=== PATIENT | female | born 1950 | race Caucasian/White ===

== ENCOUNTER → 2017-01-04 | Outpatient (CLI) | payer BC ==
[~2017-01-04] MED LIST: ACYC1CAP8 PO; BACL10TA PO; BUPR-79 PO; EZET10TA38 PO; FLUO20CA34 PO; GABA-113 PO; OXYC-57 PO; TRAM-10 PO; ZOLP10TA PO
[2017-01-04 10:52] LABS: BLOOD UREA NITROGEN 20 mg/dl (7-18); BUN/CREATININE RATIO 22.4 (10-20); CREATININE 0.91 mg/dl (0.60-1.20)
== END | disposition home or self-care (01) ==
LOC: C.LAB1850 09:28
PROVIDERS: ATTEND Internal Medicine
DX: M85.80 Other specified disorders of bone density and structure, unspecified site (principal)

== ENCOUNTER → 2017-01-04 | Outpatient (CLI) | payer BC | END | disposition home or self-care (01) | LOC: C.RDSM 10:24 | PROVIDERS: ATTEND Physical Medicine & Rehabilitation Sports Medicine | DX: M54.2 Cervicalgia (principal) ==

== ENCOUNTER → 2017-03-01 | Outpatient (CLI) | payer BC ==
[~2017-03-01] MED LIST changes: +ACYC-57 PO; -ACYC1CAP8 PO; +PROP1TAB53
--- NOTE | 2017-03-01 11:08 | DIAGNOSTIC IMAGING REPORT ---
CERVICAL SPINE MRI HISTORY: Breast cancer. Left shoulder pain. CERVICALGIA TECHNIQUE: Multiplanar multisequence MRI of the cervical spine was performed without the use of contrast. COMPARISON STUDY: Cervical spine MRI 12/22/2015. FINDINGS: Mild reversal of the normal lordotic curvature. Alignment is intact. Prevertebral soft tissues and the C1-C2 interval are maintained. The visualized posterior fossa is unremarkable. The cervical spinal cord is normal in course, caliber, and signal intensity. There is diffuse disc desiccation and mild diffuse disc space narrowing throughout the cervical spine. This is similar to the prior study. C2-C3: No significant central canal or neural foraminal narrowing. C3-C4: Small broad-based posterior disc bulge without significant central canal or right-sided neural foraminal narrowing. There is mild left-sided neural foraminal narrowing, unchanged. C4-C5: Small broad-based posterior disc bulge without significant central canal or right-sided neural foraminal narrowing. There is also a 4 mm left paracentral/foraminal disc protrusion which compresses the exiting left nerve root at this level and results in severe left-sided neural foraminal narrowing. C5-C6: Broad-based posterior disc bulge resulting in partial effacement of the anterior thecal sac without cord deformity. No significant right-sided neural foraminal narrowing. There is also left uncovertebral hypertrophy with the disc bulge resulting in severe left-sided neural foraminal narrowing. This remains unchanged C6-C7: Broad-based posterior disc bulge without significant central canal or right-sided neural foraminal narrowing. There is mild left-sided neural foraminal narrowing. This remains unchanged. There is a stable 8 mm lateral meningocele adjacent to the right C6-C7 neural foramen. This is considered to be a normal variant C7-T1: No significant central canal or right-sided neural foraminal narrowing. Mild left-sided neural foraminal narrowing due to the uncovertebral hypertrophy. IMPRESSION: 1. Overall, similar appearance to the 2016 examination. 2. No acute fractures. 3. Mild reversal of the normal lordotic curvature. 4. Multilevel degenerative changes as described above. This is most pronounced at the C4-C5 level which demonstrates a broad-based posterior disc bulge and a 4 mm left paracentral/foraminal disc protrusion. This compresses the exiting left nerve root at this level. Electronically signed by: Jet Escobedo M.D. 03/01/2017 11:06 AM Dictated Date/Time: 03/01/2017 10:49 AM
== END | disposition home or self-care (01) ==
LOC: C.MRI 09:47
PROVIDERS: ATTEND Physician Assistant
DX: M54.2 Cervicalgia (principal); M79.2 Neuralgia and neuritis, unspecified

== ENCOUNTER → 2017-07-21 | Outpatient (CLI) | payer OTHER, BC ==
[~2017-07-21] MED LIST changes: -ACYC-57 PO; +ACYC1CAP8 PO; -OXYC-57 PO; -PROP1TAB53
[2017-07-21 13:13] LABS: ALT/SGPT 45 U/L (12-78); BLOOD UREA NITROGEN 27 mg/dl (7-18); CALCIUM 8.9 mg/dl (8.5-10.1); CARBON DIOXIDE 25 mmol/L (21-32); CHLORIDE 105 mmol/L (98-107); CREATININE 0.99 mg/dl (0.60-1.20); GLUCOSE 75 mg/dl (70-99); POTASSIUM 4.2 mmol/L (3.5-5.1); SODIUM 139 mmol/L (136-145)
[2017-07-21 13:16] LABS: ALB/GLOB RATIO 1.2 (0.9-2); ALKALINE PHOSPHATASE 58 U/L (45-117); AST/SGOT 42 U/L (15-37); CHOLESTEROL 239 mg/dl (0-200); CHOLESTEROL/HDL RATIO 2.4; HDL CHOLESTEROL 99 mg/dl; LDL CHOLESTEROL CALCULATED 123 mg/dl; TRIGLYCERIDES 83 mg/dl (0-150); VERY LOW DENSITY LIPOPROT CALC 17 mg/dl
== END | disposition home or self-care (01) ==
LOC: C.LAB1850 11:00
PROVIDERS: ATTEND Internal Medicine
DX: E78.5 Hyperlipidemia, unspecified (principal); E55.9 Vitamin D deficiency, unspecified

== ENCOUNTER → 2017-10-25 | Outpatient (CLI) | payer OTHER, BC ==
[~2017-10-25] MED LIST changes: +ACYC-57 PO; -ACYC1CAP8 PO; -GABA-113 PO; +PROP1TAB53
== END | disposition home or self-care (01) ==
LOC: C.LAB 12:08
PROVIDERS: ATTEND Internal Medicine Endocrinology, Diabetes & Metabolism
DX: Z85.3 Personal history of malignant neoplasm of breast (principal)

== ENCOUNTER → 2018-02-21 | Outpatient (CLI) | payer OTHER, BC | END | disposition home or self-care (01) | LOC: C.LAB 16:34 | PROVIDERS: ATTEND Internal Medicine | DX: E78.5 Hyperlipidemia, unspecified (principal); E55.9 Vitamin D deficiency, unspecified ==

== ENCOUNTER → 2018-05-17 | Outpatient (CLI) | payer OTHER, BC ==
--- NOTE | 2018-05-17 12:25 | DIAGNOSTIC IMAGING REPORT ---
(CHEST) THORAX WITHOUT CT DOSE: 185.88 mGycm HISTORY: Lung nodules J18.9 TECHNIQUE: Multiaxial CT images of the chest were performed without contrast. A dose lowering technique was utilized adhering to the principles of ALARA. COMPARISON: 04/20/2018 FINDINGS: Considerable improvement in aeration of both hemithoraces. The interstitial as well as atelectatic changes the prior study are diminished. Fibrotic changes over the pulmonary apices also are improved. Granulomatous changes and fibrotic scarring of the left and to lesser extent right pulmonary apex appears stable. Scattered parenchymal nodules which have been described previously are nonprogressive. Baseline emphysematous change persists. IMPRESSION: 1. Improved exam. 2. Interstitial changes throughout both hemithoraces as well as a chronic apical fibrocalcific changes appear moderately improved 3. Residual asymmetric and fibrotic changes over the left and to a lesser extent right pulmonary apex with scattered nodularity considered unchanged. The above report was generated using voice recognition software. It may contain grammatical, syntax or spelling errors. Electronically signed by: Oneil Navarro M.D. 05/17/2018 12:24 PM Dictated Date/Time: 05/17/2018 12:17 PM
== END | disposition home or self-care (01) ==
LOC: C.CTS 11:47
PROVIDERS: ATTEND Physician Assistant
DX: J18.9 Pneumonia, unspecified organism (principal)

== ENCOUNTER 2023-06-08 17:19 | Inpatient (IN) ==
--- NOTE | 2023-06-08 17:31 | ED Triage Note ---
Date of Service June 08, 2023 History of Present Illness This patient was briefly evaluated while in triage. An abbreviated physical exam was performed. This patient is a 72-year-old Female who presents to the ED for evaluation of abnormal results. Referred by doctor for abnormal test results. Elevated LFT, WBC elevation, cologuard positive. Feeling unwell, fatigue, right low back shingles per patient. Acyclovir last night and today. Hx spine fx 1 year ago. Since then decline. Physical Exam GENERAL: 72 year old female. In no acute distress. SKIN: No lesions or rashes. HEART: Regular rate and rhythm. LUNGS: Clear to auscultation. ABDOMEN: Bowel sounds normoactive. No guarding or rigidity. No tenderness of palpation. NEURO: Alert and oriented. No deficits. MUSCULOSKELETAL: No deformities to inspection of the extremities. PSYCH: Patient is pleasant and answers all questions appropriately. Initial orders for labs and / or imaging were placed and patient was placed in the waiting area until a bed is available. Please see further documentation for the full ED course.
[2023-06-08 18:16] LABS: Basophils # (auto) 0.06 K/uL (0.00-0.20); Basophils % (auto) 0.4 %; Eosinophils # (auto) 0.54 K/uL (0.00-0.50); Hematocrit (blood only) 36.2 % (37.0-47.0); Hemoglobin 11.5 g/dl (12.0-16.0); Immature Granulocytes # (auto) 0.07 K/uL (0.01-0.20); Immature Granulocytes % (auto) 0.5 %; Lymphocytes # (auto) 1.42 K/uL (1.20-3.40); Lymphocytes % (auto) 10.6 %; Mean Corpuscular Hemoglobin 25.7 pg (25.0-34.0); Mean Corpuscular Hgb Conc 31.8 g/dL (32.0-36.0); Mean Platelet Volume 10.4 fL (9.4-12.4); Monocytes # (auto) 0.81 K/uL (0.11-0.59); Neutrophils # (auto) 10.55 K/uL (1.40-6.50); Neutrophils % (auto) 78.5 %; Platelet Count 298 K/uL (130-400); RDW Coefficient of Variation 13.8 % (11.5-14.5); RDW Standard Deviation 40.2 fL (36.4-46.3); Red Blood Count 4.47 M/uL (4.20-5.40); White Blood Count 13.45 K/ul (4.8-10.8)
[2023-06-08 18:49] LABS: Albumin Globulin Ratio 1.2 (0.9-2); Albumin Level 3.8 gm/dl (3.4-5.0); BUN Creatinine Ratio 24.3 (10-20); Bilirubin,Total 0.5 mg/dl (0.2-1.0); Creatinine Clr Calc Pharmacy 48.9 ml/min; Est GFR (African American) 101.7 ml/min; Est GFR (Non-African American) 87.8 ml/min; Globulin 3.1 gm/dl (2.5-4.0); Magnesium 1.8 mg/dl (1.7-2.4); Potassium 4.1 mmol/L (3.5-5.1); Total Protein 6.9 gm/dl (6.0-8.3)
[2023-06-08 18:56] LABS: Partial Thromboplastin Ratio 0.9; Partial Thromboplastin Time 26.7 Seconds (21.0-31.0)
[2023-06-08 18:58] LABS: C Reactive Protein 3.65 mg/dl (0-0.5)
[2023-06-08] MEDS ORDERED: SODIUM CHLORIDE 0.9% 1,000 ML IV ONE (19:01)
--- NOTE | 2023-06-08 19:13 | Emergency Department Note ---
Impression & Plan Abnormal LFTs, Biliary tract obstruction, Pneumonia ED Provider Note NAME: MULU MARTINEZ AGE: 72 SEX: F : 1950 ARRIVES VIA: Walk-In INFORMANT: Patient, ED PROVIDER(S): Pietro Strickland DO CHIEF COMPLAINT: Abnormal liver function studies HPI: The patient is a 72-year-old female who presented to the emergency department for an evaluation of abnormal liver function studies. The patient has been following with her primary care physician for multiple complaints over the course the last month. She has been having back pain but this is chronic for her. She denies having any fever but has noticed chills. She denies dysuria or frequency. She denies chest pain or abdominal pain. The patient was found to have an elevation in her white blood cell count as well as abnormal liver function studies. She had an ultrasound of the right upper quadrant which showed no acute disease. She has a history of breast cancer. She states that she has had weight loss over the last year. She also notices that she had an outbreak of a rash on her buttocks which is similar to episodes she has had in the past of herpes. She went to see her family doctor today and was referred to the emergency department. She does have heme positive stool. She was referred for Cologuard and then colonoscopy. She states that she was sent to the emerge ncy department for CT of the chest abdomen pelvis. ROS: See above HPI for pertinent positives & negatives. A total of 10 systems reviewed and were otherwise negative. PAST MEDICAL HISTORY: See Below PAST SURGICAL HISTORY: See Below FAMILY HISTORY: See Below SOCIAL HISTORY: See Below HOME MEDICATIONS: See Below ALLERGIES: See Below VITALS: See Below PHYSICAL EXAMINATION: GENERAL: Patient is awake alert in no acute distress patient is resting comfortably and showing no signs of anxiety EYES: The conjunctivae are clear. The pupils are round and reactive. EARS, NOSE, MOUTH AND THROAT: The nose is without any evidence of any deformity. NECK: The neck is nontender and supple. RESPIRATORY: Normal respiratory effort is noted there is no evidence of wheezing rhonchi or rales CARDIOVASCULAR: Regular rate and rhythm noted there no murmurs rubs or gallops normal S1 normal S2. GASTROINTESTINAL: The abdomen is soft. Abdomen is nontender. MUSCULOSKELETAL/EXTREMITIES: There is no evidence of gross deformity full range of motion is noted in the hips and shoulders. SKIN: Skin was warm and dry. There is no significant pedal edema. NEUROLOGIC: Patient is awake alert and oriented x3 strength is symmetric patellar reflexes are 2+ bilaterally MEDICAL DECISION MAKING: The patient is a 72-year-old female who presented to the emergency department at the request of her primary care physician. The patient's been having fatigue and fever over the course the last month. She had outpatient labs recently that showed an elevation in her LFTs as well as an elevation in her white blood cell count. She had other outpatient studies including hepatitis panel as well as tickborne illness but this did not show any cause for the patient's symptoms. She also had an ultrasound which did not explain the patient's findings. Ult imately she did have repeat labs and her white blood cell count is improving. LFTs showed no elevation in her bilirubin but she was sent to the emergency department for further work-up including CAT scan. I discussed the patient's laboratory and radiographic studies with her. She was found to have a possible mass in her biliary ductal system. They recommended further work-up. This still could represent a cholangitis given the patient's elevated white blood cell count. She was treated with IV fluids and IV antibiotics. I discussed her condition with the on-call manager [employer] as well as the on-call [facility] hospitalist. They have agreed to evaluate the patient in the emergency department for further management and disposition. Triage Nursing notes reviewed. Prior medical records reviewed Vital Signs: reviewed and remarkable for elevated blood pressure. Differential diagnosis: Infection, dehydration, metabolic abnormality, hypo/hyperglycemia, electrolyte disturbance, anemia, hypoxia, cardiac sources, intracerebral event, toxicologic, neurologic, as well as other pathologies. ER treatment provided: See below Diagnostics interpreted by me: ECG: EKG was obtained in the emergency department. My interpretation is normal sinus rhythm at 72 bpm. LVH was noted by voltage criteria. Nonspecific ST segment abnormalities were also noted. This was compared to a tracing from August 20, 2022. No changes were noted. Cardiac Monitoring: An order was placed for continuous cardiac monitoring. The monitor shows a rate of 73 bpm with sinus rhythm Laboratory studies: As stated above and show below. Imaging studies: See below. Radiographic imaging was reviewed by myself Consultation(s): I discussed this case with Dr. Mcrcary who is on for GI. I discussed this case with Dr. Marcelo who is on-call for the [facility] hospitalist group. Past Med/Surg History Medical History Anemia APC (atrial premature contractions) Body aches Breast cancer 1991 Cardiac murmur NO ISSUES Chills Community acquired pneumonia Congestion of nasal sinus COVID Depression Dermatitis Elevated brain natriuretic peptide (BNP) level Fatigue Heartburn History of anesthesia reaction GETS BAD ANXIETY WITH TWILIGHT SEDATION History of antineoplastic chemotherapy History of malignant neoplasm of breast History of osteoporosis Hyperlipidemia Interstitial lung disease DOENST FOLLOW LUNG DOCTOR > DOESNT HAVE ISSUES WITH Mass of arm Pneumonia due to COVID-19 virus Prediabetes PVC (premature ventricular contraction) Stroke 20 YRS AGO > WORKUP SINCE HAS BEEN FINE > NUMBNESS RIGHT HAND > NO MORE FOLLOW UP Syncope and collapse Surgical History Closed fracture of clavicle (11/23/14) RIGHT, ORIF [place] H/O tubal ligation History of colonoscopy History of lung biopsy History of removal of ovarian cyst Hx of bilateral mastectomy WITH RECONSTRUCTION Hx of hand surgery (03/19/16) LEFT index finger revision amp with Volar VY advancement flap-[place] Hx of left cataract extraction Hx of surgical procedure CAROTID BYPASS > 20 YRS AGO Hx of surgical procedure COLLAR BONE BROKEN BOTH SIDES > PLATES TO BOTH SIDES S/P craniotomy 27 YRS AGO > [facility] S/P excision of lipoma FINAL DIAGNOSIS Soft tissue, left forearm, "mass" (excision): In office procedure Chambers 02/04/2022 - Lipoma. Family History Father Colorectal cancer Brother Esophageal cancer Mother Lung cancer Denies family history of Ovarian cancer Prostate cancer Myocardial infarction Breast cancer Social History Smoking Status: Current every day smoker Tobacco Type: Cigarettes packs per day: 1; Second Hand Exposure: Yes; Do You Dip or Chew Tobacco: No; Hx Alcohol Use: No (h/o substance abuse in family therefore avoids) Hx Substance Use: No Preferred Language: Urdu Communication Ability: Effective Visual Impairment: No Limitations Hearing Ability: Normal Protective Signal Repairer Helper Required: No Beliefs That Will Affect Care: None marital status: Current Living Situation: Spouse Current Living Situation Comment: [place] current occupational status: retired 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 [place] Feels Safe at Home: Yes Childhood Exposure to Second-Hand Smoke: Yes Diet: regular during the past year weight has: remained stable Dental Care, Regularly: Yes Physical Activity Frequency: Daily Seatbelt Use: always Sunscreen Use: Yes Assistive Devices: Contacts Allergies Allergies Allergy/AdvReac Type Severity Reaction Status Date / Time tramadol AdvReac Severe Seizure Verified 06/08/23 13:09 Home Meds Home Medications Medication Instructions Recorded Confirmed ascorbic acid 1,000 1 ea PO DAILY 08/20/20 06/08/23 fw-ysovvumnurxr-bciliepd powder effervescent pack (Emergen-C) Previous Rx's Medication Instructions Recorded blood sugar diagnostic (OneTouch #100 ea 07/24/21 Ultra Test strips) blood sugar diagnostic (Reveal #100 ea 07/28/21 Test Strip) ezetimibe 10 mg tablet 10 mg PO DAILY #90 tabs 11/15/22 fluoxetine 40 mg capsule 80 mg PO PM depression #180 caps 11/15/22 levetiracetam 500 mg tablet 500 mg PO BID 90 days #180 tabs 11/15/22 (Keppra) rosuvastatin 5 mg tablet 5 mg PO DAILY #90 tabs 11/15/22 ibandronate 150 mg tablet (Boniva) 150 mg PO Q4WK #12 tabs 11/24/22 ondansetron HCl 4 mg tablet 4 mg PO Q8H PRN nausea and 12/20/22 vomiting #30 tabs albuterol sulfate 90 mcg/actuation 1 - 2 puff inhalation Q4H PRN 02/21/23 aerosol inhaler interstitial lung disease #18 grams zolpidem 10 mg tablet 10 mg PO HS PRN insomnia 30 days 02/22/23 #30 tabs celecoxib 100 mg capsule (Celebrex) 100 mg PO BID #60 caps 03/09/23 duloxetine 20 mg capsule,delayed 20 mg PO BID #60 caps 05/11/23 release (Cymbalta) amiodarone 100 mg tablet 100 mg PO BID #18 tabs 05/23/23 oxycodone 5 mg tablet 5 mg PO BID PRN pain 7 days #14 06/02/23 tabs Results & Data (ED) Vital Signs Vital Signs - 24 hr 06/08/23 17:29 06/08/23 18:38 06/08/23 22:57 Temperature 36.9 C Temperature Source Temporal Artery Scan Pulse Rate 82 76 Pulse Rate [Right Finger] 75 Pulse Rate from SpO2 Sensor Pulse Rhythm [Right Finger] Respiratory Rate 18 19 20 Respiratory Effort / Characteristics Non-Labored Respiratory Depth Normal Blood Pressure 122/72 Blood Pressure [Right Arm] 151/79 H Blood Pressure Mean 88 Blood Pressure Mean [Right Arm] 103 Pulse Oximetry 92 97 93 Oxygen Delivery Method Room Air Room Air Sepsis Recent Fever Within 48 Hours No Sepsis New/Unexplained Change in Mental Status No Sepsis Action Taken by Nursing No Action Required 06/08/23 20:00 06/08/23 22:00 06/08/23 23:00 Temperature Temperature Source Pulse Rate 73 Pulse Rate [Right Finger] Pulse Rate from SpO2 Sensor 67 Pulse Rhythm [Right Finger] Regular Regular Respiratory Rate 23 Respiratory Effort / Characteristics Respiratory Depth Blood Pressure 161/92 H Blood Pressure [Right Arm] Blood Pressure Mean 115 Blood Pressure Mean [Right Arm] Pulse Oximetry 94 Oxygen Delivery Method Sepsis Recent Fever Within 48 Hours Sepsis New/Unexplained Change in Mental Status Sepsis Action Taken by Nursing 06/08/23 22:56 Temperature Temperature Source Pulse Rate 74 Pulse Rate [Right Finger] Pulse Rate from SpO2 Sensor Pulse Rhythm [Right Finger] Respiratory Rate Respiratory Effort / Characteristics Respiratory Depth Blood Pressure Blood Pressure [Right Arm] Blood Pressure Mean Blood Pressure Mean [Right Arm] Pulse Oximetry Oxygen Delivery Method Sepsis Recent Fever Within 48 Hours Sepsis New/Unexplained Change in Mental Status Sepsis Action Taken by [facility]pc Medications Current Medication List: was personally reviewed by me Laboratory Data Attestation: I reviewed the patient's lab results. 06/08/23 17:40 06/08/23 17:40 Lab Results 06/08/23 06/08/23 06/08/23 Range/Units 17:40 17:40 17:40 WBC 13.45 H (4.8-10.8) K/ul RBC 4.47 (4.20-5.40) M/uL Hgb 11.5 L (12.0-16.0) g/dl Hct 36.2 L (37.0-47.0) % MCV 81.0 (80.0-100.0) fL MCH 25.7 (25.0-34.0) pg MCHC 31.8 L (32.0-36.0) g/dL RDW Std Deviation 40.2 (36.4-46.3) fL RDW Coeff of Marcio 13.8 (11.5-14.5) % Plt Count 298 (130-400) K/uL MPV 10.4 (9.4-12.4) fL Immature Gran % (Auto) 0.5 % Neut % (Auto) 78.5 % Lymph % (Auto) 10.6 % [place] % (Auto) 6.0 % Eos % (Auto) 4.0 % Baso % (Auto) 0.4 % Neut # (Auto) 10.55 H (1.40-6.50) K/uL Lymph # (Auto) 1.42 (1.20-3.40) K/uL [place] # (Auto) 0.81 H (0.11-0.59) K/uL Eos # (Auto) 0.54 H (0.00-0.50) K/uL Baso # (Auto) 0.06 (0.00-0.20) K/uL Immature Gran # (Auto) 0.07 (0.01-0.20) K/uL ESR (0-30) mm/hr PT 11.0 (9.0-12.0) Seconds INR 1.0 (0.9-1.1) APTT 26.7 (21.0-31.0) Seconds PTT Ratio 0.9 Sodium 138 (136-145) mmol/L Potassium 4.1 (3.5-5.1) mmol/L Chloride 104 (98-107) mmol/L Carbon Dioxide 27 (21-32) mmol/L Anion Gap 7 (3-11) BUN 17 (6-23) mg/dl Creatinine 0.70 (0.6-1.2) mg/dl Est Cr Clr Drug Dosing 48.9 ml/min Est GFR ( Amer) 101.7 ml/min Est GFR (Non-Af Amer) 87.8 ml/min BUN/Creatinine Ratio 24.3 H (10-20) Glucose 95 (70-99(Fasting)) mg/dl Lactate (0.4-2.0) mmol/L Calcium 9.0 (8.6-10.3) mg/dl Magnesium 1.8 (1.7-2.4) mg/dl Total Bilirubin 0.5 (0.2-1.0) mg/dl AST 77 H (13-39) U/L ALT 142 H (7-52) U/L Alkaline Phosphatase 112 H (34-104) U/L Troponin I High Sens 12.5 (0-14) pg/ml C-Reactive Protein 3.65 H (0-0.5) mg/dl Total Protein 6.9 (6.0-8.3) gm/dl Albumin 3.8 (3.4-5.0) gm/dl Globulin 3.1 (2.5-4.0) gm/dl Albumin/Globulin Ratio 1.2 (0.9-2) Lipase 25 (11-82) U/L Procalcitonin (0-0.5) ng/ml Urine Color Urine Appearance (Clear) Urine pH (4.5-7.5) Ur Specific [place] (1.000-1.030) Urine Protein (Negative) Urine Glucose (UA) (Negative) Urine Ketones (Negative) Urine Blood (Negative) Urine Nitrite (Negative) Urine Bilirubin (Negative) Urine Urobilinogen (Negative) Ur Leukocyte Esterase (Negative) 06/08/23 06/08/23 06/08/23 Range/Units 17:40 17:40 17:40 WBC (4.8-10.8) K/ul RBC (4.20-5.40) M/uL Hgb (12.0-16.0) g/dl Hct (37.0-47.0) % MCV (80.0-100.0) fL MCH (25.0-34.0) pg MCHC (32.0-36.0) g/dL RDW Std Deviation (36.4-46.3) fL RDW Coeff of Marcio (11.5-14.5) % Plt Count (130-400) K/uL MPV (9.4-12.4) fL Immature Gran % (Auto) % Neut % (Auto) % Lymph % (Auto) % [place] % (Auto) % Eos % (Auto) % Baso % (Auto) % Neut # (Auto) (1.40-6.50) K/uL Lymph # (Auto) (1.20-3.40) K/uL [place] # (Auto) (0.11-0.59) K/uL Eos # (Auto) (0.00-0.50) K/uL Baso # (Auto) (0.00-0.20) K/uL Immature Gran # (Auto) (0.01-0.20) K/uL ESR 55 H (0-30) mm/hr PT (9.0-12.0) Seconds INR (0.9-1.1) APTT (21.0-31.0) Seconds PTT Ratio Sodium (136-145) mmol/L Potassium (3.5-5.1) mmol/L Chloride (98-107) mmol/L Carbon Dioxide (21-32) mmol/L Anion Gap (3-11) BUN (6-23) mg/dl Creatinine (0.6-1.2) mg/dl Est Cr Clr Drug Dosing ml/min Est GFR ( Amer) ml/min Est GFR (Non-Af Amer) ml/min BUN/Creatinine Ratio (10-20) Glucose (70-99(Fasting)) mg/dl Lactate 1.3 (0.4-2.0) mmol/L Calcium (8.6-10.3) mg/dl Magnesium (1.7-2.4) mg/dl Total Bilirubin (0.2-1.0) mg/dl AST (13-39) U/L ALT (7-52) U/L Alkaline Phosphatase (34-104) U/L Troponin I High Sens (0-14) pg/ml C-Reactive Protein (0-0.5) mg/dl Total Protein (6.0-8.3) gm/dl Albumin (3.4-5.0) gm/dl Globulin (2.5-4.0) gm/dl Albumin/Globulin Ratio (0.9-2) Lipase (11-82) U/L Procalcitonin 0.11 (0-0.5) ng/ml Urine Color Urine Appearance (Clear) Urine pH (4.5-7.5) Ur Specific [place] (1.000-1.030) Urine Protein (Negative) Urine Glucose (UA) (Negative) Urine Ketones (Negative) Urine Blood (Negative) Urine Nitrite (Negative) Urine Bilirubin (Negative) Urine Urobilinogen (Negative) Ur Leukocyte Esterase (Negative) 06/08/23 Range/Units 22:55 WBC (4.8-10.8) K/ul RBC (4.20-5.40) M/uL Hgb (12.0-16.0) g/dl Hct (37.0-47.0) % MCV (80.0-100.0) fL MCH (25.0-34.0) pg MCHC (32.0-36.0) g/dL RDW Std Deviation (36.4-46.3) fL RDW Coeff of Marcio (11.5-14.5) % Plt Count (130-400) K/uL MPV (9.4-12.4) fL Immature Gran % (Auto) % Neut % (Auto) % Lymph % (Auto) % [place] % (Auto) % Eos % (Auto) % Baso % (Auto) % Neut # (Auto) (1.40-6.50) K/uL Lymph # (Auto) (1.20-3.40) K/uL [place] # (Auto) (0.11-0.59) K/uL Eos # (Auto) (0.00-0.50) K/uL Baso # (Auto) (0.00-0.20) K/uL Immature Gran # (Auto) (0.01-0.20) K/uL ESR (0-30) mm/hr PT (9.0-12.0) Seconds INR (0.9-1.1) APTT (21.0-31.0) Seconds PTT Ratio Sodium (136-145) mmol/L Potassium (3.5-5.1) mmol/L Chloride (98-107) mmol/L Carbon Dioxide (21-32) mmol/L Anion Gap (3-11) BUN (6-23) mg/dl Creatinine (0.6-1.2) mg/dl Est Cr Clr Drug Dosing ml/min Est GFR ( Amer) ml/min Est GFR (Non-Af Amer) ml/min BUN/Creatinine Ratio (10-20) Glucose (70-99(Fasting)) mg/dl Lactate (0.4-2.0) mmol/L Calcium (8.6-10.3) mg/dl Magnesium (1.7-2.4) mg/dl Total Bilirubin (0.2-1.0) mg/dl AST (13-39) U/L ALT (7-52) U/L Alkaline Phosphatase (34-104) U/L Troponin I High Sens (0-14) pg/ml C-Reactive Protein (0-0.5) mg/dl Total Protein (6.0-8.3) gm/dl Albumin (3.4-5.0) gm/dl Globulin (2.5-4.0) gm/dl Albumin/Globulin Ratio (0.9-2) Lipase (11-82) U/L Procalcitonin (0-0.5) ng/ml Urine Color Yellow Urine Appearance Clear (Clear) Urine pH 7.5 (4.5-7.5) Ur Specific [place] 1.042 H (1.000-1.030) Urine Protein Negative (Negative) Urine Glucose (UA) Negative (Negative) Urine Ketones Negative (Negative) Urine Blood Negative (Negative) Urine Nitrite Negative (Negative) Urine Bilirubin Negative (Negative) Urine Urobilinogen Negative (Negative) Ur Leukocyte Esterase Negative (Negative) Administered Medications Discontinued Medications Sodium Chloride (Nss 1000ml) 1,000 mls @ 999 mls/hr IV .Q1H1M ONE Stop: 06/08/23 20:01 Last Infusion: 06/08/23 23:13 Dose: 0 mls/hr Documented By: Admin: 06/08/23 19:46 Dose: 999 mls/hr Documented By: LUIS Piperacillin Sod/Tazobactam Sod (Zosyn) 4.5 gm in 120 mls @ 240 mls/hr IV NOW ONE Stop: 06/08/23 20:55 Last Infusion: 06/08/23 23:12 Dose: 0 mls/hr Documented By: Admin: 06/08/23 20:53 Dose: 240 mls/hr Documented By: LUIS Ioversol (Ioversol 350 Mg 125ml Prefilled Syringe) 118 ml IV ONCE ONE Stop: 06/08/23 19:34 Last Admin: 06/08/23 19:33 Dose: 118 ml Documented By: CHARISSA Levetiracetam (Levetiracetam 500 Mg Tab) 500 mg PO NOW STA Stop: 06/08/23 21:53 Last Admin: 06/08/23 22:02 Dose: 500 mg Documented By: RICHARD Oxycodone HCl (Oxycodone Hcl Ir 5 Mg Tab (Immediate Release)) 5 mg PO NOW STA Stop: 06/08/23 21:53 Last Admin: 06/08/23 22:02 Dose: 5 mg Documented By: S Imaging Data Attestation: I personally reviewed and interpreted this imaging study as follows: My Impression: CT of the abdomen and pelvis was obtained in the emergency department. My interpretation is no free air or signs of bowel obstruction, final report below. CT of the chest was obtained in the emergency department. My interpretation is no free air. There was signs of infiltrate, final report below. Radiologist's Impression: Abdomen/Pelvis CT 06/08/23 18:56 Exam(s): CT ABDOMEN + PELVIS With Contrast IV Amt: 118ml EXAM: CT Abdomen and Pelvis With Intravenous Contrast CLINICAL HISTORY: Reason for exam: sent by PCP for CTs. TECHNIQUE: Axial computed tomography images of the abdomen and pelvis with intravenous contrast. CTDI is 29.68 mGy and DLP is 585.31 mGy-cm. Automated exposure control was utilized for the study. A dose lowering technique was utilized adhering to the principles of ALARA. CONTRAST: Patient received 118ml of IV contrast COMPARISON: 07/07/2022 FINDINGS: Lung bases: Extensive changes COPD and fibrosis at the lung bases. ABDOMEN: Liver: Unremarkable. No mass. Gallbladder and bile ducts: . Mild intrahepatic biliary ductal dilatation also noted. The pancreatic duct is also dilated measuring 0.5 cm in the pancreatic head. There is a suggestion of a 0.4 x 0.6 cm filling defect within the distal common bile duct near the ampulla. No calcified stones. Pancreas: See above. Spleen: Unremarkable. No splenomegaly. Adrenals: Unremarkable. No mass. Kidneys and ureters: Bilateral renal hypodensities measuring up to 1.1 cm on the right and 0.3 cm on the left. No hydronephrosis. Stomach and bowel: Large amount of stool within the colon. Wall thickening of the sigmoid colon. This is likely secondary to underdistention. PELVIS: Appendix: No findings to suggest acute appendicitis. Bladder: Unremarkable. No mass. Reproductive: Unremarkable as visualized. ABDOMEN and PELVIS: Intraperitoneal space: Unremarkable. No free air. No significant fluid collection. Bones/joints: No acute fracture. No dislocation. Soft tissues: Unremarkable. Vasculature: Unremarkable. No abdominal aortic aneurysm. Lymph nodes: Unremarkable. No enlarged lymph nodes. IMPRESSION: Common and pancreatic ductal dilatation secondary to a 0.5 cm mass within the distal common bile duct/ampulla. MRCP recommended for further evaluation. Electronically signed by: Janak Hudson MD 06/08/23 20:15 PM Chest CTA 06/08/23 18:56 Exam(s): CTA CHEST IV Amt: 118ml EXAM: CT Angiography Chest With Intravenous Contrast CLINICAL HISTORY: Reason for exam: PE. TECHNIQUE: Axial computed tomographic angiography images of the chest with intravenous contrast. CTDI is 29.68 mGy and DLP is 585.31 mGy-cm. Automated exposure control was utilized for the study. A dose lowering technique was utilized adhering to the principles of ALARA. 2D MIP reconstructed images were created and reviewed. COMPARISON: No relevant prior studies available. FINDINGS: Pulmonary arteries: Unremarkable. No pulmonary embolus. Aorta: No acute findings. No thoracic aortic aneurysm. Lungs: Unremarkable. No mass. No consolidation. Pleural space: Bilateral apical pleural thickening with diffuse emphysematous changes throughout the lungs. Patchy interstitial infiltrates are superimposed upon these fibrotic changes and are worsened when compared to prior exam. No significant effusion. No pneumothorax. Heart: Cardiomegaly. No significant pericardial effusion. No evidence of RV dysfunction. Mediastinum: Bilateral hilar lymphadenopathy is new when compared to prior exam. Bones/joints: Postoperative changes plate-screw fixation bilateral clavicular fractures. No dislocation. Soft tissues: Unremarkable. Lymph nodes: See above. IMPRESSION: 1. Extensive interstitial infiltrates throughout the lungs bilaterally which are worsened and new since prior exam and consistent with multifocal pneumonia 2. No pulmonary embolus 3. Other chronic findings as above Electronically signed by: Janak Hudson MD 06/08/23 20:20 PM Discharge Plan Visit Data Chief Complaint: Abnormal Labs/Diagnostic Testing Stated Complaint: REF BY , TOM RESULTS ED Provider: Pietro Strickland Discharge Problem: Abnormal LFTs, Biliary tract obstruction, Pneumonia Patient Disposition: Admitted As Inpatient Forms Stand Alone Forms: [facility] Prescriptions Prescriptions: No Action (DME) OneTouch Ultra Test Strip See Rx Instructions .Route Qty: 100 0RF Rx Instructions: As directed- 3x daily (DME) Reveal Test Strip Strip See Rx Instructions .Route Qty: 100 2RF Rx Instructions: testing 3 times daily ezetimibe 10 mg tablet 10 mg PO DAILY Qty: 90 3RF fluoxetine 40 mg capsule 80 mg PO PM Qty: 180 3RF rosuvastatin 5 mg tablet 5 mg PO DAILY Qty: 90 3RF Hold Instructions: Hold per Dr. Smith/elevated LFTs Rx Instructions: on hold levetiracetam [Keppra] 500 mg tablet 500 mg PO BID 90 Days Qty: 180 3RF ibandronate [Boniva] 150 mg tablet 150 mg PO Q4WK Qty: 12 1RF ondansetron HCl 4 mg tablet 4 mg PO Q8H PRN (Reason: nausea and vomiting) Qty: 30 0RF albuterol sulfate 90 mcg/actuation HFA aerosol inhaler 1 - 2 puff inhalation Q4H PRN (Reason: interstitial lung disease) Qty: 18 0RF Rx Instructions: RARE USE zolpidem 10 mg tablet 10 mg PO HS PRN (Reason: insomnia) 30 Days Qty: 30 5RF celecoxib [Celebrex] 100 mg capsule 100 mg PO BID Qty: 60 5RF amiodarone 100 mg tablet 100 mg PO BID Qty: 18 0RF Hold Instructions: Hold per Dr. Smith/elevated LFTs Rx Instructions: on hold oxycodone 5 mg tablet 5 mg PO BID PRN (Reason: pain) 7 Days Qty: 14 0RF Rx Instructions: Supervising physician Luis Antonio Kim [facility] [id number] [facility] [id number] duloxetine [Cymbalta] 20 mg capsule,delayed release(DR/EC) 20 mg PO BID Qty: 60 1RF Emergen-C 1,000 mg Powder Effervescent In Packet 1 ea PO DAILY Referrals Referrals: Luis Antonio Buck MD [Primary Care Provider] -
[2023-06-08 19:26] LABS: Troponin I High Sensitivity 12.5 pg/ml (0-14)
[2023-06-08] MEDS ORDERED: IOVERSOL 350 MG 125mL Prefilled Syringe IV ONE (19:33)
--- NOTE | 2023-06-08 20:16 | CT Scan Report ---
Exam(s): CT ABDOMEN + PELVIS With Contrast IV Amt: 118ml EXAM: CT Abdomen and Pelvis With Intravenous Contrast CLINICAL HISTORY: Reason for exam: sent by PCP for CTs. TECHNIQUE: Axial computed tomography images of the abdomen and pelvis with intravenous contrast. CTDI is 29.68 mGy and DLP is 585.31 mGy-cm. Automated exposure control was utilized for the study. A dose lowering technique was utilized adhering to the principles of ALARA. CONTRAST: Patient received 118ml of IV contrast COMPARISON: 07/07/2022 FINDINGS: Lung bases: Extensive changes COPD and fibrosis at the lung bases. ABDOMEN: Liver: Unremarkable. No mass. Gallbladder and bile ducts: . Mild intrahepatic biliary ductal dilatation also noted. The pancreatic duct is also dilated measuring 0.5 cm in the pancreatic head. There is a suggestion of a 0.4 x 0.6 cm filling defect within the distal common bile duct near the ampulla. No calcified stones. Pancreas: See above. Spleen: Unremarkable. No splenomegaly. Adrenals: Unremarkable. No mass. Kidneys and ureters: Bilateral renal hypodensities measuring up to 1.1 cm on the right and 0.3 cm on the left. No hydronephrosis. Stomach and bowel: Large amount of stool within the colon. Wall thickening of the sigmoid colon. This is likely secondary to underdistention. PELVIS: Appendix: No findings to suggest acute appendicitis. Bladder: Unremarkable. No mass. Reproductive: Unremarkable as visualized. ABDOMEN and PELVIS: Intraperitoneal space: Unremarkable. No free air. No significant fluid collection. Bones/joints: No acute fracture. No dislocation. Soft tissues: Unremarkable. Vasculature: Unremarkable. No abdominal aortic aneurysm. Lymph nodes: Unremarkable. No enlarged lymph nodes. IMPRESSION: Common and pancreatic ductal dilatation secondary to a 0.5 cm mass within the distal common bile duct/ampulla. MRCP recommended for further evaluation. Electronically signed by: Janak Hudson MD 06/08/23 20:15 PM
--- NOTE | 2023-06-08 20:21 | CT Scan Report ---
Exam(s): CTA CHEST IV Amt: 118ml EXAM: CT Angiography Chest With Intravenous Contrast CLINICAL HISTORY: Reason for exam: PE. TECHNIQUE: Axial computed tomographic angiography images of the chest with intravenous contrast. CTDI is 29.68 mGy and DLP is 585.31 mGy-cm. Automated exposure control was utilized for the study. A dose lowering technique was utilized adhering to the principles of ALARA. 2D MIP reconstructed images were created and reviewed. COMPARISON: No relevant prior studies available. FINDINGS: Pulmonary arteries: Unremarkable. No pulmonary embolus. Aorta: No acute findings. No thoracic aortic aneurysm. Lungs: Unremarkable. No mass. No consolidation. Pleural space: Bilateral apical pleural thickening with diffuse emphysematous changes throughout the lungs. Patchy interstitial infiltrates are superimposed upon these fibrotic changes and are worsened when compared to prior exam. No significant effusion. No pneumothorax. Heart: Cardiomegaly. No significant pericardial effusion. No evidence of RV dysfunction. Mediastinum: Bilateral hilar lymphadenopathy is new when compared to prior exam. Bones/joints: Postoperative changes plate-screw fixation bilateral clavicular fractures. No dislocation. Soft tissues: Unremarkable. Lymph nodes: See above. IMPRESSION: 1. Extensive interstitial infiltrates throughout the lungs bilaterally which are worsened and new since prior exam and consistent with multifocal pneumonia 2. No pulmonary embolus 3. Other chronic findings as above Electronically signed by: Janak Hudson MD 06/08/23 20:20 PM
[2023-06-08] MEDS ORDERED: PIPERACILLIN/TAZOBACTAM 4.5 GM/120 ML BAG IV ONE (20:26)
[2023-06-08] MEDS ORDERED: oxyCODONE HCL IR 5 MG TAB (IMMEDIATE RELEASE) PO STA (21:52)
[2023-06-08] MEDS ORDERED: levETIRAcetam 500 MG TAB PO STA (21:52)
[2023-06-08] MEDS ORDERED: ZOLPIDEM TARTRATE 10 MG TAB PO STA (21:52)
--- NOTE | 2023-06-08 21:52 | History & Physical Report ---
Date of Service June 08, 2023 Assessment & Plan (1) Biliary tract obstruction: Plan: 72yo female presenting with one month of feeling unwell, intermittent fevers/fatigue/rigors as well as significant unintentional weight loss. Outpatient labs from 04/02/23 with elevated WBC count as well as abnormal liver studies - improved on today's results. Still with elevation of AP to 112, AST=77 and JCS=869. Bilirubin is normal and WBC count has improved to 13.45. Patient has elevation of inflammatory markers ESR=55 and CRP=3.65 CT results as above with common and pancreatic ductal dilatation secondary to a 0.5cm mass in the distal CBD/Ampulla. Concern for malignancy -Admit to medical -Follow cultures sent from ER -Repeat CBC, BMP and LFTs in AM -MRCP ordered - patient with loop recorder in place -GI consultation appreciated -Will keep patient NPO after midnight for possible ERCP -Zosyn -Zofran PRN -Oxycodone PRN- no complaint of abdominal pain at this time (2) Pneumonia: Plan: Extensive interstitial infiltrates noted throughout the lungs bilaterally which are worse than prior image. Findings consistent with multifocal PNA. Possible worsening of her ILD? Procalcitonin is within normal range. -Check sputum culture -Check JUAN CARLOS level -Zosyn (3) Seizure: Plan: Patient follows with Neurology. -Continue Keppra 500mg po BID (4) Atrial flutter: Plan: Patient reports that her Amiodarone is currently on hold. No anticoagulation Loop recorder in place (5) Positive colorectal cancer screening using Cologuard test: Plan: Noted in outpatient records -Screening colonoscopy to be arranged by PCP F/E/N - D5 1/2NSS at 80mL/hr x 1L, electrolytes WNL, NPO for now Ppx - SCDs for now Code - Full per discussion with patient Dispo - Admit to medical History of Present Illness Chief Complaint: weakness, fatigue Primary Care Provider: Luis Antonio Buck MD Sima Daniel is a 72yo female with remote history of breast CA s/p bilateral mastectomy and chemotherapy, interstitial lung disease, seizure disorder pre senting with complaint of intermittent fever/rigors and general feeling of unwellness. Patient reports that she has not been feeling well for the last month. She has been experiencing intermittent fever, rigors and back pain - has occurred 3x over the last month. She has had progressive fatigue, decreased exercise tolerance and generally feels poor. She additionally has had a 20# unintentional weight loss over the last 6 months. She reports a decent appetite and good po intake. She has had nausea as well as episodes of watery, non-bloody/non-mucoid diarrhea for which she has been taking Imodium. Also with shortness of breath mostly noted at night. She has been using her inhaler. She denies headache, visual changes, imbalance, chest pain, cough, abdominal pain, vomiting, constipation or urinary complaints. No rashes or joint pain. No sick contacts, recent travel, dietary changes, tick bites. She drinks bottled water at home. Patient was seen by her PCP with these complaints on 06/02/23. She had labs performed which showed elevated WBC count of 20.8, VHT=860, ZVT=694, NC=472. UA was normal. Acute hepatitis panel was NEGATIVE. ANIYA was NEGATIVE. She was seen by her PCP again on 06/08/23 - found to have a positive colorectal screening test on Coluard - she has been ordered a colonoscopy. She was referred to the ER for continued workup. IN the ER she is afebrile, HD stable, NAD ER Course: Zosyn 4.5m IV NSS x 1L Keppra 500mg PO Oxycodone 5mg PO Allergies Allergy/AdvReac Type Severity Reaction Status Date / Time tramadol AdvReac Severe Seizure Verified 06/08/23 13:09 Home Medications Medication Instructions Recorded Confirmed Type ascorbic acid 1,000 1 ea PO DAILY 08/20/20 06/08/23 History gg-nnvlbynrblcn-cifdhfde powder effervescent pack (Emergen-C) blood sugar diagnostic (OneTouch #100 ea 07/24/21 06/08/23 Rx Ultra Test strips) blood sugar diagnostic (Reveal #100 ea 07/28/21 06/08/23 Rx Test Strip) ezetimibe 10 mg tablet 10 mg PO DAILY #90 tabs 11/15/22 06/08/23 Rx fluoxetine 40 mg capsule 80 mg PO PM depression #180 caps 11/15/22 06/08/23 Rx levetiracetam 500 mg tablet 500 mg PO BID 90 days #180 tabs 11/15/22 06/08/23 Rx (Keppra) rosuvastatin 5 mg tablet 5 mg PO DAILY #90 tabs 11/15/22 06/08/23 Rx ibandronate 150 mg tablet (Boniva) 150 mg PO Q4WK #12 tabs 11/24/22 06/08/23 Rx ondansetron HCl 4 mg tablet 4 mg PO Q8H PRN nausea and 12/20/22 06/08/23 Rx vomiting #30 tabs albuterol sulfate 90 mcg/actuation 1 - 2 puff inhalation Q4H PRN 02/21/23 06/08/23 Rx aerosol inhaler interstitial lung disease #18 grams zolpidem 10 mg tablet 10 mg PO HS PRN insomnia 30 days 02/22/23 06/08/23 Rx #30 tabs celecoxib 100 mg capsule (Celebrex) 100 mg PO BID #60 caps 03/09/23 06/08/23 Rx duloxetine 20 mg capsule,delayed 20 mg PO BID #60 caps 05/11/23 06/08/23 Rx release (Cymbalta) amiodarone 100 mg tablet 100 mg PO BID #18 tabs 05/23/23 06/08/23 Rx oxycodone 5 mg tablet 5 mg PO BID PRN pain 7 days #14 06/02/23 06/08/23 Rx tabs Past Med/Surg History Medical History Anemia APC (atrial premature contractions) Body aches Breast cancer 1991 Cardiac murmur NO ISSUES Chills Community acquired pneumonia Congestion of nasal sinus COVID Depression Dermatitis Elevated brain natriuretic peptide (BNP) level Fatigue Heartburn History of anesthesia reaction GETS BAD ANXIETY WITH TWILIGHT SEDATION History of antineoplastic chemotherapy History of malignant neoplasm of breast History of osteoporosis Hyperlipidemia Interstitial lung disease DOENST FOLLOW LUNG DOCTOR > DOESNT HAVE ISSUES WITH Mass of arm Pneumonia due to COVID-19 virus Prediabetes PVC (premature ventricular contraction) Stroke 20 YRS AGO > WORKUP SINCE HAS BEEN FINE > NUMBNESS RIGHT HAND > NO MORE FOLLOW UP Syncope and collapse Surgical History Closed fracture of clavicle (11/23/14) RIGHT, ORIF [place] H/O tubal ligation History of colonoscopy History of lung biopsy History of removal of ovarian cyst Hx of bilateral mastectomy WITH RECONSTRUCTION Hx of hand surgery (03/19/16) LEFT index finger revision amp with Volar VY advancement flap-[place] Hx of left cataract extraction Hx of surgical procedure CAROTID BYPASS > 20 YRS AGO Hx of surgical procedure COLLAR BONE BROKEN BOTH SIDES > PLATES TO BOTH SIDES S/P craniotomy 27 YRS AGO > [facility] S/P excision of lipoma FINAL DIAGNOSIS Soft tissue, left forearm, "mass" (excision): In office procedure [facility] 02/04/2022 - Lipoma. Family History Father Colorectal cancer Brother Esophageal cancer Mother Lung cancer Denies family history of Ovarian cancer Prostate cancer Myocardial infarction Breast cancer Social History Smoking Status: Current every day smoker Tobacco Type: Cigarettes packs per day: 1; Second Hand Exposure: Yes; Do You Dip or Chew Tobacco: No; Hx Alcohol Use: No (h/o substance abuse in family therefore avoids) Hx Substance Use: No Preferred Language: Kazakh Communication Ability: Effective Visual Impairment: No Limitations Hearing Ability: Normal Back Up Worker Required: No Beliefs That Will Affect Care: None marital status: Current Living Situation: Spouse Current Living Situation Comment: lives [place] in [place] current occupational status: retired 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 [facility] Feels Safe at Home: Yes Childhood Exposure to Second-Hand Smoke: Yes Diet: regular during the past year weight has: remained stable Dental Care, Regularly: Yes Physical Activity Frequency: Daily Seatbelt Use: always Sunscreen Use: Yes Assistive Devices: Contacts Review of Systems Review of Systems: All systems reviewed & are unremarkable except as noted in HPI & below Physical Exam Physical Exam: General: frail, cachectic female patient resting comfortably, NAD, non-toxic in appearance, AA&O x 4 Skin: warm, dry, intact, small skin tears on arms and hands HEENT: NC/AT, PERRL, EOMI, anicteric sclera, conjunctiva without injection, external ear normal to inspection and nontender, nares patent, moist mucus membranes, dentition intact, no oropharyngeal lesions, neck supple, trachea midline, no LAD, no thyromegaly, no JVD, scattered vesicular lesions right buttock redness of bilateral cheeks with sparing of the nasolabial folds Heart: +S1/S2, regular, no m/r/g, implanted loop recorder in place Lungs: equal air entry bilaterally, bilateral crackles, no wheezing or rhonchi Abd: +BS, soft, NT/ND, no masses/organomegaly/ascites Ext: warm, 2+ pulses in UE/LE bilaterally, no clubbing/cyanosis or edema, clubbing of left index finger Neuro: nonfocal, patient AA&O x 4, speech intact, no facial droop, moving all extremities on command with equal strength 5/5 Results & Data Results & Data Vital Signs (Past 12 Hours) Vital Signs Temp Pulse Pulse Resp BP BP Pulse Ox 06/08/23 18:38 75 19 151/79 H 97 06/08/23 17:29 36.9 C 82 18 122/72 92 O2 Del Method 06/08/23 18:38 Room Air 06/08/23 17:29 Room Air Laboratory Results Laboratory Results WBC 13.45 K/ul (4.8-10.8) H 06/08/23 17:40 RBC 4.47 M/uL (4.20-5.40) 06/08/23 17:40 Hgb 11.5 g/dl (12.0-16.0) L 06/08/23 17:40 Hct 36.2 % (37.0-47.0) L 06/08/23 17:40 MCV 81.0 fL (80.0-100.0) 06/08/23 17:40 MCH 25.7 pg (25.0-34.0) 06/08/23 17:40 MCHC 31.8 g/dL (32.0-36.0) L 06/08/23 17:40 RDW Std Deviation 40.2 fL (36.4-46.3) 06/08/23 17:40 RDW Coeff of Marcio 13.8 % (11.5-14.5) 06/08/23 17:40 Plt Count 298 K/uL (130-400) 06/08/23 17:40 MPV 10.4 fL (9.4-12.4) 06/08/23 17:40 Immature Gran % (Auto) 0.5 % 06/08/23 17:40 Neut % (Auto) 78.5 % 06/08/23 17:40 Lymph % (Auto) 10.6 % 06/08/23 17:40 [place] % (Auto) 6.0 % 06/08/23 17:40 Eos % (Auto) 4.0 % 06/08/23 17:40 Baso % (Auto) 0.4 % 06/08/23 17:40 Neut # (Auto) 10.55 K/uL (1.40-6.50) H 06/08/23 17:40 Lymph # (Auto) 1.42 K/uL (1.20-3.40) 06/08/23 17:40 [place] # (Auto) 0.81 K/uL (0.11-0.59) H 06/08/23 17:40 Eos # (Auto) 0.54 K/uL (0.00-0.50) H 06/08/23 17:40 Baso # (Auto) 0.06 K/uL (0.00-0.20) 06/08/23 17:40 Immature Gran # (Auto) 0.07 K/uL (0.01-0.20) 06/08/23 17:40 ESR 55 mm/hr (0-30) H 06/08/23 17:40 PT 11.0 Seconds (9.0-12.0) 06/08/23 17:40 INR 1.0 (0.9-1.1) 06/08/23 17:40 APTT 26.7 Seconds (21.0-31.0) 06/08/23 17:40 PTT Ratio 0.9 06/08/23 17:40 Sodium 138 mmol/L (136-145) 06/08/23 17:40 Potassium 4.1 mmol/L (3.5-5.1) 06/08/23 17:40 Chloride 104 mmol/L (98-107) 06/08/23 17:40 Carbon Dioxide 27 mmol/L (21-32) 06/08/23 17:40 Anion Gap 7 (3-11) 06/08/23 17:40 BUN 17 mg/dl (6-23) 06/08/23 17:40 Creatinine 0.70 mg/dl (0.6-1.2) 06/08/23 17:40 Est Cr Clr Drug Dosing 48.9 ml/min 06/08/23 17:40 Est GFR ( Amer) 101.7 ml/min 06/08/23 17:40 Est GFR (Non-Af Amer) 87.8 ml/min 06/08/23 17:40 BUN/Creatinine Ratio 24.3 (10-20) H 06/08/23 17:40 Glucose 95 mg/dl (70-99(Fasting)) 06/08/23 17:40 Lactate 1.3 mmol/L (0.4-2.0) 06/08/23 17:40 Calcium 9.0 mg/dl (8.6-10.3) 06/08/23 17:40 Magnesium 1.8 mg/dl (1.7-2.4) 06/08/23 17:40 Total Bilirubin 0.5 mg/dl (0.2-1.0) 06/08/23 17:40 AST 77 U/L (13-39) H 06/08/23 17:40 ALT 142 U/L (7-52) H 06/08/23 17:40 Alkaline Phosphatase 112 U/L (34-104) H 06/08/23 17:40 Troponin I High Sens 12.5 pg/ml (0-14) 06/08/23 17:40 C-Reactive Protein 3.65 mg/dl (0-0.5) H 06/08/23 17:40 Total Protein 6.9 gm/dl (6.0-8.3) 06/08/23 17:40 Albumin 3.8 gm/dl (3.4-5.0) 06/08/23 17:40 Globulin 3.1 gm/dl (2.5-4.0) 06/08/23 17:40 Albumin/Globulin Ratio 1.2 (0.9-2) 06/08/23 17:40 Lipase 25 U/L (11-82) 06/08/23 17:40 Procalcitonin 0.11 ng/ml (0-0.5) 06/08/23 17:40 Urine Color Yellow 06/08/23 22:55 Urine Appearance Clear (Clear) 06/08/23 22:55 Urine pH 7.5 (4.5-7.5) 06/08/23 22:55 Ur Specific [place] 1.042 (1.000-1.030) H 06/08/23 22:55 Urine Protein Negative (Negative) 06/08/23 22:55 Urine Glucose (UA) Negative (Negative) 06/08/23 22:55 Urine Ketones Negative (Negative) 06/08/23 22:55 Urine Blood Negative (Negative) 06/08/23 22:55 Urine Nitrite Negative (Negative) 06/08/23 22:55 Urine Bilirubin Negative (Negative) 06/08/23 22:55 Urine Urobilinogen Negative (Negative) 06/08/23 22:55 Ur Leukocyte Esterase Negative (Negative) 06/08/23 22:55 Impressions Abdomen/Pelvis CT 06/08/23 18:56 Exam(s): CT ABDOMEN + PELVIS With Contrast IV Amt: 118ml EXAM: CT Abdomen and Pelvis With Intravenous Contrast CLINICAL HISTORY: Reason for exam: sent by PCP for CTs. TECHNIQUE: Axial computed tomography images of the abdomen and pelvis with intravenous contrast. CTDI is 29.68 mGy and DLP is 585.31 mGy-cm. Automated exposure control was utilized for the study. A dose lowering technique was utilized adhering to the principles of ALARA. CONTRAST: Patient received 118ml of IV contrast COMPARISON: 07/07/2022 FINDINGS: Lung bases: Extensive changes COPD and fibrosis at the lung bases. ABDOMEN: Liver: Unremarkable. No mass. Gallbladder and bile ducts: . Mild intrahepatic biliary ductal dilatation also noted. The pancreatic duct is also dilated measuring 0.5 cm in the pancreatic head. There is a suggestion of a 0.4 x 0.6 cm filling defect within the distal common bile duct near the ampulla. No calcified stones. Pancreas: See above. Spleen: Unremarkable. No splenomegaly. Adrenals: Unremarkable. No mass. Kidneys and ureters: Bilateral renal hypodensities measuring up to 1.1 cm on the right and 0.3 cm on the left. No hydronephrosis. Stomach and bowel: Large amount of stool within the colon. Wall thickening of the sigmoid colon. This is likely secondary to underdistention. PELVIS: Appendix: No findings to suggest acute appendicitis. Bladder: Unremarkable. No mass. Reproductive: Unremarkable as visualized. ABDOMEN and PELVIS: Intraperitoneal space: Unremarkable. No free air. No significant fluid collection. Bones/joints: No acute fracture. No dislocation. Soft tissues: Unremarkable. Vasculature: Unremarkable. No abdominal aortic aneurysm. Lymph nodes: Unremarkable. No enlarged lymph nodes. IMPRESSION: Common and pancreatic ductal dilatation secondary to a 0.5 cm mass within the distal common bile duct/ampulla. MRCP recommended for further evaluation. Electronically signed by: Janak Hudson MD 06/08/23 20:15 PM Chest CTA 06/08/23 18:56 Exam(s): CTA CHEST IV Amt: 118ml EXAM: CT Angiography Chest With Intravenous Contrast CLINICAL HISTORY: Reason for exam: PE. TECHNIQUE: Axial computed tomographic angiography images of the chest with intravenous contrast. CTDI is 29.68 mGy and DLP is 585.31 mGy-cm. Automated exposure control was utilized for the study. A dose lowering technique was utilized adhering to the principles of ALARA. 2D MIP reconstructed images were created and reviewed. COMPARISON: No relevant prior studies available. FINDINGS: Pulmonary arteries: Unremarkable. No pulmonary embolus. Aorta: No acute findings. No thoracic aortic aneurysm. Lungs: Unremarkable. No mass. No consolidation. Pleural space: Bilateral apical pleural thickening with diffuse emphysematous changes throughout the lungs. Patchy interstitial infiltrates are superimposed upon these fibrotic changes and are worsened when compared to prior exam. No significant effusion. No pneumothorax. Heart: Cardiomegaly. No significant pericardial effusion. No evidence of RV dysfunction. Mediastinum: Bilateral hilar lymphadenopathy is new when compared to prior exam. Bones/joints: Postoperative changes plate-screw fixation bilateral clavicular fractures. No dislocation. Soft tissues: Unremarkable. Lymph nodes: See above. IMPRESSION: 1. Extensive interstitial infiltrates throughout the lungs bilaterally which are worsened and new since prior exam and consistent with multifocal pneumonia 2. No pulmonary embolus 3. Other chronic findings as above Electronically signed by: Janak Hudson MD 06/08/23 20:20 PM ECG Additional Comments: EKG per my interpretation - NSR at 72, left axis deviation, incomplete RBBB, no acute ischemic changes PG Care Time/CCT Total # of Minutes Spent Total Time Spent with Patient: Total time spent is greater than 50% in coordination of care (as documented) at patient's floor/unit and/or counseling patient: Coding Level of Care Code 51762 INT INP/OBS CARE 3/75MIN Diagnoses Biliary tract obstruction K83.1 Pneumonia J18.9 Laterality: bilateral Lung location: unspecified part of lung Pneumonia type: due to unspecified organism Seizure R56.9 Atrial flutter I48.92 Positive colorectal cancer screening using Cologuard test R19.5 (2) Pneumonia Laterality: bilateral Lung location: unspecified part of lung Pneumonia type: due to unspecified organism Qualified Code(s): J18.9 - Pneumonia, unspecified organism
[2023-06-08 23:05] LABS: Appearance Urine Clear (Clear); Bilirubin Urine Negative (Negative); Blood Urine Negative (Negative); Color Urine Yellow; Glucose Urine UA Negative (Negative); Ketones Urine Negative (Negative); Leukocyte Esterase Urine Negative (Negative); Nitrite Urine Negative (Negative); Protein Urine Negative (Negative); Specific Gravity Urine 1.042 (1.000-1.030); Urobilinogen Urine Negative (Negative); pH Urine 7.5 (4.5-7.5)
[2023-06-09] MEDS ORDERED: ZOLPIDEM TARTRATE 10 MG TAB PO STA (00:36)
[2023-06-09] MEDS ORDERED: ALBUTEROL HFA 8 GM INHALER INH PRN (00:49)
[2023-06-09] MEDS ORDERED: ACETAMINOPHEN 325 MG TAB PO PRN (00:49)
[2023-06-09] MEDS ORDERED: D5W AND 1/2NSS 1,000 ML IV SCH (00:49)
[2023-06-09] MEDS: PIPERACILLIN/TAZOBACTAM 4.5 GM in DEXTROSE 5% 100 ML IV SCH ×3 (02:29→18:45)
[2023-06-09 04:24] LABS: Hematocrit (blood only) 32.7 % (37.0-47.0); Hemoglobin 10.7 g/dl (12.0-16.0); Mean Corpuscular Hgb Conc 32.7 g/dL (32.0-36.0); Mean Corpuscular Volume 79.6 fL (80.0-100.0); Mean Platelet Volume 10.2 fL (9.4-12.4); Platelet Count 270 K/uL (130-400); RDW Coefficient of Variation 13.9 % (11.5-14.5); RDW Standard Deviation 40.4 fL (36.4-46.3); Red Blood Count 4.11 M/uL (4.20-5.40); White Blood Count 12.35 K/ul (4.8-10.8)
[2023-06-09 04:35] LABS: BUN Creatinine Ratio 20.3 (10-20); Calcium 8.1 mg/dl (8.6-10.3); Creatinine Clr Calc Pharmacy 53.5 ml/min; Est GFR (African American) 104.8 ml/min; Est GFR (Non-African American) 90.4 ml/min; Potassium 3.8 mmol/L (3.5-5.1)
--- NOTE | 2023-06-09 08:39 | Magnetic Resonance Report ---
MR MRCP HISTORY: Generalized abdominal pain. pancreatic duct dilatation, questionable mass in CBD TECHNIQUE: MRCP of the abdomen was performed without contrast according to standard departmental prot ocol. COMPARISON STUDY: Abdomen and pelvis CT 06/08/2023. Abdomen and pelvis CT 07/07/2022. FINDINGS: Quarter Backer images demonstrate vertebroplasty at the chronic severe compression deformity of L1. Bilateral breast implants are noted. Motion artifact results in suboptimal evaluation of the abdomen. There is S-shaped scoliosis of the thoracolumbar spine. Chronic interstitial changes again noted at the lung bases. The heart is mildly enlarged. The liver, spleen, left kidney are unremarkable. There is a 12 mm T2 hyperintense lesion within the right kidney likely representing a cyst. No retroperiton eal lymphadenopathy. Normal caliber abdominal aorta. No hydronephrosis. The gallbladder, common bile duct, and main pancreatic duct are mildly dilated. No filling defects within the common bile duct. Th e common bile duct measures up to 8 mm in diameter. The distal main pancreatic duct measures up to 4. 5 mm. The pancreas demonstrates a normal echotexture. No definite pancreatic masses. IMPRESSION: 1. Mildly dilated common bile duct and main pancreatic duct. This has slightly progressed compared to prior studies. No filling defects within the common bile duct. No definite evidence for pancreatic/a mpullary mass. However, follow-up ERCP recommended to exclude the possibility of an occult lesion giv en the slight progression of the ductal dilatation. 2. Fibrotic changes again noted within the lung bases. ACT 112: Positive. There are findings on this exam that require communication between the performing entity and the patient following Patient Test Result Information Act ([place] Act 112) guidelines. Electronically signed by: Jet Escobedo M.D. 06/09/2023 8:37 AM
[2023-06-09] MEDS: oxyCODONE HCL IR 5 MG TAB (IMMEDIATE RELEASE) PO PRN ×2 (09:43→18:46)
[2023-06-09] MEDS: levETIRAcetam 500 MG TAB PO SCH ×2 (10:00→22:20)
--- NOTE | 2023-06-09 10:52 | Gastrointestinal Consultation ---
Date of Consultation June 09, 2023 Assessment & Plan (1) Abnormal LFTs: (2) Abnormal CT of the abdomen: Pt is a 72 yo female w symptoms of fever, rigors, loose stools, unintentional weight loss; found to have elevated LFTs (acute hepatitis and ANIYA normal), and CBD, pancreas duct dilation on imaging studies. ? ampullary mass but no confirmed filling defect on MRI/CT. She is on chronic narcotics and seizure meds, and suspect ductal dilations may be related to med uses vs stones vs mass - Antibiotics coverage - F/U blood cx - Trend LFTs - Discussed with Dr. Leonora Zuniga who recommends EUS +/- ERCP on 06/10/2023. Pls keep pt NPO after midnight Supervising Physician Co-Signing Physician Notes I have personally seen and examined the patient with POPEYE Dean. Her note reflects my exam and findings. I agree with her impression and plan. CT concerning for sinister pathology. However, chronic narcotic pain med use can cause functional dilated biliary system. Ken Marrero M.D. History of Present Illness Reason for Consultation: CBD mass on CT Requesting Physician: Dr. Heather Marcelo Attending Physician: Dr. Ken Marrero History of Present Illness Pt is a 72 yo female w PMHx of breast ca s/p bilateral mastectomy, chemo, ILD, seizure disorder, who presented to ED w c/o fever, rigors, generalized unwellness. States she hasn't felt well for a month. Lost about 20lbs in last half year. Has cough, but denies SOB, PLAZA. Denies abd pain, n/v. Stools had been loose and took Imodium at home but no rectal bleeding. She had recent Cologuard which was positive, and outpt colonoscopy has been ordered by PCP. Workup notable for leukocytosis, WBC 12, H/H 10/32. LFTs: Tbili 0.5, AST 77, ALT 142, AP 112, Lipase 25. Acute hepatitis, ANIYA, [place] were negative. Chest CTA showed multifocal pneumonia. Pt reports hx of COVID pneumonia earlier this year. CT abd/pelvis w contrast concerning for CBD and pancreatic ductal dilations w distal CBD duct/ampullary mass. MRCP done for follow up which confirms CBD and pancreatic duct dilation but no definite finding of filling defect within CBD or ampullary/pancreas mass. Allergies Allergy/AdvReac Type Severity Reaction Status Date / Time tramadol AdvReac Severe Seizure Verified 06/08/23 13:09 Home Medications Medication Instructions Recorded Confirmed Type ascorbic acid 1,000 1 ea PO DAILY 08/20/20 06/08/23 History ku-[id number]-[id number] powder effervescent pack (Emergen-C) blood sugar diagnostic (OneTouch #100 ea 07/24/21 06/08/23 Rx Ultra Test strips) blood sugar diagnostic (Reveal #100 ea 07/28/21 06/08/23 Rx Test Strip) ezetimibe 10 mg tablet 10 mg PO DAILY #90 tabs 11/15/22 06/08/23 Rx fluoxetine 40 mg capsule 80 mg PO PM depression #180 caps 11/15/22 06/08/23 Rx levetiracetam 500 mg tablet 500 mg PO BID 90 days #180 tabs 11/15/22 06/08/23 Rx (Keppra) rosuvastatin 5 mg tablet 5 mg PO DAILY #90 tabs 11/15/22 06/08/23 Rx ibandronate 150 mg tablet (Boniva) 150 mg PO Q4WK #12 tabs 11/24/22 06/08/23 Rx ondansetron HCl 4 mg tablet 4 mg PO Q8H PRN nausea and 12/20/22 06/08/23 Rx vomiting #30 tabs albuterol sulfate 90 mcg/actuation 1 - 2 puff inhalation Q4H PRN 02/21/23 06/08/23 Rx aerosol inhaler interstitial lung disease #18 grams zolpidem 10 mg tablet 10 mg PO HS PRN insomnia 30 days 02/22/23 06/08/23 Rx #30 tabs celecoxib 100 mg capsule (Celebrex) 100 mg PO BID #60 caps 03/09/23 06/08/23 Rx duloxetine 20 mg capsule,delayed 20 mg PO BID #60 caps 05/11/23 06/08/23 Rx release (Cymbalta) amiodarone 100 mg tablet 100 mg PO BID #18 tabs 05/23/23 06/08/23 Rx oxycodone 5 mg tablet 5 mg PO BID PRN pain 7 days #14 06/02/23 06/08/23 Rx tabs Patient History Medical History Anemia APC (atrial premature contractions) Body aches Breast cancer 1991 Cardiac murmur NO ISSUES Chills Community acquired pneumonia Congestion of nasal sinus COVID Depression Dermatitis Elevated brain natriuretic peptide (BNP) level Fatigue Heartburn History of anesthesia reaction GETS BAD ANXIETY WITH TWILIGHT SEDATION History of antineoplastic chemotherapy History of malignant neoplasm of breast History of osteoporosis Hyperlipidemia Interstitial lung disease DOENST FOLLOW LUNG DOCTOR > DOESNT HAVE ISSUES WITH Mass of arm Pneumonia due to COVID-19 virus Prediabetes PVC (premature ventricular contraction) Stroke 20 YRS AGO > WORKUP SINCE HAS BEEN FINE > NUMBNESS RIGHT HAND > NO MORE FOLLOW UP Syncope and collapse Surgical History Closed fracture of clavicle (11/23/14) RIGHT, ORIF [place] H/O tubal ligation History of colonoscopy History of lung biopsy History of removal of ovarian cyst Hx of bilateral mastectomy WITH RECONSTRUCTION Hx of hand surgery (03/19/16) LEFT index finger revision amp with Volar VY advancement flap-[place] Hx of left cataract extraction Hx of surgical procedure CAROTID BYPASS > 20 YRS AGO Hx of surgical procedure COLLAR BONE BROKEN BOTH SIDES > PLATES TO BOTH SIDES S/P craniotomy 27 YRS AGO > [facility] S/P excision of lipoma FINAL DIAGNOSIS Soft tissue, left forearm, "mass" (excision): In office procedure [place] 02/04/2022 - Lipoma. Family History Father Colorectal cancer Brother Esophageal cancer Mother Lung cancer Denies family history of Ovarian cancer Prostate cancer Myocardial infarction Breast cancer Social History Smoking Status: Current some day smoker Tobacco Type: Cigarettes packs per day: 1; Second Hand Exposure: Yes; Do You Dip or Chew Tobacco: No; Hx Alcohol Use: No (does not drink anymore) Hx Substance Use: No Preferred Language: Paraguayan Communication Ability: Effective Visual Impairment: No Limitations Hearing Ability: Normal Nuclear Radiologist Required: No Beliefs That Will Affect Care: None marital status: Current Living Situation: Spouse Current Living Situation Comment: lives on farm in [place] current occupational status: retired 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[employer] in [facility] Feels Safe at Home: Yes Safety Concerns: Feels Safe At This Time Childhood Exposure to Second-Hand Smoke: Yes Diet: regular during the past year weight has: remained stable Dental Care, Regularly: Yes Physical Activity Frequency: Daily Seatbelt Use: always Sunscreen Use: Yes Assistive Devices: None Review of Systems Review of Systems: All systems reviewed & are unremarkable except as noted in HPI & below Physical Exam Constitutional: + thin, well groomed, cooperative and comfortable Eyes: PERRL, conjunctivae normal, anicteric sclerae ENMT: external ear and nose normal, oropharynx normal Respiratory: normal respiratory effort, lungs clear to auscultation Cardiovascular: RRR, no murmur, no edema Gastrointestinal (Abdomen): normal bowel sounds, soft, nontender, no hepatosplenomegaly Skin: no rashes, warm and dry no jaundice Neurologic: Motor/Sensory: no asterixis Psychiatric: A+Ox3, euthymic affect Lymphatic: no lymphedema Results & Data Vital Signs (Past 12 Hours) Vital Signs Pulse Pulse Resp BP BP Pulse Ox O2 Del Method 06/09/23 08:22 70 06/09/23 06:59 63 17 133/74 98 Room Air 06/09/23 06:00 64 20 115/74 95 06/09/23 05:30 63 16 133/74 94 06/09/23 05:00 63 16 121/67 94 06/09/23 04:30 63 16 123/77 92 06/09/23 04:00 64 20 138/87 93 06/09/23 02:30 60 18 111/67 92 06/09/23 02:00 62 16 98/56 L 92 06/09/23 01:30 63 16 95/56 L 91 06/09/23 01:00 66 16 124/80 93 06/09/23 00:00 73 22 159/94 H 06/08/23 22:56 74 06/08/23 23:00 73 23 161/92 H 94 06/08/23 22:57 76 20 93
--- NOTE | 2023-06-09 14:10 | Hospitalist Progress Note ---
Date of Service June 09, 2023 Assessment & Plan (1) Biliary tract obstruction: Plan: No overt obstruction. Total bilirubin levels are normal. She is not icteric. MRCP reveals dilated common bile duct. GI consultation appreciated. ERCP with EUS tomorrowJune [address] results reveal common and pancreatic ductal dilatation due to an apparent 0.5cm mass in the distal CBD/Ampulla. Concern for malignancy. ERCP with EUS tomorrowJune 10. Continue Zosyn and IV fluids for now (2) Pneumonia: Plan: No overt pneumonia. She has known interstitial lung disease. Current chest x- ray results probably represents some progression. She has no sputum production or fever. (3) Seizure: Plan: Stable. Continue Keppra (4) Atrial flutter: Plan: Amiodarone is currently on hold. Currently on no systemic anticoagulation. Loop recorder in place (5) Positive colorectal cancer screening using Cologuard test: Plan: Noted in outpatient records. Screening colonoscopy to be arranged by PCP Plan To be determined Admission and Anticipated Discharge Date Admission Date: June 08, 2023 Subjective Alert and oriented. No acute distress. Gastroenterology consultation noted. ERCP with EUS will be completed tomorrowJune 10. Will allow a diet today but n.p.o. after midnight tonight. She remains on Zosyn. Continue IV fluids for now. Review of Systems Review of Systems: Constitutional-no fever or chills. Recent significant weight loss however ENT-no blurred vision, no double vision, no epistaxis, no sore throat Respiratory-no cough, no wheezing, no shortness of breath Cardiac-no palpitations, no chest pain, no syncope GI-no nausea, vomiting, diarrhea, melena, hematochezia -no urinary retention, no urinary incontinence, no dysuria, no hematuria Musculoskeletal-no joint pain, no muscle tenderness Skin-no bruising, no rashes, no pruritus Neuro-no isolated weakness, no paresthesia, no weakness Psych-no depression, no anxiety Physical Exam Physical Exam: General-alert and oriented x3, no fevers, no chills. Cachectic appearing HEENT-head atraumatic and normocephalic, pupils equal and reactive to light, extraocular muscles intact Neck-no lymphadenopathy or thyromegaly, trachea midline Chest-clear to auscultation percussion. No rales wheezing or rhonchi Cardiac-regular rate and rhythm, normal S1 and S2 Abdomen-normal bowel sounds, nontender, no hepatosplenomegaly Extremities-no cyanosis, clubbing, or edema Neuro-cranial nerves II through XII intact, motor and sensory function within normal limits, strength symmetrical , no focal deficits Psych-normal affect, normal mood Results & Data Results & Data Vital Signs (Past 12 Hours) Vital Signs Pulse Pulse Resp BP BP Pulse Ox O2 Del Method 06/09/23 08:22 70 06/09/23 06:59 63 17 133/74 98 Room Air 06/09/23 06:00 64 20 115/74 95 06/09/23 05:30 63 16 133/74 94 06/09/23 05:00 63 16 121/67 94 06/09/23 04:30 63 16 123/77 92 06/09/23 04:00 64 20 138/87 93 06/09/23 02:30 60 18 111/67 92 Laboratory Results 06/09/23 03:55 06/09/23 03:55 PG Care Time/CCT Total # of Minutes Spent Total Time Spent with Patient: Total time spent is greater than 50% in coordination of care (as documented) at patient's floor/unit and/or counseling patient: Coding Level of Care Code 29498 SUB INP/OBS CARE 3/50MIN Diagnoses Biliary tract obstruction K83.1 Pneumonia J18.9 Laterality: bilateral Lung location: unspecified part of lung Pneumonia type: due to unspecified organism Seizure R56.9 Atrial flutter I48.92 Positive colorectal cancer screening using Cologuard test R19.5 (2) Pneumonia Laterality: bilateral Lung location: unspecified part of lung Pneumonia type: due to unspecified organism Qualified Code(s): J18.9 - Pneumonia, unspecified organism
--- NOTE | 2023-06-09 16:44 | Electrocardiogram Report ---
Test Reason : Blood Pressure : / mmHG Vent. Rate : 072 BPM Atrial Rate : 072 BPM P-R Int : 120 ms QRS Dur : 100 ms QT Int : 428 ms P-R-T Axes : 061 -36 056 degrees QTc Int : 468 ms Normal sinus rhythm Left atrial enlargement Left axis deviation Incomplete right bundle branch block Abnormal ECG When compared with ECG of 20-AUG-2020 17:35, Premature supraventricular complexes are no longer Present Confirmed by Malik Silva ([id number]) on 06/09/2023 4:44:26 PM Referred By: Luis Antonio Hernandez Confirmed By:Malik Silva
[2023-06-09] MEDS: ZOLPIDEM TARTRATE 10 MG TAB PO PRN (23:12)
[2023-06-10] MEDS: PIPERACILLIN/TAZOBACTAM 4.5 GM in DEXTROSE 5% 100 ML IV SCH ×2 (01:48→12:54)
[2023-06-10] MEDS ORDERED: INDOMETHACIN 50 MG SUPP PR SCH (06:00)
[2023-06-10 07:07] LABS: Basophils # (auto) 0.05 K/uL (0.00-0.20); Basophils % (auto) 0.5 %; Eosinophils # (auto) 0.48 K/uL (0.00-0.50); Eosinophils % (auto) 4.5 %; Hematocrit (blood only) 32.3 % (37.0-47.0); Hemoglobin 10.5 g/dl (12.0-16.0); Immature Granulocytes # (auto) 0.05 K/uL (0.01-0.20); Immature Granulocytes % (auto) 0.5 %; Lymphocytes # (auto) 1.96 K/uL (1.20-3.40); Lymphocytes % (auto) 18.2 %; Mean Corpuscular Hemoglobin 25.9 pg (25.0-34.0); Mean Corpuscular Hgb Conc 32.5 g/dL (32.0-36.0); Mean Corpuscular Volume 79.8 fL (80.0-100.0); Mean Platelet Volume 10.3 fL (9.4-12.4); Monocytes # (auto) 0.93 K/uL (0.11-0.59); Monocytes % (auto) 8.6 %; Neutrophils % (auto) 67.7 %; Platelet Count 279 K/uL (130-400); RDW Coefficient of Variation 13.7 % (11.5-14.5); RDW Standard Deviation 39.5 fL (36.4-46.3); Red Blood Count 4.05 M/uL (4.20-5.40); White Blood Count 10.77 K/ul (4.8-10.8)
[2023-06-10 07:31] LABS: Potassium 3.7 mmol/L (3.5-5.1)
[2023-06-10 07:32] LABS: Albumin Globulin Ratio 1.3 (0.9-2); BUN Creatinine Ratio 16.7 (10-20); Bilirubin,Total 0.6 mg/dl (0.2-1.0); Calcium 8.3 mg/dl (8.6-10.3); Creatinine Clr Calc Pharmacy 41.6 ml/min; Est GFR (African American) 81.6 ml/min; Est GFR (Non-African American) 70.4 ml/min; Globulin 2.4 gm/dl (2.5-4.0); Total Protein 5.4 gm/dl (6.0-8.3)
--- NOTE | 2023-06-10 08:12 | Anesthesiology Consultation ---
Date of Service June 10, 2023 History Surgery Operation Date: 06/10/23 12:30 Proposed Procedures p Endoscopic Ultrasonography Upper - Leonora Zuniga DO s Endoscopic Retrograde Cholangiopancreato - Leonora Zuniga DO Height/Weight Height: 5 ft 2 in Weight: 42.3 kg Allergies Allergy/AdvReac Type Severity Reaction Status Date / Time tramadol AdvReac Severe Seizure Verified 06/08/23 13:09 Medications Home Medications Medication Instructions Recorded Confirmed Last Taken ascorbic acid 1,000 1 ea PO DAILY 08/20/20 06/08/23 Unknown [id number]-[id number]-[id number] powder effervescent pack (Emergen-C) blood sugar diagnostic (OneTouch #100 ea 07/24/21 06/08/23 Unknown Ultra Test strips) blood sugar diagnostic (Reveal #100 ea 07/28/21 06/08/23 Unknown Test Strip) ezetimibe 10 mg tablet 10 mg PO DAILY #90 tabs 11/15/22 06/08/23 Unknown fluoxetine 40 mg capsule 80 mg PO PM depression #180 caps 11/15/22 06/08/23 Unknown levetiracetam 500 mg tablet 500 mg PO BID 90 days #180 tabs 11/15/22 06/08/23 Unknown (Keppra) rosuvastatin 5 mg tablet 5 mg PO DAILY #90 tabs 11/15/22 06/08/23 Unknown ibandronate 150 mg tablet (Boniva) 150 mg PO Q4WK #12 tabs 11/24/22 06/08/23 Unknown ondansetron HCl 4 mg tablet 4 mg PO Q8H PRN nausea and 12/20/22 06/08/23 Unknown vomiting #30 tabs albuterol sulfate 90 mcg/actuation 1 - 2 puff inhalation Q4H PRN 02/21/23 06/08/23 Unknown aerosol inhaler interstitial lung disease #18 grams zolpidem 10 mg tablet 10 mg PO HS PRN insomnia 30 days 02/22/23 06/08/23 Unknown #30 tabs celecoxib 100 mg capsule (Celebrex) 100 mg PO BID #60 caps 03/09/23 06/08/23 Unknown duloxetine 20 mg capsule,delayed 20 mg PO BID #60 caps 05/11/23 06/08/23 Unknown release (Cymbalta) amiodarone 100 mg tablet 100 mg PO BID #18 tabs 05/23/23 06/08/23 Unknown oxycodone 5 mg tablet 5 mg PO BID PRN pain 7 days #14 06/09/23 Unknown tabs Active Medications Generic Name Dose Route Start Last Admin Trade Name Freq PRN Reason Stop Dose Admin Piperacillin Sod/Tazobactam 120 mls @ 30 mls/hr 06/09/23 02:00 06/10/23 06:07 Sod 4.5 gm/ Dextrose IV 06/19/23 01:59 Infused Q8H BARBARA Infusion Protocol Levetiracetam 500 mg 06/09/23 09:00 06/09/23 22:20 Levetiracetam 500 Mg Tab PO 07/09/23 08:59 500 mg BID BARBARA Administration Oxycodone HCl 5 mg 06/09/23 09:00 06/09/23 18:46 Oxycodone Hcl Ir 5 Mg Tab (Immediate Release) PO 06/23/23 08:59 5 mg BID PRN Administration pain Zolpidem Tartrate 10 mg 06/09/23 00:49 06/09/23 23:12 Zolpidem Tartrate 10 Mg Tab PO 07/09/23 00:48 10 mg HS PRN Administration insomnia NPO Date Last Intake of Fluids: 06/09/23 Time Last Intake of Fluids: 23:59 Date Last Intake of Solids: 06/09/23 Time Last Intake of Solids: 23:59 Past Medical History Medical History Anemia APC (atrial premature contractions) Body aches Breast cancer 1991 Cardiac murmur NO ISSUES Chills Community acquired pneumonia Congestion of nasal sinus COVID Depression Dermatitis Elevated brain natriuretic peptide (BNP) level Fatigue Heartburn History of anesthesia reaction GETS BAD ANXIETY WITH TWILIGHT SEDATION History of antineoplastic chemotherapy History of malignant neoplasm of breast History of osteoporosis Hyperlipidemia Interstitial lung disease DOENST FOLLOW LUNG DOCTOR > DOESNT HAVE ISSUES WITH Mass of arm Pneumonia due to COVID-19 virus Prediabetes PVC (premature ventricular contraction) Stroke 20 YRS AGO > WORKUP SINCE HAS BEEN FINE > NUMBNESS RIGHT HAND > NO MORE FOLLOW UP Syncope and collapse Exercise / Class Metabolic Activity III < 4 Walking/Shop/Light housework Past Family History Family History Father Colorectal cancer Brother Esophageal cancer Mother Lung cancer Denies family history of Ovarian cancer Prostate cancer Myocardial infarction Breast cancer Past Surgical History Surgical History Closed fracture of clavicle (11/23/14) RIGHT, ORIF [place] H/O tubal ligation History of colonoscopy History of lung biopsy History of removal of ovarian cyst Hx of bilateral mastectomy WITH RECONSTRUCTION Hx of hand surgery (03/19/16) LEFT index finger revision amp with Volar VY advancement flap-[facility] Hx of left cataract extraction Hx of surgical procedure CAROTID BYPASS > 20 YRS AGO Hx of surgical procedure COLLAR BONE BROKEN BOTH SIDES > PLATES TO BOTH SIDES S/P craniotomy 27 YRS AGO > [facility] S/P excision of lipoma FINAL DIAGNOSIS Soft tissue, left forearm, "mass" (excision): In office procedure [place] 02/04/2022 - Lipoma. Past Anesthesia History No Hx of Anesthesia Complications and No Family Hx of Anesthesia Complications History of PONV No Hx of PONV and No Hx of Motion Sickness Social History Smoking Status: Current some day smoker Do You Dip or Chew Tobacco: No Hx Alcohol Use: No (does not drink anymore) alcohol intake frequency: 0-2 drinks per day Hx Substance Use: No substance use type: does not use Physical Exam Vital Signs Last Vital Signs Temp 36.9 C 06/10/23 07:38 Pulse 63 06/10/23 07:38 Resp 19 06/10/23 07:38 BP 121/66 06/10/23 07:38 Pulse Ox 93 06/10/23 07:38 O2 Del Method Room Air 06/10/23 07:38 ENMT Mouth: no TMJ abnormality Thyromental Distance: > or= 3.5 Finger Breadths Mallampati Class: II Neck normal visual inspection and trachea midline; neck extension not limited Respiratory normal respiratory effort Auscultation: lungs clear to auscultation bilaterally Cardiovascular Rate/Rhythm: regular rate and regular rhythm Heart Sounds: no murmur Musculoskeletal Spine: normal cervical ROM Extremities: full ROM of extremities Neurologic moves all extremities Psychiatric Orientation: alert and oriented x 3 Testing Laboratory Results 06/10/23 05:43 06/10/23 05:43 PT 11.0 Seconds (9.0-12.0) 06/08/23 17:40 INR 1.0 (0.9-1.1) 06/08/23 17:40 APTT 26.7 Seconds (21.0-31.0) 06/08/23 17:40 Urine Color Yellow 06/08/23 22:55 Urine Appearance Clear (Clear) 06/08/23 22:55 Urine pH 7.5 (4.5-7.5) 06/08/23 22:55 Ur Specific [place] 1.042 (1.000-1.030) H 06/08/23 22:55 Urine Protein Negative (Negative) 06/08/23 22:55 Urine Glucose (UA) Negative (Negative) 06/08/23 22:55 Urine Ketones Negative (Negative) 06/08/23 22:55 Urine Nitrite Negative (Negative) 06/08/23 22:55 Ur Leukocyte Esterase Negative (Negative) 06/08/23 22:55 06/08/23 17:43 Aerobic Blood Culture - Preliminary Blood No growth in Aerobic bottle after 24 hours. Anaerobic Blood Culture - Preliminary No growth in Anaerobic bottle after 24 hours. 06/08/23 17:40 Aerobic Blood Culture - Preliminary Blood No growth in Aerobic bottle after 24 hours. Anaerobic Blood Culture - Preliminary No growth in Anaerobic bottle after 24 hours. Electrocardiogram Date: 06/08/23 Findings: + NSR @
[2023-06-10] MEDS ORDERED: ePHEDrine sulfate 50 MG/ML AMP IV PRN (08:22)
[2023-06-10] MEDS ORDERED: ATROPINE SULFATE 0.1 MG/ML 10ML SYR IV PRN (08:22)
--- NOTE | 2023-06-10 08:22 | Anesthesiology Progress Note ---
Date of Service June 10, 2023 Anesthesia Post Procedure Vital Signs Vital Signs: Temp Pulse Resp BP Pulse Ox O2 Del Method 06/10/23 07:38 36.9 C 63 19 121/66 93 Room Air 06/09/23 21:29 37.0 C 70 18 124/80 95 Room Air
--- NOTE | 2023-06-10 09:02 | History & Physical Bridge Note ---
Date of Service June 10, 2023 History & Physical Bridge Note I have examined the patient, reviewed the History & Physical and in the interval since the performance of the History & Physical I have noted the following changes of clinical significance: no changes noted. Patient had presented with elevated liver enzymes and was found to have dilation of the common bile duct and pancreatic duct. Radiology is wondering about a potential mass in the region of the pancreatic head. The Patient notes that she is feeling improved today and her liver enzymes have improved significantly. Based on this I wonder if the patient could have complications related to choledocholithiasis. To further evaluate this we are planning to do upper endoscopy, endoscopic ultrasound with possible ERCP today for final evaluation. We discussed the risks to include bleeding infection perforation pain pancreatitis, insufficient cellularity and need for follow-up studies.
[2023-06-10] MEDS ORDERED: fentaNYL citrate PF 100 MCG/2 ML VIAL ONE (09:09)
[2023-06-10] MEDS ORDERED: MIDAZOLAM HCL 1 MG/ML 2ML VIAL ONE (09:09)
[2023-06-10] MEDS ORDERED: PROPOFOL IV EMULSION 10 MG/ML 20 ML VIAL IV ONE (09:13)
[2023-06-10] MEDS ORDERED: LIDOCAINE 2% 2 ML VIAL/AMP(20MG/ML) INFIL ONE (09:13)
--- NOTE | 2023-06-10 09:37 | GI REPORT ---
Patient Name: Sima Daniel Procedure Date: 06/10/2023 9:18 AM Date of : 1950 Admit Type: Inpatient Age: 72 Gender: Female Attending MD: Leonora Zuniga DO, Procedure: Upper GI endoscopy Providers: Leonora Zuniga DO Referring MD: Luciano Schwarz Indications: Abnormal CT of the GI tract Medicines: Monitored Anesthesia Care Complications: No immediate complications. Estimated blood loss: Minimal. Estimated Blood Loss: Estimated blood loss was minimal. Procedure: Pre-Anesthesia Assessment: - Prior to the procedure, a History and Physical was performed, and patient medications, allergies and sensitivities were reviewed. The patient's tolerance of previous anesthesia was reviewed. - The risks and benefits of the procedure and the sedation options and risks were discussed with the patient. All questions were answered and informed consent was obtained. - Patient identification and proposed procedure were verified prior to the procedure by the physician, the nurse and the emergency medical service manager. The procedure was verified in the procedure room. - Pre-procedure physical examination revealed no contraindications to sedation. - ASA Grade Assessment: III - A patient with severe systemic disease. - After reviewing the risks and benefits, the patient was deemed in satisfactory condition to undergo the procedure. - The anesthesia plan was to use general anesthesia. - Immediately prior to administration of medications, the patient was re-assessed for adequacy to receive sedatives. - The heart rate, respiratory rate, oxygen saturations, blood pressure, adequacy of pulmonary ventilation, and response to care were monitored throughout the procedure. - The physical status of the patient was re-assessed after the procedure. After obtaining informed consent, the endoscope was passed under direct vision. Throughout the procedure, the patient's blood pressure, pulse, and oxygen saturations were monitored continuously. The Endoscope was introduced through the mouth, and advanced to the third part of duodenum. The upper GI endoscopy was accomplished without difficulty. The patient tolerated the procedure well. Findings: The examined esophagus was normal. The Z-line was regular and was found 35 cm from the incisors. Diffuse atrophic mucosa was found in the entire examined stomach. Biopsies were taken with a cold forceps for histology. The pathology specimen was placed into Bottle A. Estimated blood loss was minimal. The examined duodenum was normal. Impression: - Normal esophagus. - Z-line regular, 35 cm from the incisors. - Gastric mucosal atrophy. Biopsied. - Normal examined duodenum. Recommendation: - Perform an upper endoscopic ultrasound (UEUS) today. - Await pathology results. Leonora Zuniga D.O. Leonora Zuniga, 06/10/2023 9:36:56 AM This report has been signed electronically. Note Initiated On: 06/10/2023 9:18 AM Number of Addenda: 0 I attest to the content of the Intraoperative Record and orders documented therein, exceptions below {[id number]}
[2023-06-10] MEDS ORDERED: ONDANSETRON INJ 2 MG/ML 2 ML VIAL ONE (10:06)
[2023-06-10] MEDS ORDERED: DEXAMETHASONE SOD INJ 4 MG/ML VIAL ONE (10:06)
[2023-06-10] MEDS ORDERED: ePHEDrine sulfate 50 MG/ML AMP ONE (10:06)
--- NOTE | 2023-06-10 10:19 | Post Operative Brief Note ---
Immediate Post Op Note v1 Date of Surgery June 10, 2023 Pre & Post Diagnosis Operation Date: 06/10/23 12:30 Pre-Op Diagnosis: Suspected CBD stone versus HOP mass I identified the patient and participated in the time-out.: Yes Procedure Operation Date: 06/10/23 12:30 Actual Procedures p Esophagogastroduodenoscopy c bx - Leonora Zuniga DO s Endoscopic Ultrasonography Upper - Leonora Zuniga DO s Endoscopic Retrograde Cholangiopancreato - Leonora Zuniga DO Surgeon Leonora Zuniga, Real Estate Sales Manager none Estimated Blood Loss 0 Findings Consistent with Post-Op Diagnosis
--- NOTE | 2023-06-10 10:22 | Communication Note ---
Date of Service: June 10, 2023 The patient under endoscopy endoscopic ultrasound and ultimately ERCP today. 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 The endoscopic ultra sound was notable dilation of the common bile duct and pancreatic lesions without an obvious mass in the pancreatic head. Of note several stones were seen on his distal common bile duct. Thus ERCP was performed. The ERCP was somewhat complicated due to a variant of the takeoff of the pancreatic This is a common channel with the distal common bile as result of pancreatogram, we placed a prophylactic stent and gave the patient Indocin. Several stones were removed from the distal common bile duct and had a very stent was placed. We also obtained a cytology with his primary bile duct. Recommendations Continue antibiotic coverage for total of 10 days Continue IV hydration overnight., will giva an addition 500 mL bolus in the post-operative area Await cytology General surgery consultation
[2023-06-10] MEDS ORDERED: LABETALOL HCL IV 5 MG/ML 20ML IV ONE (10:28)
--- NOTE | 2023-06-10 10:36 | GI REPORT ---
Patient Name: Sima Daniel Procedure Date: 06/10/2023 9:19 AM Date of : 1950 Admit Type: Inpatient Age: 72 Gender: Female Attending MD: Leonora Zuniga DO, Procedure: Upper EUS Providers: Leonora Zuniga DO Referring MD: Luciano Schwarz Indications: Suspected mass in pancreas on CT scan Medicines: General Anesthesia Complications: No immediate complications. Estimated blood loss: Minimal. Estimated Blood Loss: Estimated blood loss was minimal. Procedure: Pre-Anesthesia Assessment: - Prior to the procedure, a History and Physical was performed, and patient medications, allergies and sensitivities were reviewed. The patient's tolerance of previous anesthesia was reviewed. - The risks and benefits of the procedure and the sedation options and risks were discussed with the patient. All questions were answered and informed consent was obtained. - Patient identification and proposed procedure were verified prior to the procedure by the physician, the nurse and the dietary cook. The procedure was verified in the procedure room. - Pre-procedure physical examination revealed no contraindications to sedation. - ASA Grade Assessment: III - A patient with severe systemic disease. - After reviewing the risks and benefits, the patient was deemed in satisfactory condition to undergo the procedure. - The anesthesia plan was to use general anesthesia. - Immediately prior to administration of medications, the patient was re-assessed for adequacy to receive sedatives. - The heart rate, respiratory rate, oxygen saturations, blood pressure, adequacy of pulmonary ventilation, and response to care were monitored throughout the procedure. - The physical status of the patient was re-assessed after the procedure. After obtaining informed consent, the endoscope was passed under direct vision. Throughout the procedure, the patient's blood pressure, pulse, and oxygen saturations were monitored continuously. The scope was introduced through the mouth, and advanced to the third part of duodenum. The upper EUS was accomplished without difficulty. The patient tolerated the procedure well. Findings: ENDOSONOGRAPHIC FINDING: : There was no sign of significant endosonographic abnormality in the ampulla. No masses were identified. The pancreatic duct had a dilated endosonographic appearance in the pancreatic head. The pancreatic duct measured up to 4 mm in diameter. Endosonographic imaging in the entire pancreas showed no mass. There was no sign of significant endosonographic abnormality in the pancreatic body, pancreatic tail and pancreatic neck. The pancreatic duct measured up to 2 mm in diameter. There was no sign of significant endosonographic abnormality in the gallbladder. An unremarkable gallbladder was identified. There was dilation in the common bile duct which measured up to 8 mm. Multiple stones were visualized endosonographically in the lower third of the main bile duct. The stones measured up to 5 mm in greatest dimension. They were hyperechoic and characterized by shadowing. There was no sign of significant endosonographic abnormality in the visualized portion of the liver. Homogeneous parenchyma, no focal pathology and no masses were identified. No lymphadenopathy seen. Impression: - There was no sign of significant pathology in the ampulla. - The pancreatic duct had a dilated endosonographic appearance in the pancreatic head. The pancreatic duct measured up to 4 mm in diameter. - There was no sign of significant pathology in the gallbladder. - There was dilation in the common bile duct which measured up to 8 mm. - Multiple stones were visualized endosonographically in the lower third of the main bile duct. - There was no evidence of significant pathology in the visualized portion of the liver. - No specimens collected. Recommendation: - Perform an ERCP today. Leonora Zuniga D.O. Leonora Zuniga, 06/10/2023 10:35:48 AM This report has been signed electronically. Note Initiated On: 06/10/2023 9:19 AM Number of Addenda: 0 I attest to the content of the Intraoperative Record and orders documented therein, exceptions below {[id number]}
[2023-06-10] MEDS: ONDANSETRON INJ 2 MG/ML 2 ML VIAL IV PRN (10:39)
--- NOTE | 2023-06-10 10:58 | Fluoroscopy Report ---
[place] ERCP biliary ductal CLINICAL HISTORY: ERCP IN OR COMPARISON STUDY: CT of the abdomen and pelvis June 08, 2022. MRCP June 09, 2023. FLUOROSCOPY TIME: 62 seconds. Ka, r: 5.54 mGy FLUOROSCOPIC IMAGES: 10 FINDINGS: Fluoroscopy was provided ERCP. The ampulla was cannulated. There is opacification of the co mmon bile duct as well as possible opacification the pancreatic duct. IMPRESSION: Fluoroscopy provided during ERCP. ACT 112: Negative or not required by law. Electronically signed by: Cesar Dias M.D. 06/10/2023 10:56 AM
[2023-06-10] MEDS ORDERED: PROMETHAZINE HCL 6.25 MG in SODIUM CHLORIDE 0.9% 50 ML IV STA (10:59)
[2023-06-10] MEDS ORDERED: SODIUM CHLORIDE 0.9% 50 ML BAG ONE (11:02)
[2023-06-10] MEDS ORDERED: PROMETHAZINE HCL INJ 25 MG/ML 1 ML VIAL ONE (11:02)
[2023-06-10] MEDS ORDERED: hydrALAZINE HCL 20 MG/ML VIAL IV STA (11:26)
[2023-06-10] MEDS ORDERED: hydrALAZINE HCL 20 MG/ML VIAL ONE (11:27)
[2023-06-10] MEDS ORDERED: LACTATED RINGER'S 500 ML IV ONE (12:28)
[2023-06-10] MEDS: levETIRAcetam 500 MG TAB PO SCH ×2 (12:52→20:19)
[2023-06-10] MEDS ORDERED: MoRPHine SULFATE 2 MG/ML CARP IV STA (12:53)
[2023-06-10] MEDS ORDERED: MoRPHine SULFATE 2 MG/ML CARP IV PRN (12:53)
[2023-06-10] MEDS: SODIUM CHLORIDE 0.9% 1,000 ML IV SCH (12:54)
--- NOTE | 2023-06-10 13:16 | Anesthesiology Progress Note ---
Date of Service June 10, 2023 Anesthesia Post Procedure Vital Signs Vital Signs: Temp Pulse Pulse Resp BP Pulse Ox O2 Del Method 06/10/23 13:00 36.4 C L 76 111/66 92 Room Air 06/10/23 12:25 36.6 C 66 19 104/63 97 Room Air 06/10/23 11:40 75 19 135/73 100 Nasal Cannula 06/10/23 11:30 76 15 141/89 H 100 Nasal Cannula 06/10/23 11:20 71 17 188/98 H 100 Nasal Cannula 06/10/23 11:10 70 16 193/102 H 100 Nasal Cannula 06/10/23 11:00 67 16 174/92 H 100 Nasal Cannula 06/10/23 10:50 65 16 166/99 H 100 Nasal Cannula 06/10/23 10:40 64 18 166/92 H 100 Nasal Cannula 06/10/23 10:30 64 18 159/84 H 100 Nasal Cannula 06/10/23 10:24 36.2 C L 78 17 196/95 H 100 Nasal Cannula 06/10/23 08:13 36.6 C 66 20 128/73 94 Room Air 06/10/23 07:38 36.9 C 63 19 121/66 93 Room Air 06/09/23 21:29 37.0 C 70 18 124/80 95 Room Air O2 Flow Rate 06/10/23 13:00 06/10/23 12:25 06/10/23 11:40 2 06/10/23 11:30 2 06/10/23 11:20 2 06/10/23 11:10 2 06/10/23 11:00 2 06/10/23 10:50 2 06/10/23 10:40 2 06/10/23 10:30 2 06/10/23 10:24 2 06/10/23 08:13 06/10/23 07:38 06/09/23 21:29 Transfer of Care Handoff Completed per policy Notes Mental Status: alert / awake / arousable Patient Amnestic to Procedure: Yes Nausea / Vomiting: adequately controlled Pain: adequately controlled Airway Patency, RR, SpO2: stable & adequate BP & HR: stable & adequate Hydration State: stable & adequate Anesthetic Complications: no major complications apparent and Pt Satisfied with anesthetic care
--- NOTE | 2023-06-10 13:31 | GI REPORT ---
Patient Name: Sima Daniel Procedure Date: 06/10/2023 9:26 AM Date of : 1950 Admit Type: Inpatient Age: 72 Gender: Female Attending MD: Leonora Zuniga DO, Procedure: ERCP Providers: Leonora Zuniga DO Referring MD: Luis Antonio Kim Indications: For therapy of bile duct stone(s) Medicines: General Anesthesia Complications: No immediate complications. Estimated blood loss: Minimal. Estimated Blood Loss: Estimated blood loss was minimal. Procedure: Pre-Anesthesia Assessment: - Prior to the procedure, a History and Physical was performed, and patient medications, allergies and sensitivities were reviewed. The patient's tolerance of previous anesthesia was reviewed. - The risks and benefits of the procedure and the sedation options and risks were discussed with the patient. All questions were answered and informed consent was obtained. - Patient identification and proposed procedure were verified prior to the procedure by the physician, the nurse and the scrapper. The procedure was verified in the procedure room. - Pre-procedure physical examination revealed no contraindications to sedation. - ASA Grade Assessment: III - A patient with severe systemic disease. - After reviewing the risks and benefits, the patient was deemed in satisfactory condition to undergo the procedure. - The anesthesia plan was to use general anesthesia. - Immediately prior to administration of medications, the patient was re-assessed for adequacy to receive sedatives. - The heart rate, respiratory rate, oxygen saturations, blood pressure, adequacy of pulmonary ventilation, and response to care were monitored throughout the procedure. - The physical status of the patient was re-assessed after the procedure. After obtaining informed consent, the scope was passed under direct vision. Throughout the procedure, the patient's blood pressure, pulse, and oxygen saturations were monitored continuously. The Duodenoscope was introduced through the mouth, and advanced to the duodenum and used to inject contrast into the bile duct and ventral pancreatic duct. The patient tolerated the procedure well. The ERCP was somewhat difficult due to abnormal anatomy. Successful completion of the procedure was aided by performing the maneuvers documented (below) in this report. Findings: The advertising traffic manager film was normal. The esophagus was successfully intubated under direct vision without detailed examination of the pharynx, larynx, and associated structures, and upper GI tract. The upper GI tract was grossly normal. The major papilla was normal. The ventral pancreatic duct was inadvertently cannulated with the short-nosed traction sphincterotome and guidewire without any complications. Initially the wire appeared to be in the biliary orientation. Therefore did inject a small amount of contrast. The entire opacified area was dilated moderately revealed that it was the pancreatic duct. 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 The pancreatic wire was left place to aid in biliary cannulation and later place a prophylactic pancreatic stent. The bile duct was deeply cannulated with the short-nosed traction sphincterotome and second 0.035 in [employer]ro[employer] 2 guidewire. Contrast was injected. I personally interpreted the bile duct images. Contrast extended to the bifurcation. The main bile duct was moderately dilated. The largest diameter was 10 mm. The lower third of the main bile duct contained filling defect(s) thought to be a stone and sludge. Biliary sphincterotomy was made with a CleverCut distal wire sphincterotome using ERBE electrocautery. There was no post-sphincterotomy bleeding. To discover objects, the biliary tree was swept with an 11.5 mm balloon starting at the bifurcation. Sludge was swept from the duct. Two stones were removed. No stones remained. Cells for cytology were obtained by brushing in the lower third of the main bile duct. One 10 Fr by 8 cm biliary stent with a single external flap and a single internal flap was placed 8 cm into the common bile duct. Bile flowed through the stent. The stent was in good position. One 5 Fr by 9 cm pancreatic stent with a full external pigtail and no internal flaps was placed 8 cm into the ventral pancreatic duct. Clear fluid flowed through the stent. The stent was in good position. The endoscope was withdrawn from the patient. Indomethacin 100 mg was given via suppository to decrease the risk of post-ERCP pancreatitis (PEP). Impression: - The major papilla appeared normal. - A filling defect consistent with a stone and sludge was seen on the cholangiogram. 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 - Choledocholithiasis was found. Complete removal was accomplished by biliary sphincterotomy and balloon extraction. - Cells for cytology obtained in the lower third of the main duct. - One biliary stent was placed into the common bile duct. - One pancreatic stent was placed into the ventral pancreatic duct. - Indomethacin given to decrease risk of post-ERCP pancreatitis. Recommendation: - Avoid aspirin and nonsteroidal anti-inflammatory medicines for 5 days. - Clear liquid diet today. - Use broad spectrum antibiotics for 10 days. - Continue IV hydration overnight. - Refer to a surgeon at appointment to be scheduled. - Repeat ERCP in 6 weeks to remove stent. Leonora Zuniga D.O. Leonora Zuniga, DO 06/10/2023 1:30:27 PM This report has been signed electronically. Note Initiated On: 06/10/2023 9:26 AM Number of Addenda: 0 I attest to the content of the Intraoperative Record and orders documented therein, exceptions below {[id number]}
--- NOTE | 2023-06-10 13:54 | Surgery Consultation ---
Date of Consultation June 10, 2023 Assessment & Plan (1) Biliary tract obstruction: (2) Pneumonia: (3) Fatigue: Plan 72 year-old female with 1 month history fatigue, intermittent chills, nausea, and diarrhea who underwent initial work-up by PCP and found to have elevated LFTS and WBC which prompted ER visit. CT scan of abd/pelvis concerning for possible distal CBD mass, MRCP without definitive mass. She underwent ERCP today which showed choledocholithiasis. She has been having intermittent unintentional weight loss however weight has been low for quite some time a few years. WBC normal today, LFTS improving. CTA also with bilateral infiltrates concerning for possible multifocal pneumonia. Plan: Discussed with patient and her family her ERCP findings showing choledocholithiasis and with that indications for cholecystectomy to prevent further biliary obstruction. Will need to determine timing either during this hospitalization or in the next few weeks prior to need of CBD stent removal (usually in 6 -8 weeks) She does have findings of pneumonia on CT scan Will discuss with Dr. Bryanna Zuniga about timing for lap lucero Okay to have clear liquids today if nausea improves continue IV Zosyn Continue medical management Dr. Zuniga has seen and examined patient, see addendum for further recommendations/plan. Supervising Physician Co-Signing Physician Notes Pt personally seen and examined with Eun NOLAND. Physical independently performed. Scaphoid abdomen, well healed lower midline scar, no tenderness. Imaging shows dilated CBD and pancreatic duct, EUS / ERCP showed choledocholi thiasis s/p removal of common duct stones and stent placement. Also with potentially pneumonia with bilateral infiltrates and hilar adenopathy on CT. Clinically, has a cough in the evenings, nonproductive. No abdominal pain. Does have diarrhea intermittently, weight loss since covid but no decrease in appetite, more recent fevers/ chills/ elevated liver tests leading to this admission. Discussed laparoscopic cholecystectomy with risks of bleeding, infection, conversion to open, postop diarrhea and intolerance to food, bile leak, injury to other structures. Timing of surgery - now that she is stented, she has a window where surgery can be performed either during this admission up to next few weeks. Did discuss that her pulmonary CT changes/ pneumonia could be worsened by general anesthesia. OK to advance diet as tolerated if clear with GI (once nausea resolved). Will follow. History of Present Illness Reason for Consultation: eval for cholecystectomy choledocholithiasis Requesting Physician: POPEYE Dean Attending Physician: Luciano Schwarz MD History of Present Illness Sima is a 72 year-old female with history of chronic back pain, interstitial l sergio disease, chiari malformation, hypertension, atrial flutter, seizures, who recently started having work-up by PCP for Fatigue, chills, unintentional weight loss and elevated LFTS in which she presented to ED for further evaluation. She had an outpatient abdominal ultrasound which was unremarkable. She then underwent CT scan of abdomen and pelvis, MRCP, and CTA which showed no CBD filling defects but possible distal CBD mass? and CTA showed multifocal pneumonia. She underwent EGD/EUS and ERCP this morning which showed choledocholithiasis and biliary and pancreatic stents were placed. Cytology was also obtained. Sima states that for the past month she has been just not feeling well. Fatigued, occasional chills, and nausea. Has also noticed some diarrhea but no blood in stools and no black/tarry stools. She also has been losing weight unintentionally but states her appetite has been normal. She is down to 93 pounds. Started losing weight last year about 10 pounds and then noticed weight loss again in last week or so. Cologuard as outpatient was positive in which PCP was recommending colonoscopy. Does have family history of colon cancer in her father. Last colonoscopy was a few years ago. Unsure exact date. She also states she has chronic lung issues in which she has inhaler but uses sporadically but noticed she was using it almost every night in the last week. Also noticed shingle of her lower back/buttocks that started last week. Usually lesions start when she is ill or her immune system is down. Allergies Allergy/AdvReac Type Severity Reaction Status Date / Time tramadol AdvReac Severe Seizure Verified 06/08/23 13:09 Home Medications Medication Instructions Recorded Confirmed Type ascorbic acid 1,000 1 ea PO DAILY 08/20/20 06/08/23 History tf-axtladyozeur-qlbszmqn powder effervescent pack (Emergen-C) blood sugar diagnostic (OneTouch #100 ea 07/24/21 06/08/23 Rx Ultra Test strips) blood sugar diagnostic (Reveal #100 ea 07/28/21 06/08/23 Rx Test Strip) ezetimibe 10 mg tablet 10 mg PO DAILY #90 tabs 11/15/22 06/08/23 Rx fluoxetine 40 mg capsule 80 mg PO PM depression #180 caps 11/15/22 06/08/23 Rx levetiracetam 500 mg tablet 500 mg PO BID 90 days #180 tabs 11/15/22 06/08/23 Rx (Keppra) rosuvastatin 5 mg tablet 5 mg PO DAILY #90 tabs 11/15/22 06/08/23 Rx ibandronate 150 mg tablet (Boniva) 150 mg PO Q4WK #12 tabs 11/24/22 06/08/23 Rx ondansetron HCl 4 mg tablet 4 mg PO Q8H PRN nausea and 12/20/22 06/08/23 Rx vomiting #30 tabs albuterol sulfate 90 mcg/actuation 1 - 2 puff inhalation Q4H PRN 02/21/23 06/08/23 Rx aerosol inhaler interstitial lung disease #18 grams zolpidem 10 mg tablet 10 mg PO HS PRN insomnia 30 days 02/22/23 06/08/23 Rx #30 tabs celecoxib 100 mg capsule (Celebrex) 100 mg PO BID #60 caps 03/09/23 06/08/23 Rx duloxetine 20 mg capsule,delayed 20 mg PO BID #60 caps 05/11/23 06/08/23 Rx release (Cymbalta) amiodarone 100 mg tablet 100 mg PO BID #18 tabs 05/23/23 06/08/23 Rx oxycodone 5 mg tablet 5 mg PO BID PRN pain 7 days #14 06/09/23 Rx tabs Patient History Medical History Anemia APC (atrial premature contractions) Body aches Breast cancer 1991 Cardiac murmur NO ISSUES Chills Community acquired pneumonia Congestion of nasal sinus COVID Depression Dermatitis Elevated brain natriuretic peptide (BNP) level Fatigue Heartburn History of anesthesia reaction GETS BAD ANXIETY WITH TWILIGHT SEDATION History of antineoplastic chemotherapy History of malignant neoplasm of breast History of osteoporosis Hyperlipidemia Interstitial lung disease DOENST FOLLOW LUNG DOCTOR > DOESNT HAVE ISSUES WITH Mass of arm Pneumonia due to COVID-19 virus Prediabetes PVC (premature ventricular contraction) Stroke 20 YRS AGO > WORKUP SINCE HAS BEEN FINE > NUMBNESS RIGHT HAND > NO MORE FOLLOW UP Syncope and collapse Surgical History Closed fracture of clavicle (11/23/14) RIGHT, ORIF [place] H/O tubal ligation History of colonoscopy History of lung biopsy History of removal of ovarian cyst Hx of bilateral mastectomy WITH RECONSTRUCTION Hx of hand surgery (03/19/16) LEFT index finger revision amp with Volar VY advancement flap-Barter Hx of left cataract extraction Hx of surgical procedure CAROTID BYPASS > 20 YRS AGO Hx of surgical procedure COLLAR BONE BROKEN BOTH SIDES > PLATES TO BOTH SIDES S/P craniotomy 27 YRS AGO > [facility] S/P excision of lipoma FINAL DIAGNOSIS Soft tissue, left forearm, "mass" (excision): In office procedure Chambers 02/04/2022 - Lipoma. Family History Father Colorectal cancer Brother Esophageal cancer Mother Lung cancer Denies family history of Ovarian cancer Prostate cancer Myocardial infarction Breast cancer Social History Smoking Status: Current some day smoker Tobacco Type: Cigarettes packs per day: 1; Second Hand Exposure: Yes; Do You Dip or Chew Tobacco: No; Hx Alcohol Use: No (does not drink anymore) Hx Substance Use: No Preferred Language: Greek Communication Ability: Effective Visual Impairment: No Limitations Hearing Ability: Normal Glass Mould Cleaner Required: No Beliefs That Will Affect Care: None marital status: Current Living Situation: Spouse Current Living Situation Comment: lives on [place] in [place] current occupational status: retired 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[employer] in [facility] Feels Safe at Home: Yes Childhood Exposure to Second-Hand Smoke: Yes Diet: regular during the past year weight has: remained stable Dental Care, Regularly: Yes Physical Activity Frequency: Daily Seatbelt Use: always Sunscreen Use: Yes Assistive Devices: None Review of Systems Review of Systems: All systems reviewed & are unremarkable except as noted in HPI & below Physical Exam Constitutional: + frail appearing, cooperative and comfortable; + not well nourished, no acute distress, not ill appearing, not combative, not diaphoretic and not lethargic Respiratory: normal respiratory effort, lungs clear to auscultation Cardiovascular: RRR, no murmur, no edema Gastrointestinal (Abdomen): Inspection/Auscultation: abdomen normal to inspection, normal bowel sounds and + abdominal surgical scar (low midline laparotomy scar); abdomen not distended Percussion/Palpation: + abdomen tender (mild in epigastrium) and abdomen soft; no guarding, abdomen not rigid and abdomen not firm Skin: no jaundice There is few shingle lesions of the right buttock and lower back, crusted over Psychiatric: Orientation: alert and oriented x 3 Results & Data Vital Signs (Past 12 Hours) Vital Signs Temp Pulse Pulse Resp BP Pulse Ox O2 Del Method 06/10/23 13:00 36.4 C L 76 111/66 92 Room Air 06/10/23 12:25 36.6 C 66 19 104/63 97 Room Air 06/10/23 11:40 75 19 135/73 100 Nasal Cannula 06/10/23 11:30 76 15 141/89 H 100 Nasal Cannula 06/10/23 11:20 71 17 188/98 H 100 Nasal Cannula 06/10/23 11:10 70 16 193/102 H 100 Nasal Cannula 06/10/23 11:00 67 16 174/92 H 100 Nasal Cannula 06/10/23 10:50 65 16 166/99 H 100 Nasal Cannula 06/10/23 10:40 64 18 166/92 H 100 Nasal Cannula 06/10/23 10:30 64 18 159/84 H 100 Nasal Cannula 06/10/23 10:24 36.2 C L 78 17 196/95 H 100 Nasal Cannula 06/10/23 08:13 36.6 C 66 20 128/73 94 Room Air 06/10/23 07:38 36.9 C 63 19 121/66 93 Room Air O2 Flow Rate 06/10/23 13:00 06/10/23 12:25 06/10/23 11:40 2 06/10/23 11:30 2 06/10/23 11:20 2 06/10/23 11:10 2 06/10/23 11:00 2 06/10/23 10:50 2 06/10/23 10:40 2 06/10/23 10:30 2 06/10/23 10:24 2 06/10/23 08:13 06/10/23 07:38 Laboratory Results 06/10/23 06/10/23 06/10/23 Range/Units 05:43 05:43 05:43 WBC 10.77 (4.8-10.8) K/ul RBC 4.05 L (4.20-5.40) M/uL Hgb 10.5 L (12.0-16.0) g/dl Hct 32.3 L (37.0-47.0) % MCV 79.8 L (80.0-100.0) fL MCH 25.9 (25.0-34.0) pg MCHC 32.5 (32.0-36.0) g/dL RDW Std Deviation 39.5 (36.4-46.3) fL RDW Coeff of Marcio 13.7 (11.5-14.5) % Plt Count 279 (130-400) K/uL MPV 10.3 (9.4-12.4) fL Immature Gran % (Auto) 0.5 % Neut % (Auto) 67.7 % Lymph % (Auto) 18.2 % Holt % (Auto) 8.6 % Eos % (Auto) 4.5 % Baso % (Auto) 0.5 % Neut # (Auto) 7.30 H (1.40-6.50) K/uL Lymph # (Auto) 1.96 (1.20-3.40) K/uL Holt # (Auto) 0.93 H (0.11-0.59) K/uL Eos # (Auto) 0.48 (0.00-0.50) K/uL Baso # (Auto) 0.05 (0.00-0.20) K/uL Immature Gran # (Auto) 0.05 (0.01-0.20) K/uL Sodium 135 L (136-145) mmol/L Potassium 3.7 (3.5-5.1) mmol/L Chloride 102 (98-107) mmol/L Carbon Dioxide 28 (21-32) mmol/L Anion Gap 5 (3-11) BUN 14 (6-23) mg/dl Creatinine 0.84 (0.6-1.2) mg/dl Est Cr Clr Drug Dosing 41.6 ml/min Est GFR ( Amer) 81.6 ml/min Est GFR (Non-Af Amer) 70.4 ml/min BUN/Creatinine Ratio 16.7 (10-20) Glucose 88 (70-99(Fasting)) mg/dl Calcium 8.3 L (8.6-10.3) mg/dl Total Bilirubin 0.6 (0.2-1.0) mg/dl AST 52 H (13-39) U/L ALT 91 H (7-52) U/L Alkaline Phosphatase 83 (34-104) U/L Total Protein 5.4 L D (6.0-8.3) gm/dl Albumin 3.0 L (3.4-5.0) gm/dl Globulin 2.4 L (2.5-4.0) gm/dl Albumin/Globulin Ratio 1.3 (0.9-2) Hepatitis C Ab (EIA) Pending Diagnostic Findings MR MRCP HISTORY: Generalized abdominal pain. pancreatic duct dilatation, questionable mass in CBD TECHNIQUE: MRCP of the abdomen was performed without contrast according to standard departmental protocol. COMPARISON STUDY: Abdomen and pelvis CT 06/08/2023. Abdomen and pelvis CT 07/07/2022. FINDINGS: Jukebox Route Driver images demonstrate vertebroplasty at the chronic severe compression deformity of L1. Bilateral breast implants are noted. Motion artifact results in suboptimal evaluation of the abdomen. There is S-shaped scoliosis of the thoracolumbar spine. Chronic interstitial changes again noted at the lung bases. The heart is mildly enlarged. The liver, spleen, left kidney are unremarkable. There is a 12 mm T2 hyperintense lesion within the right kidney likely representing a cyst. No retroperitoneal lymphadenopathy. Normal caliber abdominal aorta. No hydronephrosis. The gallbladder, common bile duct, and main pancreatic duct are mildly dilated. No filling defects within the common bile duct. The common bile duct measures up to 8 mm in diameter. The distal main pancreatic duct measures up to 4.5 mm. The pancreas demonstrates a normal echotexture. No definite pancreatic masses. IMPRESSION: 1. Mildly dilated common bile duct and main pancreatic duct. This has slightly progressed compared to prior studies. No filling defects within the common bile duct. No definite evidence for pancreatic/ampullary mass. However, follow-up ERCP recommended to exclude the possibility of an occult lesion given the slight progression of the ductal dilatation. 2. Fibrotic changes again noted within the lung bases. EXAM: CT Angiography Chest With Intravenous Contrast CLINICAL HISTORY: Reason for exam: PE. TECHNIQUE: Axial computed tomographic angiography images of the chest with intravenous contrast. CTDI is 29.68 mGy and DLP is 585.31 mGy-cm. Automated exposure control was utilized for the study. A dose lowering technique was utilized adhering to the principles of ALARA. 2D MIP reconstructed images were created and reviewed. COMPARISON: No relevant prior studies available. FINDINGS: Pulmonary arteries: Unremarkable. No pulmonary embolus. Aorta: No acute findings. No thoracic aortic aneurysm. Lungs: Unremarkable. No mass. No consolidation. Pleural space: Bilateral apical pleural thickening with diffuse emphysematous changes throughout the lungs. Patchy interstitial infiltrates are superimposed upon these fibrotic changes and are worsened when compared to prior exam. No significant effusion. No pneumothorax. Heart: Cardiomegaly. No significant pericardial effusion. No evidence of RV dysfunction. Mediastinum: Bilateral hilar lymphadenopathy is new when compared to prior exam. Bones/joints: Postoperative changes plate-screw fixation bilateral clavicular fractures. No dislocation. Soft tissues: Unremarkable. Lymph nodes: See above. IMPRESSION: 1. Extensive interstitial infiltrates throughout the lungs bilaterally which are worsened and new since prior exam and consistent with multifocal pneumonia 2. No pulmonary embolus 3. Other chronic findings as above Exam(s): CT ABDOMEN + PELVIS With Contrast IV Amt: 118ml EXAM: CT Abdomen and Pelvis With Intravenous Contrast CLINICAL HISTORY: Reason for exam: sent by PCP for CTs. TECHNIQUE: Axial computed tomography images of the abdomen and pelvis with intravenous contrast. CTDI is 29.68 mGy and DLP is 585.31 mGy-cm. Automated exposure control was utilized for the study. A dose lowering technique was utilized adhering to the principles of ALARA. CONTRAST: Patient received 118ml of IV contrast COMPARISON: 07/07/2022 FINDINGS: Lung bases: Extensive changes COPD and fibrosis at the lung bases. ABDOMEN: Liver: Unremarkable. No mass. Gallbladder and bile ducts: . Mild intrahepatic biliary ductal dilatation also noted. The pancreatic duct is also dilated measuring 0.5 cm in the pancreatic head. There is a suggestion of a 0.4 x 0.6 cm filling defect within the distal common bile duct near the ampulla. No calcified stones. Pancreas: See above. Spleen: Unremarkable. No splenomegaly. Adrenals: Unremarkable. No mass. Kidneys and ureters: Bilateral renal hypodensities measuring up to 1.1 cm on the right and 0.3 cm on the left. No hydronephrosis. Stomach and bowel: Large amount of stool within the colon. Wall thickening of the sigmoid colon. This is likely secondary to underdistention. PELVIS: Appendix: No findings to suggest acute appendicitis. Bladder: Unremarkable. No mass. Reproductive: Unremarkable as visualized. ABDOMEN and PELVIS: Intraperitoneal space: Unremarkable. No free air. No significant fluid collection. Bones/joints: No acute fracture. No dislocation. Soft tissues: Unremarkable. Vasculature: Unremarkable. No abdominal aortic aneurysm. Lymph nodes: Unremarkable. No enlarged lymph nodes. IMPRESSION: Common and pancreatic ductal dilatation secondary to a 0.5 cm mass within the distal common bile duct/ampulla. MRCP recommended for further evaluation. (2) Pneumonia Laterality: bilateral Lung location: unspecified part of lung Pneumonia type: due to unspecified organism Qualified Code(s): J18.9 - Pneumonia, unspecified organism
[2023-06-10] MEDS ORDERED: METOCLOPRAMIDE HCL INJ 5 MG/ML 2 ML VIAL IV STA (15:39)
--- NOTE | 2023-06-10 15:48 | Hospitalist Progress Note ---
Date of Service June 10, 2023 Assessment & Plan (1) Biliary tract obstruction: Plan: No overt obstruction. Total bilirubin levels are normal. She is not icteric. MRCP reveals dilated common bile duct. GI consultation appreciated. ERCP with EUS was completed today, June 10, and she had several distal common bile duct stones which were removed and a stent was placed. There was no evidence of malignancy. Surgery has seen the patient and will be scheduling cholecystectomy either during this hospitalization or in the near future. She has been allowed clear liquids. She remains on IV fluids and intravenous Zosyn. (2) Pneumonia: Plan: No overt pneumonia. She has known interstitial lung disease. Current chest x- ray results probably represents some progression. She has no sputum production or fever. (3) Seizure: Plan: Stable. Continue Keppra (4) Atrial flutter: Plan: Amiodarone is currently on hold. Currently on no systemic anticoagulation. Loop recorder in place (5) Positive colorectal cancer screening using Cologuard test: Plan: Noted in outpatient records. Screening colonoscopy to be arranged by PCP Plan Eventual discharge to home. Possibly tomorrow if cholecystectomy is scheduled at a later date. Admission and Anticipated Discharge Date Admission Date: June 08, 2023 Subjective Alert and oriented. The patient was very happy to know that the ERCP did not show any signs of malignancy. She does have distal common bile duct stones however which were removed and a stent was placed. Surgery has seen the patient and they will determine when the cholecystectomy should take place. She is now on clear liquids. Continue IV fluids. Continue intravenous Zosyn. She has no overt symptoms of pneumonia and is on room air. Review of Systems Review of Systems: Constitutional-no fever or chills. Recent significant weight loss however ENT-no blurred vision, no double vision, no epistaxis, no sore throat Respiratory-no cough, no wheezing, no shortness of breath Cardiac-no palpitations, no chest pain, no syncope GI-no nausea, vomiting, diarrhea, melena, hematochezia -no urinary retention, no urinary incontinence, no dysuria, no hematuria Musculoskeletal-no joint pain, no muscle tenderness Skin-no bruising, no rashes, no pruritus Neuro-no isolated weakness, no paresthesia, no weakness Psych-no depression, no anxiety Physical Exam Physical Exam: General-alert and oriented x3, no fevers, no chills. Cachectic appearing HEENT-head atraumatic and normocephalic, pupils equal and reactive to light, extraocular muscles intact Neck-no lymphadenopathy or thyromegaly, trachea midline Chest-clear to auscultation percussion. No rales wheezing or rhonchi Cardiac-regular rate and rhythm, normal S1 and S2 Abdomen-normal bowel sounds, nontender, no hepatosplenomegaly Extremities-no cyanosis, clubbing, or edema Neuro-cranial nerves II through XII intact, motor and sensory function within normal limits, strength symmetrical , no focal deficits Psych-normal affect, normal mood Results & Data Results & Data Vital Signs (Past 12 Hours) Vital Signs Temp Pulse Pulse Resp BP Pulse Ox O2 Del Method 06/10/23 15:30 36.4 C L 71 16 146/66 H 95 Room Air 06/10/23 15:21 148/68 H 06/10/23 15:08 36.3 C L 75 17 151/77 H 94 Room Air 06/10/23 13:44 36.4 C L 75 16 130/68 93 Room Air 06/10/23 13:00 36.4 C L 76 111/66 92 Room Air 06/10/23 12:25 36.6 C 66 19 104/63 97 Room Air 06/10/23 11:40 75 19 135/73 100 Nasal Cannula 06/10/23 11:30 76 15 141/89 H 100 Nasal Cannula 06/10/23 11:20 71 17 188/98 H 100 Nasal Cannula 06/10/23 11:10 70 16 193/102 H 100 Nasal Cannula 06/10/23 11:00 67 16 174/92 H 100 Nasal Cannula 06/10/23 10:50 65 16 166/99 H 100 Nasal Cannula 06/10/23 10:40 64 18 166/92 H 100 Nasal Cannula 06/10/23 10:30 64 18 159/84 H 100 Nasal Cannula 06/10/23 10:24 36.2 C L 78 17 196/95 H 100 Nasal Cannula 06/10/23 08:13 36.6 C 66 20 128/73 94 Room Air 06/10/23 07:38 36.9 C 63 19 121/66 93 Room Air O2 Flow Rate 06/10/23 15:30 06/10/23 15:21 06/10/23 15:08 06/10/23 13:44 06/10/23 13:00 06/10/23 12:25 06/10/23 11:40 2 06/10/23 11:30 2 06/10/23 11:20 2 06/10/23 11:10 2 06/10/23 11:00 2 06/10/23 10:50 2 06/10/23 10:40 2 06/10/23 10:30 2 06/10/23 10:24 2 06/10/23 08:13 06/10/23 07:38 Laboratory Results 06/10/23 05:43 06/10/23 05:43 PG Care Time/CCT Total # of Minutes Spent Total Time Spent with Patient: Total time spent is greater than 50% in coordination of care (as documented) at patient's floor/unit and/or counseling patient: Coding Level of Care Code 93506 SUB INP/OBS CARE 3/50MIN Diagnoses Biliary tract obstruction K83.1 Pneumonia J18.9 Laterality: bilateral Lung location: unspecified part of lung Pneumonia type: due to unspecified organism Seizure R56.9 Atrial flutter I48.92 Positive colorectal cancer screening using Cologuard test R19.5 (2) Pneumonia Laterality: bilateral Lung location: unspecified part of lung Pneumonia type: due to unspecified organism Qualified Code(s): J18.9 - Pneumonia, unspecified organism
[2023-06-10] MEDS ORDERED: LOPERAMIDE HCL 2 MG CAP PO STA (18:20)
[2023-06-10] MEDS ORDERED: ALUMINUM/MAGNESIUM/SIMETH (MAALOX MAX) 30 ML UDC PO PRN (23:29)
[2023-06-10] MEDS: ZOLPIDEM TARTRATE 10 MG TAB PO PRN (23:35)
[2023-06-11] MEDS: PIPERACILLIN/TAZOBACTAM 4.5 GM in DEXTROSE 5% 100 ML IV SCH ×2 (01:13→10:44)
[2023-06-11] MEDS: SODIUM CHLORIDE 0.9% 1,000 ML IV SCH (01:13)
[2023-06-11 07:07] LABS: Basophils # (auto) 0.02 K/uL (0.00-0.20); Basophils % (auto) 0.1 %; Eosinophils # (auto) 0.01 K/uL (0.00-0.50); Eosinophils % (auto) 0.1 %; Hematocrit (blood only) 33.7 % (37.0-47.0); Hemoglobin 11.2 g/dl (12.0-16.0); Immature Granulocytes % (auto) 0.6 %; Lymphocytes # (auto) 1.16 K/uL (1.20-3.40); Lymphocytes % (auto) 7.5 %; Mean Corpuscular Hemoglobin 26.2 pg (25.0-34.0); Mean Corpuscular Hgb Conc 33.2 g/dL (32.0-36.0); Mean Corpuscular Volume 78.9 fL (80.0-100.0); Mean Platelet Volume 11.1 fL (9.4-12.4); Monocytes # (auto) 1.02 K/uL (0.11-0.59); Monocytes % (auto) 6.6 %; Neutrophils # (auto) 13.24 K/uL (1.40-6.50); Neutrophils % (auto) 85.1 %; Platelet Count 296 K/uL (130-400); RDW Coefficient of Variation 13.3 % (11.5-14.5); RDW Standard Deviation 38.3 fL (36.4-46.3); Red Blood Count 4.27 M/uL (4.20-5.40); White Blood Count 15.55 K/ul (4.8-10.8)
[2023-06-11 07:49] LABS: Albumin Level 3.2 gm/dl (3.4-5.0); Bilirubin,Total 0.7 mg/dl (0.2-1.0); Calcium 8.2 mg/dl (8.6-10.3); Potassium 3.9 mmol/L (3.5-5.1)
[2023-06-11] MEDS: ONDANSETRON INJ 2 MG/ML 2 ML VIAL IV PRN ×2 (07:53→14:11)
[2023-06-11] MEDS: levETIRAcetam 500 MG TAB PO SCH (07:54)
[2023-06-11 07:55] LABS: Albumin Globulin Ratio 1.2 (0.9-2); BUN Creatinine Ratio 20.6 (10-20); Creatinine Clr Calc Pharmacy 55.5 ml/min; Est GFR (African American) 105.3 ml/min; Est GFR (Non-African American) 90.9 ml/min; Globulin 2.6 gm/dl (2.5-4.0); Total Protein 5.8 gm/dl (6.0-8.3)
--- NOTE | 2023-06-11 10:14 | Surgery Progress Note ---
Date of Service June 11, 2023 Assessment & Plan (1) Abnormal LFTs: Plan: Trending upwards today - will monitor. (2) Biliary tract obstruction: Plan: s/p ercp/ stent with finding of gallstones. Given pulmonary findings on Ct, lft trend - may be more reasonable to stabilize and discharge pt with plans for lap lucero in next few weeks. OK to advance diet if tolerated. Will follow and re- assess in am. Admission and Anticipated Discharge Date Admission Date: June 08, 2023 Subjective tolerating clear liquids but still with some nausea. had some sharp abdominal pain last night but better now. Physical Exam Gastrointestinal (Abdomen): soft, nontender, nondistended, pos bowel tones, no guarding Results & Data Vital Signs (Past 12 Hours) Vital Signs Temp Pulse Pulse Resp BP BP Pulse Ox 06/11/23 08:00 06/11/23 07:46 37.1 C 79 16 165/81 H 92 06/11/23 04:56 37 C 80 16 145/72 H 93 06/11/23 01:12 77 146/62 H 06/10/23 23:38 36.3 C L 81 18 198/86 H 96 O2 Del Method 06/11/23 08:00 Room Air 06/11/23 07:46 Room Air 06/11/23 04:56 Room Air 06/11/23 01:12 06/10/23 23:38 Room Air Laboratory Results Abnormal lab results 06/11/23 06/11/23 Range/Units 06:18 06:18 WBC 15.55 H (4.8-10.8) K/ul Hgb 11.2 L (12.0-16.0) g/dl Hct 33.7 L (37.0-47.0) % MCV 78.9 L (80.0-100.0) fL Neut # (Auto) 13.24 H (1.40-6.50) K/uL Lymph # (Auto) 1.16 L (1.20-3.40) K/uL Rowan # (Auto) 1.02 H (0.11-0.59) K/uL Sodium 132 L (136-145) mmol/L Carbon Dioxide 19 L (21-32) mmol/L BUN/Creatinine Ratio 20.6 H (10-20) Calcium 8.2 L (8.6-10.3) mg/dl AST 159 H (13-39) U/L ALT 192 H (7-52) U/L Total Protein 5.8 L (6.0-8.3) gm/dl Albumin 3.2 L (3.4-5.0) gm/dl
--- NOTE | 2023-06-11 12:32 | Discharge Summary ---
Date of Service June 11, 2023 Admission HPI Per Admitting Provider Sima Daniel is a 72yo female with remote history of breast CA s/p bilateral mastectomy and chemotherapy, interstitial lung disease, seizure disorder presenting with complaint of intermittent fever/rigors and general feeling of unwellness. Patient reports that she has not been feeling well for the last month. She has been experiencing intermittent fever, rigors and back pain - has occurred 3x over the last month. She has had progressive fatigue, decreased exercise tolerance and generally feels poor. She additionally has had a 20# unintentional weight loss over the last 6 months. She reports a decent appetite and good po intake. She has had nausea as well as episodes of watery, non-bloody/non-mucoid diarrhea for which she has been taking Imodium. Also with shortness of breath mostly noted at night. She has been using her inhaler. She denies headache, visual changes, imbalance, chest pain, cough, abdominal pain, vomiting, constipation or urinary complaints. No rashes or joint pain. No sick contacts, recent travel, dietary changes, tick bites. She drinks bottled water at home. Patient was seen by her PCP with these complaints on 06/02/23. She had labs performed which showed elevated WBC count of 20.8, DFJ=715, HGW=213, CT=062. UA was normal. Acute hepatitis panel was NEGATIVE. ANIYA was NEGATIVE. She was seen by her PCP again on 06/08/23 - found to have a positive colorectal screening test on Cologuard - she has been ordered a colonoscopy. She was referred to the ER for continued workup. IN the ER she is afebrile, HD stable, NAD ER Course: Zosyn 4.5m IV NSS x 1L Keppra 500mg PO Oxycodone 5mg PO Principal Diagnosis Choledocholithiasis Discharge Exam General-alert and oriented x3, no fevers, no chills. Cachectic appearing HEENT-head atraumatic and normocephalic, pupils equal and reactive to light, extraocular muscles intact Neck-no lymphadenopathy or thyromegaly, trachea midline Chest-clear to auscultation percussion. No rales wheezing or rhonchi Cardiac-regular rate and rhythm, normal S1 and S2 Abdomen-normal bowel sounds, nontender, no hepatosplenomegaly Extremities-no cyanosis, clubbing, or edema Neuro-cranial nerves II through XII intact, motor and sensory function within normal limits, strength symmetrical , no focal deficits Psych-normal affect, normal mood Discharge Data Allergies Allergy/AdvReac Type Severity Reaction Status Date / Time tramadol AdvReac Severe Seizure Verified 06/08/23 13:09 Consultations 06/08/23 20:57 ED Decision to Admit Stat 06/09/23 00:49 Consult Gastroenterology Routine 06/10/23 12:04 Consult General Surgery Routine Procedures Performed Operation Date: 06/10/23 12:30 Actual Procedures p Esophagogastroduodenoscopy c bx - Leonora Zuniga, s Endoscopic Ultrasonography Upper - Leonora Zuniga, DO s Endoscopic Retrograde Cholangiopancreato - Leonora Zuniga DO Ordered Studies 06/08/23 18:56 CT abd pelvis IV con only Stat CT angio chest PE protocol Stat 06/09/23 00:49 MRI MRCP [MR MRCP] Routine 06/10/23 09:02 US upper EUS PACS images Routine 06/10/23 12:30 FL ERCP biliary ductal Routine Hospital Course (1) Biliary tract obstruction: No overt obstruction. Total bilirubin levels are normal. She is not icteric. MRCP reveals dilated common bile duct. GI consultation appreciated. ERCP with EUS was completed on June 10, and she had several distal common bile duct stones which were removed and a stent was placed. There was no evidence of malignancy. Surgery has seen the patient and will be scheduling cholecystectomy at a later date. Diet has been advanced. She will be discharged home today on Augmentin. She was treated while hospitalized with Zosyn (2) Pneumonia: No overt pneumonia. She has known interstitial lung disease. Current chest x- ray and CAT scan results probably represents some progression. She has no sputum production or fever. (3) Seizure: Stable. Continue Keppra (4) Atrial flutter: Amiodarone is currently on hold. Currently on no systemic anticoagulation. Loop recorder in place (5) Positive colorectal cancer screening using Cologuard test: Noted in outpatient records. Screening colonoscopy to be arranged by PCP Plan Home today, June 11, on Augmentin. She will follow-up with surgery, Dr. Vikas Burks, as an outpatient in 1 week to schedule cholecystectomy. Total Time Total Time Spent Total Time Spent (In Minutes): 45 minutes Discharge Plan Discharge Items Patient Disposition: Home - Self-Care Reason For Visit: ILLNESS Discharge Diagnosis: Choledocholithiasis Activity: Resume your previous activity Non-emergency contact: Primary Care Provider and Surgeon Call non-emergency contact if: your symptoms worsen Follow-up/Referrals: Luis Antonio Buck MD [Primary Care Provider] - Diet: Regular, Heart Healthy and Low Fat Addtl Attending Provider Instructions: Take Augmentin twice daily as directed. See general surgery in 1 week for scheduling of outpatient gallbladder removal Pending Studies at Discharge: No Stand-Alone Forms: My [facility] edo, Smoking Cessation Medications and DC Order Prescriptions: New oxycodone 5 mg Tablet 5 mg PO BID PRN (Reason: pain) Qty: 14 0RF amoxicillin-pot clavulanate 875-125 mg tablet 1 tab PO BID Qty: 14 0RF Continued (DME) OneTouch Ultra Test Strip See Rx Instructions .Route Qty: 100 0RF Rx Instructions: As directed- 3x daily (DME) Reveal Test Strip Strip See Rx Instructions .Route Qty: 100 2RF Rx Instructions: testing 3 times daily ezetimibe 10 mg tablet 10 mg PO DAILY Qty: 90 3RF fluoxetine 40 mg capsule 80 mg PO PM Qty: 180 3RF rosuvastatin 5 mg tablet 5 mg PO DAILY Qty: 90 3RF Hold Instructions: Hold per Dr. Smith/elevated LFTs Rx Instructions: on hold levetiracetam [Keppra] 500 mg tablet 500 mg PO BID 90 Days Qty: 180 3RF ibandronate [Boniva] 150 mg tablet 150 mg PO Q4WK Qty: 12 1RF ondansetron HCl 4 mg tablet 4 mg PO Q8H PRN (Reason: nausea and vomiting) Qty: 30 0RF albuterol sulfate 90 mcg/actuation HFA aerosol inhaler 1 - 2 puff inhalation Q4H PRN (Reason: interstitial lung disease) Qty: 18 0RF Rx Instructions: RARE USE zolpidem 10 mg tablet 10 mg PO HS PRN (Reason: insomnia) 30 Days Qty: 30 5RF celecoxib [Celebrex] 100 mg capsule 100 mg PO BID Qty: 60 5RF amiodarone 100 mg tablet 100 mg PO BID Qty: 18 0RF Hold Instructions: Hold per Dr. Smith/elevated LFTs Rx Instructions: on hold duloxetine [Cymbalta] 20 mg capsule,delayed release(DR/EC) 20 mg PO BID Qty: 60 1RF Emergen-C 1,000 mg Powder Effervescent In Packet 1 ea PO DAILY oxycodone 5 mg tablet 5 mg PO BID PRN (Reason: pain) 7 Days Qty: 14 0RF Rx Instructions: Supervising physician Luis Antonio Kim [facility], [facility] [id number] Admission Data Admit Date/Time: 06/08/23 21:51 Attending Provider: Luciano Schwarz Admit Provider: Heather Marcelo Primary Care Provider: Luis Antonio Buck V. Other Providers: Heather Marcelo ; Leonora Zuniga ; Satish Goldman Coding Level of Care Code 12719 INP/OBS DISCH >30 MIN Diagnoses Biliary tract obstruction K83.1 Pneumonia J18.9 Laterality: bilateral Lung location: unspecified part of lung Pneumonia type: due to unspecified organism Seizure R56.9 Atrial flutter I48.92 Positive colorectal cancer screening using Cologuard test R19.5
[2023-06-11] MEDS: oxyCODONE HCL IR 5 MG TAB (IMMEDIATE RELEASE) PO PRN (15:03)
[2023-06-13 01:23] LABS: Angiotensin Converting Enzyme 83 U/L (9-67); Babesia microti DNA Not Detected (Not Detected)
== END 2023-06-11 15:25 | disposition home or self-care (01) | DRG 444 ==
LOC: ED 17:19 → EDINP 21:51 → SUATTDRO 21:51 → 3E 06-09 00:49

== ENCOUNTER 2023-06-15 14:54 | Observation (INO) ==
[2023-06-15] MEDS ORDERED: SODIUM CHLORIDE 0.9% 1000ML 1,000 ML IV ONE (15:36)
--- NOTE | 2023-06-15 15:36 | Emergency Department Note ---
Impression & Plan SVT (supraventricular tachycardia), Elevated troponin ED Provider Note NAME: MULU MARTINEZ AGE: 72 SEX: F : 1950 ARRIVES VIA: Walk-In INFORMANT: Patient ED PROVIDER(S): Janak De La Cruz DO CHIEF COMPLAINT: abdominal pain and abnormal EKG HPI: Patient is a 72-year-old female who presents the ER for epigastric abdominal tightness/fullness in combination with an abnormal EKG. She was seen by her PCP in follow-up and found to be in a regular rhythm and consequently sent to the ER. Yesterday she followed up with Dr. Zuniga and had an ERCP done with stents placed and stones removed from her CBD. She is going to have her gallbladder removed this week. She notes the pain is worsening. She does have nausea. No vomiting. No dysuria, urgency, or frequency. No other exacerbating or remitting factors. Does have a history of a flutter and has been off amnio due to the elevated LFTs. She took 1 dose last night as instructed by Dr. Gill when she was discharged. PAST MEDICAL HISTORY:See Below PAST SURGICAL HISTORY:See Below FAMILY HISTORY:See Below SOCIAL HISTORY:See Below HOME MEDICATIONS:See Below ALLERGIES:See Below VITALS:See Below PHYSICAL EXAMINATION: GENERAL: Sitting up in bed, alert, ill-appearing, disheveled EYE EXAM: normal conjunctiva. PERRL and EOM's grossly intact. OROPHARYNX: no exudate, no erythema, lips, buccal mucosa, and tongue normal and mucous membranes are moist NECK: supple, no nuchal rigidity, no adenopathy, non-tender LUNGS: Clear to auscultation. Normal chest wall mechanics HEART: no murmurs, S1 normal and S2 normal ABDOMEN: abdomen soft, TTP in epigastric region, normo-active bowel sounds, no masses, no rebound or guarding. UPPER EXTREMITIES: upper extremities are grossly normal. LOWER EXTREMITIES: No pitting edema. NEURO EXAM: Normal sensorium, cranial nerves II-XII grossly intact, normal speech, no gross weakness of arms, no gross weakness of legs. MEDICAL DECISION MAKING: Patient is a 72-year-old female who presents ER referred in by PCP. IV was established blood work was obtained. Initially upon arrival heart rate did suggest an SVT. She broke while bearing down on the second time. Labs show mil d leukocytosis 11.6 thousand. No significant anemia. BMP was unremarkable. T. bili normal. LFTs with mild transaminitis. Troponin was elevated at 120. Lipase was normal. Patient did have biliary stents placed recently. Ultrasound the gallbladder suggest cholecystitis. Patient was covered with IV antibiotics. Did discuss with the hospitalist for further evaluation management and treatment. Do favor the elevated troponin was likely rate related as she did not know her heart rate was elevated. Hold on heparin as I do not believe that this is consistent with ACS at this time but rather related to the SVT. Triage Nursing notes reviewed. Limited review of prior medical records performed Vital Signs: reviewed and remarkable for no significant abnormalities Differential diagnosis: Cardiac ischemia, aortic dissection, pulmonary embolism, pneumothorax, pneumonia, pericarditis, myocarditis, esophageal rupture, GERD, cholecystitis, p ancreatitis, musculoskeletal, as well as other pathologies. ER treatment provided: See below Diagnostics interpreted by me include EKG and cardiac monitoring as listed below: -Cardiac Monitoring: An order was placed for continuous cardiac monitoring. The monitor shows a rate of 80 with sinus rhythm. -ECG: SVT rate 140 Right axis Poor baseline ST depressions in the lateral leads QTc 516 EKG #2 Sinus rhythm rate 80 Left axis Septal Q waves QTc 477 -Laboratory studies:Interpreted by me as stated above in MDM and shown below. Imaging studies: Xrays: As interpreted by me: Portable AP upright 1 view chest shows no focal infiltrate CTs show: none Ultrasound the gallbladder shows likely cholecystitis Consultation(s): As described in MDM Procedures:none Critical Care: None Past Med/Surg History Medical History Anemia APC (atrial premature contractions) Body aches Breast cancer 1991 Cardiac murmur NO ISSUES Chills Community acquired pneumonia Congestion of nasal sinus COVID Depression Dermatitis Elevated brain natriuretic peptide (BNP) level Fatigue Heartburn History of anesthesia reaction GETS BAD ANXIETY WITH TWILIGHT SEDATION History of antineoplastic chemotherapy History of malignant neoplasm of breast History of osteoporosis Hyperlipidemia Interstitial lung disease DOENST FOLLOW LUNG DOCTOR > DOESNT HAVE ISSUES WITH Mass of arm Pneumonia due to COVID-19 virus Prediabetes PVC (premature ventricular contraction) Stroke 20 YRS AGO > WORKUP SINCE HAS BEEN FINE > NUMBNESS RIGHT HAND > NO MORE FOLLOW UP Syncope and collapse Surgical History Closed fracture of clavicle (11/23/14) RIGHT, ORIF Shahramremy H/O tubal ligation History of colonoscopy History of lung biopsy History of removal of ovarian cyst Hx of bilateral mastectomy WITH RECONSTRUCTION Hx of hand surgery (03/19/16) LEFT index finger revision amp with Volar VY advancement flap-Barter Hx of left cataract extraction Hx of surgical procedure CAROTID BYPASS > 20 YRS AGO Hx of surgical procedure COLLAR BONE BROKEN BOTH SIDES > PLATES TO BOTH SIDES S/P craniotomy 27 YRS AGO > [facility] S/P excision of lipoma FINAL DIAGNOSIS Soft tissue, left forearm, "mass" (excision): In office procedure Chambers 02/04/2022 - Lipoma. Family History Father Colorectal cancer Brother Esophageal cancer Mother Lung cancer Denies family history of Ovarian cancer Prostate cancer Myocardial infarction Breast cancer Social History Smoking Status: Current every day smoker Tobacco Type: Cigarettes packs per day: 1; Second Hand Exposure: Yes; Do You Dip or Chew Tobacco: No; Hx Alcohol Use: No (does not drink anymore) Hx Substance Use: No Preferred Language: Polish Communication Ability: Effective Visual Impairment: No Limitations Hearing Ability: Normal Analytical Lab Analyst Required: No Beliefs That Will Affect Care: None marital status: Current Living Situation: Spouse Current Living Situation Comment: [place] current occupational status: retired 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 Feels Safe at Home: Yes Childhood Exposure to Second-Hand Smoke: Yes Diet: regular during the past year weight has: remained stable Dental Care, Regularly: Yes Physical Activity Frequency: Daily Seatbelt Use: always Sunscreen Use: Yes Assistive Devices: None Allergies Allergies Allergy/AdvReac Type Severity Reaction Status Date / Time tramadol AdvReac Severe Seizure Verified 06/15/23 15:36 Home Meds Home Medications Medication Instructions Recorded Confirmed ascorbic acid 1,000 1 ea PO DAILY 08/20/20 06/15/23 [id number] powder effervescent pack (Emergen-C) Previous Rx's Medication Instructions Recorded blood sugar diagnostic (OneTouch #100 ea 07/24/21 Ultra Test strips) blood sugar diagnostic (Reveal #100 ea 07/28/21 Test Strip) ezetimibe 10 mg tablet 10 mg PO DAILY #90 tabs 11/15/22 fluoxetine 40 mg capsule 80 mg PO PM depression #180 caps 11/15/22 levetiracetam 500 mg tablet 500 mg PO BID 90 days #180 tabs 11/15/22 (Keppra) rosuvastatin 5 mg tablet 5 mg PO DAILY #90 tabs 11/15/22 ibandronate 150 mg tablet (Boniva) 150 mg PO Q4WK #12 tabs 11/24/22 ondansetron HCl 4 mg tablet 4 mg PO Q8H PRN nausea and 12/20/22 vomiting #30 tabs albuterol sulfate 90 mcg/actuation 1 - 2 puff inhalation Q4H PRN 02/21/23 aerosol inhaler interstitial lung disease #18 grams zolpidem 10 mg tablet 10 mg PO HS PRN insomnia 30 days 02/22/23 #30 tabs celecoxib 100 mg capsule (Celebrex) 100 mg PO BID #60 caps 03/09/23 duloxetine 20 mg capsule,delayed 20 mg PO BID #60 caps 05/11/23 release (Cymbalta) amiodarone 100 mg tablet 100 mg PO BID #18 tabs 05/23/23 amoxicillin 875 mg-potassium 1 tab PO BID #14 tabs 06/11/23 clavulanate 125 mg tablet oxycodone 5 mg tablet 5 mg PO BID PRN pain 7 days #14 06/11/23 tabs Results & Data (ED) Vital Signs Vital Signs - 24 hr 06/15/23 15:04 06/15/23 15:20 06/15/23 15:27 Temperature 36.6 C Temperature Source Temporal Artery Scan Pulse Rate 135 H Pulse Rate [Apical] 82 Respiratory Rate 16 21 Respiratory Effort / Characteristics Non-Labored Spontaneous Non-Labored Respiratory Depth Normal Normal Respiratory Pattern Regular Blood Pressure 101/70 Blood Pressure [Right Arm] 105/63 Blood Pressure Mean 80 Blood Pressure Mean [Right Arm] 77 Pulse Oximetry 90 96 95 Oxygen Delivery Method Room Air Room Air Room Air Sepsis Recent Fever Within 48 Hours No Sepsis New/Unexplained Change in Mental Status No Sepsis Action Taken by Nursing No Action Required Pulse Oximetry Post Tiitration 06/15/23 15:27 06/15/23 16:26 06/15/23 18:00 Temperature Temperature Source Pulse Rate Pulse Rate [Apical] 75 70 Respiratory Rate 17 20 Respiratory Effort / Characteristics Respiratory Depth Respiratory Pattern Blood Pressure Blood Pressure [Right Arm] 118/67 109/58 L Blood Pressure Mean Blood Pressure Mean [Right Arm] 84 75 Pulse Oximetry 94 93 Oxygen Delivery Method Room Air Room Air Room Air Sepsis Recent Fever Within 48 Hours Sepsis New/Unexplained Change in Mental Status Sepsis Action Taken by Nursing Pulse Oximetry Post Tiitration 96 06/15/23 16:29 06/15/23 18:19 06/15/23 18:20 Temperature Temperature Source Pulse Rate 72 71 72 Pulse Rate [Apical] Respiratory Rate 13 14 Respiratory Effort / Characteristics Respiratory Depth Respiratory Pattern Blood Pressure Blood Pressure [Right Arm] Blood Pressure Mean Blood Pressure Mean [Right Arm] Pulse Oximetry Oxygen Delivery Method Sepsis Recent Fever Within 48 Hours Sepsis New/Unexplained Change in Mental Status Sepsis Action Taken by Nursing Pulse Oximetry Post Tiitration 06/15/23 18:30 06/15/23 18:30 06/15/23 18:40 Temperature Temperature Source Pulse Rate 74 73 Pulse Rate [Apical] Respiratory Rate 15 16 Respiratory Effort / Characteristics Respiratory Depth Respiratory Pattern Blood Pressure 119/64 Blood Pressure [Right Arm] Blood Pressure Mean 95 Blood Pressure Mean [Right Arm] Pulse Oximetry Oxygen Delivery Method Sepsis Recent Fever Within 48 Hours Sepsis New/Unexplained Change in Mental Status Sepsis Action Taken by Nursing Pulse Oximetry Post Tiitration 06/15/23 18:50 06/15/23 19:00 06/15/23 19:05 Temperature Temperature Source Pulse Rate 73 70 71 Pulse Rate [Apical] Respiratory Rate 15 16 15 Respiratory Effort / Characteristics Respiratory Depth Respiratory Pattern Blood Pressure Blood Pressure [Right Arm] Blood Pressure Mean Blood Pressure Mean [Right Arm] Pulse Oximetry Oxygen Delivery Method Sepsis Recent Fever Within 48 Hours Sepsis New/Unexplained Change in Mental Status Sepsis Action Taken by Nursing Pulse Oximetry Post Tiitration 06/15/23 19:05 06/15/23 19:10 06/15/23 20:25 Temperature Temperature Source Pulse Rate 70 68 Pulse Rate [Apical] Respiratory Rate 19 Respiratory Effort / Characteristics Respiratory Depth Respiratory Pattern Blood Pressure 109/58 L Blood Pressure [Right Arm] Blood Pressure Mean 66 Blood Pressure Mean [Right Arm] Pulse Oximetry Oxygen Delivery Method Sepsis Recent Fever Within 48 Hours Sepsis New/Unexplained Change in Mental Status Sepsis Action Taken by Nursing Pulse Oximetry Post Tiitration 06/15/23 19:20 06/15/23 19:30 06/15/23 19:30 Temperature Temperature Source Pulse Rate 69 71 Pulse Rate [Apical] Respiratory Rate 15 12 Respiratory Effort / Characteristics Respiratory Depth Respiratory Pattern Blood Pressure 110/74 Blood Pressure [Right Arm] Blood Pressure Mean 92 Blood Pressure Mean [Right Arm] Pulse Oximetry Oxygen Delivery Method Sepsis Recent Fever Within 48 Hours Sepsis New/Unexplained Change in Mental Status Sepsis Action Taken by Nursing Pulse Oximetry Post Tiitration 06/15/23 19:40 06/15/23 19:50 06/15/23 20:00 Temperature Temperature Source Pulse Rate 71 71 Pulse Rate [Apical] Respiratory Rate 15 14 Respiratory Effort / Characteristics Respiratory Depth Respiratory Pattern Blood Pressure 116/63 Blood Pressure [Right Arm] Blood Pressure Mean 87 Blood Pressure Mean [Right Arm] Pulse Oximetry Oxygen Delivery Method Sepsis Recent Fever Within 48 Hours Sepsis New/Unexplained Change in Mental Status Sepsis Action Taken by Nursing Pulse Oximetry Post Tiitration 06/15/23 20:00 06/15/23 20:10 06/15/23 20:20 Temperature Temperature Source Pulse Rate 68 68 68 Pulse Rate [Apical] Respiratory Rate 19 20 17 Respiratory Effort / Characteristics Respiratory Depth Respiratory Pattern Blood Pressure Blood Pressure [Right Arm] Blood Pressure Mean Blood Pressure Mean [Right Arm] Pulse Oximetry Oxygen Delivery Method Sepsis Recent Fever Within 48 Hours Sepsis New/Unexplained Change in Mental Status Sepsis Action Taken by Nursing Pulse Oximetry Post Tiitration 06/15/23 20:30 Temperature Temperature Source Pulse Rate 71 Pulse Rate [Apical] Respiratory Rate 14 Respiratory Effort / Characteristics Respiratory Depth Respiratory Pattern Blood Pressure Blood Pressure [Right Arm] Blood Pressure Mean Blood Pressure Mean [Right Arm] Pulse Oximetry Oxygen Delivery Method Sepsis Recent Fever Within 48 Hours Sepsis New/Unexplained Change in Mental Status Sepsis Action Taken by Nursing Pulse Oximetry Post Tiitration Laboratory Data 06/15/23 15:20 06/15/23 15:20 Lab Results 06/15/23 06/15/23 06/15/23 Range/Units 15:20 15:20 19:02 WBC 11.69 H (4.8-10.8) K/ul RBC 5.21 (4.20-5.40) M/uL Hgb 13.5 (12.0-16.0) g/dl Hct 42.6 (37.0-47.0) % MCV 81.8 (80.0-100.0) fL MCH 25.9 (25.0-34.0) pg MCHC 31.7 L (32.0-36.0) g/dL RDW Std Deviation 41.1 (36.4-46.3) fL RDW Coeff of Marcio 14.1 (11.5-14.5) % Plt Count 470 H (130-400) K/uL MPV 10.2 (9.4-12.4) fL Immature Gran % (Auto) 0.4 % Neut % (Auto) 78.2 % Lymph % (Auto) 11.9 % [place] % (Auto) 6.3 % Eos % (Auto) 2.6 % Baso % (Auto) 0.6 % Neut # (Auto) 9.14 H (1.40-6.50) K/uL Lymph # (Auto) 1.39 (1.20-3.40) K/uL [place] # (Auto) 0.74 H (0.11-0.59) K/uL Eos # (Auto) 0.30 (0.00-0.50) K/uL Baso # (Auto) 0.07 (0.00-0.20) K/uL Immature Gran # (Auto) 0.05 (0.01-0.20) K/uL Sodium 135 L (136-145) mmol/L Potassium 3.5 (3.5-5.1) mmol/L Chloride 99 (98-107) mmol/L Carbon Dioxide 29 (21-32) mmol/L Anion Gap 7 (3-11) BUN 17 (6-23) mg/dl Creatinine 0.79 (0.6-1.2) mg/dl Est Cr Clr Drug Dosing 42.3 ml/min Est GFR ( Amer) 87.9 ml/min Est GFR (Non-Af Amer) 75.8 ml/min BUN/Creatinine Ratio 21.5 H (10-20) Glucose 95 (70-99(Fasting)) mg/dl Calcium 9.3 (8.6-10.3) mg/dl Total Bilirubin 0.5 (0.2-1.0) mg/dl AST 56 H (13-39) U/L ALT 102 H (7-52) U/L Alkaline Phosphatase 110 H (34-104) U/L Troponin I High Sens 121.3 H* 107.1 H* (0-14) pg/ml Total Protein 6.4 (6.0-8.3) gm/dl Albumin 3.8 (3.4-5.0) gm/dl Globulin 2.6 (2.5-4.0) gm/dl Albumin/Globulin Ratio 1.5 (0.9-2) Lipase 30 (11-82) U/L Administered Medications Discontinued Medications Sodium Chloride (Nss 1000ml) 1,000 mls @ 999 mls/hr IV .Q1H1M ONE Stop: 06/15/23 16:36 Last Infusion: 06/15/23 17:00 Dose: 0 mls/hr Documented By: Admin: 06/15/23 15:41 Dose: 999 mls/hr Documented By: FRANDY Piperacillin Sod/Tazobactam Sod (Zosyn) 4.5 gm in 120 mls @ 240 mls/hr IV NOW ONE Stop: 06/15/23 18:40 Last Infusion: 06/15/23 19:15 Dose: 0 mls/hr Documented By: Admin: 06/15/23 18:30 Dose: 240 mls/hr Documented By: JAYLEN Morphine Sulfate (Morphine Sulfate 4 Mg/Ml 1 Ml Carp\\Vial) 4 mg IV NOW STA Stop: 06/15/23 16:01 Last Admin: 06/15/23 16:06 Dose: 4 mg Documented By: FRANDY Ondansetron HCl (Ondansetron Inj 2 Mg/Ml 2 Ml Vial) 4 mg IV NOW STA Stop: 06/15/23 16:01 Last Admin: 06/15/23 16:06 Dose: 4 mg Documented By: FRANDY Imaging Data Radiologist's Impression: Chest X-Ray 06/15/23 15:21 SINGLE VIEW CHEST CLINICAL HISTORY: Atypical chest pain. FINDINGS: An AP, portable, upright chest radiograph is compared to study dated 08/20/2020 and correlated with chest CT dated 06/08/2023. Surgical clips are noted in the right axilla. An electronic device projects over the left lower chest. The heart is enlarged. There is pulmonary vascular congestion. Advanced emphysema and chronic interstitial thickening is similar to previous. Fibrotic changes again seen throughout both lungs. Superimposed airspace opacities in the right midlung are not excluded. No large pleural effusion or pneumothorax is seen. The skeletal structures are osteopenic. Degenerative change and scoliosis is noted in the spine. There is chronic deformity of both clavicles status post buttressed with fixation. A biliary stent is seen in the upper abdomen. IMPRESSION: 1. Cardiomegaly and emphysema with pulmonary vascular congestion. 2. Fibrotic change is again seen throughout both lungs. 3. Superimposed airspace opacities in the right midlung are not excluded. Correlate clinically for evidence of a superimposed infectious/inflammatory pneumonitis ACT 112: Negative or not required by law. Electronically signed by: Zak Woodruff M.D. 06/15/2023 3:44 PM Gallbladder Ultrasound 06/15/23 15:36 ULTRASOUND RIGHT UPPER QUADRANT ABDOMEN CLINICAL HISTORY: Generalized abdominal pain. Choledocholithiasis. COMPARISON STUDY: Abdominal CT dated 06/08/2023. MRCP dated 06/09/2023 TECHNIQUE: Real-time, grayscale, and color flow sonography of the right upper quadrant of the abdomen was performed. Images are reviewed in the transverse and longitudinal planes. FINDINGS: Liver: The liver is normal in size and echotexture. There is no intrahepatic biliary ductal dilatation. Suspect trace pneumobilia. The main portal vein is patent. Gallbladder: The gallbladder is distended. The gallbladder wall is mildly thickened measuring up to 3 mm. There are small stones and biliary sludge. Trace pericholecystic fluid is observed. A sonographic Wylie's sign is reportedly absent. The common bile duct and the patient's known common bile duct stent are not well visualized. Pancreas: Visualized portions of the pancreatic head and body are normal in ap pearance. The pancreatic duct is dilated measuring up to 4 mm. The splenic vein is patent. Right kidney: Survey images of the right kidney demonstrate normal size and echotexture. There is no hydronephrosis. Ascites: None. IMPRESSION: 1. The gallbladder is distended and mildly thick-walled. There are small stones and biliary sludge, as well as trace pericholecystic fluid. Acute cholecystitis is not excluded. Clinical and laboratory correlation will be essential. 2. The common bile duct and the patient's known biliary stent are not visualized. 3. There is no intrahepatic biliary duct dilatation. 4. Mild dilatation of the pancreatic duct is similar to previous. ACT 112: Negative or not required by law. Electronically signed by: Zak Woodruff M.D. 06/15/2023 5:40 PM Discharge Plan Visit Data Chief Complaint: Chest Pain Stated Complaint: CHEST PAIN, BACK PAIN ED Provider: Janak De La Cruz Discharge Problem: SVT (supraventricular tachycardia), Elevated troponin Forms Stand Alone Forms: My [facility] Prescriptions Prescriptions: No Action (DME) OneTouch Ultra Test Strip See Rx Instructions .Route Qty: 100 0RF Rx Instructions: As directed- 3x daily (DME) Reveal Test Strip Strip See Rx Instructions .Route Qty: 100 2RF Rx Instructions: testing 3 times daily ezetimibe 10 mg tablet 10 mg PO DAILY Qty: 90 3RF fluoxetine 40 mg capsule 80 mg PO PM Qty: 180 3RF rosuvastatin 5 mg tablet 5 mg PO DAILY Qty: 90 3RF Hold Instructions: Hold per Dr. Smith/elevated LFTs Rx Instructions: on hold levetiracetam [Keppra] 500 mg tablet 500 mg PO BID 90 Days Qty: 180 3RF ibandronate [Boniva] 150 mg tablet 150 mg PO Q4WK Qty: 12 1RF Rx Instructions: PER PT "USUALLY THE BEGINNING OF THE MONTH" ondansetron HCl 4 mg tablet 4 mg PO Q8H PRN (Reason: nausea and vomiting) Qty: 30 0RF albuterol sulfate 90 mcg/actuation HFA aerosol inhaler 1 - 2 puff inhalation Q4H PRN (Reason: interstitial lung disease) Qty: 18 0RF Rx Instructions: RARE USE zolpidem 10 mg tablet 10 mg PO HS PRN (Reason: insomnia) 30 Days Qty: 30 5RF celecoxib [Celebrex] 100 mg capsule 100 mg PO BID Qty: 60 5RF amiodarone 100 mg tablet 100 mg PO BID Qty: 18 0RF Hold Instructions: Hold per Dr. Smith/elevated LFTs Rx Instructions: on hold duloxetine [Cymbalta] 20 mg capsule,delayed release(DR/EC) 20 mg PO BID Qty: 60 1RF Emergen-C 1,000 mg Powder Effervescent In Packet 1 ea PO DAILY oxycodone 5 mg tablet 5 mg PO BID PRN (Reason: pain) 7 Days Qty: 14 0RF Rx Instructions: Supervising physician Luis Antonio Kim [facility] [id number] [facility] [id number] amoxicillin-pot clavulanate 875-125 mg tablet 1 tab PO BID Qty: 14 0RF Rx Instructions: STARTED 06/11/23 FOR 7 DAYS Referrals Referrals: Luis Antonio Buck MD [Primary Care Provider] -
--- NOTE | 2023-06-15 15:46 | XRay Report ---
SINGLE VIEW CHEST CLINICAL HISTORY: Atypical chest pain. FINDINGS: An AP, portable, upright chest radiograph is compared to study dated 08/20/2020 and correlat ed with chest CT dated 06/08/2023. Surgical clips are noted in the right axilla. An electronic device projects over the left lower chest. The heart is enlarged. There is pulmonary vascular congestion. Ad vanced emphysema and chronic interstitial thickening is similar to previous. Fibrotic changes again s een throughout both lungs. Superimposed airspace opacities in the right midlung are not excluded. No large pleural effusion or pneumothorax is seen. The skeletal structures are osteopenic. Degenerative change and scoliosis is noted in the spine. There is chronic deformity of both clavicles status post buttressed with fixation. A biliary stent is seen in the upper abdomen. IMPRESSION: 1. Cardiomegaly and emphysema with pulmonary vascular congestion. 2. Fibrotic change is again seen throughout both lungs. 3. Superimposed airspace opacities in the right midlung are not excluded. Correlate clinically for ev idence of a superimposed infectious/inflammatory pneumonitis ACT 112: Negative or not required by law. Electronically signed by: Zak Woodruff M.D. 06/15/2023 3:44 PM
[2023-06-15] MEDS ORDERED: ONDANSETRON INJ 2 MG/ML 2 ML VIAL IV STA (16:00)
[2023-06-15] MEDS ORDERED: MoRPHine SULFATE 4 MG/ML 1 ML CARP\\VIAL IV STA (16:00)
[2023-06-15 16:01] LABS: Basophils # (auto) 0.07 K/uL (0.00-0.20); Basophils % (auto) 0.6 %; Eosinophils % (auto) 2.6 %; Hematocrit (blood only) 42.6 % (37.0-47.0); Hemoglobin 13.5 g/dl (12.0-16.0); Immature Granulocytes # (auto) 0.05 K/uL (0.01-0.20); Immature Granulocytes % (auto) 0.4 %; Lymphocytes # (auto) 1.39 K/uL (1.20-3.40); Lymphocytes % (auto) 11.9 %; Mean Corpuscular Hemoglobin 25.9 pg (25.0-34.0); Mean Corpuscular Hgb Conc 31.7 g/dL (32.0-36.0); Mean Corpuscular Volume 81.8 fL (80.0-100.0); Mean Platelet Volume 10.2 fL (9.4-12.4); Monocytes # (auto) 0.74 K/uL (0.11-0.59); Monocytes % (auto) 6.3 %; Neutrophils # (auto) 9.14 K/uL (1.40-6.50); Neutrophils % (auto) 78.2 %; Platelet Count 470 K/uL (130-400); RDW Coefficient of Variation 14.1 % (11.5-14.5); RDW Standard Deviation 41.1 fL (36.4-46.3); Red Blood Count 5.21 M/uL (4.20-5.40); White Blood Count 11.69 K/ul (4.8-10.8)
[2023-06-15 16:23] LABS: Albumin Globulin Ratio 1.5 (0.9-2); Albumin Level 3.8 gm/dl (3.4-5.0); BUN Creatinine Ratio 21.5 (10-20); Bilirubin,Total 0.5 mg/dl (0.2-1.0); Calcium 9.3 mg/dl (8.6-10.3); Creatinine Clr Calc Pharmacy 42.3 ml/min; Est GFR (African American) 87.9 ml/min; Est GFR (Non-African American) 75.8 ml/min; Globulin 2.6 gm/dl (2.5-4.0); Potassium 3.5 mmol/L (3.5-5.1); Total Protein 6.4 gm/dl (6.0-8.3)
[2023-06-15 16:33] LABS: Troponin I High Sensitivity 121.3 pg/ml (0-14)
--- NOTE | 2023-06-15 17:41 | Ultrasound Report ---
ULTRASOUND RIGHT UPPER QUADRANT ABDOMEN CLINICAL HISTORY: Generalized abdominal pain. Choledocholithiasis. COMPARISON STUDY: Abdominal CT dated 06/08/2023. MRCP dated 06/09/2023 TECHNIQUE: Real-time, grayscale, and color flow sonography of the right upper quadrant of the abdomen was performed. Images are reviewed in the transverse and longitudinal planes. FINDINGS: Liver: The liver is normal in size and echotexture. There is no intrahepatic biliary ductal dilatatio n. Suspect trace pneumobilia. The main portal vein is patent. Gallbladder: The gallbladder is distended. The gallbladder wall is mildly thickened measuring up to 3 mm. There are small stones and biliary sludge. Trace pericholecystic fluid is observed. A sonographi c Wylie's sign is reportedly absent. The common bile duct and the patient's known common bile duct s tent are not well visualized. Pancreas: Visualized portions of the pancreatic head and body are normal in appearance. The pancreati c duct is dilated measuring up to 4 mm. The splenic vein is patent. Right kidney: Survey images of the right kidney demonstrate normal size and echotexture. There is no hydronephrosis. Ascites: None. IMPRESSION: 1. The gallbladder is distended and mildly thick-walled. There are small stones and biliary sludge, as well as trace pericholecystic fluid. Acute cholecystitis is not excluded. Clinical and laboratory correlation will be essential. 2. The common bile duct and the patient's known biliary stent are not visualized. 3. There is no intrahepatic biliary duct dilatation. 4. Mild dilatation of the pancreatic duct is similar to previous. ACT 112: Negative or not required by law. Electronically signed by: Zak Woodruff M.D. 06/15/2023 5:40 PM
[2023-06-15] MEDS ORDERED: PIPERACILLIN/TAZOBACTAM 4.5 GM/120 ML BAG IV ONE (18:11)
--- NOTE | 2023-06-15 19:26 | History & Physical Report ---
Date of Service June 15, 2023 Assessment & Plan (1) Elevated troponin: Plan: Elevated Troponin in setting of tachycardia and without complaints of chest pain - Likely type II demand from above - Continue to trend HScTNI and ECGs- - Consider heparin infusion if ECG changes or with chest pain - (2) SVT (supraventricular tachycardia): Plan: Hx of SVT/Aflutter- HR up to the 140s on arrival to EMD - Give 2GM of Mag now - Continue amiodarone- if back into SVT and unable to break- consider reloading with amiodarone IV - (3) Pneumonia: Plan: Has been on Augmentin PO as outpatient - remains with right middle lobe opacity mild leukocytosis - Continue Zosyn de-escalate as able (4) Epigastric pain: Plan: S/P ERCP with stent to gallbladder - was to follow up for surgery this week- missed preop screening - may need assistance with scheduling/follow up (5) History of compression fracture of vertebral column: Plan: Chronic with chronic back pain - Continue with Oxycodone, Tylenol, Lidocaine patch, and K-pad - Reports following with Chronic Pain clinic- however unsure of who she sees (6) LFTs abnormal: Plan: Downtrending see above (7) Depression: Plan: She is ordered Duloxetine, but hasn't started this at home - She is weaning down her Fluoxetine and is currently taking 40mg daily - Will continue with Fluoxetine (8) Emphysema lung: Plan: Continue Albuterol (9) Seizure: Plan: Continue Keppra- reports last seizure as "years ago" History of Present Illness Primary Care Provider: Luis Antonio Buck MD 72 YOF with medical history of: Chronic back pain with chronic L3 fracture, afib/SVT with loop recorder in and on amiodarone (follows cardiology in [place]), HTN, Depression/Anxiety, Seizure (on Keppra). Patient comes to the EMD today from her PCP office for concerns of tachycardia. Patient was noted to be with HR in the 140s on arrival and resolved with Valsalva maneuver. Patient reports that she has been off her medications since her previous admission for elevated liver enzymes where she did receive an ERCP and stent to her GB. She also reports that her HR usually goes up when her back starts to hurt, and this has been hurting today, but feels better after morphine. Patient also reports that she was to have her gallbladder out this week (Dr. Bryanna Zuniga- previously followed) and she missed her preoperative appointment on 06/15/23. She denies any chest pain and feels her abdominal pain is improving as well as dietary intake. In the EMD the patient had a CXR completed and ECG- she also had routine labs performed to include HsCTNI. Her ECG resolved back to NSR without STEMI. She will be admitted for trending of her cardiac enzymes and ECG. Continue with abx therapy for presumed pneumonia on previous admission and with RML opacity still in place- concern for aspiration. Her LFTs have been improving following ERCP with stent. WBC count 11 and downtrending. CODE: FULL Allergies Allergy/AdvReac Type Severity Reaction Status Date / Time tramadol AdvReac Severe Seizure Verified 06/15/23 15:36 Home Medications Medication Instructions Recorded Confirmed Type ascorbic acid 1,000 1 ea PO DAILY 08/20/20 06/15/23 History kr-jwsvuimdfghe-oovtymud powder effervescent pack (Emergen-C) blood sugar diagnostic (OneTouch #100 ea 07/24/21 06/15/23 Rx Ultra Test strips) blood sugar diagnostic (Reveal #100 ea 07/28/21 06/15/23 Rx Test Strip) ezetimibe 10 mg tablet 10 mg PO DAILY #90 tabs 11/15/22 06/15/23 Rx fluoxetine 40 mg capsule 80 mg PO PM depression #180 caps 11/15/22 06/15/23 Rx levetiracetam 500 mg tablet 500 mg PO BID 90 days #180 tabs 11/15/22 06/15/23 Rx (Keppra) rosuvastatin 5 mg tablet 5 mg PO DAILY #90 tabs 11/15/22 06/15/23 Rx ibandronate 150 mg tablet (Boniva) 150 mg PO Q4WK #12 tabs 11/24/22 06/15/23 Rx ondansetron HCl 4 mg tablet 4 mg PO Q8H PRN nausea and 12/20/22 06/15/23 Rx vomiting #30 tabs albuterol sulfate 90 mcg/actuation 1 - 2 puff inhalation Q4H PRN 02/21/23 06/15/23 Rx aerosol inhaler interstitial lung disease #18 grams zolpidem 10 mg tablet 10 mg PO HS PRN insomnia 30 days 02/22/23 06/15/23 Rx #30 tabs celecoxib 100 mg capsule (Celebrex) 100 mg PO BID #60 caps 03/09/23 06/15/23 Rx duloxetine 20 mg capsule,delayed 20 mg PO BID #60 caps 05/11/23 06/15/23 Rx release (Cymbalta) amiodarone 100 mg tablet 100 mg PO BID #18 tabs 05/23/23 06/15/23 Rx amoxicillin 875 mg-potassium 1 tab PO BID #14 tabs 06/11/23 06/15/23 Rx clavulanate 125 mg tablet oxycodone 5 mg tablet 5 mg PO BID PRN pain 7 days #14 06/11/23 06/15/23 Rx tabs Past Med/Surg History Medical History Anemia APC (atrial premature contractions) Body aches Breast cancer 1991 Cardiac murmur NO ISSUES Chills Community acquired pneumonia Congestion of nasal sinus COVID Depression Dermatitis Elevated brain natriuretic peptide (BNP) level Fatigue Heartburn History of anesthesia reaction GETS BAD ANXIETY WITH TWILIGHT SEDATION History of antineoplastic chemotherapy History of malignant neoplasm of breast History of osteoporosis Hyperlipidemia Interstitial lung disease DOENST FOLLOW LUNG DOCTOR > DOESNT HAVE ISSUES WITH Mass of arm Pneumonia due to COVID-19 virus Prediabetes PVC (premature ventricular contraction) Stroke 20 YRS AGO > WORKUP SINCE HAS BEEN FINE > NUMBNESS RIGHT HAND > NO MORE FOLLOW UP Syncope and collapse Surgical History Closed fracture of clavicle (11/23/14) RIGHT, ORIF [place] H/O tubal ligation History of colonoscopy History of lung biopsy History of removal of ovarian cyst Hx of bilateral mastectomy WITH RECONSTRUCTION Hx of hand surgery (03/19/16) LEFT index finger revision amp with Volar VY advancement flap-[place] Hx of left cataract extraction Hx of surgical procedure CAROTID BYPASS > 20 YRS AGO Hx of surgical procedure COLLAR BONE BROKEN BOTH SIDES > PLATES TO BOTH SIDES S/P craniotomy 27 YRS AGO > [facility] S/P excision of lipoma FINAL DIAGNOSIS Soft tissue, left forearm, "mass" (excision): In office procedure Chambers 02/04/2022 - Lipoma. Family History Father Colorectal cancer Brother Esophageal cancer Mother Lung cancer Denies family history of Ovarian cancer Prostate cancer Myocardial infarction Breast cancer Social History Smoking Status: Never smoker Tobacco Type: Cigarettes packs per day: 1; Second Hand Exposure: Yes; Do You Dip or Chew Tobacco: No; Hx Alcohol Use: No Hx Substance Use: No Preferred Language: Scottish Communication Ability: Effective Visual Impairment: No Limitations Hearing Ability: Normal Telecommunications Field Engineer Required: No Beliefs That Will Affect Care: None marital status: Current Living Situation: Spouse Current Living Situation Comment: [place] current occupational status: retired 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[employer] in [facility] Feels Safe at Home: Yes Safety Concerns: Feels Safe At This Time Childhood Exposure to Second-Hand Smoke: Yes Diet: regular during the past year weight has: remained stable Dental Care, Regularly: Yes Physical Activity Frequency: Daily Seatbelt Use: always Sunscreen Use: Yes Assistive Devices: None Review of Systems Review of Systems: REVIEW OF SYSTEMS: Constitutional: No fever, sweats or chills Eyes: No diplopia, no worsening or blurred vision ENT: normal hearing, no trouble swallowing Respiratory: No cough, sputum, dyspnea at rest or on exertion Cardiovascular: (+) palpitations, No chest pain, tightness Abdomen: No pain, nausea, vomiting, diarrhea or constipation Musculoskeletal: (+) chronic back pain, joint pain, calf pain, swelling Neurologic: (+) seizure history, No weakness, numbness/tingling, or balance problems Psychiatric: (+) chronic pain, anxiety/ depression Physical Exam Physical Exam: PHYSICAL EXAM: General: awake, alert, no apparent distress Head: Normocephalic, atraumatic ENT: PERRL, EOMI, no pharyngeal exudate, mucous membranes moist Neuro: AAO x 3, speech clear and appropriate, strength intact bilaterally 5/5, sensation intact and equal all extremities and dermatomes, no pronator drift Chest: equal rise and fall of the chest, no accessory muscle use, no heaves or thrills, Clear to auscultation, on room air, Cardiac: Regular rate and rhythm, telemetry reviewed- NSR, skin warm dry, cap refill <3 seconds, peripheral pulses +2 no JVD, no murmur, no edema GI: NABS x 4 quadrants, soft, nontender to palpation, no rebound, guarding or tenderness : Spontaneously voiding, no pain, no CVA tenderness, Psych: Normal mood and affect Skin: scratches and scabbed over areas on arm and legs Results & Data Results & Data Vital Signs (Past 12 Hours) Vital Signs Temp Pulse Pulse Resp BP BP Pulse Ox 06/15/23 16:26 75 17 118/67 94 06/15/23 15:27 06/15/23 15:27 95 06/15/23 15:20 82 21 105/63 96 06/15/23 15:04 36.6 C 135 H 16 101/70 90 O2 Del Method 06/15/23 16:26 Room Air 06/15/23 15:27 Room Air 06/15/23 15:27 Room Air 06/15/23 15:20 Room Air 06/15/23 15:04 Room Air Laboratory Results Abnormal lab results 06/15/23 06/15/23 Range/Units 15:20 15:20 WBC 11.69 H (4.8-10.8) K/ul MCHC 31.7 L (32.0-36.0) g/dL Plt Count 470 H (130-400) K/uL Neut # (Auto) 9.14 H (1.40-6.50) K/uL Schley # (Auto) 0.74 H (0.11-0.59) K/uL Sodium 135 L (136-145) mmol/L BUN/Creatinine Ratio 21.5 H (10-20) AST 56 H (13-39) U/L ALT 102 H (7-52) U/L Alkaline Phosphatase 110 H (34-104) U/L Troponin I High Sens 121.3 H* (0-14) pg/ml Diagnostic Findings Abnormal lab results 06/15/23 06/15/23 Range/Units 15:20 15:20 WBC 11.69 H (4.8-10.8) K/ul MCHC 31.7 L (32.0-36.0) g/dL Plt Count 470 H (130-400) K/uL Neut # (Auto) 9.14 H (1.40-6.50) K/uL Schley # (Auto) 0.74 H (0.11-0.59) K/uL Sodium 135 L (136-145) mmol/L BUN/Creatinine Ratio 21.5 H (10-20) AST 56 H (13-39) U/L ALT 102 H (7-52) U/L Alkaline Phosphatase 110 H (34-104) U/L Troponin I High Sens 121.3 H* (0-14) pg/ml Medications Administered Home Medications ascorbic acid 1,000 yx-rudcrsxgfyrx-jqacevkv powder effervescent pack (Emergen- C) 1 ea PO DAILY 08/20/20 [History Confirmed 06/15/23] blood sugar diagnostic ([place] VaporStixTouch Ultra Test strips) #100 ea 07/24/21 [Rx Confirmed 06/15/23] blood sugar diagnostic (Reveal Test Strip) #100 ea 07/28/21 [Rx Confirmed 06/15/23] ezetimibe 10 mg tablet 10 mg PO DAILY #90 tabs 11/15/22 [Rx Confirmed 06/15/23] fluoxetine 40 mg capsule 80 mg PO PM depression #180 caps 11/15/22 [Rx Confirmed 06/15/23] levetiracetam 500 mg tablet (Keppra) 500 mg PO BID 90 days #180 tabs 11/15/22 [Rx Confirmed 06/15/23] rosuvastatin 5 mg tablet 5 mg PO DAILY #90 tabs 11/15/22 [Rx Confirmed 06/15/23] ibandronate 150 mg tablet (Boniva) 150 mg PO Q4WK #12 tabs 11/24/22 [Rx Confirmed 06/15/23] ondansetron HCl 4 mg tablet 4 mg PO Q8H PRN nausea and vomiting #30 tabs 12/20/22 [Rx Confirmed 06/15/23] albuterol sulfate 90 mcg/actuation aerosol inhaler 1 - 2 puff inhalation Q4H PRN interstitial lung disease #18 grams 02/21/23 [Rx Confirmed 06/15/23] zolpidem 10 mg tablet 10 mg PO HS PRN insomnia 30 days #30 tabs 02/22/23 [Rx Confirmed 06/15/23] celecoxib 100 mg capsule (Celebrex) 100 mg PO BID #60 caps 03/09/23 [Rx Confirmed 06/15/23] duloxetine 20 mg capsule,delayed release (Cymbalta) 20 mg PO BID #60 caps 05/11/23 [Rx Confirmed 06/15/23] amiodarone 100 mg tablet 100 mg PO BID #18 tabs 05/23/23 [Rx Confirmed 06/15/23] amoxicillin 875 mg-potassium clavulanate 125 mg tablet 1 tab PO BID #14 tabs 06/11/23 [Rx Confirmed 06/15/23] oxycodone 5 mg tablet 5 mg PO BID PRN pain 7 days #14 tabs 06/11/23 [Rx Confirmed 06/15/23] ECG Additional Comments: Normal sinus rhythm Left atrial enlargement Left axis deviation Incomplete right bundle branch block Abnormal ECG When compared with ECG of 20-AUG-2020 17:35, Premature supraventricular complexes are no longer Present Confirmed by Malik Silva ([id number]) on 06/09/2023 4:44:26 PM Code Status & VTE Plan VTE Prophylaxis Plan VTE Prophylaxis will be ordered: Yes Supervising Physician Co-Signing Physician Notes I personally saw and examined the patient. I verified all meyers points and agree with POPEYE Faith with the following exceptions and/or additions: 72 year old female presents to the ER with epigastric pain with tachycardia. Sent over from PCP office. Converted to NSR in the ER with syringe. Amiodarone recently discontinued due to elevated LFTs. No worsening pneumonia symptoms. Now symptom free. O/E frail appearing, HS RRR, no murmurs, no edema, Chest fine crackles bilaterally, mild epigastric pain on palpation without guarding or rebound tenderness A/P SVT, a. flutter - converted with vagal manoeuvres, suspect troponin elevation secondary to arrhythmia but will continue to trend. No current pain to suggest ACS. Restart amiodarone (raised LFTs unlikely related to this in the setting of biliary obstruction). Pneumonia - no worsening symptoms, procalcitonin negative and stable, WBC improving. Will continue on Augmentin outpatient course. No indication for switching antibiotics back to Zosyn as above. Otherwise as above. PG Care Time/CCT Total # of Minutes Spent Total Time Spent with Patient: Total time spent is greater than 50% in coordination of care (as documented) at patient's floor/unit and/or counseling patient: Coding Level of Care Code 77416 INT INP/OBS CARE 3/75MIN Diagnoses Elevated troponin R77.8 SVT (supraventricular tachycardia) I47.1 Pneumonia J18.9 Laterality: bilateral Lung location: unspecified part of lung Pneumonia type: due to unspecified organism Epigastric pain R10.13 History of compression fracture of vertebral column Z87.81 LFTs abnormal R79.89 Depression F32.9 Emphysema lung J43.9 Seizure R56.9 (3) Pneumonia Laterality: bilateral Lung location: unspecified part of lung Pneumonia type: due to unspecified organism Qualified Code(s): J18.9 - Pneumonia, unspecified organism
[2023-06-15 22:04] LABS: Adenovirus PCR Not Detected (NotDetected); Bordetella parapertussis PCR Not Detected (NotDetected); Bordetella pertussis PCR Not Detected (NotDetected); Chlamydia pneumoniae PCR Not Detected (NotDetected); Coronavirus 229E PCR Not Detected (NotDetected); Coronavirus CoV-2 (COVID19)PCR Not Detected (NotDetected); Coronavirus HKU1 PCR Not Detected (NotDetected); Coronavirus NL63 PCR Not Detected (NotDetected); Coronavirus OC43PCR Not Detected (NotDetected); Human Metapneumovirus PCR Not Detected (NotDetected); Influenza A PCR Not Detected (NotDetected); Influenza B PCR Not Detected (NotDetected); Mycoplasma pneumoniae PCR Not Detected (NotDetected); Parainfluenza Virus 1 PCR Not Detected (NotDetected); Parainfluenza Virus 2 PCR Not Detected (NotDetected); Parainfluenza Virus 3 PCR Not Detected (NotDetected); Parainfluenza Virus 4 PCR Not Detected (NotDetected); Respiratory Syncytial VirusPCR Not Detected (NotDetected); Rhinovirus/Enterovirus PCR Not Detected (NotDetected)
[2023-06-15] MEDS ORDERED: ONDANSETRON INJ 2 MG/ML 2 ML VIAL IV PRN (22:04)
[2023-06-15] MEDS ORDERED: ONDANSETRON 4 MG OD TAB PO PRN (22:04)
[2023-06-15] MEDS ORDERED: ALBUTEROL HFA 8 GM INHALER INH PRN (22:04)
[2023-06-15] MEDS ORDERED: FLUoxetine HCL 20 MG CAP PO SCH (22:04)
[2023-06-15] MEDS ORDERED: ACETAMINOPHEN 325 MG TAB PO PRN (22:04)
[2023-06-15] MEDS ORDERED: ZOLPIDEM TARTRATE 10 MG TAB PO PRN (22:04)
[2023-06-15] MEDS ORDERED: LIDOCAINE 5% 1 PATCH TD STA (22:04)
[2023-06-15] MEDS: oxyCODONE HCL IR 5 MG TAB (IMMEDIATE RELEASE) PO PRN (23:11)
[2023-06-15] MEDS: MAGNESIUM SULFATE / D5W 1 GM/100 ML BAG IV SCH (23:49)
[2023-06-15] MEDS: AMIODARONE 200 MG TAB PO SCH (23:51)
[2023-06-15] MEDS: levETIRAcetam 500 MG TAB PO SCH (23:52)
[2023-06-15] MEDS: AMOXICILLIN/CLAVULANATE 875 MG TAB PO SCH (23:53)
[2023-06-15] MEDS: HEPARIN SOD 5,000 UNIT/0.5 ML VIAL SQ SCH (23:54)
[2023-06-16] MEDS: MAGNESIUM SULFATE / D5W 1 GM/100 ML BAG IV SCH (01:20)
[2023-06-16 08:10] LABS: Basophils # (auto) 0.06 K/uL (0.00-0.20); Basophils % (auto) 0.6 %; Eosinophils # (auto) 0.68 K/uL (0.00-0.50); Eosinophils % (auto) 6.9 %; Hematocrit (blood only) 33.5 % (37.0-47.0); Hemoglobin 10.9 g/dl (12.0-16.0); Immature Granulocytes # (auto) 0.02 K/uL (0.01-0.20); Immature Granulocytes % (auto) 0.2 %; Lymphocytes # (auto) 1.34 K/uL (1.20-3.40); Lymphocytes % (auto) 13.6 %; Mean Corpuscular Hemoglobin 26.1 pg (25.0-34.0); Mean Corpuscular Hgb Conc 32.5 g/dL (32.0-36.0); Mean Corpuscular Volume 80.1 fL (80.0-100.0); Mean Platelet Volume 9.5 fL (9.4-12.4); Monocytes # (auto) 0.71 K/uL (0.11-0.59); Monocytes % (auto) 7.2 %; Neutrophils # (auto) 7.07 K/uL (1.40-6.50); Neutrophils % (auto) 71.5 %; Platelet Count 385 K/uL (130-400); RDW Coefficient of Variation 13.7 % (11.5-14.5); RDW Standard Deviation 39.6 fL (36.4-46.3); Red Blood Count 4.18 M/uL (4.20-5.40); White Blood Count 9.88 K/ul (4.8-10.8)
[2023-06-16 08:33] LABS: Albumin Level 2.9 gm/dl (3.4-5.0); BUN Creatinine Ratio 18.6 (10-20); Bilirubin,Total 0.4 mg/dl (0.2-1.0); Calcium 8.1 mg/dl (8.6-10.3); Creatinine Clr Calc Pharmacy 47.7 ml/min; Est GFR (African American) 101.7 ml/min; Est GFR (Non-African American) 87.8 ml/min; Magnesium 2.1 mg/dl (1.7-2.4); Potassium 3.8 mmol/L (3.5-5.1); Total Protein 5.3 gm/dl (6.0-8.3)
[2023-06-16] MEDS ORDERED: ROSUVASTATIN CALCIUM 5 MG TAB PO SCH (09:00)
[2023-06-16] MEDS ORDERED: EZETIMIBE 10 MG TAB PO SCH (09:00)
[2023-06-16] MEDS: AMIODARONE 200 MG TAB PO SCH (09:06)
[2023-06-16] MEDS: AMOXICILLIN/CLAVULANATE 875 MG TAB PO SCH (09:06)
[2023-06-16] MEDS: levETIRAcetam 500 MG TAB PO SCH (09:12)
[2023-06-16] MEDS: HEPARIN SOD 5,000 UNIT/0.5 ML VIAL SQ SCH (09:25)
[2023-06-16] MEDS: oxyCODONE HCL IR 5 MG TAB (IMMEDIATE RELEASE) PO PRN ×2 (10:04→16:08)
[2023-06-16 16:14] VITALS: BP 115/65; TEMP 98.4; O2SAT 94
--- NOTE | 2023-06-16 17:40 | XCELERA ---
[id number]
[2023-06-16 18:29] VITALS: PULSE 67
--- NOTE | 2023-06-16 18:33 | Discharge Summary ---
Discharge Summary Date of Service June 16, 2023 Notes For Next Care Provider Needs follow up with Cardiology for SVT, elevated troponin/demand ischemia, and wall motion abnormality on ECHO Medication Changes From Visit None Admission HPI Per Admitting Provider 72 YOF with medical history of: Chronic back pain with chronic L3 fracture, afib/SVT with loop recorder in and on amiodarone (follows cardiology in [place]), HTN, Depression/Anxiety, Seizure (on Keppra). Patient comes to the EMD today from her PCP office for concerns of tachycardia. Patient was noted to be with HR in the 140s on arrival and resolved with Valsalva maneuver. Patient reports that she has been off her medications since her previous admission for elevated liver enzymes where she did receive an ERCP and stent to her GB. She also reports that her HR usually goes up when her back starts to hurt, and this has been hurting today, but feels better after morphine. Patient also reports that she was to have her gallbladder out this week (Dr. Bryanna Zuniga- previously followed) and she missed her preoperative appointment on 06/15/23. She denies any chest pain and feels her abdominal pain is improving as well as dietary intake. In the EMD the patient had a CXR completed and ECG- she also had routine labs performed to include HsCTNI. Her ECG resolved back to NSR without STEMI. She will be admitted for trending of her cardiac enzymes and ECG. Continue with abx therapy for presumed pneumonia on previous admission and with RML opacity still in place- concern for aspiration. Her LFTs have been improving following ERCP with stent. WBC count 11 and downtrending. CODE: FULL Principal Dx & Hospital Course #1 = Principal Diagnosis (1) Elevated troponin: Demand ischemia in setting of SVT HS Tn 121/107/120/111/73 on serial checks No angina at all ECG with RBBB, no ischemic changes ECHO with low normal EF 50-55%, severe hypokinesis of the basal anteroseptum and hypokinesis of the basal inferoseptum, mild pulm HTN with RVSP 43mmHg Had normal Lexiscan 02/2022 and no anginal symptoms at all. 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 We are unable to interrogate her [facility] loop recorder here but she did use her cell phone enedina to do so and have the event sent to her Cardiology office -no further arrhythmia on tele after admission for 1 day -restart amiodarone since LFTs improving from recent GB issues -f/u with Cardiology (3) Pneumonia: Has been on Augmentin PO as outpatient. Has ILD and no symptoms of PNA now - remains with right middle lobe opacity mild leukocytosis - finish out previous course of AUgmentin for GB and pneumonia recommend follow up ches timaging with PULM or PCP as outpt (4) History of compression fracture of vertebral column: Chronic with chronic back pain - Continue with Oxycodone, Tylenol, Lidocaine patch, and K-pad-I gave her 4 days worth of oxycodone as she is almost out and her PCP office has not gotten back to her about refilling this - Reports following with Chronic Pain clinic (5) LFTs abnormal: Downtrending has biliary stent in place and needs interval cholecystectomy symptoms from previous are now much improved finish out course of AUgmentin f/u with Surgery for cholecystectomy (6) Depression: She is ordered Duloxetine, but hasn't started this at home - She is weaning down her Fluoxetine and is currently taking 40mg daily - Will continue with Fluoxetine (7) Emphysema lung: Continue Albuterol (8) Seizure: Continue Keppra- reports last seizure as "years ago" Plan Dispo-doing very well, stable for dc to home Discharge Exam Constitutional WD/WN, vitals as above Respiratory normal respiratory effort Auscultation: + crackles (bilat lower and middle lung saul); no rhonchi and no wheezes Cardiovascular RRR, no murmur, no edema Gastrointestinal (Abdomen) normal bowel sounds, soft, nontender, no hepatosplenomegaly Psychiatric A+Ox3, euthymic affect Updated Medication List Medication Instructions Recorded Confirmed Type ascorbic acid 1,000 1 ea PO DAILY 08/20/20 06/15/23 History lf-qmodkpesblkc-bhhyuuib powder effervescent pack (Emergen-C) blood sugar diagnostic (OneTouch #100 ea 07/24/21 06/15/23 Rx Ultra Test strips) blood sugar diagnostic (Reveal #100 ea 07/28/21 06/15/23 Rx Test Strip) ezetimibe 10 mg tablet 10 mg PO DAILY #90 tabs 11/15/22 06/15/23 Rx fluoxetine 40 mg capsule 80 mg PO PM depression #180 caps 11/15/22 06/15/23 Rx levetiracetam 500 mg tablet 500 mg PO BID 90 days #180 tabs 11/15/22 06/15/23 Rx (Keppra) rosuvastatin 5 mg tablet 5 mg PO DAILY #90 tabs 11/15/22 06/15/23 Rx ibandronate 150 mg tablet (Boniva) 150 mg PO Q4WK #12 tabs 11/24/22 06/15/23 Rx ondansetron HCl 4 mg tablet 4 mg PO Q8H PRN nausea and 12/20/22 06/15/23 Rx vomiting #30 tabs albuterol sulfate 90 mcg/actuation 1 - 2 puff inhalation Q4H PRN 02/21/23 06/15/23 Rx aerosol inhaler interstitial lung disease #18 grams zolpidem 10 mg tablet 10 mg PO HS PRN insomnia 30 days 02/22/23 06/15/23 Rx #30 tabs celecoxib 100 mg capsule (Celebrex) 100 mg PO BID #60 caps 03/09/23 06/15/23 Rx duloxetine 20 mg capsule,delayed 20 mg PO BID #60 caps 05/11/23 06/15/23 Rx release (Cymbalta) amiodarone 100 mg tablet 100 mg PO BID #18 tabs 05/23/23 06/15/23 Rx amoxicillin 875 mg-potassium 1 tab PO BID #14 tabs 06/11/23 06/15/23 Rx clavulanate 125 mg tablet oxycodone 5 mg tablet 5 mg PO BID PRN pain 4 days #8 tabs 06/16/23 Rx Hospital Stay Data Consultations 06/15/23 17:36 ED Decision to Admit Stat Diagnostic Imagining Performed 06/15/23 15:36 US gallbladder Stat ECHO Pending Results Patient Have Any Pending Studies at Discharge: No Discharge Instructions Given to Patient (Per Discharging Provider) You were admitted with a rapid heart rhythm called SVT that resolved with bearing down. You had an elevation of your troponin and the echocardiogram did show a small area of abnormality where the heart muscle wasn't moving properly. Most likely the troponin was elevated because of the rapid heart beat putting strain on your heart and this was not a heart attack. Please follow up with Dr. Chandler regarding these heart issues before your planned gallbladder surgery. Total Time Total Time Spent Total Time Spent (In Minutes): 40 min Coding Level of Care Code 40457 INP/OBS DISCH >30 MIN Diagnoses Elevated troponin R77.8 SVT (supraventricular tachycardia) I47.1 Pneumonia J18.9 Laterality: bilateral Lung location: unspecified part of lung Pneumonia type: due to unspecified organism History of compression fracture of vertebral column Z87.81 LFTs abnormal R79.89 Depression F32.9 Emphysema lung J43.9 Seizure R56.9
[2023-06-17] MEDS ORDERED: LIDOCAINE 5% 1 PATCH TD SCH (09:00)
== END 2023-06-16 19:31 | disposition home or self-care (01) ==
LOC: ED 14:54 → EDINP 14:54 → SUATTDRO 19:02 → 2W 22:01

== ENCOUNTER 2024-08-24 17:45 | Inpatient (IN) ==
[2024-08-24 19:30] LABS: Basophils # (auto) 0.05 K/uL (0.00-0.20); Basophils % (auto) 0.7 %; Eosinophils # (auto) 0.42 K/uL (0.00-0.50); Eosinophils % (auto) 5.5 %; Hematocrit (blood only) 39.3 % (37.0-47.0); Hemoglobin 12.3 g/dl (12.0-16.0); Immature Granulocytes # (auto) 0.01 K/uL (0.01-0.20); Immature Granulocytes % (auto) 0.1 %; Lymphocytes # (auto) 1.91 K/uL (1.20-3.40); Lymphocytes % (auto) 25.2 %; Mean Corpuscular Hemoglobin 25.8 pg (25.0-34.0); Mean Corpuscular Hgb Conc 31.3 g/dL (32.0-36.0); Mean Corpuscular Volume 82.6 fL (80.0-100.0); Mean Platelet Volume 9.8 fL (9.4-12.4); Monocytes # (auto) 0.63 K/uL (0.11-0.59); Monocytes % (auto) 8.3 %; Neutrophils # (auto) 4.55 K/uL (1.40-6.50); Neutrophils % (auto) 60.2 %; Platelet Count 314 K/uL (130-400); RDW Coefficient of Variation 13.2 % (11.5-14.5); RDW Standard Deviation 39.5 fL (36.4-46.3); Red Blood Count 4.76 M/uL (4.20-5.40); White Blood Count 7.57 K/ul (4.8-10.8)
[2024-08-24 19:43] LABS: Albumin Globulin Ratio 1.5 (0.9-2); Albumin Level 4.1 gm/dl (3.4-5.0); BUN Creatinine Ratio 28.8 (10-20); Bilirubin,Total 0.4 mg/dl (0.2-1.0); Calcium 9.3 mg/dl (8.6-10.3); Creatinine Clr Calc Pharmacy 46.3 ml/min; Globulin 2.7 gm/dl (2.5-4.0); Magnesium 2.1 mg/dl (1.7-2.4); Potassium 3.9 mmol/L (3.5-5.1); Total Protein 6.8 gm/dl (6.0-8.3)
[2024-08-24 19:50] LABS: Troponin I High Sensitivity 14.7 pg/ml (0-14)
--- NOTE | 2024-08-24 20:34 | Emergency Department Note ---
Impression & Plan Shortness of breath, Atrial tachycardia, Elevated troponin ED Provider Note NAME: MULU MARTINEZ AGE: 74 SEX: F : 1950 ARRIVES VIA: Walk-In INFORMANT: Patient ED PROVIDER(S): Janak De La Cruz DO CHIEF COMPLAINT: Shortness of breath, palpitations HPI: Patient is a 74-year-old female with a past medical history of diabetes, a flutter, CVA and interstitial lung disease who presents to the ER for shortness of breath with any kind of movement. She notes that she recently had ablation for A-fib. This occurred about 6 weeks ago. For the past week due to she has been noticing significant shortness of breath with any kind of movement. She also feels her heart rate race. Heart rate never goes below 90. Denies any belly pain, nausea, vomiting, or diarrhea. No dysuria, urgency, or frequency. No other exacerbating or remitting factors. ADDITIONAL HISTORY OBTAINED: Per HPI Chronic Medical/Social Conditions Affecting Care: Per HPI PAST MEDICAL HISTORY:See Below PAST SURGICAL HISTORY:See Below FAMILY HISTORY:See Below SOCIAL HISTORY:See Below HOME MEDICATIONS:See Below ALLERGIES:See Below VITALS:See Below PHYSICAL EXAMINATION: GENERAL: Sitting up in bed, alert, cachectic, malnourished EYE EXAM: normal conjunctiva. OROPHARYNX: mucous membranes are moist NECK: supple, no nuchal rigidity, no adenopathy, non-tender LUNGS: Clear to auscultation. Normal chest wall mechanics HEART: no murmurs, S1 normal and S2 normal ABDOMEN: abdomen soft, non-tender, normo-active bowel sounds, no masses, no rebound or guarding. UPPER EXTREMITIES: upper extremities are grossly normal. LOWER EXTREMITIES: No pitting edema. Calves are equal bilaterally NEURO EXAM: Normal sensorium, cranial nerves II-XII grossly intact, normal speech, no gross weakness of arms, no gross weakness of legs. MEDICAL DECISION MAKING: Patient is a 74-year-old female who presents ER for tachycardia which been present for the past week. This is present with any movement. Heart rate resting is in the 90s. She admits to exertional shortness of breath. IV was established and blood work was obtained. Labs show no significant leukocytosis or anemia. INR unremarkable. D-dimer was negative at 490. BMP with LFTs bilirubin and troponin was slightly positive. TSH mildly elevated. She was given IV fluids. Chest x-ray shows worsening of interstitial lung disease. She was updated bedside discussed with the hospitalist for further evaluation management treatment. Consults/Care Managements Discussions: Per MDM Triage Nursing notes reviewed. Limited review of prior medical records performed Vital Signs: reviewed and remarkable for no significant abnormalities Differential diagnosis: Cardiac ischemia, aortic dissection, pulmonary embolism, pneumothorax, pneumonia, pericarditis, myocarditis, esophageal rupture, GERD, cholecystitis, pancreatitis, musculoskeletal, as well as other pathologies. ER treatment provided: See below Diagnostics interpreted by me include EKG and cardiac monitoring as listed below: -Cardiac Monitoring: An order was placed for continuous cardiac monitoring. The monitor shows a rate of 90 with sinus rhythm. -ECG: Sinus tachycardia rate of 98 Normal axis No PVCs QTc 457 -Laboratory studies:Interpreted by me as stated above in MDM and shown below. Imaging studies: Xrays: As interpreted by me: Portable AP upright 1 view of the chest shows no focal infiltrate CTs show: none Procedures:none Critical Care: None Past Med/Surg History Problem List (Updated 08/24/24 @ 23:49 by Janak De La Cruz DO) Elevated troponin (Acute) Atrial tachycardia (Acute) Shortness of breath (Acute) Palpitation Solar lentigo Postcholecystectomy diarrhea Spinal stenosis of lumbar region Sacroiliitis Vitamin D deficiency Regional wall motion abnormality of heart Pulmonary nodule Seizure disorder last event March 2022>hospitalized [facility] *followed by Dr. Paolo ROBBINS History of compression fracture of vertebral column (07/07/22) severe anterior wedge-shaped compression deformity at L1 , Kyphoplasty 10/01/22 Elevated brain natriuretic peptide (BNP) level Low back pain Degenerative spondylolisthesis FH: colon cancer Emphysema lung Nodule of apex of left lung History of left-sided carotid endarterectomy History of multiple strokes Aneurysm of anterior cerebral artery Atrial flutter Dx 12/11/2021 Per cardio rcords - given her intracranial abnormalities and chronic anemia she was advised against starting systemic anticoagulation No recurrent atrial flutter over the past few years per loop recorder device transmissions Incomplete right bundle branch block PVC (premature ventricular contraction) APC (atrial premature contractions) History of antineoplastic chemotherapy Hypertension Health care maintenance Prediabetes Depression Anemia (Acute) Arthritis (Acute) Bunion, right foot (Acute) Herpes simplex (Acute) History of carotid artery stenosis (Acute) Hyperlipidemia (Acute) Hypoglycemia (Acute) 07/24/19 Insomnia (Acute) Interstitial lung disease (Acute) Neck pain (Acute) 07/24/19 Osteopenia (Acute) Chiari malformation (Acute) s/p surgery in 1996 Medical History (Updated 08/24/24 @ 23:49 by Janak De La Cruz DO) Status post placement of implantable loop recorder 05/2022, [place]; f/u dr. roberts, [place] Spinal stenosis of lumbar region Seizure disorder last event March 2022>hospitalized [facility] *followed by Dr. Boone on KEPPRA PVC (premature ventricular contraction) Pulmonary nodule Osteopenia Insomnia Hypertension History of compression fracture of vertebral column severe anterior wedge-shaped compression deformity at L1 , Kyphoplasty 10/01/22 Pulmonary emphysema pt denies Degenerative spondylolisthesis Atrial flutter Dx 12/11/2021 Per cardio rcords - given her intracranial abnormalities and chronic anemia she was advised against starting systemic anticoagulation No recurrent atrial flutter over the past few years per loop recorder device transmission Aneurysm of anterior cerebral artery recent recheck w/neurosurgeon 06/2024>monitored every 3 years Depressive disorder Right middle lobe pulmonary infiltrate pt unsure about this? SVT (supraventricular tachycardia) Typical of AVNRT - ablation being considered but cardio feels gallbladder issues need addressed first Admitted to [facility] for recently diagnosis of PSVT 06/15/23 with elevated troponin I/demand ischemia vs NSTEMI with basal anteroseptal and inferoseptal HK Elevated cortisol level 03/29/22 Antiplatelet or antithrombotic long-term use Interstitial lung disease used inhaler during hospitalization 06/15/23 Positive colorectal cancer screening using Cologuard test hx; colonoscopy 09/29/23 Arnold-Chiari malformation Joint pain Back pain 2021, fractured L2 Vitamin D deficiency disease Elevated troponin 06/15/23 Carotid artery disease s/p left CEA - 1991 Implantable loop recorder present History of COVID-2021>hospitalized for pnx at time *resolved Anemia Stroke Per neuro records CVA at at 32, 42, Sep 2021- right had numbness TIA>March 2022 *hospitalized at [facility] Cardiac murmur followed by Dr. Chandler No significant valve disease on 07/2023 ECHO Hyperlipidemia History of malignant neoplasm of breast rt/left breast/surgery and chemo (no arm restriction), dx age 42 History of osteoporosis Surgical History History of open reduction and internal fixation (ORIF) procedure History of left-sided carotid endarterectomy History of cholecystectomy S/P epidural steroid injection History of appendectomy History of ERCP History of tooth extraction History of cataract surgery S/P excision of lipoma H/O tubal ligation Hx of hand surgery (03/19/16) History of anesthesia reaction History of colonoscopy History of removal of ovarian cyst Hx of bilateral mastectomy History of lung biopsy S/P craniotomy Family History Father Colorectal cancer Brother Esophageal cancer Mother Lung cancer Other No family history of adverse response to anesthesia Denies family history of Ovarian cancer Prostate cancer Myocardial infarction Breast cancer Social History Smoking Status: Current every day smoker Tobacco Type: Cigarettes Age Started Using Tobacco: 12; Age Quit Using Tobacco: 44; packs per day: 1; Cigarettes Per Day: 3 in last 30 days; only occasional smoker; Second Hand Exposure: No; Do You Dip or Chew Tobacco: No; Hx Alcohol Use: No Hx Substance Use: No Preferred Language: Tamazight Communication Ability: Effective Visual Impairment: No Limitations Hearing Ability: Normal Receiver Stocker Required: No Beliefs That Will Affect Care: None marital status: Current Living Situation: Alone Current Living Situation Comment: lives [place] in [place] current occupational status: retired 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 [employer] in [facility] Feels Safe at Home: Yes Childhood Exposure to Second-Hand Smoke: Yes Diet: regular during the past year weight has: remained stable Dental Care, Regularly: Yes Physical Activity Frequency: Daily Seatbelt Use: always Sunscreen Use: Yes Assistive Devices: None Allergies Allergies Allergy/AdvReac Type Severity Reaction Status Date / Time tramadol Allergy Severe Seizure Verified 07/05/24 07:10 bupropion [From Wellbutrin] Allergy Seizure Verified 07/05/24 07:10 Home Meds Home Medications Medication Instructions Recorded Confirmed ascorbic acid 1,000 1 ea PO DAILY PRN Cold Symptoms 08/20/20 08/24/24 [id number] powder effervescent pack (Emergen-C) celecoxib 100 mg capsule (Celebrex) 100 mg PO BID PRN Pain 11/01/23 08/24/24 colestipol 1 gram tablet 2 g PO BID 06/27/24 08/24/24 duloxetine 30 mg capsule,delayed 30 - 60 mg PO UD 06/27/24 08/24/24 release Previous Rx's Medication Instructions Recorded blood sugar diagnostic (OneTouch #100 ea 07/24/21 Ultra Test strips) blood sugar diagnostic (Reveal #100 ea 07/28/21 Test Strip) ibandronate 150 mg tablet (Boniva) 150 mg PO Q4WK #12 tabs 11/24/22 cholecalciferol (vitamin D3) 50 50 mcg PO DAILY #90 caps 09/29/23 mcg (2,000 unit) capsule ezetimibe 10 mg tablet 10 mg PO HS #90 tabs 12/12/23 rosuvastatin 5 mg tablet 5 mg PO QPM #90 tabs 12/28/23 levetiracetam 500 mg tablet 500 mg PO BID 90 days #180 tabs 01/17/24 (Keppra) acyclovir 400 mg tablet 400 mg PO BID #60 tabs 03/28/24 ondansetron HCl 4 mg tablet 4 mg PO Q8H PRN nausea and 06/13/24 vomiting #30 tabs tizanidine 4 mg tablet 4 mg PO BID PRN muscle spasticity 07/09/24 #60 tabs albuterol sulfate 90 mcg/actuation 1 - 2 puff inhalation Q4H PRN 07/30/24 aerosol inhaler interstitial lung disease #18 grams amoxicillin 875 mg-potassium 1 tab PO BID 5 days #10 tabs 07/31/24 clavulanate 125 mg tablet hydrocodone 5 mg-acetaminophen 325 1 tab PO BID PRN pain 30 days #60 08/02/24 mg tablet tabs zolpidem 10 mg tablet 10 mg PO HS PRN insomnia 30 days 08/20/24 #30 tabs Results & Data (ED) Vital Signs Vital Signs - 24 hr 08/24/24 18:17 08/24/24 20:19 08/24/24 20:33 Temperature 36.5 C Temperature Source Temporal Artery Scan Pulse Rate 103 H 97 H 93 H Pulse Rate [Apical] Respiratory Rate 18 20 Respiratory Effort / Characteristics Non-Labored Respiratory Depth Normal Respiratory Pattern Regular Blood Pressure 127/81 Blood Pressure [Left Arm] Blood Pressure Mean 96 Blood Pressure Mean [Left Arm] Blood Pressure Position [Left Arm] Pulse Oximetry 94 96 Oxygen Delivery Method Room Air Room Air Sepsis Recent Fever Within 48 Hours No Sepsis New/Unexplained Change in Mental Status N/A Sepsis Action Taken by Nursing No Action Required 08/24/24 22:53 08/24/24 22:53 08/24/24 23:41 Temperature Temperature Source Pulse Rate 99 H Pulse Rate [Apical] 98 H Respiratory Rate 19 18 Respiratory Effort / Characteristics Non-Labored Spontaneous Respiratory Depth Normal Respiratory Pattern Regular Blood Pressure 155/81 H Blood Pressure [Left Arm] 149/79 H Blood Pressure Mean Blood Pressure Mean [Left Arm] 102 Blood Pressure Position [Left Arm] Semi-fowlers Pulse Oximetry 94 95 Oxygen Delivery Method Room Air Room Air Room Air Sepsis Recent Fever Within 48 Hours Sepsis New/Unexplained Change in Mental Status Sepsis Action Taken by Nursing Laboratory Data 08/24/24 19:10 08/24/24 19:10 Lab Results 08/24/24 08/24/24 08/24/24 Range/Units 19:10 19:10 21:20 WBC 7.57 (4.8-10.8) K/ul RBC 4.76 (4.20-5.40) M/uL Hgb 12.3 (12.0-16.0) g/dl Hct 39.3 (37.0-47.0) % MCV 82.6 (80.0-100.0) fL MCH 25.8 (25.0-34.0) pg MCHC 31.3 L (32.0-36.0) g/dL RDW Std Deviation 39.5 (36.4-46.3) fL RDW Coeff of Marcio 13.2 (11.5-14.5) % Plt Count 314 (130-400) K/uL MPV 9.8 (9.4-12.4) fL Immature Gran % (Auto) 0.1 % Neut % (Auto) 60.2 % Lymph % (Auto) 25.2 % [place] % (Auto) 8.3 % Eos % (Auto) 5.5 % Baso % (Auto) 0.7 % Neut # (Auto) 4.55 (1.40-6.50) K/uL Lymph # (Auto) 1.91 (1.20-3.40) K/uL [place] # (Auto) 0.63 H (0.11-0.59) K/uL Eos # (Auto) 0.42 (0.00-0.50) K/uL Baso # (Auto) 0.05 (0.00-0.20) K/uL Immature Gran # (Auto) 0.01 (0.01-0.20) K/uL PT 10.9 (9.0-12.0) Seconds INR 1.0 (0.9-1.1) D-Dimer 490 Cancelled (0-500) ug/L FEU Sodium 142 (136-145) mmol/L Potassium 3.9 (3.5-5.1) mmol/L Chloride 105 (98-107) mmol/L Carbon Dioxide 30 (21-32) mmol/L Anion Gap 7 (3-11) BUN 21 (6-23) mg/dl Creatinine 0.73 (0.6-1.2) mg/dl Est Cr Clr Drug Dosing 46.3 ml/min eGFR 87.32 BUN/Creatinine Ratio 28.8 H (10-20) Glucose 87 (70-99(Fasting)) mg/dl Calcium 9.3 (8.6-10.3) mg/dl Magnesium 2.1 (1.7-2.4) mg/dl Total Bilirubin 0.4 (0.2-1.0) mg/dl AST 24 (13-39) U/L ALT 16 (7-52) U/L Alkaline Phosphatase 96 (34-104) U/L Troponin I High Sens 14.7 H 13.5 (0-14) pg/ml Total Protein 6.8 (6.0-8.3) gm/dl Albumin 4.1 (3.4-5.0) gm/dl Globulin 2.7 (2.5-4.0) gm/dl Albumin/Globulin Ratio 1.5 (0.9-2) Lipase 34 (11-82) U/L TSH 0.024 L (0.300-4.500) uIu/ml Free T4 1.62 H (0.61-1.60) ng/dl Administered Medications Discontinued Medications Sodium Chloride (Nss) 1,000 mls @ 999 mls/hr IV .Q1H1M ONE Stop: 08/24/24 21:28 Last Infusion: 08/24/24 22:54 Dose: Infused Documented By: Admin: 08/24/24 20:37 Dose: 999 mls/hr Documented By: CEF Imaging Data Radiologist's Impression: Chest X-Ray 08/24/24 18:11 Exam(s): XR CXR 1 VIEW EXAM: XR Chest, 1 View CLINICAL HISTORY: Reason for exam: Chest pain, nonspecific. TECHNIQUE: Frontal view of the chest. COMPARISON: 06/15/2023 FINDINGS: Lungs: Fibrotic changes in the lungs. Pleural space: No pleural effusion. No pneumothorax. Heart: Unremarkable. No cardiomegaly. Bones/joints: Bilateral clavicle ORIF. Sigmoid scoliosis. IMPRESSION: Fibrotic changes in the lungs. Consider CT if there is concern for superimposed process. Electronically signed by: Slick Guillermo MD 08/24/24 20:55 PM Discharge Plan Visit Data Chief Complaint: Tachycardia Stated Complaint: TACHYCARDIA, DIZZY, SOB ED Provider: Janak De La Cruz Discharge Problem: Shortness of breath, Atrial tachycardia, Elevated troponin Patient Disposition: Admitted As Inpatient Discharge Instructions Interventions: ED Discharge Assessment Last Done: 08/24/24 23:41 Forms Stand Alone Forms: [email or web address] [employer] Prescriptions Prescriptions: No Action celecoxib [Celebrex] 100 mg capsule 100 mg PO BID PRN (Reason: Pain) Hold Instructions: no longer takes Patient Comments: takes prn (DME) OneTouch Ultra Test Strip See Rx Instructions .Route Qty: 100 0RF Rx Instructions: As directed- 3x daily (DME) Reveal Test Strip Strip See Rx Instructions .Route Qty: 100 2RF Rx Instructions: testing 3 times daily ibandronate [Boniva] 150 mg tablet 150 mg PO Q4WK Qty: 12 1RF Rx Instructions: PER PT "USUALLY THE BEGINNING OF THE MONTH" cholecalciferol (vitamin D3) 50 mcg (2,000 unit) capsule 50 mcg PO DAILY Qty: 90 3RF Rx Instructions: with heaviest meal of the day ezetimibe 10 mg tablet 10 mg PO HS Qty: 90 3RF rosuvastatin 5 mg tablet 5 mg PO QPM Qty: 90 3RF levetiracetam [Keppra] 500 mg tablet 500 mg PO BID 90 Days Qty: 180 3RF acyclovir 400 mg tablet 400 mg PO BID Qty: 60 5RF ondansetron HCl 4 mg tablet 4 mg PO Q8H PRN (Reason: nausea and vomiting) Qty: 30 0RF tizanidine 4 mg tablet 4 mg PO BID PRN (Reason: muscle spasticity) Qty: 60 3RF Patient Comments: usually takes 1 tab HS albuterol sulfate 90 mcg/actuation HFA aerosol inhaler 1 - 2 puff inhalation Q4H PRN (Reason: interstitial lung disease) Qty: 18 3RF Rx Instructions: RARE USE amoxicillin-pot clavulanate 875-125 mg tablet 1 tab PO BID 5 Days Qty: 10 0RF Rx Instructions: [facility] 07/28/24 hydrocodone-acetaminophen 5-325 mg tablet 1 tab PO BID PRN (Reason: pain) 30 Days Qty: 60 0RF Patient Comments: takes 2 daily zolpidem 10 mg tablet 10 mg PO HS PRN (Reason: insomnia) 30 Days Qty: 30 0RF Emergen-C 1,000 mg Powder Effervescent In Packet 1 ea PO DAILY PRN (Reason: Cold Symptoms) colestipol 1 gram tablet 2 g PO BID duloxetine 30 mg capsule,delayed release(DR/EC) 30 - 60 mg PO UD Rx Instructions: 60 in am and 30 in pm orally daily; Referrals Referrals: Luis Antonio Buck MD [Primary Care Provider] -
[2024-08-24] MEDS: SODIUM CHLORIDE 0.9% 1,000 ML IV ONE (20:37)
--- NOTE | 2024-08-24 20:56 | XRay Report ---
Exam(s): XR CXR 1 VIEW EXAM: XR Chest, 1 View CLINICAL HISTORY: Reason for exam: Chest pain, nonspecific. TECHNIQUE: Frontal view of the chest. COMPARISON: 06/15/2023 FINDINGS: Lungs: Fibrotic changes in the lungs. Pleural space: No pleural effusion. No pneumothorax. Heart: Unremarkable. No cardiomegaly. Bones/joints: Bilateral clavicle ORIF. Sigmoid scoliosis. IMPRESSION: Fibrotic changes in the lungs. Consider CT if there is concern for superimposed process. Electronically signed by: Slick Guillermo MD 08/24/24 20:55 PM
[2024-08-24 21:04] LABS: D Dimer 490 ug/L FEU (0-500); Prothrombin Time 10.9 Seconds (9.0-12.0)
[2024-08-24 21:05] LABS: Thyroid Stimulating Hormone 0.024 uIu/ml (0.300-4.500)
[2024-08-24 22:01] LABS: T4 Free Thyroxine 1.62 ng/dl (0.61-1.60)
--- NOTE | 2024-08-24 22:43 | History & Physical Report ---
Date of Service August 24, 2024 Assessment & Plan (1) Atrial tachycardia: (2) History of cardioversion: (3) Status post placement of implantable loop recorder: (4) Interstitial lung disease: (5) Palpitation: (6) Seizure disorder: (7) Hypertension: (8) Hyperlipidemia: Plan Tachycardia status post cardioversion- History of atrial flutter on amiodarone, underwent cardioversion with amiodarone cessation due to concerns regarding pulmonary toxicity affecting her underlying significant ILD She reports a history of heart rate increases up to 140, but unknown rhythm with that occurrence She reports that when her heart rate goes up, she does have symptoms of lightheadedness and dizziness and describes near syncope The patient will be admitted to telemetry for serial cardiac enzymes, serial EKG's, cardiac rhythm monitoring She is not on any negative inotropes at this time She reports that Dr. Johnson had recently placed a new monitor, as the old monitor was no longer functional Received 1 L normal saline bolus from the ED Lopressor 5 mg IV every 4 hours as needed for sustained heart rate greater than 110 Consult cardiology for further management Patient does have significantly abnormal appearing chest x-ray with interstitial lung disease/pulmonary fibrosis. However, oxygenation is reasonably good at 94- 96% on room air Continue Keppra 5 mg p.o. twice daily for seizure disorder History of Present Illness Chief Complaint: Patient presents to the emergency department with report of having undergone cardiac ablation, and then discontinuance of amiodarone, but since that time over the past week she has noted increased heart rate episodically up to 140, and with that feels some lightheadedness and dizziness and occasional shortness of breath Primary Care Provider: Luis Antonio Buck MD The patient is a 74-year-old female with a past medical history including lumbar spinal stenosis, sacroiliitis, seizure disorder, lung emphysema, history of multiple CVAs, atrial flutter, hypertension, prediabetes, hyperlipidemia, interstitial lung disease, osteopenia, and Chiari malformation. She had under gone cardiac ablation to be able to discontinue amiodarone, because there were concerns regarding pulmonary toxicity affecting her underlying significant interstitial lung disease and pulmonary fibrosis. She reports that she has a internal heart monitor that reportedly is now dysfunctional, and had a second heart monitor placed recently. She notes that with relatively low level activity, her heart rate has gone up significantly, as noted on her fitness watch, up to 140. When the heart rate occurs, she feels lightheaded and dizzy, but has not passed out. She continues to have ongoing breathing issues, associated with her significant interstitial lung disease and pulmonary fibrosis, primarily noted as dyspnea on exertion. Allergies Allergy/AdvReac Type Severity Reaction Status Date / Time tramadol Allergy Severe Seizure Verified 07/05/24 07:10 bupropion [From Wellbutrin] Allergy Seizure Verified 07/05/24 07:10 Home Medications Medication Instructions Recorded Confirmed Type ascorbic acid 1,000 1 ea PO DAILY PRN Cold Symptoms 08/20/20 08/24/24 History ag-[id number]-[id number] powder effervescent pack (Emergen-C) blood sugar diagnostic (OneTouch #100 ea 07/24/21 08/24/24 Rx Ultra Test strips) blood sugar diagnostic (Reveal #100 ea 07/28/21 08/24/24 Rx Test Strip) ibandronate 150 mg tablet (Boniva) 150 mg PO Q4WK #12 tabs 11/24/22 08/24/24 Rx cholecalciferol (vitamin D3) 50 50 mcg PO DAILY #90 caps 09/29/23 08/24/24 Rx mcg (2,000 unit) capsule celecoxib 100 mg capsule (Celebrex) 100 mg PO BID PRN Pain 11/01/23 08/24/24 History ezetimibe 10 mg tablet 10 mg PO HS #90 tabs 12/12/23 08/24/24 Rx rosuvastatin 5 mg tablet 5 mg PO QPM #90 tabs 12/28/23 08/24/24 Rx levetiracetam 500 mg tablet 500 mg PO BID 90 days #180 tabs 01/17/24 08/24/24 Rx (Keppra) acyclovir 400 mg tablet 400 mg PO BID #60 tabs 03/28/24 08/24/24 Rx ondansetron HCl 4 mg tablet 4 mg PO Q8H PRN nausea and 06/13/24 08/24/24 Rx vomiting #30 tabs colestipol 1 gram tablet 2 g PO BID 06/27/24 08/24/24 History duloxetine 30 mg capsule,delayed 30 - 60 mg PO UD 06/27/24 08/24/24 History release tizanidine 4 mg tablet 4 mg PO BID PRN muscle spasticity 07/09/24 08/24/24 Rx #60 tabs albuterol sulfate 90 mcg/actuation 1 - 2 puff inhalation Q4H PRN 07/30/24 08/24/24 Rx aerosol inhaler interstitial lung disease #18 grams amoxicillin 875 mg-potassium 1 tab PO BID 5 days #10 tabs 07/31/24 08/24/24 Rx clavulanate 125 mg tablet hydrocodone 5 mg-acetaminophen 325 1 tab PO BID PRN pain 30 days #60 08/02/24 08/24/24 Rx mg tablet tabs zolpidem 10 mg tablet 10 mg PO HS PRN insomnia 30 days 08/20/24 08/24/24 Rx #30 tabs Past Med/Surg History Problem List (Updated 08/25/24 @ 04:38 by Doc Parra MD) History of cardioversion Status post placement of implantable loop recorder 05/2022, [place]; f/u dr. roberts, rachelle Elevated troponin (Acute) Atrial tachycardia (Acute) Shortness of breath (Acute) Palpitation Solar lentigo Postcholecystectomy diarrhea Spinal stenosis of lumbar region Sacroiliitis Vitamin D deficiency Regional wall motion abnormality of heart Pulmonary nodule Seizure disorder last event March 2022>hospitalized [facility] *followed by Dr. Boone on [facility] History of compression fracture of vertebral column (07/07/22) severe anterior wedge-shaped compression deformity at L1 , Kyphoplasty 10/01/22 Elevated brain natriuretic peptide (BNP) level Low back pain Degenerative spondylolisthesis FH: colon cancer Emphysema lung Nodule of apex of left lung History of left-sided carotid endarterectomy History of multiple strokes Aneurysm of anterior cerebral artery Atrial flutter Dx 12/11/2021 Per cardio rcords - given her intracranial abnormalities and chronic anemia she was advised against starting systemic anticoagulation No recurrent atrial flutter over the past few years per loop recorder device transmissions Incomplete right bundle branch block PVC (premature ventricular contraction) APC (atrial premature contractions) History of antineoplastic chemotherapy Hypertension Health care maintenance Prediabetes Depression Anemia (Acute) Arthritis (Acute) Bunion, right foot (Acute) Herpes simplex (Acute) History of carotid artery stenosis (Acute) Hyperlipidemia (Acute) Hypoglycemia (Acute) 07/24/19 Insomnia (Acute) Interstitial lung disease (Acute) Neck pain (Acute) 07/24/19 Osteopenia (Acute) Chiari malformation (Acute) s/p surgery in 1996 Medical History (Updated 08/25/24 @ 04:38 by Doc Parra MD) Spinal stenosis of lumbar region Seizure disorder last event March 2022>hospitalized [facility] *followed by Dr. Boone on [facility] PVC (premature ventricular contraction) Pulmonary nodule Osteopenia Insomnia Hypertension History of compression fracture of vertebral column severe anterior wedge-shaped compression deformity at L1 , Kyphoplasty 10/01/22 Pulmonary emphysema pt denies Degenerative spondylolisthesis Atrial flutter Dx 12/11/2021 Per cardio rcords - given her intracranial abnormalities and chronic anemia she was advised against starting systemic anticoagulation No recurrent atrial flutter over the past few years per loop recorder device transmission Aneurysm of anterior cerebral artery recent recheck w/neurosurgeon 06/2024>monitored every 3 years Depressive disorder Right middle lobe pulmonary infiltrate pt unsure about this? SVT (supraventricular tachycardia) Typical of AVNRT - ablation being considered but cardio feels gallbladder issues need addressed first Admitted to [facility] for recently diagnosis of PSVT 06/15/23 with elevated troponin I/demand ischemia vs NSTEMI with basal anteroseptal and inferoseptal HK Elevated cortisol level 03/29/22 Antiplatelet or antithrombotic long-term use Interstitial lung disease used inhaler during hospitalization 06/15/23 Positive colorectal cancer screening using Cologuard test hx; colonoscopy 09/29/23 Arnold-Chiari malformation Joint pain Back pain 2021, fractured L2 Vitamin D deficiency disease Elevated troponin 06/15/23 Carotid artery disease s/p left CEA - 1991 Implantable loop recorder present History of COVID-2021>hospitalized for pnx at time *resolved Anemia Stroke Per neuro records CVA at at 32, 42, Sep 2021- right had numbness TIA>March 2022 *hospitalized at [facility] Cardiac murmur followed by Dr. Chandler No significant valve disease on 07/2023 ECHO Hyperlipidemia History of malignant neoplasm of breast rt/left breast/surgery and chemo (no arm restriction), dx age 42 History of osteoporosis Surgical History History of open reduction and internal fixation (ORIF) procedure History of left-sided carotid endarterectomy History of cholecystectomy S/P epidural steroid injection History of appendectomy History of ERCP History of tooth extraction History of cataract surgery S/P excision of lipoma H/O tubal ligation Hx of hand surgery (03/19/16) History of anesthesia reaction History of colonoscopy History of removal of ovarian cyst Hx of bilateral mastectomy History of lung biopsy S/P craniotomy Family History Father Colorectal cancer Brother Esophageal cancer Mother Lung cancer Other No family history of adverse response to anesthesia Denies family history of Ovarian cancer Prostate cancer Myocardial infarction Breast cancer Social History Smoking Status: Light tobacco smoker Tobacco Type: Cigarettes Age Started Using Tobacco: 12; Age Quit Using Tobacco: 44; packs per day: 1; Cigarettes Per Day: 1; Second Hand Exposure: Yes; Do You Dip or Chew Tobacco: No; Tobacco Cessation Education Requested by Patient: No Hx Alcohol Use: No Hx Substance Use: No Preferred Language: German Communication Ability: Effective Visual Impairment: No Limitations Hearing Ability: Normal Testing Director Required: No Beliefs That Will Affect Care: None marital status: Current Living Situation: Spouse and Family Current Living Situation Comment: [place] in [place] current occupational status: retired 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 [facility] Other Information That Helps Us Care for You: No Feels Safe at Home: Yes Safety Concerns: Feels Safe At This Time Childhood Exposure to Second-Hand Smoke: Yes Diet: regular during the past year weight has: remained stable Dental Care, Regularly: Yes Physical Activity Frequency: Daily Seatbelt Use: always Sunscreen Use: Yes Assistive Devices: None Review of Systems Review of Systems: The patient denies chest pain, cough, lower extremity swelling, sore throat, fevers, chills, sweats, nausea, vomiting, diarrhea , constipation, abdominal pain, pelvic pain, blood in urine or stool, dysuria, urinary frequency or urgency, lightheadedness, dizziness, headache, memory loss, loss of consciousness, rash, abnormal bruising or bleeding, imbalance, focal or generalized weakness, numbness or tingling in arms or legs, generalized arthralgias or myalgias, back or neck pain, or night sweats. The review of systems is otherwise negative other than for that already noted above, and at least 10 systems have been reviewed. Physical Exam Physical Exam: The patient is awake, alert and oriented 3, well developed and well nourished, normocephalic and atraumatic, lying in bed and in no acute distress. HEENT--PERRL, EOMI, mucous membranes and oropharynx mildly dry Neck--supple. No JVD. No bruits. Thyroid normal, trachea midline, no adenopathy. Heart--normal S1 and S2. No murmurs, rubs or gallops. Lungs--dry crackles throughout, no respiratory distress, no accessory muscle use. Abdomen--normal bowel sounds and soft. Nontender. Nondistended, no hernias or masses, no organomegaly. Extremities--No edema. Dermatologic--normal skin turgor, normal color, no abnormal lymph nodes, no rash. Neurologic--cranial nerves II through XII grossly intact. Rheumatologic--normal range of motion. Psychiatric--normal affect. Results & Data Results & Data Vital Signs (Past 12 Hours) Vital Signs Temp Pulse Resp BP Pulse Ox O2 Del Method 08/24/24 20:33 93 H 20 96 Room Air 08/24/24 20:19 97 H 08/24/24 18:17 36.5 C 103 H 18 127/81 94 Room Air Laboratory Results Laboratory Results WBC 7.57 K/ul (4.8-10.8) 08/24/24 19:10 RBC 4.76 M/uL (4.20-5.40) 08/24/24 19:10 Hgb 12.3 g/dl (12.0-16.0) 08/24/24 19:10 Hct 39.3 % (37.0-47.0) 08/24/24 19:10 MCV 82.6 fL (80.0-100.0) 08/24/24 19:10 MCH 25.8 pg (25.0-34.0) 08/24/24 19:10 MCHC 31.3 g/dL (32.0-36.0) L 08/24/24 19:10 RDW Std Deviation 39.5 fL (36.4-46.3) 08/24/24 19:10 RDW Coeff of Marcio 13.2 % (11.5-14.5) 08/24/24 19:10 Plt Count 314 K/uL (130-400) 08/24/24 19:10 MPV 9.8 fL (9.4-12.4) 08/24/24 19:10 Immature Gran % (Auto) 0.1 % 08/24/24 19:10 Neut % (Auto) 60.2 % 08/24/24 19:10 Lymph % (Auto) 25.2 % 08/24/24 19:10 [place] % (Auto) 8.3 % 08/24/24 19:10 Eos % (Auto) 5.5 % 08/24/24 19:10 Baso % (Auto) 0.7 % 08/24/24 19:10 Neut # (Auto) 4.55 K/uL (1.40-6.50) 08/24/24 19:10 Lymph # (Auto) 1.91 K/uL (1.20-3.40) 08/24/24 19:10 [place] # (Auto) 0.63 K/uL (0.11-0.59) H 08/24/24 19:10 Eos # (Auto) 0.42 K/uL (0.00-0.50) 08/24/24 19:10 Baso # (Auto) 0.05 K/uL (0.00-0.20) 08/24/24 19:10 Immature Gran # (Auto) 0.01 K/uL (0.01-0.20) 08/24/24 19:10 PT 10.9 Seconds (9.0-12.0) 08/24/24 19:10 INR 1.0 (0.9-1.1) 08/24/24 19:10 D-Dimer 490 ug/L FEU (0-500) 08/24/24 19:10 D-Dimer Cancelled 08/24/24 19:10 Sodium 142 mmol/L (136-145) 08/24/24 19:10 Potassium 3.9 mmol/L (3.5-5.1) 08/24/24 19:10 Chloride 105 mmol/L (98-107) 08/24/24 19:10 Carbon Dioxide 30 mmol/L (21-32) 08/24/24 19:10 Anion Gap 7 (3-11) 08/24/24 19:10 BUN 21 mg/dl (6-23) 08/24/24 19:10 Creatinine 0.73 mg/dl (0.6-1.2) 08/24/24 19:10 Est Cr Clr Drug Dosing 46.3 ml/min 08/24/24 19:10 eGFR 87.32 08/24/24 19:10 BUN/Creatinine Ratio 28.8 (10-20) H 08/24/24 19:10 Glucose 87 mg/dl (70-99(Fasting)) 08/24/24 19:10 Calcium 9.3 mg/dl (8.6-10.3) 08/24/24 19:10 Magnesium 2.1 mg/dl (1.7-2.4) 08/24/24 19:10 Total Bilirubin 0.4 mg/dl (0.2-1.0) 08/24/24 19:10 AST 24 U/L (13-39) 08/24/24 19:10 ALT 16 U/L (7-52) 08/24/24 19:10 Alkaline Phosphatase 96 U/L (34-104) 08/24/24 19:10 Troponin I High Sens 13.5 pg/ml (0-14) 08/24/24 21:20 Total Protein 6.8 gm/dl (6.0-8.3) 08/24/24 19:10 Albumin 4.1 gm/dl (3.4-5.0) 08/24/24 19:10 Globulin 2.7 gm/dl (2.5-4.0) 08/24/24 19:10 Albumin/Globulin Ratio 1.5 (0.9-2) 08/24/24 19:10 Lipase 34 U/L (11-82) 08/24/24 19:10 TSH 0.024 uIu/ml (0.300-4.500) L 08/24/24 19:10 Free T4 1.62 ng/dl (0.61-1.60) H 08/24/24 19:10 Impressions Chest X-Ray 08/24/24 18:11 Exam(s): XR CXR 1 VIEW EXAM: XR Chest, 1 View CLINICAL HISTORY: Reason for exam: Chest pain, nonspecific. TECHNIQUE: Frontal view of the chest. COMPARISON: 06/15/2023 FINDINGS: Lungs: Fibrotic changes in the lungs. Pleural space: No pleural effusion. No pneumothorax. Heart: Unremarkable. No cardiomegaly. Bones/joints: Bilateral clavicle ORIF. Sigmoid scoliosis. IMPRESSION: Fibrotic changes in the lungs. Consider CT if there is concern for superimposed process. Electronically signed by: Slick Guillermo MD 08/24/24 20:55 PM Code Status & VTE Plan Code Status Full code VTE Prophylaxis Plan VTE Prophylaxis will be ordered: Yes PG Care Time/CCT Total # of Minutes Spent Total Time Spent with Patient: Total time spent is greater than 50% in coordination of care (as documented) at patient's floor/unit and/or counseling patient: Coding Level of Care Code 97313 INT INP/OBS CARE 3/75MIN Diagnoses Atrial tachycardia I47.19 History of cardioversion Z92.89 Status post placement of implantable loop recorder Z95.818 Interstitial lung disease J84.9 Palpitation R00.2 Seizure disorder G40.909 Hypertension I10 Hyperlipidemia E78.5
[2024-08-25] MEDS ORDERED: METOPROLOL TARTRATE 1 MG/ML VIAL IV PRN (00:23)
[2024-08-25] MEDS ORDERED: ALBUTEROL HFA 8 GM INHALER INH PRN (00:23)
[2024-08-25] MEDS ORDERED: ONDANSETRON INJ 2 MG/ML 2 ML VIAL IV PRN (00:23)
[2024-08-25] MEDS ORDERED: ACETAMINOPHEN 325 MG TAB PO PRN (00:23)
[2024-08-25] MEDS: DULoxetine HCL 30 MG CAP PO SCH (01:09)
[2024-08-25] MEDS: ZOLPIDEM TARTRATE 5 MG TAB PO PRN (01:09)
[2024-08-25] MEDS: tiZANidine HCL 4 MG TABLET PO PRN (01:09)
[2024-08-25 06:17] LABS: Basophils # (auto) 0.05 K/uL (0.00-0.20); Basophils % (auto) 0.6 %; Eosinophils % (auto) 6.1 %; Hematocrit (blood only) 32.7 % (37.0-47.0); Hemoglobin 10.6 g/dl (12.0-16.0); Immature Granulocytes # (auto) 0.02 K/uL (0.01-0.20); Immature Granulocytes % (auto) 0.2 %; Lymphocytes # (auto) 2.41 K/uL (1.20-3.40); Lymphocytes % (auto) 29.4 %; Mean Corpuscular Hemoglobin 25.8 pg (25.0-34.0); Mean Corpuscular Hgb Conc 32.4 g/dL (32.0-36.0); Mean Corpuscular Volume 79.6 fL (80.0-100.0); Monocytes # (auto) 0.74 K/uL (0.11-0.59); Neutrophils # (auto) 4.47 K/uL (1.40-6.50); Neutrophils % (auto) 54.7 %; Platelet Count 295 K/uL (130-400); RDW Coefficient of Variation 13.2 % (11.5-14.5); RDW Standard Deviation 37.8 fL (36.4-46.3); Red Blood Count 4.11 M/uL (4.20-5.40); White Blood Count 8.19 K/ul (4.8-10.8)
[2024-08-25 06:27] LABS: Albumin Globulin Ratio 1.4 (0.9-2); Albumin Level 3.4 gm/dl (3.4-5.0); BUN Creatinine Ratio 26.8 (10-20); Bilirubin,Total 0.4 mg/dl (0.2-1.0); Calcium 8.8 mg/dl (8.6-10.3); Creatinine Clr Calc Pharmacy 48.2 ml/min; Globulin 2.4 gm/dl (2.5-4.0); Magnesium 1.9 mg/dl (1.7-2.4); Total Protein 5.8 gm/dl (6.0-8.3)
[2024-08-25] MEDS: ACYCLOVIR 400 MG TAB PO SCH (08:35)
[2024-08-25] MEDS: CHOLECALCIFEROL 25 MCG (1000 UNITS) TAB PO SCH (08:35)
[2024-08-25] MEDS: DULoxetine HCL 60 MG CAP PO SCH (08:36)
[2024-08-25] MEDS: HYDROCODONE/ACETAMOPHEN 5/325MG TAB PO PRN (08:36)
[2024-08-25] MEDS: levETIRAcetam 500 MG TAB PO SCH (08:36)
[2024-08-25] MEDS: HEPARIN SOD 5,000 UNIT/0.5 ML VIAL SQ SCH (08:36)
[2024-08-25] MEDS: COLESTIPOL HCL 1 GM TAB PO SCH (10:20)
[2024-08-25] MEDS: LOPERAMIDE HCL 2 MG CAP PO PRN (11:51)
--- NOTE | 2024-08-25 13:00 | Cardiology Consultation ---
Date of Consultation August 25, 2024 Assessment & Plan (1) Sinus tachycardia: (2) Hypertension: (3) Hypothyroidism: Plan 1. Sinus tachycardia: Here in the hospital her rhythm appears to be sinus tachycardia, not some other type of atrial tachycardia. This can be seen follow ing ablation, the mechanism is not totally clear but it is fairly common. It usually resolves. We have not seen an abnormal rhythm while here in the hospital and she is wearing a Holter monitor. Another possible reason is hyperthyroidism which is noted below. I would like to treat her tachycardia empirically with beta-blockade. I would recommend metoprolol succinate 50 mg daily. This is both for symptomatic control, possible treatment if this is related to hyperthyroidism as well as being helpful for her hypertension. I would also like to get an echocardiogram make sure she does not have a pericardial effusion, that is unlikely and this could be performed as an outpatient. 2. Hypertension: She often has hypertension looking back at her blood pressure measurements but has typically not been on medications. Even if she does not need it over the long run I would treat currently and the metoprolol may help with hypertension. 3. Hypothyroidism: I suspect this is due to amiodarone, her TSH was dropping before the ablation (lower but still in the normal range toward the end of May) but was not checked after that until this admission when her TSH was low. Amiodarone was discontinued at the time of her ablation. 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 I think it is safe for her to go home today, she would like to do that. I will arrange follow-up in the office with Dr. Montgomery. History of Present Illness Reason for Consultation: Palpitations and increased heart rate Attending Physician: Viral Montelongo MD History of Present Illness This is a 74-year-old woman who has a history of atrial flutter, premature atrial and ventricular beats, hypertension as well as cerebrovascular disease (including a CVA historically) and lung disease. In May 2023 she was noted to have an elevated heart rate and an electrocardiogram June 15, 2023 showed SVT at 132 bpm. She was sent to the emergency room where she was in sinus rhythm, the SVT apparently converted with Valsalva. Her echocardiogram was unremarkable on June 16, 2023. She was on amiodarone. She did have additional episodes of SVT and therefore electrophysiologic study and ablation was performed on July 05, 2024. 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 With her history of atrial flutter she also had a cavotricuspid isthmus ablation performed. The procedure was felt to be successful. Amiodarone was discontinued. She also has a loop recorder in place, this was implanted in [place] on May 28, 2022. Attempts have been made to interrogated both by Dr. Montgomery I believe and myself recently, I saw her briefly in the office to look at her electrocardiogram August 22, 2024 which was done for a high heart rate (it showed sinus rhythm) and to arrange a Holter monitor, at that time I tried to interrogate her loop recorder which appears to either have malfunctioned or suffered premature battery depletion and is not operational. She did present to the emergency room on August 24, 2024 with symptoms of shortness of breath and palpitations. She reported that her heart rate never goes below 90 bpm, and on electrocardiography on presentation her heart rate was just under 100 bpm but appeared to be sinus. This morning she remained in sinus rhythm with a heart rate of 93 bpm. She continues to have symptoms of an increased heart rate, the symptoms are present most of the time and she also feels a little lightheaded at times and notes that with activities her heart rate increases above that. Allergies Allergy/AdvReac Type Severity Reaction Status Date / Time tramadol Allergy Severe Seizure Verified 07/05/24 07:10 bupropion [From Wellbutrin] Allergy Seizure Verified 07/05/24 07:10 Home Medications Medication Instructions Recorded Confirmed Type ascorbic acid 1,000 1 ea PO DAILY PRN Cold Symptoms 08/20/20 08/24/24 History yd-wzxiaashlcba-pwohqotx powder effervescent pack (Emergen-C) blood sugar diagnostic (OneTouch #100 ea 07/24/21 08/24/24 Rx Ultra Test strips) blood sugar diagnostic (Reveal #100 ea 07/28/21 08/24/24 Rx Test Strip) ibandronate 150 mg tablet (Boniva) 150 mg PO Q4WK #12 tabs 11/24/22 08/24/24 Rx cholecalciferol (vitamin D3) 50 50 mcg PO DAILY #90 caps 09/29/23 08/24/24 Rx mcg (2,000 unit) capsule celecoxib 100 mg capsule (Celebrex) 100 mg PO BID PRN Pain 11/01/23 08/24/24 History ezetimibe 10 mg tablet 10 mg PO HS #90 tabs 12/12/23 08/24/24 Rx rosuvastatin 5 mg tablet 5 mg PO QPM #90 tabs 12/28/23 08/24/24 Rx levetiracetam 500 mg tablet 500 mg PO BID 90 days #180 tabs 01/17/24 08/24/24 Rx (Keppra) acyclovir 400 mg tablet 400 mg PO BID #60 tabs 03/28/24 08/24/24 Rx ondansetron HCl 4 mg tablet 4 mg PO Q8H PRN nausea and 06/13/24 08/24/24 Rx vomiting #30 tabs colestipol 1 gram tablet 2 g PO BID 06/27/24 08/24/24 History duloxetine 30 mg capsule,delayed 30 - 60 mg PO UD 06/27/24 08/24/24 History release tizanidine 4 mg tablet 4 mg PO BID PRN muscle spasticity 07/09/24 08/24/24 Rx #60 tabs albuterol sulfate 90 mcg/actuation 1 - 2 puff inhalation Q4H PRN 07/30/24 1 10/24/23 Rx aerosol inhaler interstitial lung disease #18 grams amoxicillin 875 mg-potassium 1 tab PO BID 5 days #10 tabs 07/31/24 08/24/24 Rx clavulanate 125 mg tablet hydrocodone 5 mg-acetaminophen 325 1 tab PO BID PRN pain 30 days #60 08/02/24 08/24/24 Rx mg tablet tabs zolpidem 10 mg tablet 10 mg PO HS PRN insomnia 30 days 08/20/24 08/24/24 Rx #30 tabs Patient History Medical History Spinal stenosis of lumbar region Seizure disorder last event March 2022>hospitalized [facility] *followed by Dr. Boone on KEPPRA PVC (premature ventricular contraction) Pulmonary nodule Osteopenia Insomnia Hypertension History of compression fracture of vertebral column severe anterior wedge-shaped compression deformity at L1 , Kyphoplasty 10/01/22 Pulmonary emphysema pt denies Degenerative spondylolisthesis Atrial flutter Dx 12/11/2021 Per cardio rcords - given her intracranial abnormalities and chronic anemia she was advised against starting systemic anticoagulation No recurrent atrial flutter over the past few years per loop recorder device transmission Aneurysm of anterior cerebral artery recent recheck w/neurosurgeon 06/2024>monitored every 3 years Depressive disorder Right middle lobe pulmonary infiltrate pt unsure about this? SVT (supraventricular tachycardia) Typical of AVNRT - ablation being considered but cardio feels gallbladder issues need addressed first Admitted to [facility] for recently diagnosis of PSVT 06/15/23 with elevated tropo nick I/demand ischemia vs NSTEMI with basal anteroseptal and inferoseptal HK Elevated cortisol level 03/29/22 Antiplatelet or antithrombotic long-term use Interstitial lung disease used inhaler during hospitalization 06/15/23 Positive colorectal cancer screening using Cologuard test hx; colonoscopy 09/29/23 Arnold-Chiari malformation Joint pain Back pain 2021, fractured L2 Vitamin D deficiency disease Elevated troponin 06/15/23 Carotid artery disease s/p left CEA - 1991 Implantable loop recorder present History of COVID-2021>hospitalized for pnx at time *resolved Anemia Stroke Per neuro records CVA at at 32, 42, Sep 2021- right had numbness TIA>March 2022 *hospitalized at [facility] [place] Cardiac murmur followed by Dr. Chandler No significant valve disease on 07/2023 ECHO Hyperlipidemia History of malignant neoplasm of breast rt/left breast/surgery and chemo (no arm restriction), dx age 42 History of osteoporosis Surgical History History of open reduction and internal fixation (ORIF) procedure right and left clavicles repaired at separate times>hardware intact History of left-sided carotid endarterectomy 1991 History of cholecystectomy S/P epidural steroid injection History of appendectomy History of ERCP recent gallstones removed>stents implanted>stents removed w/gallbladder s urgery History of tooth extraction History of cataract surgery rt/left S/P excision of lipoma FINAL DIAGNOSIS Soft tissue, left forearm, "mass" (excision): In office procedure Chambers 02/04/2022 - Lipoma. H/O tubal ligation Hx of hand surgery (03/19/16) LEFT index finger revision amp with Volar VY advancement flap-[place] History of anesthesia reaction gets bad anxiety with twilight sedation History of colonoscopy History of removal of ovarian cyst Hx of bilateral mastectomy with reconstruction History of lung biopsy S/P craniotomy at age 32 > [facility] >for Arndavid Chiari Malformation Family History Father Colorectal cancer Brother Esophageal cancer Mother Lung cancer Other No family history of adverse response to anesthesia Denies family history of Ovarian cancer Prostate cancer Myocardial infarction Breast cancer Social History Smoking Status: Light tobacco smoker Tobacco Type: Cigarettes Age Started Using Tobacco: 12; Age Quit Using Tobacco: 44; packs per day: 1; Cigarettes Per Day: 1; Second Hand Exposure: Yes; Do You Dip or Chew Tobacco: No; Tobacco Cessation Education Requested by Patient: No Hx Alcohol Use: No Hx Substance Use: No Preferred Language: Mexican Communication Ability: Effective Visual Impairment: No Limitations Hearing Ability: Normal Stabilizer Operator Required: No Beliefs That Will Affect Care: None marital status: Current Living Situation: Spouse and Family Current Living Situation Comment: lives [place] in [place] current occupational status: retired 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 HEENT: Unremarkable Neck: No jugular venous distention, carotid pulses are normal and equal bilaterally without bruits. Pulmonary: Clear to auscultation bilaterally. Cardiac: Regular somewhat rapid rhythm with no murmur, gallop or rub. Abdomen: Soft, nontender with normal bowel sounds. Extremities: No edema. Distal pulses intact. Neurologic: No focal findings. Skin: No rash, ecchymoses or petechiae. Results & Data Vital Signs (Past 12 Hours) Vital Signs Temp Pulse Pulse Resp BP Pulse Ox O2 Del Method 08/25/24 11:59 36.5 C 98 H 18 141/86 H 97 Room Air 08/25/24 08:19 36.8 C 96 H 18 161/97 H 94 Room Air 08/25/24 07:29 97 H 08/25/24 02:38 36.7 C 98 H 18 131/74 94 Room Air 08/25/24 01:28 107 H 08/25/24 01:21 Room Air Laboratory Results Telemetry: Sinus rhythm and sinus tachycardia, heart rate hovering right around 100 bpm, sometimes little higher and sometimes a little lower. No significant arrhythmia. PG Care Time/CCT Total # of Minutes Spent Total Time Spent with Patient: Total time spent is greater than 50% in coordination of care (as documented) at patient's floor/unit and/or counseling patient: Coding Level of Care Code 28566 INT INP/OBS CARE 3/75MIN Diagnoses Sinus tachycardia R00.0 Hypertension I10 Hypothyroidism E03.9
--- NOTE | 2024-08-25 13:27 | Ultrasound Report ---
THYROID ULTRASOUND CLINICAL HISTORY: mild hyperthyroidism COMPARISON STUDY: None. TECHNIQUE: Sonography of the thyroid gland was performed. FINDINGS: The right thyroid lobe measures 4.3 x 1.6 x 1.5 cm and the left lobe measures 3.9 x 1.4 x 1 .3 cm. Gland echotexture is within normal limits. The isthmus measures 0.3 cm in AP dimension. There is a circumscribed wider than tall solid isoechoic nodule with hypoechoic rim within the lower pole o f the left thyroid lobe which measures 0.9 x 0.6 x 0.8 cm. There are no additional thyroid nodules. IMPRESSION: 1. 0.9 cm left lower pole thyroid nodule which does not meet criteria for biopsy. This is probably be nign. A follow-up ultrasound in 6 months to ensure stability is recommended. 2. Otherwise, unremarkable thyroid gland. ACT 112: Negative or not required by law. Electronically signed by: Cesar Dias M.D. 08/25/2024 1:26 PM
--- NOTE | 2024-08-25 17:03 | Hospitalist Progress Note ---
Date of Service August 25, 2024 Assessment & Plan (1) Sinus tachycardia: Plan: thus far only sinus tach seen on monitoring/EKG since admission unfortunately her loop recorder is indeed /not functioning thus unable to retrieve any data in light of her prior aflutter and SVT history she could still be having atrial dysrhythmias she is wearing a Holter Monitor and will complete such current sinus tach, however, is likely due to #2 below agree with initiation of beta arlen as recommended by Dr Johnson at discharge send home on 50mg of meto succ cont tele (2) Hyperthyroidism: Plan: TSH low FT4 mildly elevated amiodarone-induced thyrotoxicosis? does have a small nodule on thyroid u/s but unlikely to be the culprit no goiter on exam and thyroid not enlarged on u/s no tenderness on exam to suggest thyroiditis and no thyroid u/s features of thyroiditis but this doesn't rule out thyroiditis took amiodarone for 3+ years per her recollection I reached out to Dr Mercedes from [facility] who is on-call he reviewed her chart & lab findings he recommends initiation of prednisone 20mg BID in the event this is amiodarone induced thyroiditis also advises methimazole 15mg BID will check thyroid stimulating immunoglobulin with am labs tomorrow she will need to see Dr Mercedes in clinic in about 2 weeks post-d/c all of the above was discussed with pt & her daughter (3) Underweight: Plan: chronic issue likely multifactorial including ILD, etc. 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 idiopathic? other? 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 - Dr Montgomery wearing Holter monitor at this time no SVT seen on tele since admission - just sinus tach Plan likely home tomorrow Admission and Anticipated Discharge Date Admission Date: August 24, 2024 Subjective patient resting comfortably in bed during the visit daughter present at bedside we had lengthy discussion about her TFTs (showing hyperthyroid state) as well as her thyroid u/s she is agreeable to thyroid meds and beta arlen loop recorder was interrogated today by Dr Johnson - the recorder is , unable to give any information unfortunately patient does feel better today patient denies any prior h/o thyroid disease denies thyroid tenderness Review of Systems Review of Systems: gen - no weight loss, she has always been thin neuro - denies tremor psych - some anxiety pulm - no dyspnea today Physical Exam Physical Exam: gen - very thin, NAD, pleasant neck - thyroid not enlarged, nontender eyes - slight proptosis b/l mouth - MMM heart - tachy, s1 s2 lungs - rales, fine b/l bases; occasional wheeze b/l abd - soft NT ND BS+ ext - no edema, pulses 2+ b/l neuro - no tremor noted Results & Data Results & Data Vital Signs (Past 12 Hours) Vital Signs Temp Pulse Pulse Resp BP Pulse Ox O2 Del Method 08/25/24 16:39 117 H 08/25/24 16:17 36.6 C 99 H 18 145/75 H 97 Room Air 08/25/24 11:59 36.5 C 98 H 18 141/86 H 97 Room Air 08/25/24 08:19 36.8 C 96 H 18 161/97 H 94 Room Air 08/25/24 07:29 97 H Laboratory Results Laboratory Results 08/24/24 08/24/24 08/24/24 19:10 19:10 21:20 WBC 7.57 RBC 4.76 Hgb 12.3 Hct 39.3 MCV 82.6 MCH 25.8 MCHC 31.3 L RDW Std Deviation 39.5 RDW Coeff of Marcio 13.2 Plt Count 314 MPV 9.8 Immature Gran % (Auto) 0.1 Neut % (Auto) 60.2 Lymph % (Auto) 25.2 [place] % (Auto) 8.3 Eos % (Auto) 5.5 Baso % (Auto) 0.7 Neut # (Auto) 4.55 Lymph # (Auto) 1.91 [place] # (Auto) 0.63 H Eos # (Auto) 0.42 Baso # (Auto) 0.05 Immature Gran # (Auto) 0.01 PT 10.9 INR 1.0 D-Dimer 490 Cancelled Sodium 142 Potassium 3.9 Chloride 105 Carbon Dioxide 30 Anion Gap 7 BUN 21 Creatinine 0.73 Est Cr Clr Drug Dosing 46.3 eGFR 87.32 BUN/Creatinine Ratio 28.8 H Glucose 87 Calcium 9.3 Magnesium 2.1 Total Bilirubin 0.4 AST 24 ALT 16 Alkaline Phosphatase 96 Troponin I High Sens 14.7 H 13.5 Total Protein 6.8 Albumin 4.1 Globulin 2.7 Albumin/Globulin Ratio 1.5 Lipase 34 TSH 0.024 L Free T4 1.62 H 08/25/24 05:27 WBC 8.19 RBC 4.11 L Hgb 10.6 L Hct 32.7 L MCV 79.6 L MCH 25.8 MCHC 32.4 RDW Std Deviation 37.8 RDW Coeff of Marcio 13.2 Plt Count 295 MPV 10.0 Immature Gran % (Auto) 0.2 Neut % (Auto) 54.7 Lymph % (Auto) 29.4 [place] % (Auto) 9.0 Eos % (Auto) 6.1 Baso % (Auto) 0.6 Neut # (Auto) 4.47 Lymph # (Auto) 2.41 [place] # (Auto) 0.74 H Eos # (Auto) 0.50 Baso # (Auto) 0.05 Immature Gran # (Auto) 0.02 PT INR D-Dimer Sodium 143 Potassium 4.0 Chloride 109 H Carbon Dioxide 27 Anion Gap 7 BUN 19 Creatinine 0.71 Est Cr Clr Drug Dosing 48.2 eGFR 90.28 BUN/Creatinine Ratio 26.8 H Glucose 87 Calcium 8.8 Magnesium 1.9 Total Bilirubin 0.4 AST 21 ALT 12 Alkaline Phosphatase 75 Troponin I High Sens Total Protein 5.8 L Albumin 3.4 Globulin 2.4 L Albumin/Globulin Ratio 1.4 Lipase TSH Free T4 Diagnostic Findings Thyroid Ultrasound 08/25/24 10:12 THYROID ULTRASOUND CLINICAL HISTORY: mild hyperthyroidism COMPARISON STUDY: None. TECHNIQUE: Sonography of the thyroid gland was performed. FINDINGS: The right thyroid lobe measures 4.3 x 1.6 x 1.5 cm and the left lobe measures 3.9 x 1.4 x 1.3 cm. Gland echotexture is within normal limits. The isthmus measures 0.3 cm in AP dimension. There is a circumscribed wider than tall solid isoechoic nodule with hypoechoic rim within the lower pole of the left thyroid lobe which measures 0.9 x 0.6 x 0.8 cm. There are no additional thyroid nodules. IMPRESSION: 1. 0.9 cm left lower pole thyroid nodule which does not meet criteria for biopsy. This is probably benign. A follow-up ultrasound in 6 months to ensure stability is recommended. 2. Otherwise, unremarkable thyroid gland. ACT 112: Negative or not required by law. Electronically signed by: Cesar Dias M.D. 08/25/2024 1:26 PM PG Care Time/CCT Total # of Minutes Spent Total Time Spent with Patient: Total time spent is greater than 50% in coordination of care (as documented) at patient's floor/unit and/or counseling patient: Coding Level of Care Code 35381 SUB INP/OBS CARE 3/50MIN Diagnoses Sinus tachycardia R00.0 Hyperthyroidism E05.90 Underweight R63.6 Status post placement of implantable loop recorder Z95.818 Seizure disorder G40.909 History of compression fracture of vertebral column Z87.81 Atrial flutter I48.92 Anemia D64.9 Interstitial lung disease J84.9 Chiari malformation History of radiofrequency ablation procedure for cardiac arrhythmia Z98.890
[2024-08-25] MEDS: METOPROLOL TARTRATE 50 MG TAB PO STA (18:04)
[2024-08-25] MEDS: predniSONE 20 MG TAB PO STA (18:05)
[2024-08-25] MEDS: methIMAzole 5 MG TABLET PO ONE (18:05)
[2024-08-25] MEDS: EZETIMIBE 10 MG TAB PO SCH (20:28)
[2024-08-25] MEDS: ROSUVASTATIN CALCIUM 5 MG TAB PO SCH (20:28)
[2024-08-26] MEDS: predniSONE 20 MG TAB PO SCH (08:23)
[2024-08-26] MEDS: METOPROLOL TARTRATE 50 MG TAB PO SCH (08:23)
[2024-08-26] MEDS: methIMAzole 5 MG TABLET PO SCH (08:23)
--- NOTE | 2024-08-26 08:52 | Cardiology Progress Note ---
Date of Service August 26, 2024 Assessment & Plan (1) Sinus tachycardia: (2) Hypertension: (3) Hypothyroidism: Plan 1. Sinus tachycardia: Here in the hospital her rhythm appears to be sinus tachycardia, not some other type of atrial tachycardia. This can be seen following ablation, the mechanism is not totally clear but it is fairly common. It usually resolves. We have not seen an abnormal rhythm while here in the hospital and she is wearing a Holter monitor. Another possible reason is hyperthyroidism which is noted below. I would like to treat her tachycardia empirically with beta-blockade. She received beta-blockade starting in the evening of August 25, 2024 and it has improved her heart rate. She feels better and I probably would not want to drive her heart rate down too much since I suspect the tachycardia will resolve. 2. Hypertension: She often has hypertension looking back at her blood pressure measurements but has typically not been on medications. Even if she does not need it over the long run I would treat currently and the metoprolol may help with hypertension. Despite use of metoprolol she remains hypertensive, but she is early in treatment so perhaps it will improve. 3. Hypothyroidism: I suspect this is due to amiodarone, her TSH was dropping before the ablation (lower but still in the normal range toward the end of May) but was not checked after that until this admission when her TSH was low. Amiodarone was discontinued at the time of her ablation. 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 I will arrange follow-up in the office with Dr. Montgomery. Admission and Anticipated Discharge Date Admission Date: August 24, 2024 Subjective She is feeling better today, she has less sensation of a fast heart rate and has no other cardiovascular symptoms today. Physical Exam Physical Exam: Constitutional: Alert, cooperative and in no distress. HEENT: Unremarkable Neck: No jugular venous distention, carotid pulses are normal and equal bilaterally without bruits. Pulmonary: Clear to auscultation bilaterally. Cardiac: Regular rhythm with no murmur, gallop or rub. Abdomen: Soft, nontender with normal bowel sounds. Extremities: No edema. Distal pulses intact. Neurologic: No focal findings. Skin: No rash, ecchymoses or petechiae. Results & Data Vital Signs (Past 12 Hours) Vital Signs Temp Pulse Pulse Resp BP Pulse Ox O2 Del Method 08/26/24 08:09 36.6 C 82 18 145/84 H 93 Room Air 08/26/24 07:22 79 08/26/24 03:08 36.6 C 79 18 139/85 93 Room Air 08/25/24 23:08 81 08/25/24 22:46 36.6 C 89 18 166/89 H 94 Room Air Laboratory Results Intake and Output 08/25/24 08/26/24 08/26/24 22:59 06:59 14:59 Intake Total 250 / 450 200 / 450 Balance 250 / 450 200 / 450 Intake: Oral 250 / 450 200 / 450 Other: Weight 42.6 kg 42.5 kg Diagnostic Findings Telemetry: Sinus rhythm, her rate has dropped nicely to around 80 on beta- blockade. Echocardiogram: An echocardiogram today shows a low normal ejection fraction with wall motion abnormalities but no pericardial effusion and unchanged from prior studies. PG Care Time/CCT Total # of Minutes Spent Total Time Spent with Patient: Total time spent is greater than 50% in coordination of care (as documented) at patient's floor/unit and/or counseling patient: Coding Level of Care Code 88089 SUB INP/OBS CARE 3/50MIN Diagnoses Sinus tachycardia R00.0 Hypertension I10 Hypothyroidism E03.9
--- NOTE | 2024-08-26 11:27 | XCELERA ---
[id number]
[2024-08-26 12:04] VITALS: BP 155/88; PULSE 77; RESP 20; TEMP 98.1; O2SAT 96
--- NOTE | 2024-08-26 12:52 | Discharge Summary ---
Discharge Summary Date of Service August 26, 2024 Principal Dx & Hospital Course #1 = Principal Diagnosis (1) Sinus tachycardia: thus far only sinus tach seen on monitoring/EKG since admission unfortunately her loop recorder is indeed /not functioning thus unable to retrieve any data in light of her prior aflutter and SVT history she could still be having atrial dysrhythmias she is wearing a Holter Monitor and will complete such current sinus tach, however, is likely due to #2 below agree with initiation of beta arlen as recommended by Dr Johnson at discharge send home on 50mg of meto succ cont tele (2) Hyperthyroidism: TSH low FT4 mildly elevated amiodarone-induced thyrotoxicosis? does have a small nodule on thyroid u/s but unlikely to be the culprit no goiter on exam and thyroid not enlarged on u/s no tenderness on exam to suggest thyroiditis and no thyroid u/s features of thyroiditis but this doesn't rule out thyroiditis took amiodarone for 3+ years per her recollection I reached out to Dr Mercedes from [facility] who is on-call he reviewed her chart & lab findings he recommends initiation of prednisone 20mg BID in the event this is amiodarone induced thyroiditis also advises methimazole 15mg BID will check thyroid stimulating immunoglobulin with am labs tomorrow she will need to see Dr Mercedes in clinic in about 2 weeks post-d/c all of the above was discussed with pt & her daughter (3) Underweight: chronic issue likely multifactorial including ILD, etc. 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 other? 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 She had undergone cardiac ablation to be able to discontinue amiodarone, because there were concerns regarding pulmonary toxicity affecting her underlying significant interstitial lung disease and pulmonary fibrosis. She reports that she has a internal heart monitor that reportedly is now dysfunctional, and had a second heart monitor placed recently. She notes that with relatively low level activity, her heart rate has gone up significantly, as noted on her fitness watch, up to 140. When the heart rate occurs, she feels lightheaded and dizzy, but has not passed out. She continues to have ongoing breathing issues, associated with her significant interstitial lung disease and pulmonary fibrosis, primarily noted as dyspnea on exertion. Discharge Exam gen - very thin, NAD, pleasant neck - thyroid not enlarged, nontender eyes - slight proptosis b/l mouth - MMM heart - tachy, s1 s2 lungs - rales, fine b/l bases; occasional wheeze b/l abd - soft NT ND BS+ ext - no edema, pulses 2+ b/l neuro - no tremor noted Discharge Plan Discharge Items Patient Disposition: Home - Self-Care Reason For Visit: SINUS TACHYCARDIA Discharge Diagnosis: 1. sinus tachycardia - likely due to newly found hyperthyroidism 2. hyperthyroidism - possibly due to prior amiodarone use Activity: As commented below Activity Comment: gradually increase activities as tolerated Exercise/Sports: Wait until after follow-up appointment Non-emergency contact: Primary Care Provider and Specialist Call non-emergency contact if: you have any medication questions and your symptoms worsen Follow-up/Referrals: Clint Mercedes MD [Physician] - (within 2 weeks for your thyroid; date/time of appt to be announced ) Luis Antonio Buck MD [Primary Care Provider] - (1 week) Rafael Montgomery MD [Physician] - (1-2 weeks; appt date/time to be announced ) Diet: Regular Addtl Attending Provider Instructions: Cedrick De Dios were hospitalized due to having tachycardia at home. It appears that the majority of the tachycardia is sinus tachycardia. We did not see any atrial fibrillation or atrial flutter or SVT while here. Sinus tachycardia is a normal heart rhythm but the heart rate is fast. It appears that the sinus tachycardia may be due to newly diagnosed hyperthyroidism. Hyperthyroidism is when the thyroid gland is producing too much thyroid hormone. Symptoms of hyperthyroidism include fast heart rate (tachycardia), feeling warm/flushed, diarrhea, weight loss, etc. See handouts. It is possible that prior amiodarone use caused the hyperthyroidism. We discussed your case with [facility] and they have recommended the following - 1. methimazole 15mg twice daily - next dose TONIGHT 2. prednisone 20mg twice daily - next dose TONIGHT To treat your fast heart rates [facility] (and endocrinology) both advised use of - 1. metoprolol succinate 50mg once daily at bedtime, first dose TONIGHT The metoprolol will also help with blood pressure control. You will need to see both endocrinology and cardiology shortly after discharge. Additional recommendations - 1. famotidine 20mg twice daily to protect your stomach from the effects of prednisone 2. continue your heart monitor at home 3. continue to check your blood sugars at least once daily, preferably twice daily, as the prednisone will likely increase your blood sugars; if you are running consistently greater than 130-140 please let your family doctor know 4. HOLD your celebrex since you are now taking prednisone 5. DO NOT take any [id number] motrin/ibuprofen/naprosyn/aleve since you are taking prednisone Return to [facility] if - * you have fevers over 100 degrees * you have chest pains * you are short of breath * you feel dizzy or lightheaded * your heart rate is over 100 consistently for lengthy periods of time (longer than 15-20 minutes) * any other concerns It was our pleasure to care for you! -Dr Montelongo Pending Studies at Discharge: Yes Studies:: thyroid blood tests Stand-Alone Forms: My [facility] infirst Healthcare, Smoking Cessation Medications and DC Order Prescriptions: New prednisone 10 mg tablet 20 mg PO BID Qty: 60 1RF Rx Instructions: take with food methimazole 5 mg tablet 15 mg PO BID Qty: 100 1RF famotidine [Pepcid] 20 mg tablet 20 mg PO BID Qty: 60 5RF metoprolol succinate 50 mg tablet extended release 24 hr 50 mg PO HS Qty: 30 5RF Continued (DME) OneTouch Ultra Test Strip See Rx Instructions .Route Qty: 100 0RF Rx Instructions: As directed- 3x daily (DME) Reveal Test Strip Strip See Rx Instructions .Route Qty: 100 2RF Rx Instructions: testing 3 times daily ibandronate [Boniva] 150 mg tablet 150 mg PO Q4WK Qty: 12 1RF Rx Instructions: PER PT "USUALLY THE BEGINNING OF THE MONTH" cholecalciferol (vitamin D3) 50 mcg (2,000 unit) capsule 50 mcg PO DAILY Qty: 90 3RF Rx Instructions: with heaviest meal of the day ezetimibe 10 mg tablet 10 mg PO HS Qty: 90 3RF rosuvastatin 5 mg tablet 5 mg PO QPM Qty: 90 3RF levetiracetam [Keppra] 500 mg tablet 500 mg PO BID 90 Days Qty: 180 3RF acyclovir 400 mg tablet 400 mg PO BID Qty: 60 5RF ondansetron HCl 4 mg tablet 4 mg PO Q8H PRN (Reason: nausea and vomiting) Qty: 30 0RF tizanidine 4 mg tablet 4 mg PO BID PRN (Reason: muscle spasticity) Qty: 60 3RF Patient Comments: usually takes 1 tab HS albuterol sulfate 90 mcg/actuation HFA aerosol inhaler 1 - 2 puff inhalation Q4H PRN (Reason: interstitial lung disease) Qty: 18 3RF Rx Instructions: RARE USE hydrocodone-acetaminophen 5-325 mg tablet 1 tab PO BID PRN (Reason: pain) 30 Days Qty: 60 0RF Patient Comments: takes 2 daily zolpidem 10 mg tablet 10 mg PO HS PRN (Reason: insomnia) 30 Days Qty: 30 0RF Emergen-C 1,000 mg Powder Effervescent In Packet 1 ea PO DAILY PRN (Reason: Cold Symptoms) colestipol 1 gram tablet 2 g PO BID duloxetine 30 mg capsule,delayed release(DR/EC) 30 - 60 mg PO UD Rx Instructions: 60 in am and 30 in pm orally daily; Discontinued celecoxib [Celebrex] 100 mg capsule 100 mg PO BID PRN (Reason: Pain) Hold Instructions: no longer takes Patient Comments: takes prn amoxicillin-pot clavulanate 875-125 mg tablet 1 tab PO BID 5 Days Qty: 10 0RF Rx Instructions: [facility] 07/28/24 Discharge Orders: Discharge Order (Routine); Ordered 08/26/24 Ordered By: Viral Ni/Other Patient Handouts: Methimazole Oral Tablet, When You Have Hyperthyroidism, ED Hyperthyroidism Admission Data Admit Date/Time: 08/24/24 22:42 Attending Provider: Viral Montelongo Admit Provider: Doc Parra Primary Care Provider: Luis Antonio Buck V. Other Providers: Doc Parra; Marcel Johnson Hospital Stay Data Consultations 08/24/24 21:42 ED Decision to Admit Stat 08/25/24 10:14 Consult Cardiology Routine Diagnostic Imagining Performed 08/25/24 10:12 thyroid Routine Pending Results Patient Have Any Pending Studies at Discharge: Yes Discharge Instructions Given to Patient (Per Discharging Provider) Mrs Daniel, Cedrick were hospitalized due to having tachycardia at home. It appears that the majority of the tachycardia is sinus tachycardia. We did not see any atrial fibrillation or atrial flutter or SVT while here. Sinus tachycardia is a normal heart rhythm but the heart rate is fast. It appears that the sinus tachycardia may be due to newly diagnosed hyperthyroidism. Hyperthyroidism is when the thyroid gland is producing too much thyroid hormone. Symptoms of hyperthyroidism include fast heart rate (tachycardia), feeling warm/flushed, diarrhea, weight loss, etc. See handouts. It is possible that prior amiodarone use caused the hyperthyroidism. We discussed your case with [facility] and they have recommended the following - 1. methimazole 15mg twice daily - next dose TONIGHT 2. prednisone 20mg twice daily - next dose TONIGHT To treat your fast heart rates [facility] Card[facility] (and endocrinology) both advised use of - 1. metoprolol succinate 50mg once daily at bedtime, first dose TONIGHT The metoprolol will also help with blood pressure control. You will need to see both endocrinology and cardiology shortly after discharge. Additional recommendations - 1. famotidine 20mg twice daily to protect your stomach from the effects of prednisone 2. continue your heart monitor at home 3. continue to check your blood sugars at least once daily, preferably twice daily, as the prednisone will likely increase your blood sugars; if you are running consistently greater than 130-140 please let your family doctor know 4. HOLD your celebrex since you are now taking prednisone 5. DO NOT take any [id number] motrin/ibuprofen/naprosyn/aleve since you are taking prednisone Return to [facility] if - * you have fevers over 100 degrees * you have chest pains * you are short of breath * you feel dizzy or lightheaded * your heart rate is over 100 consistently for lengthy periods of time (longer than 15-20 minutes) * any other concerns It was our pleasure to care for you! -Dr Montelongo Coding Diagnoses Sinus tachycardia R00.0 Hyperthyroidism E05.90 Underweight R63.6 Status post placement of implantable loop recorder Z95.818 Seizure disorder G40.909 History of compression fracture of vertebral column Z87.81 Atrial flutter I48.92 Anemia D64.9 Interstitial lung disease J84.9 Chiari malformation History of radiofrequency ablation procedure for cardiac arrhythmia Z98.890
--- NOTE | 2024-08-27 14:35 | Electrocardiogram Report ---
Test Reason : Blood Pressure : */* mmHG Vent. Rate : 98 BPM Atrial Rate : 98 BPM P-R Int : 110 ms QRS Dur : 86 ms QT Int : 358 ms P-R-T Axes : 74 13 56 degrees QTcB Int : 457 ms Sinus rhythm with short LA Possible Left atrial enlargement Septal infarct (cited on or before 22-Aug-2024) Abnormal ECG When compared with ECG of 22-Aug-2024 14:42, (unconfirmed) Nonspecific T wave abnormality, worse in Lateral leads Confirmed by Marcel Johnson ([id number]) on 08/27/2024 2:34:44 PM Referred By: REFERRED SELF Confirmed By: Marcel Johnson
--- NOTE | 2024-08-27 15:11 | Electrocardiogram Report ---
Test Reason : Blood Pressure : */* mmHG Vent. Rate : 93 BPM Atrial Rate : 93 BPM P-R Int : 112 ms QRS Dur : 86 ms QT Int : 382 ms P-R-T Axes : 60 30 -26 degrees QTcB Int : 474 ms Sinus rhythm with occasional Premature ventricular complexes Possible Left atrial enlargement Nonspecific ST and T wave abnormality Abnormal ECG When compared with ECG of 24-Aug-2024 19:01, (unconfirmed) Premature ventricular complexes are now Present Nonspecific T wave abnormality no longer evident in Anterior leads Confirmed by Marcel Johnson ([id number]) on 08/27/2024 3:11:32 PM Referred By: REFERRED SELF Confirmed By: Marcel Johnson
--- NOTE | 2024-08-28 12:15 | Electrocardiogram Report ---
Test Reason : Blood Pressure : */* mmHG Vent. Rate : 81 BPM Atrial Rate : 81 BPM P-R Int : 118 ms QRS Dur : 94 ms QT Int : 398 ms P-R-T Axes : 54 3 -59 degrees QTcB Int : 462 ms Sinus rhythm with occasional Premature ventricular complexes Possible Left atrial enlargement Abnormal ECG When compared with ECG of 25-Aug-2024 05:10, (unconfirmed) Nonspecific T wave abnormality, worse in Inferior leads Confirmed by Marcel Johnson ([id number]) on 08/28/2024 12:15:07 PM Referred By: REFERRED SELF Confirmed By: Marcel Johnson
== END 2024-08-26 13:36 | disposition home or self-care (01) | DRG 644 ==
LOC: ED 17:45 → SUATTDRO 22:42 → 2S 22:42

== ENCOUNTER 2025-08-20 18:56 | Inpatient (IN) ==
[2025-08-20] MEDS: MoRPHine SULFATE 10 MG/ML CARP/VIAL IV STA (19:22)
[2025-08-20] MEDS: ONDANSETRON INJ 2 MG/ML 2 ML VIAL IV STA (19:22)
[2025-08-20 19:27] LABS: Hematocrit (blood only) 38.7 % (37.0-47.0); Hemoglobin 12.5 g/dl (12.0-16.0); Immature Granulocytes # (auto) 0.05 K/uL (0.01-0.20); Immature Granulocytes % (auto) 0.5 %; Mean Corpuscular Hemoglobin 26.2 pg (25.0-34.0); Mean Corpuscular Volume 81.1 fL (80.0-100.0); Platelet Count 259 K/uL (130-400); RDW Standard Deviation 38.9 fL (36.4-46.3); Red Blood Count 4.77 M/uL (4.20-5.40); White Blood Count 10.82 K/ul (4.8-10.8)
[2025-08-20] MEDS: SODIUM CHLORIDE 0.9% 1,000 ML IV STA (19:28)
[2025-08-20 19:46] LABS: Alanine Aminotransferase 16.0 U/L (7-52); Albumin Globulin Ratio 1.3 (0.9-2); Albumin Level 3.9 gm/dl (3.4-5.0); Alkaline Phosphatase 129.0 U/L (34-104); Anion Gap 8.0 (3-11); Bilirubin,Total 0.8 mg/dl (0.2-1.0); Blood Urea Nitrogen 25.0 mg/dl (6-23); Calcium 10.0 mg/dl (8.6-10.3); Carbon Dioxide 27.0 mmol/L (21-32); Chloride 104.0 mmol/L (98-107); Creatinine Clr Calc Pharmacy 42.7 ml/min; Globulin 2.9 gm/dl (2.5-4.0); Glucose 137.0 mg/dl (70-99(Fasting)); Lipase 12.0 U/L (11-82); Potassium 3.9 mmol/L (3.5-5.1); Sodium 139.0 mmol/L (136-145); Total Protein 6.8 gm/dl (6.0-8.3)
--- NOTE | 2025-08-20 19:52 | Emergency Department Note ---
Impression & Plan Peritonitis, Pneumoperitoneum ED Provider Note NAME: MULU MARTINEZ AGE: 75 SEX: F : 1950 ARRIVES VIA: Ambulance INFORMANT: Patient, EMS, family ED PROVIDER(S): Jv Izquierdo DO CHIEF COMPLAINT: abdominal pain HPI: This is a 75-year-old female with the PMHx of interstitial lung disease, atrial flutter, CVA, seizure disorder, peripheral artery disease, and recurrent breast cancer undergoing radiation therapy presenting to [facility] for further evaluation of abdominal ain. Patient is accompanied by EMS who provide additional history. Patient states she has severe abdominal pain accompanied by nausea and vomiting. Limited stool output. Patient states that she is currently on radiation therapy for recurrent breast cancer. They deny fever or chills. No cough or congestion. Denies chest pain or palpitations. No shortness of breath. No urinary complaints. No recent changes in bowel movements. Patient denies recent changes in medications or OTC supplements. Patient offers no other complaints, today. ADDITIONAL HISTORY OBTAINED: Per HPI Chronic Medical/Social Conditions Affecting Care: Per HPI PAST MEDICAL HISTORY: See Below PAST SURGICAL HISTORY: See Below FAMILY HISTORY: See Below SOCIAL HISTORY: See Below HOME MEDICATIONS: See Below ALLERGIES: See Below VITALS: See Below PHYSICAL EXAMINATION: GENERAL: Sitting up in bed, alert, ill appearing, well nourished, no distress, non-toxic EYE EXAM: normal conjunctiva. OROPHARYNX: no exudate, no erythema, lips, buccal mucosa, and tongue normal and mucous membranes are dry NECK: supple, no nuchal rigidity, no adenopathy, non-tender LUNGS: Clear to auscultation. Normal chest wall mechanics HEART: no murmurs, tachycardic rate, regular rhythm ABDOMEN: Diffusely tender to palpation with rebound and guarding. Patient is peritonitic on exam. BACK: Back is symmetrical on inspection and there is no deformity, no midline tenderness, no CVA tenderness. SKIN: no rashes and no bruising UPPER EXTREMITIES: upper extremities are grossly normal. LOWER EXTREMITIES: No pitting edema. NEURO EXAM: Normal sensorium, GCS 15, normal speech, no gross weakness of arms, no gross weakness of legs. MEDICAL DECISION MAKING: Differential diagnoses includes but not limited to peritonitis, intestinal perforation, intra-abdominal abscess, appendicitis, bowel obstruction, diverticulitis, malignancy, nephrolithiasis, gastroenteritis, ACS, PNA, pancreatitis, hepatobiliary disease, UTI In summary, this is a 75 year old female who presented with abdominal pain. Differential as above. Nursing notes and pertinent past medical records reviewed. Vital signs reviewed and the patient is tachycardic but otherwise afebrile and HDS. History and presentation revealed severe abdominal pain in the setting of breast cancer on radiation therapy. Considered high risk for intra-abdominal pathology. Physical examination revealed peritonitis on exam representing high probability of surgical pathology of the abdomen. As a result of my initial evaluation, the patient is peritonitic on exam and given her cancer history, I have high suspicion for acute intra-abdominal pathology. Plan for IV fluid resuscitation, analgesia and CT scan of the abdomen/pelvis with contrast. IV access was established and the patient was placed on CCRM. Therapeutics ordered include IV analgesia and IVFR. Diagnostics interpreted by me include EKG and cardiac monitoring as listed below: -Cardiac Monitoring: An order was placed for continuous cardiac monitoring. The monitor shows a rate of 100-120s with regular rhythm. -ECG: Sinus tachycardia at a rate of [address] segment changes to suggest STEMI but there are ST segment depressions throughout the precordial leads. There is a poor baseline on this EKG. 2 PVCs present. Patient completed laboratory studies and imaging. Results independently interpreted by me are no significant leukocytosis or anemia. There is no significant electrolyte derangements or significant kidney dysfunction from baseline. No changes in LFTs besides mild elevation of alk phos. Procalcitonin mildly elevated. The patient was managed with IV pain medications and fluid resuscitation. CT abdomen/pelvis was independently interpreted by me as free air above the stomach. General surgery was immediately consulted given the patient's peritonitis on physical examination. She is reporting some improvement from pain medications but reports that she would like additional pain medications. Patient was given Protonix as well as IV fentanyl. IV Zosyn started. I was connected with stat rad at [address] reads. Patient has pneumoperitoneum likely secondary to perforation of the pylorus or proximal duodenum. Formal read sent to emergency general surgery for consultation. Further discussions were held with general surgery and they will take the patient directly to the OR. They are requesting admission to the medicine team. Ultimately, the decision was made to admit the patient for pneumoperitoneum with peritonitis. I discussed the case with the hospitalist service via telephone/TigerText and they are agreeable to admit the patient to their services. Based on the above, including the patient's age, coexisting illnesses, labs, imaging, and exam findings the decision to treat as an inpatient. I discussed the patient with the hospitalist team who recommended admission to their services. They received the medications, treatments, interventions indicated above and their condition remained guarded. I discussed my findings with the patient and their family and they understand and agree with the treatment plan. All patient / family questions were answered to their satisfaction. Consults/Care Managements Discussions: Per MDM ER treatment provided: See above Procedures: None Critical Care: None The chart was completed utilizing Fliqq Speech voice recognition software. Grammatical errors, random word insertions, pronoun errors, and incomplete sentences are an occasional consequence of this system due to software limitations, ambient noise, and hardware issues. Any formal questions or concerns about the content, text, or information contained within the body of this dictation should be directly addressed to the physician for clarification. Past Med/Surg History Problem List (Updated 08/21/25 @ 16:21 by Jv Izquierdo DO) Pneumoperitoneum (Acute) Peritonitis (Acute) Sepsis Bowel perforation Pneumoperitoneum Carcinoma of axillary tail of right breast (Chronic 04/17/25) History of radiofrequency ablation procedure for cardiac arrhythmia Status post placement of implantable loop recorder 05/2022, [place]; f/u dr. roberts, [place] Seizure disorder last event March 2022>hospitalized [facility] *followed by Dr. Boone on KEPPRA Emphysema lung History of left-sided carotid endarterectomy History of multiple strokes Aneurysm of anterior cerebral artery Atrial flutter Dx 12/11/2021 Per cardio rcords - given her intracranial abnormalities and chronic anemia she was advised against starting systemic anticoagulation No recurrent atrial flutter over the past few years per loop recorder device transmissions Interstitial lung disease (Acute) Medical History (Updated 08/21/25 @ 16:21 by Jv Izquierdo DO) Regional wall motion abnormality of heart Anemia Hypertension Depression Hyperlipidemia Mitral regurgitation Hypothyroidism Spinal stenosis of lumbar region Osteoporosis Hypoglycemia 07/24/19 History of compression fracture of vertebral column (07/07/22) severe anterior wedge-shaped compression deformity at L1 , Kyphoplasty 10/01/22 Underweight Chronic low back pain Amiodarone-induced hyperthyroidism Allergy Solar lentigo Postcholecystectomy diarrhea Sacroiliitis Vitamin D deficiency FH: colon cancer Incomplete right bundle branch block History of antineoplastic chemotherapy Arthritis Bunion, right foot Herpes simplex Chiari malformation s/p surgery in 1996 Insomnia Degenerative spondylolisthesis Positive colorectal cancer screening using Cologuard test hx; colonoscopy 09/29/23 Cardiac murmur followed by Dr. Chandler No significant valve disease on 07/2023 ECHO History of malignant neoplasm of breast rt/left breast/surgery and chemo (no arm restriction), dx age 42 Surgical History (Updated 08/21/25 @ 10:50 by Clarice Giraldo RN) S/P Luis procedure (08/21/25) Diagnostic Laparoscopy, Exploratory Laparotomy, Luis's Procedure(sigmoidectomy with end colostomy) - Zac Browne, , FACS History of open reduction and internal fixation (ORIF) procedure right and left clavicles repaired at separate times>hardware intact History of left-sided carotid endarterectomy 1991 History of cholecystectomy S/P epidural steroid injection History of appendectomy History of ERCP recent gallstones removed>stents implanted>stents removed w/gallbladder surgery History of tooth extraction History of cataract surgery rt/left S/P excision of lipoma FINAL DIAGNOSIS Soft tissue, left forearm, "mass" (excision): In office procedure [place] 02/04/2022 - Lipoma. H/O tubal ligation Hx of hand surgery (03/19/16) LEFT index finger revision amp with Volar VY advancement flap-[place] History of anesthesia reaction gets bad anxiety with twilight sedation History of colonoscopy History of removal of ovarian cyst Hx of bilateral mastectomy with reconstruction History of lung biopsy S/P craniotomy at age 32 > [facility] >for Arnold Chiari Malformation Family History Father Colorectal cancer Brother Esophageal cancer Mother Lung cancer Other No family history of adverse response to anesthesia Denies family history of Ovarian cancer Prostate cancer Myocardial infarction Breast cancer Social History Smoking Status: Current every day smoker Tobacco Type: Cigarettes Age Started Using Tobacco: 17; packs per day: 0.25; Cigarettes Per Day: 4; Second Hand Exposure: No; Do You Dip or Chew Tobacco: No; Hx Alcohol Use: No Hx Substance Use: No Preferred Language: Sudanese Communication Ability: Effective Visual Impairment: No Limitations Hearing Ability: Normal Palliative Senior Np Required: No Beliefs That Will Affect Care: None marital status: Current Living Situation: Spouse and Family Current Living Situation Comment: /daughter current occupational status: retired 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 [place] Feels Safe at Home: Yes Childhood Exposure to Second-Hand Smoke: Yes Diet: regular during the past year weight has: remained stable Dental Care, Regularly: Yes Seatbelt Use: always Assistive Devices: None Allergies Allergies Allergy/AdvReac Type Severity Reaction Status Date / Time bupropion [From Wellbutrin] AdvReac Severe Seizure Verified 08/20/25 22:06 tramadol AdvReac Severe Seizure Verified 08/20/25 22:06 methocarbamol AdvReac Intermediate Dizziness Verified 08/20/25 22:06 Home Meds Home Medications Medication Instructions Recorded Confirmed ascorbic acid 1,000 1 ea PO DAILY PRN Cold Symptoms 08/20/20 08/20/25 od-ecanvrjvcbjq-elmzgssm powder effervescent pack (Emergen-C) fluticasone propionate 50 1 spray intranasal HS 07/23/25 08/20/25 mcg/actuation nasal spray,suspension duloxetine 30 mg capsule,delayed See Rx Instructions .Route .COMPLEX 08/20/25 08/20/25 release ipratropium bromide 21 mcg (0.03 1 - 2 spray intranasal .1-2XDAILY 08/20/25 08/20/25 %) nasal spray levothyroxine 75 mcg tablet 75 mcg PO DAILYBB 08/20/25 08/20/25 loperamide 2 mg capsule 2 mg PO DIRECTED PRN Diarrhea 08/20/25 08/20/25 Previous Rx's Medication Instructions Recorded teriparatide 20 mcg/dose (560 20 mcg (0.08 mL) subcut DAILY #2.4 01/16/25 mcg/2.24 mL) subcutaneous pen mL injector (Forteo) rosuvastatin 5 mg tablet 5 mg PO QPM #90 tabs 01/21/25 pen needle, diabetic 31 gauge x #100 ea 02/04/25 5/16" (Pen Needle) albuterol sulfate 90 mcg/actuation 1 - 2 puff inhalation Q4H PRN 02/10/25 aerosol inhaler interstitial lung disease #18 grams ezetimibe 10 mg tablet 10 mg PO HS #90 tabs 03/05/25 ondansetron HCl 4 mg tablet 4 mg PO Q8H PRN nausea and 04/17/25 vomiting #30 tabs tizanidine 4 mg tablet 4 mg PO BID PRN muscle spasticity 04/24/25 #60 tabs metoprolol succinate 50 mg 50 mg PO HS #90 tabs 04/26/25 tablet,extended release 24 hr levetiracetam 500 mg tablet 500 mg PO BID 90 days #180 tabs 05/15/25 (Keppra) blood sugar diagnostic (OneTouch #100 ea 06/12/25 Verio test strips) blood-glucose meter (OneTouch #1 ea 06/12/25 Verio Flex Start kit) lancets 33 gauge #100 ea 06/12/25 famotidine 20 mg tablet (Pepcid) 20 mg PO BID dyspepsia #180 tabs 06/28/25 hydrocodone 5 mg-acetaminophen 325 1 tab PO BID pain #60 tabs 25 mg tablet zolpidem 10 mg tablet 10 mg PO HS insomnia #30 tabs 08/08/25 acyclovir 400 mg tablet 400 mg PO BID #60 tabs 08/19/25 Results & Data (ED) Vital Signs Vital Signs - 24 hr 08/20/25 19:01 08/20/25 19:07 08/20/25 19:16 Temperature 36.6 C Temperature Source Oral Pulse Rate 103 H 105 H Respiratory Rate 27 H Blood Pressure 133/72 Blood Pressure Mean 92 Pulse Oximetry 94 96 Oxygen Delivery Method Room Air Room Air Sepsis Recent Fever Within 48 Hours No Sepsis New/Unexplained Change in Mental Status No Sepsis Action Taken by Nursing Physician Notified Laboratory Data 08/21/25 05:43 08/21/25 05:43 Lab Results 08/20/25 08/20/25 08/20/25 Range/Units 19:05 19:20 20:27 WBC 10.82 H (4.8-10.8) K/ul RBC 4.77 (4.20-5.40) M/uL Hgb 12.5 (12.0-16.0) g/dl POC Hgb 12.6 (12.0-16.0) g/dl Hct 38.7 (37.0-47.0) % POC Hct 37 (37-47) % MCV 81.1 (80.0-100.0) fL MCH 26.2 (25.0-34.0) pg MCHC 32.3 (32.0-36.0) g/dL RDW Std Deviation 38.9 (36.4-46.3) fL RDW Coeff of Marcio 13.2 (11.5-14.5) % Plt Count 259 (130-400) K/uL MPV 9.7 (9.4-12.4) fL Immature Gran % (Auto) 0.5 % Neut % (Auto) 89.5 % Lymph % (Auto) 5.5 % [place] % (Auto) 4.1 % Eos % (Auto) 0.1 % Baso % (Auto) 0.3 % Neut # (Auto) 9.70 H (1.40-6.50) K/uL Lymph # (Auto) 0.59 L (1.20-3.40) K/uL [place] # (Auto) 0.44 (0.11-0.59) K/uL Eos # (Auto) 0.01 (0.00-0.50) K/uL Baso # (Auto) 0.03 (0.00-0.20) K/uL Immature Gran # (Auto) 0.05 (0.01-0.20) K/uL PT 11.7 (9.0-12.0) Seconds INR 1.1 (0.9-1.1) APTT 24 (21-31) Seconds PTT Ratio 0.9 POC Sodium 140 (135-144) mmol/L Sodium 139 (136-145) mmol/L POC Potassium 4.0 (3.3-5.0) mmol/L Potassium 3.9 (3.5-5.1) mmol/L POC Chloride 103 (101-112) mmol/L Chloride 104 (98-107) mmol/L Carbon Dioxide 27 (21-32) mmol/L POC Total CO2 25 (24-31) mmol/L Anion Gap 8 (3-11) POC Anion Gap 17.0 (16-25) mmol/L POC BUN 23 H (7-18) mg/dl BUN 25 H (6-23) mg/dl Creatinine 0.90 (0.6-1.2) mg/dl POC Creatinine 1.0 (0.6-1.3) mg/dl Est Cr Clr Drug Dosing 42.7 ml/min eGFR 67.50 BUN/Creatinine Ratio 27.8 H (10-20) Glucose 137 H (70-99(Fasting)) mg/dl POC Glucose (other) 139 H (70-99) mg/dl Lactate 1.4 (0.4-2.0) mmol/L Calcium 10.0 (8.6-10.3) mg/dl POC Ioniz Calcium [place] 1.25 (1.12-1.32) mmol/l Total Bilirubin 0.8 (0.2-1.0) mg/dl AST 29 (13-39) U/L ALT 16 (7-52) U/L Alkaline Phosphatase 129 H (34-104) U/L Total Protein 6.8 (6.0-8.3) gm/dl Albumin 3.9 (3.4-5.0) gm/dl Globulin 2.9 (2.5-4.0) gm/dl Albumin/Globulin Ratio 1.3 (0.9-2) Lipase 12 (11-82) U/L Procalcitonin 0.93 H (0-0.5) ng/ml Administered Medications Sodium Chloride (Nss) 1,000 mls @ 125 mls/hr IV .Q8H [facility] Stop: 08/23/25 21:44 Last Admin: 08/21/25 14:03 Dose: 125 mls/hr Documented By: Infusion: 08/21/25 13:57 Dose: Infused Documented By: Admin: 08/21/25 05:57 Dose: 125 mls/hr Documented By: Infusion: 08/21/25 05:46 Dose: Infused Documented By: Admin: 08/20/25 21:46 Dose: 125 mls/hr Documented By: DESHAWN Piperacillin Sod/Tazobactam Sod (Zosyn) 4.5 gm in 100 mls @ 25 mls/hr IV Q8H [facility]; Protocol Stop: 08/31/25 03:59 Last Admin: 08/21/25 12:16 Dose: 25 mls/hr Documented By: DONNA Co-signed By: DELFINO Infusion: 08/21/25 07:46 Dose: Infused Documented By: Admin: 08/21/25 03:25 Dose: 25 mls/hr Documented By: ARIS Pantoprazole Sodium (Protonix) 40 mg in 10 mls @ 5 mls/min IV BID [facility] Stop: 09/20/25 08:59 Last Admin: 08/21/25 09:30 Dose: 5 mls/min Documented By: FLORINR Acetaminophen 700 mg/ EMPTY (BAG) 70 mls @ 0 mls/hr IV Q8H [facility]; Protocol Stop: 09/20/25 07:59 Last Infusion: 08/21/25 10:07 Dose: Infused Documented By: Admin: 08/21/25 09:27 Dose: 400 mls/hr Documented By: DELFINO Ketorolac Tromethamine (Ketorolac Tromethamine 15 Mg/Ml Vial) 15 mg IV Q6H [facility] Stop: 08/26/25 07:59 Last Admin: 08/21/25 14:03 Dose: Not Given Documented By: Admin: 08/21/25 09:28 Dose: Not Given Documented By: DELFINO Levetiracetam (Levetiracetam 500 Mg/5 Ml Vial) 500 mg IV BID [facility] Stop: 09/20/25 02:54 Last Admin: 08/21/25 09:29 Dose: 500 mg Documented By: Admin: 08/21/25 03:26 Dose: 500 mg Documented By: ARIS Morphine Sulfate (Morphine Sulfate 4 Mg/Ml 1 Ml Carp\\Vial) 3 mg IV Q3H PRN PRN Reason: Severe Pain (Scale 7, 8, 9,10) Stop: 09/04/25 02:54 Last Admin: 08/21/25 12:26 Dose: 3 mg Documented By: DONNA Co-signed By: DLR Discontinued Medications Bupivacaine HCl (Bupivacaine 0.5 % 5 Mg/1 Ml Mpf 30ml Vial) Confirm Administered Dose 30 ml .ROUTE .STK-MED ONE Stop: 08/20/25 22:38 Last Admin: 08/21/25 00:53 Dose: 30 ml Documented By: CHIRAG Bupivacaine HCl/Epinephrine Bitart (Bupivacaine/Epinephrine 0.25% 1:200,000 30 Ml Vial) Confirm Administered Dose 30 ml .ROUTE .STK-MED ONE Stop: 08/20/25 22:11 Last Admin: 08/21/25 00:53 Dose: Not Given Documented By: ELADIO Bupivacaine Liposome (Bupivacaine Liposome 1.3% 266 Mg/20 Ml Vial) Confirm Administered Dose 266 mg .ROUTE .STK-MED ONE Stop: 08/20/25 22:38 Last Admin: 08/21/25 00:53 Dose: 266 mg Documented By: CHIRAG Fentanyl Citrate (Fentanyl Citrate Pf 100 Mcg/2 Ml Vial) 50 mcg IV NOW ONE Stop: 08/20/25 21:30 Last Admin: 08/20/25 21:39 Dose: 50 mcg Documented By: DESHAWN Sodium Chloride (Nss) 1,000 mls @ 999 mls/hr IV .Q1H1M STA Stop: 08/20/25 20:15 Last Infusion: 08/20/25 20:34 Dose: Infused Documented By: Admin: 08/20/25 19:28 Dose: 999 mls/hr Documented By: DESHAWN Piperacillin Sod/Tazobactam Sod (Zosyn) 4.5 gm in 100 mls @ 200 mls/hr IV NOW ONE; Protocol Stop: 08/20/25 21:37 Last Infusion: 08/20/25 22:08 Dose: Infused Documented By: Admin: 08/20/25 21:24 Dose: 200 mls/hr Documented By: DESHAWN Pantoprazole Sodium (Protonix) 40 mg in 10 mls @ 5 mls/min IV NOW ONE Stop: 08/20/25 21:30 Last Admin: 08/20/25 21:40 Dose: 5 mls/min Documented By: DESHAWN Acetaminophen (Ofirmev) 1,000 mg in 100 mls @ 400 mls/hr IV Q8H PRN PRN Reason: Pain or Fever Stop: 08/24/25 02:54 Last Infusion: 08/21/25 03:41 Dose: Infused Documented By: Admin: 08/21/25 03:26 Dose: 400 mls/hr Documented By: ARIS Ioversol (Optiray 320 100ml) 90 ml IV ONCE ONE Stop: 08/20/25 20:00 Last Admin: 08/20/25 20:00 Dose: 90 ml Documented By: GUILLE Morphine Sulfate (Morphine Sulfate 10 Mg/Ml Carp/Vial) 6 mg IV NOW STA Stop: 08/20/25 19:17 Last Admin: 08/20/25 19:22 Dose: 6 mg Documented By: DESHAWN Ondansetron HCl (Ondansetron Inj 2 Mg/Ml 2 Ml Vial) 4 mg IV NOW STA Stop: 08/20/25 19:16 Last Admin: 08/20/25 19:22 Dose: 4 mg Documented By: DESHAWN Imaging Data Radiologist's Impression: Abdomen/Pelvis CT 08/20/25 19:15 CR Exam(s): CT ABDOMEN + PELVIS With Contrast IV Amt: 90 ML OPTIRAY 320 EXAM: CT Abdomen and Pelvis With Intravenous Contrast CLINICAL HISTORY: peritonitis. TECHNIQUE: Axial computed tomography images of the abdomen and pelvis with intravenous contrast. CTDI is 6.81 mGy and DLP is 284.63 mGy-cm. Automated exposure control was utilized for the study. A dose lowering technique was utilized adhering to the principles of ALARA. CONTRAST: Patient received 90 ML OPTIRAY 320 of IV contrast COMPARISON: No relevant prior studies available. FINDINGS: Lung bases: Underlying fibrotic changes at the lung bases. No consolidation. ABDOMEN: Liver: Unremarkable. No mass. Gallbladder and bile ducts: Cholecystectomy. No ductal dilation. Pancreas: Unremarkable. No mass. No ductal dilation. Spleen: Unremarkable. No splenomegaly. Adrenals: Unremarkable. No mass. Kidneys and ureters: The kidneys demonstrate no hydronephrosis or nephrolithiasis. Stomach and bowel: Abnormal pneumoperitoneum noted anteriorly in the superior abdomen about the anterior and superior aspect of the stomach and duodenum. There is abnormal thickening of the distal body, pyloric channel and 1st segment of the duodenum with gas immediately adjacent to the anterior wall of the pylorus and proximal duodenum with fat stranding. No bowel obstruction. Nonspecific fluid-filled small bowel loops in the pelvis. There is mild mucosal prominence of the small bowel throughout the abdomen and intraperitoneal fluid. Evaluation for diverticulitis is limited. PELVIS: Appendix: No findings to suggest acute appendicitis. Bladder: Unremarkable. No mass. Reproductive: Unremarkable as visualized. ABDOMEN and PELVIS: Intraperitoneal space: Abnormal pneumoperitoneum noted anteriorly in the superior abdomen about the anterior and superior aspect of the stomach and duodenum. There is abnormal thickening of the distal body, pyloric channel and 1st segment of the duodenum with gas immediately adjacent to the anterior wall of the pylorus and proximal duodenum with fat stranding. Mild hypodense to slightly intermediate dense fluid throughout the abdomen and pelvis. No loculation. No layering fluid level. Evaluate for fluid. Bones/joints: No acute fracture. No dislocation. Soft tissues: Unremarkable. Vasculature: Atherosclerotic disease. No abdominal aortic aneurysm. Lymph nodes: Unremarkable. No enlarged lymph nodes. IMPRESSION: 1. Abnormal pneumoperitoneum noted anteriorly in the superior abdomen about the anterior and superior aspect of the stomach and duodenum. There is abnormal thickening of the distal body, pyloric channel and 1st segment of the duodenum with gas immediately adjacent to the anterior wall of the pylorus and proximal duodenum with fat stranding. The appearance is most consistent with bowel perforation, presumably from the gastric pylorus or 1st segment of the duodenum. 2. No bowel obstruction. Nonspecific fluid-filled small bowel loops in the pelvis. There is mild mucosal prominence of the small bowel throughout the abdomen and intraperitoneal fluid. Suspect reactive enteritis from presumed leaked gastric contents. Communications: Call Doctor Pneumoperitoneum, new or unexpected Electronically signed by: Yimi Cesar MD 08/20/25 21:26 PM Chest X-Ray 08/20/25 22:05 Exam(s): XR CXR 1 VIEW EXAM: XR Chest, 1 View CLINICAL HISTORY: pre-op. TECHNIQUE: Frontal view of the chest. COMPARISON: Portable chest single view 08/24/2024; CT chest 06/30/2023 FINDINGS: Lungs: Similar diffuse coarse interstitial fibrotic changes noted throughout the lungs with suspected apical scarring, similar. There is new subsegmental opacity in the right suprahilar region in the central right upper lung zone. Pleural space: No large pleural effusion or pneumothorax. Heart: Unremarkable. No cardiomegaly. Mediastinum: The mediastinal contours are stable and unremarkable. Trachea is midline. Bones/joints: Mild scoliosis. No acute osseous abnormality. Incidental post ORIF changes involving both clavicles. Tubes, lines and devices: The previously noted implanted cardiac loop recorder has been explanted. IMPRESSION: Similar diffuse coarse interstitial fibrotic changes noted throughout the lungs with suspected apical scarring, similar. There is new subsegmental opacity in the right suprahilar region in the central right upper lung zone. This may represent advancing fibrosis; however, acute infectious process is not excluded. Electronically signed by: Yimi Cesar MD 08/20/25 22:46 PM Discharge Plan Visit Data Chief Complaint: Abdominal Pain ED Provider: Jv Izquierdo Discharge Problem: Peritonitis, Pneumoperitoneum Patient Disposition: Admitted As Inpatient Condition: Serious Discharge Instructions Interventions: ED Discharge Assessment Last Done: 08/20/25 22:37
[2025-08-20] MEDS: OPTIRAY 320 100ml IV ONE (20:00)
[2025-08-20] MEDS: PIPERACILLIN/TAZOBACTAM 4.5 GM/100 ML BAG IV ONE (21:24)
--- NOTE | 2025-08-20 21:27 | CT Scan Report ---
Exam(s): CT ABDOMEN + PELVIS With Contrast IV Amt: 90 ML OPTIRAY 320 EXAM: CT Abdomen and Pelvis With Intravenous Contrast CLINICAL HISTORY: peritonitis. TECHNIQUE: Axial computed tomography images of the abdomen and pelvis with intravenous contrast. CTDI is 6.81 mGy and DLP is 284.63 mGy-cm. Automated exposure control was utilized for the study. A dose lowering technique was utilized adhering to the principles of ALARA. CONTRAST: Patient received 90 ML OPTIRAY 320 of IV contrast COMPARISON: No relevant prior studies available. FINDINGS: Lung bases: Underlying fibrotic changes at the lung bases. No consolidation. ABDOMEN: Liver: Unremarkable. No mass. Gallbladder and bile ducts: Cholecystectomy. No ductal dilation. Pancreas: Unremarkable. No mass. No ductal dilation. Spleen: Unremarkable. No splenomegaly. Adrenals: Unremarkable. No mass. Kidneys and ureters: The kidneys demonstrate no hydronephrosis or nephrolithiasis. Stomach and bowel: Abnormal pneumoperitoneum noted anteriorly in the superior abdomen about the anterior and superior aspect of the stomach and duodenum. There is abnormal thickening of the distal body, pyloric channel and 1st segment of the duodenum with gas immediately adjacent to the anterior wall of the pylorus and proximal duodenum with fat stranding. No bowel obstruction. Nonspecific fluid-filled small bowel loops in the pelvis. There is mild mucosal prominence of the small bowel throughout the abdomen and intraperitoneal fluid. Evaluation for diverticulitis is limited. PELVIS: Appendix: No findings to suggest acute appendicitis. Bladder: Unremarkable. No mass. Reproductive: Unremarkable as visualized. ABDOMEN and PELVIS: Intraperitoneal space: Abnormal pneumoperitoneum noted anteriorly in the superior abdomen about the anterior and superior aspect of the stomach and duodenum. There is abnormal thickening of the distal body, pyloric channel and 1st segment of the duodenum with gas immediately adjacent to the anterior wall of the pylorus and proximal duodenum with fat stranding. Mild hypodense to slightly intermediate dense fluid throughout the abdomen and pelvis. No loculation. No layering fluid level. Evaluate for fluid. Bones/joints: No acute fracture. No dislocation. Soft tissues: Unremarkable. Vasculature: Atherosclerotic disease. No abdominal aortic aneurysm. Lymph nodes: Unremarkable. No enlarged lymph nodes. IMPRESSION: 1. Abnormal pneumoperitoneum noted anteriorly in the superior abdomen about the anterior and superior aspect of the stomach and duodenum. There is abnormal thickening of the distal body, pyloric channel and 1st segment of the duodenum with gas immediately adjacent to the anterior wall of the pylorus and proximal duodenum with fat stranding. The appearance is most consistent with bowel perforation, presumably from the gastric pylorus or 1st segment of the duodenum. 2. No bowel obstruction. Nonspecific fluid-filled small bowel loops in the pelvis. There is mild mucosal prominence of the small bowel throughout the abdomen and intraperitoneal fluid. Suspect reactive enteritis from presumed leaked gastric contents. Communications: Call Doctor Pneumoperitoneum, new or unexpected Electronically signed by: Yimi Cesar MD 08/20/25 21:26 PM
[2025-08-20] MEDS: PANTOprazole 40 MG/10 ML SYR IV ONE (21:40)
[2025-08-20] MEDS: SODIUM CHLORIDE 0.9% 1,000 ML IV SCH (21:46)
[2025-08-20] MEDS ORDERED: MIDAZOLAM HCL 1 MG/ML 2ML VIAL ONE (22:01)
[2025-08-20] MEDS ORDERED: LIDOCAINE 2% 2 ML VIAL/AMP(20MG/ML) INFIL ONE (22:01)
[2025-08-20] MEDS ORDERED: ROCURONIUM BROMIDE 10 MG/ML 5 ML VIAL IV ONE ×2 (22:01→23:48)
[2025-08-20] MEDS ORDERED: DEXAMETHASONE SOD INJ 4 MG/ML VIAL ONE (22:01)
[2025-08-20] MEDS ORDERED: PROPOFOL IV EMULSION 10 MG/ML 20 ML VIAL IV ONE (22:01)
[2025-08-20] MEDS ORDERED: PHENYLEPHRINE 100MCG/ML 5ML SYR ONE (22:01)
[2025-08-20] MEDS ORDERED: ONDANSETRON INJ 2 MG/ML 2 ML VIAL ONE (22:01)
[2025-08-20] MEDS ORDERED: SUGAMMADEX SODIUM 200 MG/2 ML VIAL IV ONE (22:02)
--- NOTE | 2025-08-20 22:09 | Surgery Consultation ---
Date of Consultation August 20, 2025 Assessment & Plan (1) Pneumoperitoneum: I discussed the case with the treating emergent physician and the patient is going to be made on the hospitalist service. Surgical recommendations are as follows: Due to the findings on patient's CT scan there is concern the patient has a hollow viscus perforation, with suspected area being the gastric pylorus or duodenum; we would therefore take the patient emergently to the operating room for exploratory laparoscopy and possible laparotomy to address this finding The patient has received antibiotics in the form of Zosyn and these will continue The patient has received a dose of intravenous Protonix and this will continue postoperatively as well. The patient has received a 1 L bolus of normal saline solution and we will continue intravenous fluids at 125 cc/h Will keep the patient n.p.o. I had a lengthy discussion with the patient and her family was present at bedside and they wish to proceed with surgical intervention which will proceed as soon as the operating room is ready Additional recommendations were forthcoming based on operative findings and her clinical course/recovery thereafter Supervising Physician Co-Signing Physician Notes pnt seen and examined, labs and imaging reviewed, agree with above. 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 af, tachy, abd ttp in epigastrium with guarding. wbc 10. ct personally reviewed and interpreted, agree with pneumoperitoneum, suspected prepyloric or duodenal perf as source. plan for diagnostic laparoscopy, repair perforation, possible open risks of the procedure discussed to include bleeding, infection, need for future or more extensive surgery, damage to surrounding structures, abscess, risks of anesthesia ppi drip, abx admit to medicine, appreciate assistance History of Present Illness Reason for Consultation: Abdominal pain History of Present Illness This is a 75-year-old female presenting to the emergency department secondary to abdominal pain. Patient says that she was in her usual state of health yesterday but this morning she woke up with a minor pain in her lower abdomen that progressively got worse and became severe at approximately 2:00 PM. Patient said that she felt the need to have a bowel movement which she did at approximately 6:00 PM with little relief of her abdominal pain. She denied any blood in her bowel movement. She does note that the pain is in her lower abdomen and is worse with movement and is improved with lying still. She has had associated nausea and vomiting. Patient did have a colonoscopy she believes approximately 2 years ago. Records reveal that she did have a colonoscopy in September 2023.at this time the patient did have a polyp removed of the transverse colon and she was noted to have diverticulosis without diverticulitis. Pathology from her polypectomy revealed a tubular adenoma. The patient notes she has had prior abdominal surgeries in the form of a laparoscopic cholecystectomy as well as a laparoscopic removal of an ovarian cyst. Her most recent oral intake was at approximately 1:00 PM at which time she had a sandwich. It is also noteworthy mention that the patient has a history of breast cancer for which she underwent a bilateral mastectomy with implant reconstruction. She said that she did have recurrence of her breast cancer and is now currently undergoing axillary radiation to her right axilla for this. She currently is not receiving any Chemotherapy but does note that she had this during her first episode of breast cancer. Since arrival to hospital the patient has had labs and imaging which I independently reviewed. A CT scan of the abdomen pelvis showed the patient had pneumoperitoneum noted anterior and superior to the stomach and duodenum raising the concern for a perforation presumably at the gastric pylorus for the first segment of the duodenum. Labs included a CBC where white blood cell count was elevated 10.8. Hemoglobin and hematocrit as well as the platelet count were normal. Chemistry profile showed sodium and potassium as well as the creatinine were normal. Her BUN had a slight elevation at 25. Her lactic acid was not elevated at 1.4. At the time of my interview she was resting comfortably bed and she was in no distress Allergies Allergy/AdvReac Type Severity Reaction Status Date / Time bupropion [From Wellbutrin] AdvReac Severe Seizure Verified 08/20/25 22:06 tramadol AdvReac Severe Seizure Verified 08/20/25 22:06 methocarbamol AdvReac Intermediate Dizziness Verified 08/20/25 22:06 Home Medications Medication Instructions Recorded Confirmed Type ascorbic acid 1,000 1 ea PO DAILY PRN Cold Symptoms 08/20/20 08/20/25 History qp-[id number]-bfubjlvr powder effervescent pack (Emergen-C) teriparatide 20 mcg/dose (560 20 mcg (0.08 mL) subcut DAILY #2.4 01/16/25 08/20/25 Rx mcg/2.24 mL) subcutaneous pen mL injector (Forteo) rosuvastatin 5 mg tablet 5 mg PO QPM #90 tabs 01/21/25 08/20/25 Rx pen needle, diabetic 31 gauge x #100 ea 02/04/25 07/31/25 Rx 5/16" (Pen Needle) albuterol sulfate 90 mcg/actuation 1 - 2 puff inhalation Q4H PRN 02/10/25 08/20/25 Rx aerosol inhaler interstitial lung disease #18 grams ezetimibe 10 mg tablet 10 mg PO HS #90 tabs 03/05/25 08/20/25 Rx ondansetron HCl 4 mg tablet 4 mg PO Q8H PRN nausea and 04/17/25 08/20/25 Rx vomiting #30 tabs tizanidine 4 mg tablet 4 mg PO BID PRN muscle spasticity 04/24/25 08/20/25 Rx #60 tabs metoprolol succinate 50 mg 50 mg PO HS #90 tabs 04/26/25 08/20/25 Rx tablet,extended release 24 hr levetiracetam 500 mg tablet 500 mg PO BID 90 days #180 tabs 05/15/25 08/20/25 Rx (Keppra) blood sugar diagnostic (OneTouch #100 ea 06/12/25 07/31/25 Rx Verio test strips) blood-glucose meter (OneTouch #1 ea 06/12/25 07/31/25 Rx Verio Flex Start kit) lancets 33 gauge #100 ea 06/12/25 07/31/25 Rx famotidine 20 mg tablet (Pepcid) 20 mg PO BID dyspepsia #180 tabs 06/28/25 08/20/25 Rx fluticasone propionate 50 1 spray intranasal HS 07/23/25 08/20/25 History mcg/actuation nasal spray,suspension hydrocodone 5 mg-acetaminophen 325 1 tab PO BID pain #60 tabs 07/31/25 08/20/25 Rx mg tablet zolpidem 10 mg tablet 10 mg PO HS insomnia #30 tabs 08/08/25 08/20/25 Rx acyclovir 400 mg tablet 400 mg PO BID #60 tabs 08/19/25 08/20/25 Rx duloxetine 30 mg capsule,delayed See Rx Instructions .Route .COMPLEX 08/20/25 08/20/25 History release ipratropium bromide 21 mcg (0.03 1 - 2 spray intranasal .1-2XDAILY 08/20/25 08/20/25 History %) nasal spray levothyroxine 75 mcg tablet 75 mcg PO DAILYBB 08/20/25 08/20/25 History loperamide 2 mg capsule 2 mg PO DIRECTED PRN Diarrhea 08/20/25 08/20/25 History Patient History Medical History Regional wall motion abnormality of heart Anemia Hypertension Depression Hyperlipidemia Mitral regurgitation Hypothyroidism Spinal stenosis of lumbar region Osteoporosis Hypoglycemia 07/24/19 History of compression fracture of vertebral column (07/07/22) severe anterior wedge-shaped compression deformity at L1 , Kyphoplasty 10/01/22 Underweight Chronic low back pain Amiodarone-induced hyperthyroidism Allergy Solar lentigo Postcholecystectomy diarrhea Sacroiliitis Vitamin D deficiency FH: colon cancer Incomplete right bundle branch block History of antineoplastic chemotherapy Arthritis Bunion, right foot Herpes simplex Chiari malformation s/p surgery in 1996 Insomnia Degenerative spondylolisthesis Positive colorectal cancer screening using Cologuard test hx; colonoscopy 09/29/23 Cardiac murmur followed by Dr. Chandler No significant valve disease on 07/2023 ECHO History of malignant neoplasm of breast rt/left breast/surgery and chemo (no arm restriction), dx age 42 Surgical History History of open reduction and internal fixation (ORIF) procedure right and left clavicles repaired at separate times>hardware intact History of left-sided carotid endarterectomy 1991 History of cholecystectomy S/P epidural steroid injection History of appendectomy History of ERCP recent gallstones removed>stents implanted>stents removed w/gallbladder surgery History of tooth extraction History of cataract surgery rt/left S/P excision of lipoma FINAL DIAGNOSIS Soft tissue, left forearm, "mass" (excision): In office procedure Chambers 02/04/2022 - Lipoma. H/O tubal ligation Hx of hand surgery (03/19/16) LEFT index finger revision amp with Volar VY advancement flap-[place] History of anesthesia reaction gets bad anxiety with twilight sedation History of colonoscopy History of removal of ovarian cyst Hx of bilateral mastectomy with reconstruction History of lung biopsy S/P craniotomy at age 32 > [facility] >for Arnold Chiari Malformation Family History Father Colorectal cancer Brother Esophageal cancer Mother Lung cancer Other No family history of adverse response to anesthesia Denies family history of Ovarian cancer Prostate cancer Myocardial infarction Breast cancer Social History Smoking Status: Current some day smoker Tobacco Type: Cigarettes Age Started Using Tobacco: 17; packs per day: 0.25; Cigarettes Per Day: 4-5; Second Hand Exposure: Yes; Do You Dip or Chew Tobacco: No; Hx Alcohol Use: No Hx Substance Use: No Preferred Language: Togolese Communication Ability: Effective Visual Impairment: No Limitations Hearing Ability: Normal Supervisor [employer] Education Required: No Beliefs That Will Affect Care: None marital status: Current Living Situation: Spouse and Family current occupational status: retired 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 [place] Feels Safe at Home: Yes Childhood Exposure to Second-Hand Smoke: Yes Diet: regular during the past year weight has: remained stable Dental Care, Regularly: Yes Seatbelt Use: always Assistive Devices: None Review of Systems Review of Systems: All systems reviewed & are unremarkable except as noted in HPI & below Physical Exam Constitutional: WD/WN, vitals as above Eyes: no conjunctival abnormality ENMT: Ears: no hearing impairment and no external ear abnormality Mouth: no oropharynx abnormality Neck: trachea midline Respiratory: normal respiratory effort; no respiratory distress and no labored breathing Cardiovascular: Rate/Rhythm: regular rate and regular rhythm Vessels: dorsalis pedis pulses present Gastrointestinal (Abdomen): Patient's abdomen is somewhat rigid and tender to palpation in a generalized fashion but appear to be worse in lower abdomen. She did have associated rebound tenderness and guarding. Musculoskeletal: No calf tenderness Skin: no rashes Neurologic: moves all extremities Psychiatric: A+Ox3, euthymic affect Results & Data Vital Signs (Past 12 Hours) Vital Signs Temp Pulse Resp BP Pulse Ox O2 Del Method 08/20/25 19:16 96 Room Air 08/20/25 19:07 105 H 08/20/25 19:01 36.6 C 103 H 27 H 133/72 94 Room Air PG Care Time/CCT Total # of Minutes Spent Total Time Spent with Patient: Total time spent is greater than 50% in coordination of care (as documented) at patient's floor/unit and/or counseling patient: Coding Level of Care Code 53394 INT INP/OBS CARE MIN Diagnoses Pneumoperitoneum K66.8
[2025-08-20] MEDS ORDERED: ALBUMIN HUMAN 5% 12.5 GM/250 ML VIAL IV ONE (22:10)
--- NOTE | 2025-08-20 22:17 | History & Physical Report ---
Date of Service August 20, 2025 Assessment & Plan (1) Bowel perforation: (2) Pneumoperitoneum: (3) Sepsis: (4) Carcinoma of axillary tail of right breast: Plan Patient is a 75-year-old female with a past medical history of breast cancer undergoing current radiation, seizures, HTN, HLD,, A-flutter, CVAs, ILD, GERD. Patient presented via EMS after sudden onset abdominal pain, nausea, and vomiting found to have a bowel perforation with pneumoperitoneum. She is being taken to the OR emergently for exploratory laparoscopy and possible laparotomy. #bowel perforation/pneumoperitoneum/sepsis - AP CT revealed pneumoperitoneum with bowel perforation, presumably from gastric pylorus or first segment of duodenum as well as reactive enteritis from presumed leak gastric contents. Mild leukocytosis, WBC 10.82 with neutrophil predominance. + SIRS: tachycardic (HR 105), tachypneic (RR 27) - lactate negative, procal 0.93 - Sepsis fluid bolus for ideal body weight = 1636.20mL - given 1L NSS in ED - Continue fluid resuscitation with LR @ 125 ml/hr - defer complete sepsis fluid bolus as patient being emergently taken to OR, vital signs likely component of pain as well - ABX coverage with Zosyn - Blood cultures ordered - note after 1x dose of Zosyn given - general surgery team consulted - being taken emergently to OR - Continue Protonix 40 mg IV daily Zofran as needed - keep NPO, IVF with LR @ 125 ml/hr - Trend CBC #hx of seizures - suspected 2/2 tramadol and Wellbutrin - 3 tonic clonic seizures March 2022; reports no reoccurrence since. - transition to PO Keppra to IV Keppra with NPO status #HTN - stable. - hold PO metoprolol with NPO status - prn IV Lopressor 5mg ordered #Breast CA - undergoing current radiation, immunocompromised. - IV abx as above - neutropenic precautions #Hx CVA - s/p left carotid endarterectomy. 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 - holding statin and Zetia with NPO status #mental health - hold duloxetine and zolpidem #hypothyroidismhold levothyroxine, hx of amiodarone induced hypothyroidism. VTE ppx: SCDs - note that patient is high risk with current cancer, start chemical VTE ppx when able post-operatively Dispo: PCU Admission and Anticipated Discharge Date Admission Date: 08/20/25 History of Present Illness Chief Complaint: abd pain Primary Care Provider: Luis Antonio Buck MD Patient is a 75-year-old female with a past medical history of breast cancer undergoing current radiation, seizures, HTN, HLD,, A-flutter, ILD. Patient presented via EMS after sudden onset abdominal pain, nausea, and vomiting found to have a bowel perforation with pneumoperitoneum. Patient seen at bedside with her daughter and present. She stated that this morning she was going about her day as usual with mild abdominal pain. arnulfo are working on the floors of her house so she was doing so today when later in the afternoon when she was to go to her radiation appointment, she looked at her daughter and stated she could not go because of the abdominal pain. She laid in bed for several hours, when she tried to get up she was unable to due to the pain. This is when they called EMS. She stated she vomited approximately 4 times however was a small amount of vomit given that she had to eat today was a peanut butter sandwich at 1300. She also took some abhi naseem around 2 PM. She stated her pain is currently well-controlled after medication in the ED, however tender with palpation of right lower quadrant. She denies any fevers today, did not report taking her temperature at home. She denies any history of gastric u lcers. Previous abdominal surgeries include cholecystectomy and appendectomy. Patient reports smoking 4 to 5 cigarettes/day, declines need for nicotine patch. She denies any alcohol use. She did take her morning medications, will be due for evening which includes metoprolol succinate 50 mg p.o. at bedtime and Keppra 500 mg p.o. She stated she had a seizure 1 time 3 years ago which they thought was medication induced however she has remained on Keppra. She wishes to be full code however would not want long-term life support. Regarding her breast cancer - She stated 30 years ago she had a double mastectomy and completed a full course of chemotherapy, she did not have radiation at this time. She then had a reoccurrence recently and has undergone 5 treatments of radiation, did miss a radiation treatment today. Allergies Allergy/AdvReac Type Severity Reaction Status Date / Time bupropion [From Wellbutrin] AdvReac Severe Seizure Verified 08/20/25 22:06 tramadol AdvReac Severe Seizure Verified 08/20/25 22:06 methocarbamol AdvReac Intermediate Dizziness Verified 08/20/25 22:06 Home Medications Medication Instructions Recorded Confirmed Type ascorbic acid 1,000 1 ea PO DAILY PRN Cold Symptoms 08/20/20 08/20/25 History rs-duicpumeqjau-fdlbxbur powder effervescent pack (Emergen-C) teriparatide 20 mcg/dose (560 20 mcg (0.08 mL) subcut DAILY #2.4 01/16/25 08/20/25 Rx mcg/2.24 mL) subcutaneous pen mL injector ([employer]) rosuvastatin 5 mg tablet 5 mg PO QPM #90 tabs 01/21/25 08/20/25 Rx pen needle, diabetic 31 gauge x #100 ea 02/04/25 07/31/25 Rx 5/16" (Pen Needle) albuterol sulfate 90 mcg/actuation 1 - 2 puff inhalation Q4H PRN 02/10/25 08/20/25 Rx aerosol inhaler interstitial lung disease #18 grams ezetimibe 10 mg tablet 10 mg PO HS #90 tabs 03/05/25 08/20/25 Rx ondansetron HCl 4 mg tablet 4 mg PO Q8H PRN nausea and 04/17/25 08/20/25 Rx vomiting #30 tabs tizanidine 4 mg tablet 4 mg PO BID PRN muscle spasticity 04/24/25 08/20/25 Rx #60 tabs metoprolol succinate 50 mg 50 mg PO HS #90 tabs 04/26/25 08/20/25 Rx tablet,extended release 24 hr levetiracetam 500 mg tablet 500 mg PO BID 90 days #180 tabs 05/15/25 08/20/25 Rx (Keppra) blood sugar diagnostic (OneTouch #100 ea 06/12/25 07/31/25 Rx Verio test strips) blood-glucose meter (OneTouch #1 ea 06/12/25 07/31/25 Rx Verio Flex Start kit) lancets 33 gauge #100 ea 06/12/25 07/31/25 Rx famotidine 20 mg tablet (Pepcid) 20 mg PO BID dyspepsia #180 tabs 06/28/25 08/20/25 Rx fluticasone propionate 50 1 spray intranasal HS 07/23/25 08/20/25 History mcg/actuation nasal spray,suspension hydrocodone 5 mg-acetaminophen 325 1 tab PO BID pain #60 tabs 07/31/25 08/20/25 Rx mg tablet zolpidem 10 mg tablet 10 mg PO HS insomnia #30 tabs 08/08/25 08/20/25 Rx acyclovir 400 mg tablet 400 mg PO BID #60 tabs 08/19/25 08/20/25 Rx duloxetine 30 mg capsule,delayed See Rx Instructions .Route .COMPLEX 08/20/25 08/20/25 History release ipratropium bromide 21 mcg (0.03 1 - 2 spray intranasal .1-2XDAILY 08/20/25 08/20/25 History %) nasal spray levothyroxine 75 mcg tablet 75 mcg PO DAILYBB 08/20/25 08/20/25 History loperamide 2 mg capsule 2 mg PO DIRECTED PRN Diarrhea 08/20/25 08/20/25 History Past Med/Surg History Problem List (Updated 08/21/25 @ 01:56 by Hannah Al PA-C) Sepsis Bowel perforation Pneumoperitoneum Carcinoma of axillary tail of right breast (Chronic 04/17/25) History of radiofrequency ablation procedure for cardiac arrhythmia Status post placement of implantable loop recorder 05/2022, neelima; f/u dr. roberts, [place] Seizure disorder last event March 2022>hospitalized [facility] *followed by Dr. Boone on KEPPRA Emphysema lung History of left-sided carotid endarterectomy History of multiple strokes Aneurysm of anterior cerebral artery Atrial flutter Dx 12/11/2021 Per cardio rcords - given her intracranial abnormalities and chronic anemia she was advised against starting systemic anticoagulation No recurrent atrial flutter over the past few years per loop recorder device transmissions Interstitial lung disease (Acute) Medical History Regional wall motion abnormality of heart Anemia Hypertension Depression Hyperlipidemia Mitral regurgitation Hypothyroidism Spinal stenosis of lumbar region Osteoporosis Hypoglycemia 07/24/19 History of compression fracture of vertebral column (07/07/22) severe anterior wedge-shaped compression deformity at L1 , Kyphoplasty 10/01/22 Underweight Chronic low back pain Amiodarone-induced hyperthyroidism Allergy Solar lentigo Postcholecystectomy diarrhea Sacroiliitis Vitamin D deficiency FH: colon cancer Incomplete right bundle branch block History of antineoplastic chemotherapy Arthritis Bunion, right foot Herpes simplex Chiari malformation s/p surgery in 1996 Insomnia Degenerative spondylolisthesis Positive colorectal cancer screening using Cologuard test hx; colonoscopy 09/29/23 Cardiac murmur followed by Dr. Chandler No significant valve disease on 07/2023 ECHO History of malignant neoplasm of breast rt/left breast/surgery and chemo (no arm restriction), dx age 42 Surgical History History of open reduction and internal fixation (ORIF) procedure right and left clavicles repaired at separate times>hardware intact History of left-sided carotid endarterectomy 1991 History of cholecystectomy S/P epidural steroid injection History of appendectomy History of ERCP recent gallstones removed>stents implanted>stents removed w/gallbladder surgery History of tooth extraction History of cataract surgery rt/left S/P excision of lipoma FINAL DIAGNOSIS Soft tissue, left forearm, "mass" (excision): In office procedure Chambers 02/04/2022 - Lipoma. H/O tubal ligation Hx of hand surgery (03/19/16) LEFT index finger revision amp with Volar VY advancement flap-[place] History of anesthesia reaction gets bad anxiety with twilight sedation History of colonoscopy History of removal of ovarian cyst Hx of bilateral mastectomy with reconstruction History of lung biopsy S/P craniotomy at age 32 > [facility] >for Arnold Chiari Malformation Family History Father Colorectal cancer Brother Esophageal cancer Mother Lung cancer Other No family history of adverse response to anesthesia Denies family history of Ovarian cancer Prostate cancer Myocardial infarction Breast cancer Social History Smoking Status: Current every day smoker Tobacco Type: Cigarettes Age Started Using Tobacco: 17; packs per day: 0.25; Cigarettes Per Day: 4; Second Hand Exposure: No; Do You Dip or Chew Tobacco: No; Tobacco Cessation Education Requested by Patient: No Hx Alcohol Use: No Hx Substance Use: No Preferred Language: Romanian Communication Ability: Effective Visual Impairment: No Limitations Hearing Ability: Normal Supervisor Car Installations Required: No Beliefs That Will Affect Care: None marital status: Current Living Situation: Spouse and Family Current Living Situation Comment: /daughter current occupational status: retired 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 Non-toxic appearing. HEENT- EOMI, mucous membranes dry. Hearing grossly intact. Heart-normal S1 and S2. No murmurs, rubs or gallops. Lungs-clear bilaterally, no respiratory distress, no accessory muscle use. Abdomen-normal bowel sounds and soft. No ascites noted. Tender to RLQ. Extremities- no clubbing, cyanosis, or edema. Rheumatologic-normal range of motion. Psychiatric-normal affect. Results & Data Results & Data Vital Signs (Past 12 Hours) Vital Signs Temp Pulse Resp BP Pulse Ox O2 Del Method 08/20/25 19:16 96 Room Air 08/20/25 19:07 105 H 08/20/25 19:01 36.6 C 103 H 27 H 133/72 94 Room Air Laboratory Results reviewed CBC, CMP, PT/INR, lactate, procal Diagnostic Findings reviewed AP CT CXR ordered Medications Administered ED - 1L NSS bolus, Zofran 4 Mg IV, morphine 6 Mg IV, Zosyn 4.5 G IV, Protonix 40 mg IV, fentanyl 50 mcg IV ECG Additional Comments: ordered Code Status & VTE Plan Code Status full code VTE Prophylaxis Plan VTE Prophylaxis will be ordered: Yes Supervising Physician Co-Signing Physician Notes Attending addendum: I have physically seen this patient, have supervised the WILLIAMS's activities, and agree with the H&P unless as otherwise noted. Assessment and Plan: The patient is a 75-year-old female with past medical history including breast cancer currently undergoing radiation, seizures, hypertension, hyperlipidemia, atrial flutter, CVAs, ILD, and GERD. She presented to the ED via EMS after acute onset of abdominal pain, nausea and vomiting. CT scan of abdomen and pelvis revealed an abnormal pneumoperitoneum in the superior abdomen, with bowel perforation from gastric pylorus with first segment of duodenum as the likely cause. General surgery has evaluated patient, and she is not taking emergently to the OR for exploratory laparoscopy and possible laparotomy. Bowel perforation/pneumoperitoneum/sepsis- NPO IV fluid bolus as noted, approximately 1600 mL normal saline Continuing fluid resuscitation with LR 125 mL/h Zosyn 4.5 g IV every 8 hours Follow-up blood culture and sensitivities Protonix 40 mg IV twice daily Zofran 4 mg IV every 6 hours as needed Serial CBC with differential and chemistry profile Seizure disorder- Change Keppra from 500 mg p.o. twice daily to 500 mg IV every 12 hours while NPO Hypertension- Holding oral metoprolol Lopressor IV as needed as noted Remaining orders and notations as noted PG Care Time/CCT Total # of Minutes Spent Total Time Spent with Patient: Total time spent is greater than 50% in coordination of care (as documented) at patient's floor/unit and/or counseling patient: Coding Level of Care Code 89106 INT INP/OBS CARE 375MIN Diagnoses Bowel perforation K63.1 Pneumoperitoneum K66.8 Sepsis A41.9 Carcinoma of axillary tail of right breast in female, estrogen receptor negative C50.611; Z17.1 Estrogen receptor status: negative Patient sex: female (4) Carcinoma of axillary tail of right breast Estrogen receptor status: negative Patient sex: female Qualified Code(s): C50.611 - Malignant neoplasm of axillary tail of right female breast; Z17.1 - Estrogen receptor negative status [ER-]
[2025-08-20 22:19] LABS: INR 1.1 (0.9-1.1); Partial Thromboplastin Time 24 Seconds (21-31); Prothrombin Time 11.7 Seconds (9.0-12.0)
--- NOTE | 2025-08-20 22:23 | Anesthesiology Consultation ---
Date of Service August 20, 2025 Assessment & Plan (1) Encounter for pre-operative examination: Chart Review Chart Review: Acceptable Risk for Surgery and Patient NOT seen in Pre Admission Testing Consults Requested none History Surgery Operation Date: 08/20/25 21:50 Proposed Procedures p Laparoscopic Operative - Moisés Dutton DO Height/Weight Height: 5 ft 4 in Weight: 48.6 kg Allergies Allergy/AdvReac Type Severity Reaction Status Date / Time bupropion [From Wellbutrin] AdvReac Severe Seizure Verified 08/20/25 22:06 tramadol AdvReac Severe Seizure Verified 08/20/25 22:06 methocarbamol AdvReac Intermediate Dizziness Verified 08/20/25 22:06 Medications Home Medications Medication Instructions Recorded Confirmed Last Taken ascorbic acid 1,000 1 ea PO DAILY PRN Cold Symptoms 08/20/20 08/20/25 09/28/23 ha-eujnrbkdiumm-yeviqwwr powder effervescent pack (Emergen-C) teriparatide 20 mcg/dose (560 20 mcg (0.08 mL) subcut DAILY #2.4 01/16/25 08/20/25 08/19/25 mcg/2.24 mL) subcutaneous pen mL injector ([employer]) rosuvastatin 5 mg tablet 5 mg PO QPM #90 tabs 01/21/25 08/20/25 08/19/25 pen needle, diabetic 31 gauge x #100 ea 02/04/25 07/31/25 Unknown 5/16" (Pen Needle) albuterol sulfate 90 mcg/actuation 1 - 2 puff inhalation Q4H PRN 02/10/25 08/20/25 Unknown aerosol inhaler interstitial lung disease #18 grams ezetimibe 10 mg tablet 10 mg PO HS #90 tabs 03/05/25 08/20/25 08/19/25 ondansetron HCl 4 mg tablet 4 mg PO Q8H PRN nausea and 04/17/25 08/20/25 Unknown vomiting #30 tabs tizanidine 4 mg tablet 4 mg PO BID PRN muscle spasticity 04/24/25 08/20/25 Unknown #60 tabs metoprolol succinate 50 mg 50 mg PO HS #90 tabs 04/26/25 08/20/25 08/19/25 tablet,extended release 24 hr levetiracetam 500 mg tablet 500 mg PO BID 90 days #180 tabs 05/15/25 08/20/25 08/20/25 08:00 (Bebeto) blood sugar diagnostic (OneTouch #100 ea 06/12/25 07/31/25 Unknown Verio test strips) blood-glucose meter (OneTouch #1 ea 06/12/25 07/31/25 Unknown Verio Flex Start kit) lancets 33 gauge #100 ea 06/12/25 07/31/25 Unknown famotidine 20 mg tablet (Pepcid) 20 mg PO BID dyspepsia #180 tabs 06/28/25 08/20/25 08/20/25 08:00 fluticasone propionate 50 1 spray intranasal HS 07/23/25 08/20/25 08/19/25 mcg/actuation nasal spray,suspension hydrocodone 5 mg-acetaminophen 325 1 tab PO BID pain #60 tabs 07/31/25 08/20/25 08/20/25 08:00 mg tablet zolpidem 10 mg tablet 10 mg PO HS insomnia #30 tabs 08/08/25 08/20/25 08/19/25 acyclovir 400 mg tablet 400 mg PO BID #60 tabs 08/19/25 08/20/25 08/20/25 08:00 duloxetine 30 mg capsule,delayed See Rx Instructions .Route .COMPLEX 08/20/25 08/20/25 08/20/25 08:00 release ipratropium bromide 21 mcg (0.03 1 - 2 spray intranasal .1-2XDAILY 08/20/25 08/20/25 08/19/25 %) nasal spray levothyroxine 75 mcg tablet 75 mcg PO DAILYBB 08/20/25 08/20/25 08/20/25 loperamide 2 mg capsule 2 mg PO DIRECTED PRN Diarrhea 08/20/25 08/20/25 Unknown Active Medications Generic Name Dose Route Start Last Admin Trade Name Freq PRN Reason Stop Dose Admin Sodium Chloride 1,000 mls @ 125 mls/hr 08/20/25 21:45 08/20/25 21:46 Nss IV 08/23/25 21:44 125 mls/hr .Q8H BARBARA Administration Past Medical History Medical History Regional wall motion abnormality of heart Anemia Hypertension Depression Hyperlipidemia Mitral regurgitation Hypothyroidism Spinal stenosis of lumbar region Osteoporosis Hypoglycemia 07/24/19 History of compression fracture of vertebral column (07/07/22) severe anterior wedge-shaped compression deformity at L1 , Kyphoplasty 10/01/22 Underweight Chronic low back pain Amiodarone-induced hyperthyroidism Allergy Solar lentigo Postcholecystectomy diarrhea Sacroiliitis Vitamin D deficiency FH: colon cancer Incomplete right bundle branch block History of antineoplastic chemotherapy Arthritis Bunion, right foot Herpes simplex Chiari malformation s/p surgery in 1996 Insomnia Degenerative spondylolisthesis Positive colorectal cancer screening using Cologuard test hx; colonoscopy 09/29/23 Cardiac murmur followed by Dr. Chandler No significant valve disease on 07/2023 ECHO History of malignant neoplasm of breast rt/left breast/surgery and chemo (no arm restriction), dx age 42 Past Family History Family History Father Colorectal cancer Brother Esophageal cancer Mother Lung cancer Other No family history of adverse response to anesthesia Denies family history of Ovarian cancer Prostate cancer Myocardial infarction Breast cancer Past Surgical History Surgical History History of open reduction and internal fixation (ORIF) procedure right and left clavicles repaired at separate times>hardware intact History of left-sided carotid endarterectomy 1991 History of cholecystectomy S/P epidural steroid injection History of appendectomy History of ERCP recent gallstones removed>stents implanted>stents removed w/gallbladder surgery History of tooth extraction History of cataract surgery rt/left S/P excision of lipoma FINAL DIAGNOSIS Soft tissue, left forearm, "mass" (excision): In office procedure Chambers 02/04/2022 - Lipoma. H/O tubal ligation Hx of hand surgery (03/19/16) LEFT index finger revision amp with Volar VY advancement flap-[place] History of anesthesia reaction gets bad anxiety with twilight sedation History of colonoscopy History of removal of ovarian cyst Hx of bilateral mastectomy with reconstruction History of lung biopsy S/P craniotomy at age 32 > [facility] >for Arnold Chiari Malformation Social History Smoking Status: Current some day smoker Smoking cigarettes per day: 4-5 Do You Dip or Chew Tobacco: No Hx Alcohol Use: No alcohol intake frequency: 0-2 drinks per day Hx Substance Use: No substance use type: does not use Last Used Substance Other:: when she was much younger Physical Exam Vital Signs Last Vital Signs Temp 36.6 C 08/20/25 19:01 Pulse 105 H 08/20/25 19:07 Resp 27 H 08/20/25 19:01 BP 133/72 08/20/25 19:01 Pulse Ox 96 08/20/25 19:16 O2 Del Method Room Air 08/20/25 19:16 Testing Laboratory Results 08/20/25 19:05 08/20/25 19:05 PT 11.7 Seconds (9.0-12.0) 08/20/25 19:05 INR 1.1 (0.9-1.1) 08/20/25 19:05 APTT 24 Seconds (21-31) 08/20/25 19:05 08/20/25 19:20 POC Glucose (other) 139 H Electrocardiogram sinus tach Other Testing CT abdomen/pelvis: IMPRESSION: 1. Abnormal pneumoperitoneum noted anteriorly in the superior abdomen about the anterior and superior aspect of the stomach and duodenum. There is abnormal thickening of the distal body, pyloric channel and 1st segment of the duodenum with gas immediately adjacent to the anterior wall of the pylorus and proximal duodenum with fat stranding. The appearance is most consistent with bowel perforation, presumably from the gastric pylorus or 1st segment of the duodenum. 2. No bowel obstruction. Nonspecific fluid-filled small bowel loops in the pelvis. There is mild mucosal prominence of the small bowel throughout the abdomen and intraperitoneal fluid. Suspect reactive enteritis from presumed leaked gastric contents.
--- NOTE | 2025-08-20 22:47 | XRay Report ---
Exam(s): XR CXR 1 VIEW EXAM: XR Chest, 1 View CLINICAL HISTORY: pre-op. TECHNIQUE: Frontal view of the chest. COMPARISON: Portable chest single view 08/24/2024; CT chest 06/30/2023 FINDINGS: Lungs: Similar diffuse coarse interstitial fibrotic changes noted throughout the lungs with suspected apical scarring, similar. There is new subsegmental opacity in the right suprahilar region in the central right upper lung zone. Pleural space: No large pleural effusion or pneumothorax. Heart: Unremarkable. No cardiomegaly. Mediastinum: The mediastinal contours are stable and unremarkable. Trachea is midline. Bones/joints: Mild scoliosis. No acute osseous abnormality. Incidental post ORIF changes involving both clavicles. Tubes, lines and devices: The previously noted implanted cardiac loop recorder has been explanted. IMPRESSION: Similar diffuse coarse interstitial fibrotic changes noted throughout the lungs with suspected apical scarring, similar. There is new subsegmental opacity in the right suprahilar region in the central right upper lung zone. This may represent advancing fibrosis; however, acute infectious process is not excluded. Electronically signed by: Yimi Cesar MD 08/20/25 22:46 PM
[2025-08-20] MEDS ORDERED: ATROPINE SULFATE 0.1 MG/ML 10ML SYR IV PRN (22:55)
[2025-08-20] MEDS ORDERED: DROPERIDOL 5 MG/2 ML VIAL IV PRN (22:55)
[2025-08-20] MEDS ORDERED: VASOPRESSIN 20 UNIT/ML VIAL ONE (23:28)
[2025-08-20] MEDS ORDERED: ESMOLOL HCL INJ 10 MG/ML 10ML VIAL IV ONE ×2 (23:40→23:41)
[2025-08-21] MEDS ORDERED: HYDROmorphone INJ 2 MG/ML SYR/VIAL ONE (00:25)
[2025-08-21] MEDS: BUPIVACAINE LIPOSOME 1.3% 266 MG/20 ML VIAL ONE (00:53)
[2025-08-21] MEDS: BUPIVACAINE/EPINEPHRINE 0.25% 1:200,000 30 ML VIAL ONE (00:53)
[2025-08-21] MEDS: BUPIVACAINE 0.5 % 5 MG/1 ML MPF 30ML VIAL ONE (00:53)
--- NOTE | 2025-08-21 01:22 | Operative Report ---
PG Post Operative Report Pre & Post Diagnosis Operation Date: 08/20/25 21:50 Pre-Op Diagnosis: Pneumoperitoneum Post-Op Diagnosis: Stercoral perforation I identified the patient and participated in the time-out.: Yes Procedure Operation Date: 08/20/25 21:50 Actual Procedures p Diagnostic Laparoscopy, Exploratory Laparotomy, Luis's Procedure(sigmoidectomy with end colostomy) - Zac Browne DO, ANSELMO Surgeon Zac Browne DO, ANSELMO Upkeep Mechanic Fredy Musa Estimated Blood Loss 50 Findings Consistent with Post-Op Diagnosis Diagnostic laparoscopy with purulent fluid within the abdomen. No obvious perforation in the stomach or duodenum. More evidence of peritonitis and turbid fluid in the pelvis but no obvious perforation. Converted to laparotomy, after running the bowel and colon there was evidence of a stercoral perforation at the rectosigmoid junction. Sigmoidectomy performed, and colostomy created. Abdomen irrigated, fascia closed, Exparel injected. Specimens Peritoneal fluid for culture Sigmoid perforation Anesthesia Type General Complications none Disposition Accompanied Patient To Recovery: No Disposition: Recovery Room Indications 75-year-old female presented with significant abdominal pain and tachycardia, CT scan showed pneumoperitoneum and fluid in the abdomen consistent with perforation, suspicion for perforation at the distal stomach or duodenum. Plan for diagnostic laparoscopy, possible laparotomy. The risks of the procedure were discussed, all questions were answered, and the patient agreed to proceed with surgery as planned. Description of Procedure The patient was properly identified, consented, and taken to the operating room where she was placed in the supine position. General endotracheal anesthesia was induced. A segura catheter, an NG tube, SCDs and a safety belt were placed. Preoperative antibiotics were administered. The patient's abdomen was prepped and draped in the standard sterile fashion. Surgical timeout was performed and all parties were in agreement that this was the correct patient and procedure to be performed and we continued as planned. An incision was made in the left upper quadrant and the Veress needle was inserted. Saline drop test confirmed entry into the peritoneum. The abdomen was insufflated with carbon dioxide which the patient tolerated without incident. The abdomen was then entered using the Optiview technique and a 5 mm trocar with a 5 mm 30 degree camera. The laparoscope was inserted and no damage from initial trocar or Veress needle placement was noted, no gross abnormalities were noted within the 4 quadrants of the abdomen. 5 mm ports were then placed in the right upper quadrant and right periumbilical location. The patient was placed in the reverse Trendelenburg position. There was turbid fluid in the abdomen. This was suctioned and a portion was sent for culture. The stomach and duodenum were closely inspected and there was no evidence of obvious perforation. I then inspected the remainder of the bowel and there was no evidence of perforation of small bowel. There was increased purulent fluid in the pelvis along with some increased peritonitis, but I was unable to identify a specific perforation. We then elected to convert to open. A midline laparotomy incision was then performed. The trocars were removed. The abdomen is inspected. Initially inspecting the stomach and duodenum closely there was no evidence perforation. I then ran the small bowel and there was no evidence of obvious perforation. The colon was inspected and again there appeared to be some increased fluid and peritonitis in the lower pelvis and left lower quadrant, but I did not initially identify a specific perforation. I then kocherized the duodenum and saw no evidence of perforation on the lateral or posterior portions. I then entered the lesser sac and inspected the posterior stomach and there was no evidence of perforation. I again ran the small bowel and inspected the colon. On the lateral portion of the colon at the rectosigmoid junction there was evidence of a stercoral perforation with a small area of necrosis and firm stool in the area. This was the site of perforation and was partially contained and obscured by the lateral abdominal wall. Window was created just distal to this in a healthy area of the rectum and a 60 mm purple loaded Endo RESHMA stapler was utilized to divide the colon. The white line of Toldt was then taken down along the sigmoid colon. The mesentery then divided using the Sonicision until we reached a portion which would easily reach to the abdominal wall. This was then divided utilizing 60 mm purple loaded Endo RESHMA stapler. This was passed off the table as specimen. The abdomen was copiously irrigated and hemostasis confirmed. The NG tube was confirmed to be in place. There was no evidence of other perforation. There was firm stool throughout the colon. A circular incision was made to the left left and just superior of the umbilicus overlying the rectus muscle. The skin and fat was resected down to the fascial level. A cruciate incision was made in the anterior fascia and the muscle was bluntly . The posterior fascia was then incised in a cruciate fashion. The fascia was widened enough to accommodate 2-3 fingers. The colon was then brought through the abdominal ensuring there were no twist. This was tacked to the fascia internally using 3-0 silk suture. The abdomen was again inspected and hemostasis appeared to be good. The fascia was closed with a #1 looped PDS suture. Exparel was then injected in the fascia and skin. The wound was irrigated and hemostasis confirmed. The skin was then closed with kristian. The skin of the remaining port sites were closed with kristian. The staple line was then excised from the exposed colon. The ostomy was then sutured to the skin utilizing interrupted 3-0 Vicryl deep dermal sutures. This was performed in a circumferential fashion. The ostomy was digitized and it was patent down to the fascia. An ostomy device was then fitted over the ostomy and sterile dressing applied to the abdomen. The patient was extubated in the operating room and taken to the PACU where she recovered without apparent incident. All sponge, instrument and needle counts were correct at the conclusion of the procedure. The patient tolerated the procedure well. The physicians library serials assistant was present and scrubbed for the entirety of the case. He was critical in positioning the patient, prepping and draping, retraction and exposure, driving the laparoscope, expiration of the abdomen, resection of the colon, creation of the ostomy, closure of the fascia and skin, and placement of the dressings. I attest to the content of the Intraoperative Record and any orders documented therein. Any exceptions are noted below.
[2025-08-21] MEDS ORDERED: SUGAMMADEX SODIUM 200 MG/2 ML VIAL IV ONE (01:37)
--- NOTE | 2025-08-21 02:32 | Anesthesiology Progress Note ---
Date of Service August 21, 2025 Anesthesia Post Procedure Vital Signs Vital Signs: Temp Pulse Pulse Resp BP BP Pulse Ox 08/21/25 02:14 36.7 C 118 H 18 168/87 H 97 08/21/25 02:02 36.4 C L 118 H 16 182/97 H 93 08/21/25 01:52 36.5 C 122 H 14 165/77 H 94 08/20/25 19:16 96 08/20/25 19:07 105 H 08/20/25 19:01 36.6 C 103 H 27 H 133/72 94 O2 Del Method O2 Flow Rate 08/21/25 02:14 Nasal Cannula 4 08/21/25 02:02 Room Air 08/21/25 01:52 Oxymask 15 08/20/25 19:16 Room Air 08/20/25 19:07 08/20/25 19:01 Room Air Pain Intensity Lower Abdomen: Pain Intensity: 6 Transfer of Care Handoff Completed per policy Notes Mental Status: alert / awake / arousable and participated in evaluation Patient Amnestic to Procedure: Yes Nausea / Vomiting: adequately controlled Pain: adequately controlled Airway Patency, RR, SpO2: stable & adequate BP & HR: stable & adequate Hydration State: stable & adequate Anesthetic Complications: no major complications apparent and Pt Satisfied with anesthetic care
[2025-08-21] MEDS ORDERED: METOPROLOL TARTRATE 1 MG/ML VIAL IV PRN (02:55)
[2025-08-21] MEDS ORDERED: ACETAMINOPHEN 1,000 MG/100 ML VIAL IV PRN (02:55)
[2025-08-21] MEDS ORDERED: ONDANSETRON INJ 2 MG/ML 2 ML VIAL IV PRN (02:55)
[2025-08-21] MEDS: PIPERACILLIN/TAZOBACTAM 4.5 GM/100 ML BAG IV SCH (03:25)
[2025-08-21] MEDS: ACETAMINOPHEN 1,000 MG/100 ML VIAL IV PRN (03:26)
[2025-08-21 03:52] LABS: Appearance Urine Clear (Clear); Bacteria Urine Automated None Seen (None Seen); Epithelial Cell Urine Auto 0-2 /hpf (0-2); Glucose Urine UA Negative (Negative); WBC Urine Automated 0-5 /hpf (0-5)
[2025-08-21 06:12] LABS: Hematocrit (blood only) 30.8 % (37.0-47.0); Hemoglobin 9.8 g/dl (12.0-16.0); Mean Corpuscular Hemoglobin 26.2 pg (25.0-34.0); Mean Corpuscular Volume 82.4 fL (80.0-100.0); Platelet Count 223 K/uL (130-400); RDW Standard Deviation 40.2 fL (36.4-46.3); Red Blood Count 3.74 M/uL (4.20-5.40); White Blood Count 18.12 K/ul (4.8-10.8)
[2025-08-21 06:29] LABS: Alanine Aminotransferase 24.0 U/L (7-52); Albumin Globulin Ratio 1.5 (0.9-2); Albumin Level 3.5 gm/dl (3.4-5.0); Alkaline Phosphatase 92.0 U/L (34-104); Anion Gap 7.0 (3-11); Bilirubin,Total 0.7 mg/dl (0.2-1.0); Blood Urea Nitrogen 20.0 mg/dl (6-23); Calcium 8.5 mg/dl (8.6-10.3); Carbon Dioxide 26.0 mmol/L (21-32); Chloride 104.0 mmol/L (98-107); Creatinine Clr Calc Pharmacy 44.5 ml/min; Globulin 2.4 gm/dl (2.5-4.0); Glucose 139.0 mg/dl (70-99(Fasting)); Magnesium 1.4 mg/dl (1.7-2.4); Potassium 4.0 mmol/L (3.5-5.1); Sodium 137.0 mmol/L (136-145); Total Protein 5.9 gm/dl (6.0-8.3)
[2025-08-21 06:46] LABS: Immature Granulocytes # (auto) 0.11 K/uL (0.01-0.20); Immature Granulocytes % (auto) 0.6 %; Toxic Vacuolation 1+
[2025-08-21] MEDS ORDERED: ACETAMINOPHEN 1,000 MG/100 ML VIAL IV SCH (07:46)
[2025-08-21] MEDS ORDERED: PANTOprazole 40 MG/10 ML SYR IV SCH (09:00)
--- NOTE | 2025-08-21 09:07 | Surgery Progress Note ---
Date of Service August 21, 2025 Assessment & Plan (1) Bowel perforation: Plan: POD#0 Diagnostic Laparoscopy, Exploratory Laparotomy, Luis's Procedure WBC 18.1, Hbg 9.8. Vitals stable Patient doing well recent post op. pain controlled. no n/v NGT in place for today. remain NPO/IVF. IV abx Ostomy viable, no stool/gas in bag yet. will await return of bowel function. welt sole layer consulted Consider segura removal later if feels awake and able to get around and mobilize Encourage OOB/ambulation, pulmonary toilet If hbg stable then start dvt prophylaxis tomorrow Admission and Anticipated Discharge Date Admission Date: August 20, 2025 Supervising Physician Co-Signing Physician Notes Patient seen and examined, labs reviewed, agree with above. POD #0 Peters's procedure for stercoral perforation. Sore in abdomen, slightly confused overnight. NG tube with minimal output, afebrile with stable vitals, abdomen soft, appropriately tender to palpation. Dressing clean dry and intact. Ostomy viable, no gas or stool in the bag. Continue NG tube, will continue IV antibiotics, will need 10-day total course of antibiotics. Ambulation, I-S, out of bed to chair. Start heparin. Appreciate medical assistance with this patient Subjective Patient feeling fairly well. Pain is pretty well controlled. No nausea/vomiting. Some soreness from NGT. Physical Exam Physical Exam: awake/alert, but tired appearing. no distress Respiratory: normal respiratory effort Gastrointestinal (Abdomen): Percussion/Palpation: abdomen soft; abdomen nontender surgical dressings in place, c/d/i. ostomy is viable, no gas/stool in bag yet Results & Data Vital Signs (Past 12 Hours) Vital Signs Temp Pulse Pulse Resp BP Pulse Ox O2 Del Method 08/21/25 07:36 98.6 F 98 H 14 125/66 97 Nasal Cannula 08/21/25 06:04 97.9 F 103 H 18 125/70 96 Nasal Cannula 08/21/25 05:32 101 H 18 112/69 98 Nasal Cannula 08/21/25 05:00 125/70 08/21/25 04:29 97.9 F 107 H 16 124/69 96 Nasal Cannula 08/21/25 03:48 Nasal Cannula 08/21/25 03:38 97.5 F L 110 H 18 162/92 H 97 Nasal Cannula 08/21/25 03:19 113 H 08/21/25 03:07 97.9 F 115 H 18 168/93 H 95 Nasal Cannula 08/21/25 02:55 97.5 F L 115 H 18 176/93 H 97 Nasal Cannula 08/21/25 02:14 98.1 F 118 H 18 168/87 H 97 Nasal Cannula 08/21/25 02:02 97.5 F L 118 H 16 182/97 H 93 Room Air 08/21/25 01:52 97.7 F 122 H 14 165/77 H 94 Oxymask O2 Flow Rate 08/21/25 07:36 3 08/21/25 06:04 3 08/21/25 05:32 5 08/21/25 05:00 08/21/25 04:29 5 08/21/25 03:48 5 08/21/25 03:38 5 08/21/25 03:19 08/21/25 03:07 5 08/21/25 02:55 4 08/21/25 02:14 4 08/21/25 02:02 08/21/25 01:52 15 PG Care Time/CCT Total # of Minutes Spent Total Time Spent with Patient: Total time spent is greater than 50% in coordination of care (as documented) at patient's floor/unit and/or counseling patient: Coding Level of Care Code 29240 Post Operative Follow-Up Diagnoses Bowel perforation K63.1
[2025-08-21] MEDS: ACETAMINOPHEN 10MG/ML Custom 700 MG in EMPTY BAG 0 ML IV SCH (09:27)
[2025-08-21] MEDS: KETOROLAC TROMETHAMINE 15 MG/ML VIAL IV SCH (09:28)
[2025-08-21] MEDS: PANTOprazole 40 MG/10 ML SYR IV SCH (09:30)
[2025-08-21] MEDS ORDERED: CHLORASEPTIC (PHENOL) 1.4% SOLN 180 ML BTL MT PRN (09:44)
[2025-08-21] MEDS: MoRPHine SULFATE 4 MG/ML 1 ML CARP\\VIAL IV PRN (12:26)
--- NOTE | 2025-08-21 12:40 | Electrocardiogram Report ---
Test Reason : Blood Pressure : */* mmHG Vent. Rate : 101 BPM Atrial Rate : 101 BPM P-R Int : 118 ms QRS Dur : 92 ms QT Int : 318 ms P-R-T Axes : 58 9 239 degrees QTcB Int : 412 ms Sinus tachycardia with occasional Premature ventricular complexes Possible Left atrial enlargement Incomplete right bundle branch block Septal infarct (cited on or before 26-Aug-2024) Abnormal ECG When compared with ECG of 26-Aug-2024 04:10, Questionable change in initial forces of Septal leads T wave inversion now evident in Anterior leads Confirmed by Pietro Gusman ([id number]) on 08/21/2025 12:40:00 PM Referred By: REFERRED SELF Confirmed By: Pietro Gusman
--- NOTE | 2025-08-21 18:01 | Progress Note ---
Date of Service August 21, 2025 Assessment & Plan (1) Bowel perforation: (2) Pneumoperitoneum: (3) Sepsis: (4) Carcinoma of axillary tail of right breast: Estrogen receptor status: negative Patient sex: female Qualified Code(s): C50.611 - Malignant neoplasm of axillary tail of right female breast; Z17.1 - Estrogen receptor negative status [ER-] Plan Patient is a 75-year-old female with a past medical history of breast cancer undergoing current radiation, seizures, HTN, HLD,, A-flutter, CVAs, ILD, GERD. Patient presented via EMS after sudden onset abdominal pain, nausea, and vomiting found to have a bowel perforation with pneumoperitoneum. She is being taken to the OR emergently for exploratory laparoscopy and possible laparotomy. #bowel perforation/pneumoperitoneum/sepsis - AP CT revealed pneumoperitoneum with bowel perforation, presumably from gastric pylorus or first segment of duodenum as well as reactive enteritis from presumed leak gastric contents. Mild leukocytosis, WBC 10.82 with neutrophil predominance. - POD#0 for Luis's procedure for stercoral perforation - NGT - +ostomy - keep NPO, IV fluids - cont IV Zosyn #hx of seizures - suspected 2/2 tramadol and Wellbutrin - 3 tonic clonic seizures March 2022; reports no reoccurrence since. - transition to PO Keppra to IV Keppra with NPO status #HTN - stable. - hold PO metoprolol with NPO status - prn IV Lopressor 5mg ordered #Breast CA - undergoing current radiation, immunocompromised. - IV abx as above - neutropenic precautions - spoke [facility] Dr. Dang, will hold radiation for 2 weeks #Hx CVA - s/p left carotid endarterectomy. 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 - holding statin and Zetia with NPO status #mental health - hold duloxetine and zolpidem #hypothyroidismhold levothyroxine, hx of amiodarone induced hypothyroidism. VTE ppx: SCDs - note that patient is high risk with current cancer, start chemical VTE ppx when able post-operatively Dispo: PCU Admission and Anticipated Discharge Date Admission Date: August 20, 2025 Subjective Patient is feeling okay, has an NGT and ostomy - pain comes and goes Review of Systems Review of Systems: Constitutional: No Weight Change, No Fever, No Chills, No Night Sweats, No Fatigue, No Malaise ENT/Mouth: No Hearing Changes, No Ear Pain, No Nasal Congestion, No Sinus Pain, No Hoarseness, No sore throat, No Rhinorrhea, No Swallowing Difficulty Eyes: No Eye Pain, No Swelling, No Redness, No Foreign Body, No Discharge, No Vision Changes Cardiovascular: No Chest Pain, No SOB, No PND, No Dyspnea on Exertion, No Orthopnea, No Claudication, No Edema, No Palpitations Respiratory: No Cough, No Sputum, No Wheezing, No Smoke Exposure, No Dyspnea Gastrointestinal: No Nausea, No Vomiting, No Diarrhea, No Constipation, +abdominal pain, No Heartburn, No Anorexia, No Dysphagia, No Hematochezia, No Melena, No Flatulence, No Jaundice Genitourinary: No Dysmenorrhea, No DUB, No Dyspareunia, No Dysuria, No Urinary Frequency, No Hematuria, No Urinary Incontinence, No Urgency, No Flank Pain, No Urinary Flow Changes, No Hesitancy Musculoskeletal: No Arthralgias, No Myalgias, No Joint Swelling, No Joint Stiffness, No Back Pain, No Neck Pain, No Injury History Skin: No Skin Lesions, No Pruritis, No Hair Changes, No Breast/Skin Changes, No Nipple Discharge Neuro: No Weakness, No Numbness, No Paresthesias, No Loss of Consciousness, No Syncope, No Dizziness, No Headache, No Coordination Changes, No Recent Falls Psych: No Anxiety/Panic, No Depression, No Insomnia, No Personality Changes, No Delusions, No Rumination, No SI/HI/AH/VH, No Social Issues, No Memory Changes, No Violence/Abuse Hx., No Eating Concerns Heme/Lymph: No Bruising, No Bleeding, No Transfusions History, No Lymphadenopathy Endocrine: No Polyuria, No Polydipsia, No Temperature Intolerance Physical Exam Physical Exam: VITALS: Reviewed. WEIGHT/BMI reviewed. GEN: Healthy appearing, +cachectic PSYCH: Good Judgment. AOx3. Normal memory, mood, and affect. HEENT -Head: NC/AT; -Eyes: PERRL, EOMI. No discharge or redn ess; -Ears: External ears are normal. Normal TMs. -Nose: Normal nares. -Mouth and throat: MMM. Normal gums, muc shobha, palate,. Good dentition. NECK: Supple, with no masses. CV: RRR, no m/r/g. LUNGS: CTAB, no w/r/c. ABD: +NGT, +abdominal pain : N/A SKIN: Warm, well perfused. No skin rashes or abnormal lesions. MSK: No deformities, Normal gait. EXT: No clubbing, cyanosis, or edema. NEURO: Ambulating with no limitations. Normal muscle strength and tone. No focal deficits. Results & Data Vital Signs (Past 12 Hours) Vital Signs Temp Pulse Pulse Resp BP Pulse Ox O2 Del Method 08/21/25 16:26 36.7 C 99 H 18 122/64 97 Nasal Cannula 08/21/25 11:30 36.8 C 103 H 18 117/60 95 Nasal Cannula 08/21/25 11:07 107 H 08/21/25 09:59 Nasal Cannula 08/21/25 07:36 37.0 C 98 H 14 125/66 97 Nasal Cannula 08/21/25 06:04 36.6 C 103 H 18 125/70 96 Nasal Cannula 08/21/25 05:32 101 H 18 112/69 98 Nasal Cannula 08/21/25 05:00 125/70 O2 Flow Rate 08/21/25 16:26 2 08/21/25 11:30 2 08/21/25 11:07 08/21/25 09:59 2 08/21/25 07:36 3 08/21/25 06:04 3 08/21/25 05:32 5 08/21/25 05:00 PG Care Time/CCT Total # of Minutes Spent Total Time Spent with Patient: Total time spent is greater than 50% in coordination of care (as documented) at patient's floor/unit and/or counseling patient: Coding Level of Care Code 37242 SUB INP/OBS CARE 3/50MIN Diagnoses Bowel perforation K63.1 Pneumoperitoneum K66.8 Sepsis A41.9 Carcinoma of axillary tail of right breast in female, estrogen receptor negative C50.611; Z17.1 Estrogen receptor status: negative Patient sex: female
[2025-08-21] MEDS: MoRPHine SULFATE 4 MG/ML 1 ML CARP\\VIAL IV STA (20:58)
[2025-08-22 06:03] LABS: Hematocrit (blood only) 29.5 % (37.0-47.0); Hemoglobin 9.3 g/dl (12.0-16.0); Immature Granulocytes # (auto) 0.09 K/uL (0.01-0.20); Immature Granulocytes % (auto) 0.6 %; Mean Corpuscular Hemoglobin 26.3 pg (25.0-34.0); Mean Corpuscular Volume 83.3 fL (80.0-100.0); Platelet Count 217 K/uL (130-400); RDW Standard Deviation 42.0 fL (36.4-46.3); Red Blood Count 3.54 M/uL (4.20-5.40); White Blood Count 15.90 K/ul (4.8-10.8)
[2025-08-22 06:19] LABS: Alanine Aminotransferase 21.0 U/L (7-52); Albumin Globulin Ratio 1.4 (0.9-2); Albumin Level 3.3 gm/dl (3.4-5.0); Alkaline Phosphatase 82.0 U/L (34-104); Anion Gap 7.0 (3-11); Bilirubin,Total 0.6 mg/dl (0.2-1.0); Blood Urea Nitrogen 16.0 mg/dl (6-23); Calcium 8.3 mg/dl (8.6-10.3); Carbon Dioxide 25.0 mmol/L (21-32); Chloride 109.0 mmol/L (98-107); Creatinine Clr Calc Pharmacy 48.0 ml/min; Globulin 2.4 gm/dl (2.5-4.0); Glucose 82.0 mg/dl (70-99(Fasting)); Magnesium 1.6 mg/dl (1.7-2.4); Potassium 3.6 mmol/L (3.5-5.1); Sodium 141.0 mmol/L (136-145); Total Protein 5.7 gm/dl (6.0-8.3)
--- NOTE | 2025-08-22 08:24 | Surgery Progress Note ---
Date of Service August 22, 2025 Assessment & Plan (1) Bowel perforation: Plan: POD#1 Diagnostic Laparoscopy, Exploratory Laparotomy, Luis's Procedure WBC 15.9 (18), Hbg 9.3 (9.8), Cr 0.7 Vitals show patient tachy to 110s, no fevers, BP stable, on 3L nasal cannual NGT in place, 100cc noted. pulled out some this AM and pushed back in, but pt feels like it's in her throat. Will obtain KUB for evaluation of placement, pending may need readjusted vs consider removal Awaiting ostomy function Needs OOB today, to chair and ambulation, work on pulmonary toilet Okay for DVT prophylaxis Continue IV abx Keep up with pain control, standing IV apap/toradol and prn morphine Consider segura removal today if okay with medicine Admission and Anticipated Discharge Date Admission Date: August 20, 2025 Supervising Physician Co-Signing Physician Notes Patient seen and examined, labs and imaging reviewed, agree with above. POD #1 Peters's procedure for stercoral perforation. NG tube with decreasing output, some abdominal pain. Afebrile, stable vitals. Abdomen soft, properly tender to palpation. Incision with kristian, no evidence of infection. Ostomy congested. No air or stool in the bag. WBC 15 down from 18, H&H stable. Continue NG tube until return of bowel function. Segura can be removed from surgery standpoint. Out of bed to chair, I-S, ambulation. Continue antibiotics. Follow-up cultures. Subjective Patient report + discomfort from NGT, feels like it's in her throat. Has more abdominal pain this AM but just got prn meds and that's helping. No nausea/vomiting. Not out of bed much yet. Physical Exam Physical Exam: awake/alert, but tired appearing. no distress Respiratory: normal respiratory effort Gastrointestinal (Abdomen): Inspection/Auscultation: abdomen not distended Percussion/Palpation: + abdomen tender and abdomen soft surgical dressings are c/d/i. ostomy is viable. scant seroussang fluid in bag, no flatus or stool Results & Data Vital Signs (Past 12 Hours) Vital Signs Temp Pulse Pulse Pulse Resp BP Pulse Ox 08/22/25 07:52 98.4 F 115 H 20 154/84 H 92 08/22/25 03:31 98.2 F 104 H 18 142/80 H 94 08/22/25 02:55 08/21/25 23:00 98.2 F 100 H 20 147/97 H 95 08/21/25 22:04 113 H Pulse Ox O2 Del Method O2 Del Method O2 Flow Rate O2 Flow Rate 08/22/25 07:52 Nasal Cannula 3 08/22/25 03:31 Nasal Cannula 2.5 08/22/25 02:55 94 Nasal Cannula 2 08/21/25 23:00 Nasal Cannula 2 08/21/25 22:04 PG Care Time/CCT Total # of Minutes Spent Total Time Spent with Patient: Total time spent is greater than 50% in coordination of care (as documented) at patient's floor/unit and/or counseling patient: Coding Level of Care Code 42578 Post Operative Follow-Up Diagnoses Bowel perforation K63.1
[2025-08-22] MEDS ORDERED: MoRPHine SULFATE 4 MG/ML 1 ML CARP\\VIAL IV PRN (08:27)
--- NOTE | 2025-08-22 09:23 | XRay Report ---
KUB HISTORY: eval NGT placement COMPARISON STUDY: 08/20/2025 FINDINGS: Nasogastric tube tip is at the distal body of the stomach. There are right upper quadrant s urgical clips. Left lower quadrant ostomy ring is present. There are anterior midline skin kristian. T here are a few stable mildly distended pelvic small bowel loops. No other bowel distention seen. IMPRESSION: Nasogastric tube tip is in the distal body of the stomach. ACT 112: Negative or not required by law. The above report was generated using voice recognition software. It may contain grammatical, syntax o r spelling errors. Electronically signed by: Zac Daly M.D. 08/22/2025 9:22 AM
[2025-08-22] MEDS: NICOTINE 21 MG/24 HR TDSY TD SCH (12:44)
[2025-08-22] MEDS ORDERED: COUGH DROP (SUGAR FREE) LOZ 24 LOZ/1 BOX BUCCAL PRN (13:33)
[2025-08-22] MEDS: MoRPHine SULFATE 4 MG/ML 1 ML CARP\\VIAL IV PRN (13:42)
--- NOTE | 2025-08-22 18:16 | Progress Note ---
Date of Service August 22, 2025 Assessment & Plan (1) Bowel perforation: (2) Pneumoperitoneum: (3) Sepsis: (4) Carcinoma of axillary tail of right breast: Estrogen receptor status: negative Patient sex: female Qualified Code(s): C50.611 - Malignant neoplasm of axillary tail of right female breast; Z17.1 - Estrogen receptor negative status [ER-] Plan Patient is a 75-year-old female with a past medical history of breast cancer undergoing current radiation, seizures, HTN, HLD,, A-flutter, CVAs, ILD, GERD. Patient presented via EMS after sudden onset abdominal pain, nausea, and vomiting found to have a bowel perforation with pneumoperitoneum. She is being taken to the OR emergently for exploratory laparoscopy and possible laparotomy. #bowel perforation/pneumoperitoneum/sepsis - AP CT revealed pneumoperitoneum with bowel perforation, presumably from gastric pylorus or first segment of duodenum as well as reactive enteritis from presumed leak gastric contents. Mild leukocytosis, WBC 10.82 with neutrophil predominance. - POD#0 for Luis's procedure for stercoral perforation - NGT - +ostomy - keep NPO, IV fluids - cont IV Zosyn 08/22 - POD#1 - Cantrell removed - cont NGT - keep NPO, IV fluids - cont Zosyn - not passing gas yet #hx of seizures - suspected 2/2 tramadol and Wellbutrin - 3 tonic clonic seizures March 2022; reports no reoccurrence since. - transition to PO Keppra to IV Keppra with NPO status #HTN - stable. - hold PO metoprolol with NPO status - prn IV Lopressor 5mg ordered #Breast CA - undergoing current radiation, immunocompromised. - IV abx as above - neutropenic precautions - spoke [facility] Dr. Dang, will hold radiation for 2 weeks #Hx CVA - s/p left carotid endarterectomy. 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 - holding statin and Zetia with NPO status #mental health - hold duloxetine and zolpidem #hypothyroidismhold levothyroxine, hx of amiodarone induced hypothyroidism. VTE ppx: SCDs - note that patient is high risk with current cancer, start chemical VTE ppx when able post-operatively Dispo: PCU Admission and Anticipated Discharge Date Admission Date: August 20, 2025 Subjective Patient is seated in a chair Cantrell removed not passing gas yet Review of Systems Review of Systems: Constitutional: No Weight Change, No Fever, No Chills, No Night Sweats, No Fatigue, No Malaise ENT/Mouth: No Hearing Changes, No Ear Pain, No Nasal Congestion, No Sinus Pain, No Hoarseness, No sore throat, No Rhinorrhea, No Swallowing Difficulty Eyes: No Eye Pain, No Swelling, No Redness, No Foreign Body, No Discharge, No Vision Changes Cardiovascular: No Chest Pain, No SOB, No PND, No Dyspnea on Exertion, No Orthopnea, No Claudication, No Edema, No Palpitations Respiratory: No Cough, No Sputum, No Wheezing, No Smoke Exposure, No Dyspnea Gastrointestinal: No Nausea, No Vomiting, No Diarrhea, No Constipation, +abdominal pain, No Heartburn, No Anorexia, No Dysphagia, No Hematochezia, No Melena, No Flatulence, No Jaundice Genitourinary: No Dysmenorrhea, No DUB, No Dyspareunia, No Dysuria, No Urinary Frequency, No Hematuria, No Urinary Incontinence, No Urgency, No Flank Pain, No Urinary Flow Changes, No Hesitancy Musculoskeletal: No Arthralgias, No Myalgias, No Joint Swelling, No Joint Stiffness, No Back Pain, No Neck Pain, No Injury History Skin: No Skin Lesions, No Pruritis, No Hair Changes, No Breast/Skin Changes, No Nipple Discharge Neuro: No Weakness, No Numbness, No Paresthesias, No Loss of Consciousness, No Syncope, No Dizziness, No Headache, No Coordination Changes, No Recent Falls Psych: No Anxiety/Panic, No Depression, No Insomnia, No Personality Changes, No Delusions, No Rumination, No SI/HI/AH/VH, No Social Issues, No Memory Changes, No Violence/Abuse Hx., No Eating Concerns Heme/Lymph: No Bruising, No Bleeding, No Transfusions History, No Lymphadenopathy Endocrine: No Polyuria, No Polydipsia, No Temperature Intolerance Physical Exam Physical Exam: VITALS: Reviewed. WEIGHT/BMI reviewed. GEN: Healthy appearing, +cachectic PSYCH: Good Judgment. AOx3. Normal memory, mood, and affect. HEENT -Head: NC/AT; -Eyes: PERRL, EOMI. No discharge or redn ess; -Ears: External ears are normal. Normal TMs. -Nose: Normal nares. -Mouth and throat: MMM. Normal gums, muc shobha, palate,. Good dentition. NECK: Supple, with no masses. CV: RRR, no m/r/g. LUNGS: CTAB, no w/r/c. ABD: +NGT, +abdominal pain : N/A SKIN: Warm, well perfused. No skin rashes or abnormal lesions. MSK: No deformities, Normal gait. EXT: No clubbing, cyanosis, or edema. NEURO: Ambulating with no limitations. Normal muscle strength and tone. No focal deficits. Results & Data Vital Signs (Past 12 Hours) Vital Signs Temp Pulse Pulse Resp BP Pulse Ox O2 Del Method 08/22/25 15:35 36.7 C 107 H 20 147/83 H 94 Nasal Cannula 08/22/25 15:00 107 H 08/22/25 11:34 36.8 C 102 H 18 139/75 94 Nasal Cannula 08/22/25 08:00 108 H 08/22/25 08:00 Nasal Cannula 08/22/25 07:52 36.9 C 115 H 20 154/84 H 92 Nasal Cannula O2 Flow Rate 08/22/25 15:35 3 08/22/25 15:00 08/22/25 11:34 3 08/22/25 08:00 08/22/25 08:00 3 08/22/25 07:52 3 PG Care Time/CCT Total # of Minutes Spent Total Time Spent with Patient: Total time spent is greater than 50% in coordination of care (as documented) at patient's floor/unit and/or counseling patient: Coding Level of Care Code 81669 SUB INP/OBS CARE 2/35MIN Diagnoses Bowel perforation K63.1 Pneumoperitoneum K66.8 Sepsis A41.9 Carcinoma of axillary tail of right breast in female, estrogen receptor negative C50.611; Z17.1 Estrogen receptor status: negative Patient sex: female
[2025-08-22] MEDS: ACETAMINOPHEN 1,000 MG/100 ML VIAL IV SCH (21:00)
[2025-08-22] MEDS: ACETAMINOPHEN 1000 MG/100 ML IV IV ONE (21:00)
[2025-08-22] MEDS ORDERED: Nursing to Pharmacy Communication SCH (21:45)
[2025-08-22] MEDS: HEPARIN SOD 5,000 UNIT/0.5 ML VIAL SQ SCH (22:37)
[2025-08-23] MEDS ORDERED: ACETAMINOPHEN 1,000 MG/100 ML VIAL IV SCH (01:00)
[2025-08-23 06:16] LABS: Hematocrit (blood only) 29.5 % (37.0-47.0); Hemoglobin 9.6 g/dl (12.0-16.0); Immature Granulocytes # (auto) 0.05 K/uL (0.01-0.20); Immature Granulocytes % (auto) 0.4 %; Mean Corpuscular Hemoglobin 27.0 pg (25.0-34.0); Mean Corpuscular Volume 82.9 fL (80.0-100.0); Platelet Count 230 K/uL (130-400); RDW Standard Deviation 40.8 fL (36.4-46.3); Red Blood Count 3.56 M/uL (4.20-5.40); White Blood Count 12.72 K/ul (4.8-10.8)
[2025-08-23 06:38] LABS: Alanine Aminotransferase 21.0 U/L (7-52); Albumin Globulin Ratio 1.4 (0.9-2); Albumin Level 3.1 gm/dl (3.4-5.0); Alkaline Phosphatase 83.0 U/L (34-104); Anion Gap 9.0 (3-11); Bilirubin,Total 0.6 mg/dl (0.2-1.0); Blood Urea Nitrogen 13.0 mg/dl (6-23); Calcium 8.3 mg/dl (8.6-10.3); Carbon Dioxide 22.0 mmol/L (21-32); Chloride 109.0 mmol/L (98-107); Creatinine Clr Calc Pharmacy 60.5 ml/min; Globulin 2.2 gm/dl (2.5-4.0); Glucose 61.0 mg/dl (70-99(Fasting)); Potassium 3.5 mmol/L (3.5-5.1); Sodium 140.0 mmol/L (136-145); Total Protein 5.3 gm/dl (6.0-8.3)
[2025-08-23] MEDS: REMOVE NICODERM PATCH SCH (09:04)
--- NOTE | 2025-08-23 09:36 | Surgery Progress Note ---
Date of Service August 23, 2025 Assessment & Plan (1) Bowel perforation: Plan: POD#2 Diagnostic Laparoscopy, Exploratory Laparotomy, Luis's Procedure WBC 12.7, 9.6, K 3.5, Cr 0.6 Vitals show patient tachy to 100s, no fevers, BP stable, on 2L nasal cannula NGT in place, minimal output. awaiting return of bowel function On SQH for DVT prophylaxis Needs OOB today, to chair and ambulation, work on pulmonary toilet Continue IV abx Admission and Anticipated Discharge Date Admission Date: August 20, 2025 Supervising Physician Co-Signing Physician Notes Patient seen and examined, labs and imaging reviewed, agree with above. POD #2 Peters's procedure for stercoral perforation. NG tube with minimal output, throat irritation from NG tube her biggest complaint. Minimal abdominal pain. Afebrile, stable vitals. Abdomen soft, appropriately tender to palpation. Incision with kristian, no evidence of infection. Ostomy congested. No air or stool in the bag. WBC 12.7 down from 15, H&H stable. Will clamp NG tube, if tolerates and minimal residuals at 4 hours can remove. Out of bed to chair, I- S, ambulation. Continue antibiotics. Follow-up cultures. Dr. Brambila covering over the weekend Subjective Patient feeling fairly well. Pain controlled. Denies n/v. NGT discomfort/annoyance. Voiding. Not out of bed much yet. Physical Exam Physical Exam: awake/alert, but tired appearing. no distress Respiratory: normal respiratory effort Gastrointestinal (Abdomen): Inspection/Auscultation: abdomen not distended Percussion/Palpation: + abdomen tender and abdomen soft + ostomy viable, nothing in bag yet. mid line incision with kristian c/d/i Results & Data Vital Signs (Past 12 Hours) Vital Signs Temp Pulse Pulse Pulse Resp BP BP 08/23/25 07:34 97.2 F L 103 H 22 155/105 H 08/23/25 03:37 97.7 F 101 H 20 149/95 H 08/23/25 00:46 98.1 F 103 H 18 139/77 08/22/25 22:15 105 H Pulse Ox O2 Del Method O2 Flow Rate 08/23/25 07:34 93 Nasal Cannula 2 08/23/25 03:37 97 Nasal Cannula 2.0 08/23/25 00:46 96 Room Air 08/22/25 22:15 PG Care Time/CCT Total # of Minutes Spent Total Time Spent with Patient: Total time spent is greater than 50% in coordination of care (as documented) at patient's floor/unit and/or counseling patient: Coding Level of Care Code 11685 Post Operative Follow-Up Diagnoses Bowel perforation K63.1
--- NOTE | 2025-08-23 11:36 | Hospitalist Progress Note ---
Date of Service August 23, 2025 Assessment & Plan (1) Bowel perforation: (2) Pneumoperitoneum: (3) Sepsis: (4) Carcinoma of axillary tail of right breast: Plan Patient is a 75-year-old female with a past medical history of breast cancer undergoing current radiation, seizures, HTN, HLD,, A-flutter, CVAs, ILD, GERD. Patient presented via EMS after sudden onset abdominal pain, nausea, and vomiting found to have a bowel perforation with pneumoperitoneum. She is being taken to the OR emergently for exploratory laparoscopy and possible laparotomy. Bowel perforation/pneumoperitoneum C/B sepsis s/p Peters's CTA/P: Pneumoperitoneum with bowel perforation. Suspected from gastric pylorus or for segment of duodenum with reactive enteritis 08/21/2025 s/p ex lap, Peters's/sigmoidectomy with end colostomy On assessment 07/23 minimal ostomy output, still has not had adequate return of bowel function. No flatus 08/23. NGT remains in place. Zosyn continued Routine ostomy care Fluids temporarily paused for concerns of developing volume overload pending further evaluation Acute hypoxic respiratory failure Chest x-ray on admission with interstitial fibrotic changes throughout the lungs and apical scarring, suprahilar subsegmental opacity was noted? Advancing fibrosis however pneumonia was not excluded Bedside exam 08/23 she has bibasilar crackles and light rales. She clinically endorses orthopnea Net 8 L positive since 08/20 IV FM paused She endorses nonproductive cough. Suspect likely from volume overload however she did have concern for possible subsegmental opacity on admission? Early pneumonia. She has been covered with Zosyn. Does not have a history of MRSA. She has a downtrending leukocytosis. Creatinine remains at baseline She is slightly hypertensive Echo 08/2024: Low normal EF 50-55%, basal anteroseptal/inferoseptal hypokinesis unchanged from prior. Grade 1 diastolic dysfunction. Mild to moderate MR Slight JVD 08/23 Gentle Lasix diuresis. Adjust as tolerated + volume status reassessment. Potassium supplementation while diuresing Ambulate to chair, incentive spirometry #hx of seizures - suspected 2/2 tramadol and Wellbutrin - 3 tonic clonic seizures March 2022; reports no reoccurrence since. -Continue IV Keppra until able to transition back to p.o. #HTN - She was on p.o. 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 She was ordered metoprolol tartrate 5 mg every 4 hours as needed on admission however has not received this. Likely with some underlying beta-arlen dependence and at risk of beta-arlen withdrawal. Will switch to 2.5 mg every 6 hours scheduled and can reassess for as needed doses if/as needed #Breast CA - undergoing current radiation, immunocompromised. - IV abx as above - neutropenic precautions - case was reviewed w/ Dr. Dang, will hold radiation for 2 weeks #Hx CVA - s/p left carotid endarterectomy. 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 - holding statin and Zetia with NPO status #mental health - hold duloxetine and zolpidem #hypothyroidism hold levothyroxine, hx of amiodarone induced hypothyroidism. If no return of bowel function and cannot have meds advanced past 08/24, switch to IV Synthroid at 70% oral dose VTE ppx: She is increased risk of thromboembolism due to underlying malignancy.Renal function is normal. Switched to Lovenox Dispo: PCU CODE: Full Diet: NPO Admission and Anticipated Discharge Date Admission Date: August 20, 2025 Subjective Seen at the bedside. Overall she reports she feels okay, but has not had any return of bowel function. No gas or output into her ostomy. She reports she has chronic pain in her back in addition to the pain in her abdomen. She reports that the morphine gave her very strange dreams/nightmares, she was slightly disoriented on awakening however she was able to reorient fairly quickly and feels she is at her mental status baseline and thinking clearly at time of provider assessment. Suspect some hospital delirium +/- contribution from opioid analgesics Pain is tolerable to her today She does have some discomfort in her throat/sore throat and irritation with the NGT She does feel that she is more short of breath than usual, in particular when laying flat and has had a nonproductive cough Physical Exam Physical Exam: General: A&Ox3. NAD. Cooperative. HEENT: Atraumatic, normocephalic. Pulm: Bibasilar crackles and light rales symmetrical chest rise. No increased work of breathing. No respiratory distress. Cardiac: RRR, soft systolic murmur. No JVD at the clavicle with mild HJR radial pulses intact and symmetrical. Abdominal: Nontender, nondistended, soft. Ostomy is in place, no gas/output Extremities: Warm, dry Results & Data Results & Data Vital Signs (Past 12 Hours) Vital Signs Temp Pulse Pulse Pulse Resp BP BP 08/23/25 11:28 08/23/25 11:27 95 H 08/23/25 11:27 113 H 08/23/25 07:34 36.2 C L 103 H 22 155/105 H 08/23/25 03:37 36.5 C 101 H 20 149/95 H 08/23/25 00:46 36.7 C 103 H 18 139/77 Pulse Ox O2 Del Method O2 Flow Rate 08/23/25 11:28 Nasal Cannula 2 08/23/25 11:27 08/23/25 11:27 08/23/25 07:34 93 Nasal Cannula 2 08/23/25 03:37 97 Nasal Cannula 2.0 08/23/25 00:46 96 Room Air PG Care Time/CCT Total # of Minutes Spent Total Time Spent with Patient: Total time spent is greater than 50% in coordination of care (as documented) at patient's floor/unit and/or counseling patient: Coding Level of Care Code 78364 SUB INP/OBS CARE 3/50MIN Diagnoses Bowel perforation K63.1 Pneumoperitoneum K66.8 Sepsis A41.9 Carcinoma of axillary tail of right breast in female, estrogen receptor negative C50.611; Z17.1 Estrogen receptor status: negative Patient sex: female (4) Carcinoma of axillary tail of right breast Estrogen receptor status: negative Patient sex: female Qualified Code(s): C50.611 - Malignant neoplasm of axillary tail of right female breast; Z17.1 - Estrogen receptor negative status [ER-]
--- NOTE | 2025-08-23 12:34 | XRay Report ---
XR chest 2V PA/lateral CLINICAL HISTORY: hypoxia, cough. suspect pulm edema COMPARISON STUDY: 08/20/2025 FINDINGS: Nasogastric tube tip is off the field of view inferiorly. Stable mild cardiomegaly with mil d pulmonary vascular congestion. There is an interval small area of patchy opacity at the left base w ith blunting of the left costophrenic angle. Stable diffuse interstitial and faint patchy pulmonary o pacities otherwise. Stable hazy opacity at the left lung apex. No pneumothorax seen. IMPRESSION: 1. Possible early pneumonia and trace pleural effusion at the left lung base. 2. Otherwise stable diffuse interstitial and faint patchy pulmonary opacities. ACT 112: Negative or not required by law. Electronically signed by: Zac Daly M.D. 08/23/2025 12:32 PM
[2025-08-23] MEDS: POTASSIUM CHLORIDE / WTR 10 MEQ/100 ML PLCT IV SCH (12:55)
[2025-08-23] MEDS: METOPROLOL TARTRATE 1 MG/ML VIAL IV SCH (12:56)
[2025-08-23] MEDS: FUROSEMIDE INJ 20 MG/2 ML VIAL IV SCH (12:56)
[2025-08-23] MEDS: DOXYCYCLINE HYCLATE 100 MG in DEXTROSE 5% MINI-B 100 ML IV SCH (17:14)
[2025-08-23] MEDS: ENOXAPARIN INJ 40 MG/0.4 ML SYR SQ SCH (17:16)
[2025-08-23] MEDS: KETOROLAC TROMETHAMINE 15 MG/ML VIAL IV PRN (18:45)
[2025-08-24 06:54] LABS: Hematocrit (blood only) 33.7 % (37.0-47.0); Hemoglobin 11.2 g/dl (12.0-16.0); Immature Granulocytes # (auto) 0.05 K/uL (0.01-0.20); Immature Granulocytes % (auto) 0.5 %; Mean Corpuscular Hemoglobin 26.4 pg (25.0-34.0); Mean Corpuscular Volume 79.3 fL (80.0-100.0); Platelet Count 277 K/uL (130-400); RDW Standard Deviation 36.8 fL (36.4-46.3); Red Blood Count 4.25 M/uL (4.20-5.40); White Blood Count 9.21 K/ul (4.8-10.8)
[2025-08-24 07:16] LABS: Anion Gap 12.0 (3-11); Blood Urea Nitrogen 12.0 mg/dl (6-23); Calcium 8.7 mg/dl (8.6-10.3); Carbon Dioxide 24.0 mmol/L (21-32); Chloride 102.0 mmol/L (98-107); Creatinine Clr Calc Pharmacy 49.3 ml/min; Glucose 92.0 mg/dl (70-99(Fasting)); Potassium 3.1 mmol/L (3.5-5.1); Sodium 138.0 mmol/L (136-145)
[2025-08-24] MEDS: ACYCLOVIR 400 MG TAB PO SCH (09:19)
[2025-08-24] MEDS: POTASSIUM CHLORIDE CRTAB 20 MEQ TABCR PO STA (09:39)
--- NOTE | 2025-08-24 11:57 | Surgery Progress Note ---
<Statement entered by Zeynep Brambila MD - 08/24/25 13:56> I saw and examined patient and I agree with the assessment and plan of care Date of Service August 24, 2025 Assessment & Plan (1) Bowel perforation: Plan: POD#4 Diagnostic Laparoscopy, Exploratory Laparotomy, Luis's Procedure Ostomy viable and functioning with stool and gas in bag. Post-op pain well- controlled. Ok to begin clear liquids. WBC 9.21; H and H stable. Hypertensive (140s-160s/80s-90s), Tachy in the low to mid 90s. Afebrile and on room air. on Lovenox, encouraged ambulation, incentive spirometry. Continue IV abx Patient seen and examined with Dr. Brambila. Admission and Anticipated Discharge Date Admission Date: August 20, 2025 Caitlin Gao is doing well today, she is out of bed, standing at mirror completing her skincare regimen. She reports that she is feeling well. She denies nausea, reports that post-op pain is well-controlled. States that ostomy has started to work. No acute events overnight. Physical Exam Physical Exam: awake/alert, but tired appearing. no distress Respiratory: normal respiratory effort Gastrointestinal (Abdomen): Inspection/Auscultation: abdomen not distended Percussion/Palpation: + abdomen tender and abdomen soft midline incision with kristian c/d/i- no signs of infection. ostomy viable and functioning with stool and gas in bag. Results & Data Vital Signs (Past 12 Hours) Vital Signs Temp Pulse Pulse Resp BP BP BP 08/24/25 11:41 36.7 C 95 H 20 156/84 H 08/24/25 08:13 08/24/25 07:53 36.6 C 86 21 133/84 08/24/25 07:08 87 08/24/25 06:18 91 H 160/86 H 08/24/25 05:29 82 138/80 08/24/25 03:51 36.5 C 87 17 146/89 H 08/24/25 02:00 Pulse Ox Pulse Ox O2 Del Method O2 Del Method 08/24/25 11:41 98 Room Air 08/24/25 08:13 Room Air 08/24/25 07:53 96 Room Air 08/24/25 07:08 08/24/25 06:18 08/24/25 05:29 08/24/25 03:51 91 Room Air 08/24/25 02:00 92 Room Air PG Care Time/CCT Total # of Minutes Spent Total Time Spent with Patient: Total time spent is greater than 50% in coordination of care (as documented) at patient's floor/unit and/or counseling patient: Coding Level of Care Code 16933 Post Operative Follow-Up Diagnoses Bowel perforation K63.1
--- NOTE | 2025-08-24 12:21 | Hospitalist Progress Note ---
Date of Service August 24, 2025 Assessment & Plan (1) Bowel perforation: (2) Pneumoperitoneum: (3) Sepsis: (4) Carcinoma of axillary tail of right breast: Plan Patient is a 75-year-old female with a past medical history of breast cancer undergoing current radiation, seizures, HTN, HLD,, A-flutter, CVAs, ILD, GERD. Patient presented via EMS after sudden onset abdominal pain, nausea, and vomiting found to have a bowel perforation with pneumoperitoneum. She is being taken to the OR emergently for exploratory laparoscopy and possible laparotomy. Bowel perforation/pneumoperitoneum C/B sepsis s/p Peters's CTA/P: Pneumoperitoneum with bowel perforation. Suspected from gastric pylorus or for segment of duodenum with reactive enteritis 08/21/2025 s/p ex lap, Peters's/sigmoidectomy with end colostomy On assessment 07/23 minimal ostomy output, still has not had adequate return of bowel function. No flatus 08/23. Zosyn continued Routine ostomy care - Per surgery recommend total of 10 days of antibiotics. Continue antibiotics through 08/31, 10 narrowed to Augmentin at time of discharge NGT removed, advanced and tolerating diet well with good output Acute hypoxic respiratory failure, resolving Chest x-ray on admission with interstitial fibrotic changes throughout the lungs and apical scarring, suprahilar subsegmental opacity was noted? Advancing fibrosis however pneumonia was not excluded Bedside exam 08/23 she has bibasilar crackles and light rales. She clinically endorses orthopnea Net 8 L positive since on 08/24 IV FM paused She endorses nonproductive cough. Suspect likely from volume overload however she did have concern for possible subsegmental opacity on admission? Early pneumonia. She has been covered with Zosyn. Does not have a history of MRSA. She has a downtrending leukocytosis. Creatinine remains at baseline Echo 08/2024: Low normal EF 50-55%, basal anteroseptal/inferoseptal hypokinesis unchanged from prior. Grade 1 diastolic dysfunction. Mild to moderate MR Slight JVD 08/23 Clinically improving with diuresis. Continue Lasix daily with potassium supplementation. If starting to contract to discontinue Lasix, progressing but still has some signs of increased volume Ambulate to chair, incentive spirometry Rapidly clinically improving 08/24 and now off oxygen. Creatinine remained stable. Suspect symptoms were due to volume overload. Was transient on doxycycline for atypical coverage, suspect this is less likely. Will discontinue monitor. #hx of seizures - suspected 2/2 tramadol and Wellbutrin - 3 tonic clonic seizures March 2022; reports no reoccurrence since. -P.o. Keppra resumed #HTN - metoprolol p.o. resumed #Breast CA - undergoing current radiation, immunocompromised. - IV abx as above - neutropenic precautions - case was reviewed w/ Dr. Dang, will hold radiation for 2 weeks #Hx CVA - s/p left carotid endarterectomy. 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 -Statin, Zetia resumed #mental health - hold duloxetine and zolpidem #hypothyroidism Oral Synthroid resumed VTE ppx: Lovenox Dispo: PCU CODE: Full Diet: NPO Admission and Anticipated Discharge Date Admission Date: August 20, 2025 Subjective Seen at bedside. Clinical improvement. She reports that she feels well, is no longer coughing, is not short of breath and is off oxygen. She is sitting up with good output into her ostomy bag. No abdominal pain. Physical Exam Physical Exam: General: A&Ox3. NAD. Cooperative. HEENT: Atraumatic, normocephalic. Hearing grossly intact Pulm: Bibasilar crackles and +light rales. symmetrical chest rise. No increased work of breathing. No respiratory distress. Cardiac: RRR, soft systolic murmur. Slight JVD., Improved from prior Abdominal: Nontender, nondistended, soft. Ostomy is in place, no gas/output Extremities: Warm, dry Results & Data Results & Data Vital Signs (Past 12 Hours) Vital Signs Temp Pulse Pulse Resp BP BP BP 08/24/25 11:41 36.7 C 95 H 20 156/84 H 08/24/25 08:13 08/24/25 07:53 36.6 C 86 21 133/84 08/24/25 07:08 87 08/24/25 06:18 91 H 160/86 H 08/24/25 05:29 82 138/80 08/24/25 03:51 36.5 C 87 17 146/89 H 08/24/25 02:00 Pulse Ox Pulse Ox O2 Del Method O2 Del Method 08/24/25 11:41 98 Room Air 08/24/25 08:13 Room Air 08/24/25 07:53 96 Room Air 08/24/25 07:08 08/24/25 06:18 08/24/25 05:29 08/24/25 03:51 91 Room Air 08/24/25 02:00 92 Room Air PG Care Time/CCT Total # of Minutes Spent Total Time Spent with Patient: Total time spent is greater than 50% in coordination of care (as documented) at patient's floor/unit and/or counseling patient: Coding Level of Care Code 77179 SUB INP/OBS CARE 3/50MIN Diagnoses Bowel perforation K63.1 Pneumoperitoneum K66.8 Sepsis A41.9 Carcinoma of axillary tail of right breast in female, estrogen receptor negative C50.611; Z17.1 Estrogen receptor status: negative Patient sex: female (4) Carcinoma of axillary tail of right breast Estrogen receptor status: negative Patient sex: female Qualified Code(s): C50.611 - Malignant neoplasm of axillary tail of right female breast; Z17.1 - Estrogen receptor negative status [ER-]
[2025-08-24] MEDS: ONDANSETRON INJ 2 MG/ML 2 ML VIAL IV PRN (15:50)
[2025-08-24] MEDS: levETIRAcetam 500 MG TAB PO SCH (22:36)
[2025-08-24] MEDS: ROSUVASTATIN CALCIUM 5 MG TAB PO SCH (22:36)
[2025-08-24] MEDS: METOPROLOL SUCC 50MG EXT REL TAB PO SCH (22:36)
[2025-08-24] MEDS: HYDROCODONE/ACETAMOPHEN 5/325MG TAB PO SCH (22:41)
[2025-08-24] MEDS: ZOLPIDEM TARTRATE 5 MG TAB PO SCH (22:47)
[2025-08-25] MEDS: LACTATED RINGER'S 1,000 ML IV ONE (00:25)
[2025-08-25 00:33] LABS: Base Excess VBG 2.5 mEq/L; HCO3 VBG 28 mmol/L; Oxygen Saturation VBG 87.2 %; PCO2 VBG 45 mmHg (38-50); PO2 VBG 55 mmHg; pH VBG 7.40 (7.36-7.41)
[2025-08-25 00:40] LABS: Hematocrit (blood only) 28.3 % (37.0-47.0); Hemoglobin 9.4 g/dl (12.0-16.0); Immature Granulocytes # (auto) 0.02 K/uL (0.01-0.20); Immature Granulocytes % (auto) 0.3 %; Mean Corpuscular Hemoglobin 26.6 pg (25.0-34.0); Mean Corpuscular Volume 79.9 fL (80.0-100.0); Platelet Count 250 K/uL (130-400); RDW Standard Deviation 37.2 fL (36.4-46.3); Red Blood Count 3.54 M/uL (4.20-5.40); White Blood Count 6.72 K/ul (4.8-10.8)
[2025-08-25 00:58] LABS: Alanine Aminotransferase 15.0 U/L (7-52); Albumin Globulin Ratio 1.3 (0.9-2); Albumin Level 2.8 gm/dl (3.4-5.0); Alkaline Phosphatase 69.0 U/L (34-104); Anion Gap 5.0 (3-11); Bilirubin,Total 0.6 mg/dl (0.2-1.0); Blood Urea Nitrogen 14.0 mg/dl (6-23); Calcium 8.0 mg/dl (8.6-10.3); Carbon Dioxide 30.0 mmol/L (21-32); Chloride 104.0 mmol/L (98-107); Creatinine Clr Calc Pharmacy 41.7 ml/min; Globulin 2.2 gm/dl (2.5-4.0); Glucose 98.0 mg/dl (70-99(Fasting)); Potassium 3.3 mmol/L (3.5-5.1); Sodium 139.0 mmol/L (136-145); Total Protein 5.0 gm/dl (6.0-8.3)
[2025-08-25] MEDS: LACTATED RINGER'S 1,000 ML IV SCH (01:00)
[2025-08-25] MEDS: OPTIRAY 320 100ml IV ONE (01:01)
[2025-08-25 01:12] LABS: INR 1.1 (0.9-1.1); Prothrombin Time 11.9 Seconds (9.0-12.0)
--- NOTE | 2025-08-25 01:40 | Communication Note ---
Date of Service: August 25, 2025 Alerted by nursing that patient was profoundly hypotensive and less responsive/interactive. Pt placed in Trendelenburg position. Given rapid/pressure 1L NSS bolus. BP recovered to MAP >65. Started on LR @125cc/hr. Exam revealed bright red blood in colostomy bag CTAP performed to rule out bleed - no free fluid identified in abdomen/pelvis Labs reveal drop in Hb from 11.2 to 9.4, hypokalemia, increased troponin (77.2, 81.2 on recheck), random cortisol 6.35, normal lactate Mentation improved and vitals remained stable s/p fluid resuscitation. Continue on LR @125/hr BP remains borderline. Given low random cortisol in the post op setting may benefit from steroids - defer starting at this time
[2025-08-25] MEDS: CALCIUM GLUCONATE 1,000 MG/60 ML BAG IV STA (01:50)
--- NOTE | 2025-08-25 02:17 | CT Scan Report ---
EXAM: CT abdomen pelvis wo/w con CLINICAL HISTORY: hypotension, abd pain, blood in colostomy bag TECHNIQUE: Contiguous axial images were obtained from the level of the diaphragm to the pubic symphysis with and without intravenous contrast. Coronal and sagittal reconstructions were likewise performed and were indicated to increase the sensitivity for detecting clinically relevant pathology. If IV contrast material had not been administered, the likelihood of detecting abnormalities relevant to the patient's condition would have been substantially decreased. The CT scan was performed according to ALARA (as low as reasonably achievable). 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 A few subpleural cysts are noted involving the bilateral lower lobes. A calcified granuloma is noted involving the left lower lobe. The stomach is collapsed and shows diffuse wall thickening with mucosal edema. Diffuse atherosclerotic calcification is noted involving the aorta and iliac arteries. Diffuse subcutaneous edema/anasarca is noted. Diffuse mesenteric congestion/edema is seen. Left lower quadrant colostomy status without obvious complication. The liver is normal in size and attenuation. No focal liver lesions are seen. There is no intrahepatic or extrahepatic biliary ductal dilatation. Hepatic vasculature is patent. The gallbladder is surgically removed. The spleen, pancreas, and adrenal glands are unremarkable. The kidneys are normal in size and attenuation. There is no hydronephrosis or perinephric fat stranding. No renal calculi or renal masses are identified. The ureters are normal in caliber, and no ureteral calculi are seen. The bladder is normal in contour. Pelvic viscera are unremarkable. No imaging evidence of appendicitis. No adenopathy or fluid collections are seen. Changes in L1 vertebra-stable. Prominent bilateral gonadal veins, could be suggestive of pelvic congestion syndrome. Advised clinical correlation. IMPRESSION: 1. The stomach is collapsed and shows diffuse wall thickening with mucosal edema. Advised clinical correlation. 2. Diffuse atherosclerotic calcification is noted involving the aorta and iliac arteries. Stable. 3. Diffuse subcutaneous edema/anasarca noted. New finding. 4. Diffuse mesenteric congestion/edema is seen. Stable. Previous ascites is almost resolved. No dilated bowel loops in pelvis at present. 5. Left lower quadrant colostomy status without obvious complication. New finding. 6. The visualized lung bases show ground-glass haze with diffuse reticulations. Stable. 7. A few subpleural cysts are noted involving the bilateral lower lobes. Stable. 8. A calcified granuloma is noted involving the left lower lobe. Stable. 9. Prior pneumoperitoneum is resolved. 10. Prominent bilateral gonadal veins, could be suggestive of pelvic congestion syndrome. Advised clinical correlation. Electronically signed by Neymar Pham 08-25-2025 02:17 AM
[2025-08-25] MEDS: POTASSIUM CHLORIDE CRTAB 20 MEQ TABCR PO STA (03:06)
[2025-08-25] MEDS: LEVOTHYROXINE SODIUM 75 MCG TABLET PO SCH (07:24)
[2025-08-25 08:23] LABS: Hematocrit (blood only) 30.8 % (37.0-47.0); Hemoglobin 10.1 g/dl (12.0-16.0); Immature Granulocytes # (auto) 0.03 K/uL (0.01-0.20); Immature Granulocytes % (auto) 0.4 %; Mean Corpuscular Hemoglobin 26.7 pg (25.0-34.0); Mean Corpuscular Volume 81.5 fL (80.0-100.0); Platelet Count 271 K/uL (130-400); RDW Standard Deviation 39.3 fL (36.4-46.3); Red Blood Count 3.78 M/uL (4.20-5.40); White Blood Count 7.30 K/ul (4.8-10.8)
[2025-08-25 08:42] LABS: Anion Gap 5.0 (3-11); Blood Urea Nitrogen 14.0 mg/dl (6-23); Calcium 8.3 mg/dl (8.6-10.3); Carbon Dioxide 29.0 mmol/L (21-32); Chloride 104.0 mmol/L (98-107); Creatinine Clr Calc Pharmacy 43.7 ml/min; Glucose 145.0 mg/dl (70-99(Fasting)); Potassium 3.6 mmol/L (3.5-5.1); Sodium 138.0 mmol/L (136-145)
[2025-08-25] MEDS: POTASSIUM CHLORIDE CRTAB 20 MEQ TABCR PO SCH (09:12)
[2025-08-25] MEDS: HYDROCORTISONE SOD 50 MG in SYRINGE 0 ML IV SCH (09:12)
--- NOTE | 2025-08-25 12:04 | Surgery Progress Note ---
<Statement entered by Zeynep Brambila MD - 08/25/25 15:44> I independently saw the patient, and I agree with the assessment and plan of care. Date of Service August 25, 2025 Assessment & Plan (1) Pneumoperitoneum: Plan: POD#5 Diagnostic Laparoscopy converted to Exploratory Laparotomy, Luis's Procedure WBC 6.7, Hbg stable at 9.4, K 3.3, Vitals currently stable, systolic pressures 110-120s this late morning. on 2 L O2 Events from overnight/this AM noted. pt became hypotensive and having bloody output from ostomy. Was resuscitated with IVF and responded. CT was performed showing some wall thickening and edema of the stomach along with some anasarca and post op findings She is on IV PPI. On IV abx Discussed patient's case with the hospitalists, they may consider low dose steroids if needed for low ACTH, but holding off for now We are going to continue to monitor patient closely as her vitals responded to IVF. she has not required blood transfusion. she has some blood tinged stool in bag, but no elissa blood. Will trial her on a diet as she is feeling better Lovenox and toradol on hold OOB, pulm toilet, pt/ot Admission and Anticipated Discharge Date Admission Date: August 20, 2025 Subjective Patient feeling well this AM. Offers no complaints. Pain controlled. Ostomy functioning. Physical Exam Physical Exam: awake/alert, no distress Respiratory: normal respiratory effort Gastrointestinal (Abdomen): Percussion/Palpation: abdomen soft; abdomen nontender + ostomy with liquid brown stool in bag with tinge of red to it. + gas in bag. incision c/d/i with midline kristian Results & Data Vital Signs (Past 12 Hours) Vital Signs Temp Pulse Pulse Resp BP BP Pulse Ox 08/25/25 11:39 97.9 F 89 21 127/81 94 08/25/25 10:10 08/25/25 10:07 73 08/25/25 07:41 97.9 F 71 16 116/69 98 08/25/25 06:45 102/68 08/25/25 02:00 08/25/25 00:45 76 20 08/25/25 00:45 91/58 L 08/25/25 00:45 91/58 L 08/25/25 00:45 91/58 L 08/25/25 00:45 91/58 L 08/25/25 00:44 95/49 L 08/25/25 00:42 80 23 08/25/25 00:40 102/61 08/25/25 00:40 102/61 08/25/25 00:40 102/61 08/25/25 00:40 102/61 08/25/25 00:39 77 19 100 08/25/25 00:35 92/59 L 08/25/25 00:35 92/59 L 08/25/25 00:35 92/59 L 08/25/25 00:35 92/59 L 08/25/25 00:35 92/59 L 08/25/25 00:33 75 19 100 08/25/25 00:30 86/52 L 08/25/25 00:30 86/52 L 08/25/25 00:30 86/52 L 08/25/25 00:30 86/52 L 08/25/25 00:30 86/52 L 08/25/25 00:30 76 21 100 08/25/25 00:29 79/50 L 08/25/25 00:27 76 19 100 08/25/25 00:24 79 20 100 08/25/25 00:24 75/52 L 08/25/25 00:24 75/52 L 08/25/25 00:24 75/52 L 08/25/25 00:24 75/52 L 08/25/25 00:24 75/52 L 08/25/25 00:17 68/49 L 08/25/25 00:17 68/49 L 08/25/25 00:17 68/49 L 08/25/25 00:17 68/49 L 08/25/25 00:17 68/49 L 08/25/25 00:16 70/44 L 08/25/25 00:15 83 17 08/25/25 00:14 71/42 L 08/25/25 00:14 69/43 L 08/25/25 00:12 69/46 L 08/25/25 00:12 86 18 08/25/25 00:11 65/38 L 08/25/25 00:09 83 13 08/25/25 00:09 80/40 L 08/25/25 00:09 80/40 L 08/25/25 00:09 80/40 L 08/25/25 00:04 79/42 L 08/25/25 00:04 79/42 L Pulse Ox O2 Del Method O2 Del Method O2 Flow Rate O2 Flow Rate 08/25/25 11:39 Nasal Cannula 2 08/25/25 10:10 Room Air 08/25/25 10:07 08/25/25 07:41 Nasal Cannula 2 08/25/25 06:45 08/25/25 02:00 93 Room Air 3 08/25/25 00:45 08/25/25 00:45 08/25/25 00:45 08/25/25 00:45 08/25/25 00:45 08/25/25 00:44 08/25/25 00:42 08/25/25 00:40 08/25/25 00:40 08/25/25 00:40 08/25/25 00:40 08/25/25 00:39 08/25/25 00:35 08/25/25 00:35 08/25/25 00:35 08/25/25 00:35 08/25/25 00:35 08/25/25 00:33 08/25/25 00:30 08/25/25 00:30 08/25/25 00:30 08/25/25 00:30 08/25/25 00:30 08/25/25 00:30 08/25/25 00:29 08/25/25 00:27 08/25/25 00:24 08/25/25 00:24 08/25/25 00:24 08/25/25 00:24 08/25/25 00:24 08/25/25 00:24 08/25/25 00:17 08/25/25 00:17 08/25/25 00:17 08/25/25 00:17 08/25/25 00:17 08/25/25 00:16 08/25/25 00:15 08/25/25 00:14 08/25/25 00:14 08/25/25 00:12 08/25/25 00:12 08/25/25 00:11 08/25/25 00:09 08/25/25 00:09 08/25/25 00:09 08/25/25 00:09 08/25/25 00:04 08/25/25 00:04 PG Care Time/CCT Total # of Minutes Spent Total Time Spent with Patient: Total time spent is greater than 50% in coordination of care (as documented) at patient's floor/unit and/or counseling patient: Coding Level of Care Code 99526 Post Operative Follow-Up Diagnoses Pneumoperitoneum K66.8
[2025-08-25 12:05] LABS: Hematocrit (blood only) 32.0 % (37.0-47.0); Hemoglobin 10.6 g/dl (12.0-16.0)
--- NOTE | 2025-08-25 13:31 | Hospitalist Progress Note ---
Date of Service August 25, 2025 Assessment & Plan (1) Bowel perforation: (2) Pneumoperitoneum: (3) Sepsis: (4) Carcinoma of axillary tail of right breast: Plan Patient is a 75-year-old female with a past medical history of breast cancer undergoing current radiation, seizures, HTN, HLD,, A-flutter, CVAs, ILD, GERD. Patient presented via EMS after sudden onset abdominal pain, nausea, and vomiting found to have a bowel perforation with pneumoperitoneum. She is being taken to the OR emergently for exploratory laparoscopy and possible laparotomy. Bowel perforation/pneumoperitoneum C/B sepsis s/p Peters's CTA/P: Pneumoperitoneum with bowel perforation. Suspected from gastric pylorus or for segment of duodenum with reactive enteritis 08/21/2025 s/p ex lap, Peters's/sigmoidectomy with end colostomy On assessment 07/23 minimal ostomy output, still has not had adequate return of bowel function. No flatus 08/23. Subsequently progressed well and NGT was able to be removed Zosyn continued Routine ostomy care - Per surgery recommend total of 10 days of antibiotics. Continue antibiotics through 08/31, narrowed to Augmentin at time of discharge Diet has been advanced which she is tolerating well with good output Acute hypoxic respiratory failure, resolving Chest x-ray on admission with interstitial fibrotic changes throughout the lungs and apical scarring, suprahilar subsegmental opacity was noted? Advancing fibrosis however pneumonia was not excluded Bedside exam 08/23 she has bibasilar crackles and light rales. She clinically endorses orthopnea Net 8 L positive since admission on 08/24. She endorses nonproductive cough. Suspect likely from volume overload however she did have concern for possible subsegmental opacity on admission? Early pneumonia. She has been covered with Zosyn. Does not have a history of MRSA. Fabiola treated with doxycycline however subsequent evaluation and rapid improvement were consistent with volume so this was discontinued Creatinine remains at baseline Echo 08/2024: Low normal EF 50-55%, basal anteroseptal/inferoseptal hypokinesis unchanged from prior. Grade 1 diastolic dysfunction. Mild to moderate MR Slight JVD 08/23 Ambulate to chair, incentive spirometry GI bleed Patient reportedly with bright red blood into her ostomy bag, and acute hypertension overnight 08/24 - 08/25 OVernight 2/2 acute hypotension patient was placed in Trendelenburg position, was given NSS bolus with immediate improvement in her pressures. Ostomy bag with bright red blood. CTA/P shows some stomach wall thickening/mucosal edema. Prior ascites almost resolved. Stable mesenteric congestion. No active extravasation was noted. No bleeding observed at time of morning assessment and she appears hemodynamically stable and actually feels well. Random cortisol was suppressed. Interestingly she had a abnormal ACTH test more than a year ago and was followed with endocrine. She did not show signs of [place]'s disease subsequently. Initially was considering hydrocortisone for possible prolonged hypotension with impaired stress response however at time of reassessment she is hemodynamically stable, hypotension resolved, and she feels well. Furthermore brisk bleeding and some mucosal edema on her CT is concerning for possible stress ulcer/gastritis and steroids could worsen this. Hydrocortisone deferred at time of reassessment PPI continued, Toradol discontinued, Pepcid added to PPI therapy #hx of seizures - suspected 2/2 tramadol and Wellbutrin - 3 tonic clonic seizures March 2022; re ports no reoccurrence since. - Switched back to IV due to report of GI bleed, will make sure that oral input is stable before switching back to p.o. #HTN - metoprolol with hold parameters #Breast CA - undergoing current radiation, immunocompromised. - IV abx as above - neutropenic precautions - case was reviewed w/ Dr. Dang, will hold radiation for 2 weeks #Hx CVA - s/p left carotid endarterectomy. 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 -Statin, Zetia resumed #mental health - hold duloxetine and zolpidem #hypothyroidism Oral Synthroid resumed VTE ppx: Lovenox Dispo: PCU CODE: Full Diet: NPO Admission and Anticipated Discharge Date Admission Date: August 20, 2025 Subjective Seen at the bedside this morning. Overnight reportedly with hypotensive episode and bright red blood into her ostomy bag. Was treated with IV fluids. Following fluids she had normalization of her blood pressure. At time of morning bedside assessment she actually reports she feels very well. No further blood. BP normalized. She is not tachycardic. She reports that she actually feels very well this morning and is no questions/concerns at time of bedside assessment Physical Exam Physical Exam: General: A&Ox3. NAD. Cooperative. HEENT: Atraumatic, normocephalic. Hearing grossly intact Pulm: Bibasilar crackles and basilar crackles are present. symmetrical chest rise. No increased work of breathing. No respiratory distress. Cardiac: RRR, soft systolic murmur. Slight JVD., Improved from prior Abdominal: Nontender, nondistended, soft. Ostomy is in place, green/brown output without blood at time of assessed Extremities: Warm, dry Results & Data Results & Data Vital Signs (Past 12 Hours) Vital Signs Temp Pulse Pulse Resp BP Pulse Ox Pulse Ox 08/25/25 11:39 36.6 C 89 21 127/81 94 08/25/25 10:10 08/25/25 10:07 73 08/25/25 07:41 36.6 C 71 16 116/69 98 08/25/25 06:45 102/68 08/25/25 02:00 93 O2 Del Method O2 Del Method O2 Flow Rate O2 Flow Rate 08/25/25 11:39 Nasal Cannula 2 08/25/25 10:10 Room Air 08/25/25 10:07 08/25/25 07:41 Nasal Cannula 2 08/25/25 06:45 08/25/25 02:00 Room Air 3 PG Care Time/CCT Total # of Minutes Spent Total Time Spent with Patient: Total time spent is greater than 50% in coordination of care (as documented) at patient's floor/unit and/or counseling patient: Coding Level of Care Code 41301 SUB INP/OBS CARE 3/50MIN Diagnoses Bowel perforation K63.1 Pneumoperitoneum K66.8 Sepsis A41.9 Carcinoma of axillary tail of right breast in female, estrogen receptor negative C50.611; Z17.1 Estrogen receptor status: negative Patient sex: female (4) Carcinoma of axillary tail of right breast Estrogen receptor status: negative Patient sex: female Qualified Code(s): C50.611 - Malignant neoplasm of axillary tail of right female breast; Z17.1 - Estrogen receptor negative status [ER-]
[2025-08-25] MEDS: HYDROCORTISONE SOD 50 MG in SYRINGE 0 ML IV STA (17:45)
[2025-08-25] MEDS: FAMOTIDINE 20MG IV PUSH 20 MG/5 ML SYR IV SCH (17:45)
[2025-08-25 18:45] LABS: Hematocrit (blood only) 30.6 % (37.0-47.0); Hemoglobin 10.4 g/dl (12.0-16.0)
[2025-08-26 00:46] LABS: Hematocrit (blood only) 28.9 % (37.0-47.0); Hemoglobin 9.6 g/dl (12.0-16.0)
[2025-08-26 06:24] LABS: Hematocrit (blood only) 29.4 % (37.0-47.0); Hemoglobin 9.7 g/dl (12.0-16.0); Mean Corpuscular Hemoglobin 26.4 pg (25.0-34.0); Mean Corpuscular Volume 79.9 fL (80.0-100.0); Platelet Count 308 K/uL (130-400); RDW Standard Deviation 37.2 fL (36.4-46.3); Red Blood Count 3.68 M/uL (4.20-5.40); White Blood Count 8.53 K/ul (4.8-10.8)
[2025-08-26 06:49] LABS: Anion Gap 7.0 (3-11); Blood Urea Nitrogen 20.0 mg/dl (6-23); Calcium 8.3 mg/dl (8.6-10.3); Carbon Dioxide 26.0 mmol/L (21-32); Chloride 106.0 mmol/L (98-107); Creatinine Clr Calc Pharmacy 46.4 ml/min; Glucose 138.0 mg/dl (70-99(Fasting)); Potassium 3.6 mmol/L (3.5-5.1); Sodium 139.0 mmol/L (136-145)
[2025-08-26 07:29] LABS: Immature Granulocytes # (auto) 0.08 K/uL (0.01-0.20); Immature Granulocytes % (auto) 0.9 %
--- NOTE | 2025-08-26 07:42 | Hospitalist Progress Note ---
Date of Service August 26, 2025 Assessment & Plan (1) Bowel perforation: (2) Pneumoperitoneum: (3) Sepsis: (4) Carcinoma of axillary tail of right breast: Plan Patient is a 75-year-old female with a past medical history of breast cancer undergoing current radiation, seizures, HTN, HLD,, A-flutter, CVAs, ILD, GERD. Patient presented via EMS after sudden onset abdominal pain, nausea, and vomiting found to have a bowel perforation with pneumoperitoneum. !!/ was taken to the OR emergently for exploratory laparoscopy repair and subsequent colostomy Bowel perforation/pneumoperitoneum, sepsis s/p Peters's CTA/P: Pneumoperitoneum with bowel perforation. Suspected from gastric pylorus or for segment of duodenum with reactive enteritis 08/20/2025 s/p ex lap, Peters's/sigmoidectomy with end colostomy Zosyn continued - Per surgery recommend total of 10 days of antibiotics. Continue antibiotics through 08/31, narrowed to Augmentin at time of discharge Diet has been advanced which she is tolerating well with good output Acute hypoxic respiratory failure, resolving Chest x-ray on admission with interstitial fibrotic changes throughout the lungs and apical scarring, suprahilar subsegmental opacity was noted? -volume overload from fluid resuscitation at sepsis presentation, now improved Echo 08/2024: Low normal EF 50-55%, basal anteroseptal/inferoseptal hypokinesis unchanged from prior. Grade 1 diastolic dysfunction. Mild to moderate MR GI bleed Patient reportedly with bright red blood into her ostomy bag, and acute hypertension overnight 08/24 - 08/25 hemoglobin has been stable - CTA/P shows some stomach wall thickening/mucosal edema. Prior ascites almost resolved. Stable mesenteric congestion. No active extravasation was noted. No bleeding observed at time of morning assessment and she appears hemodynamically stable and actually feels well. Random cortisol was suppressed. Interestingly she had a abnormal ACTH test more than a year ago and was followed with endocrine. She did not show signs of [place]'s disease subsequently. Initially was considering hydrocortisone for possible prolonged hypotension with impaired stress response however at time of reassessment she is hemodynamically stable, hypotension resolved, and she feels well. Furthermore brisk bleeding and some mucosal edema on her CT is concerning for possible stress ulcer/gastritis and steroids could worsen this. Hydrocortisone deferred at time of reassessment PPI continued, Toradol discontinued, Pepcid added to PPI therapy #hx of seizures - suspected 2/2 tramadol and Wellbutrin - 3 tonic clonic seizures March 2022; reports no reoccurrence since. - Switched back to IV keppra due to report of GI bleed, will make sure that oral input is stable before switching back to p.o. #HTN - metoprolol with hold parameters #Breast CA - undergoing current radiation, immunocompromised. - case was reviewed w/ Dr. Dang, will hold radiation for 2 weeks #Hx CVA - s/p left carotid endarterectomy. 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 -Statin, Zetia resumed #mental health - duloxetine and will discontinue zolpidem for concerns with confusion and its interaction with muscle relaxants (those were also discontinued) We will try low-dose of Seroquel at bedtime #hypothyroidism Oral Synthroid resumed VTE ppx: Lovenox Admission and Anticipated Discharge Date Admission Date: August 20, 2025 Subjective pt was concerned about her medicines and that she has taken them for years, discussed with family about medication changes. pt has some concerns about abdominal wound but I was in room with surgeon and feels that wound looks great Physical Exam Physical Exam: pleasant, not confused cardiac is regular lungs are clear abd with healing midline incision and ostomy in RLQ with soft stool in bag Results & Data Results & Data Vital Signs (Past 12 Hours) Vital Signs Temp Pulse Pulse Resp BP Pulse Ox O2 Del Method 08/26/25 03:32 97.7 F 81 18 126/77 91 Room Air 08/25/25 23:37 97.9 F 81 18 127/76 97 Nasal Cannula 08/25/25 22:00 86 O2 Flow Rate 08/26/25 03:32 08/25/25 23:37 2 08/25/25 22:00 Laboratory Results Reviewed CBCmild anemia stable reviewed chemistry PG Care Time/CCT Total # of Minutes Spent Total Time Spent with Patient: Total time spent is greater than 50% in coordination of care (as documented) at patient's floor/unit and/or counseling patient: Coding Level of Care Code 82752 SUB INP/OBS CARE 3/50MIN Diagnoses Bowel perforation K63.1 Pneumoperitoneum K66.8 Sepsis A41.9 Carcinoma of axillary tail of right breast in female, estrogen receptor negative C50.611; Z17.1 Estrogen receptor status: negative Patient sex: female (4) Carcinoma of axillary tail of right breast Estrogen receptor status: negative Patient sex: female Qualified Code(s): C50.611 - Malignant neoplasm of axillary tail of right female breast; Z17.1 - Estrogen receptor negative status [ER-]
--- NOTE | 2025-08-26 10:55 | Surgery Progress Note ---
Date of Service August 26, 2025 Assessment & Plan (1) Pneumoperitoneum: Plan: POD#6 s/p Diagnostic Laparoscopy converted to Exploratory Laparotomy, and Luis's Procedure -WBC 8.5, Hbg stable at 9.7, VSS -Over the weekend the patient did become hypotensive and having bloody output from ostomy she responded well with IVF and repeat CT was performed showing some wall thickening and edema of the stomach along with some anasarca and post op findings. Since then patient with no additional hypotension and Hgb has remained stable. Liquid brown stool in ostomy that appears slightly blood tinged however no elissa blood present. -Tolerating low fiber diet without any issues -Continue PPI and can transition over to oral abx -Ok for discharge from surgery standpoint, will defer to primary team for discharge planning. -Patient will follow up with Dr. Browne in roughly 1-2 weeks for her post-op check up and staple removal Admission and Anticipated Discharge Date Admission Date: August 20, 2025 Supervising Physician Co-Signing Physician Notes Patient seen and examined, labs reviewed, agree with above. Status post Peters's procedure for sigmoid colon perforation. Ostomy functioning, doing well. Had some possible bleeding from her ostomy site a few days ago but this is resolved. She had a hypotensive episode today which is believed to be related to restarting some of her home medications. Otherwise doing well. Afebrile with stable vitals, abdomen soft, nontender, incision without infect ion. Ostomy productive of gas and stool. Labs unremarkable, WBC normal, H&H stable. Given today's episode we will keep in house 1 more day, surgery will follow, potential discharge tomorrow. Follow-up with me in 1 week for staple removal. Pathology results were reviewed with the patient, no malignancy. Subjective Patient seen and examined this morning, states that she is feeling well. Tolerating diet, ostomy functioning Vital signs stable, afebrile and WBC 8.5, hemoglobin 9.7 Physical Exam Constitutional: WD/WN, vitals as above Respiratory: normal respiratory effort; no respiratory distress and no labored breathing Cardiovascular: Rate/Rhythm: regular rate Gastrointestinal (Abdomen): Soft, nondistended, +kristian in place over incisions, c/d/i without signs of infection Ostomy in place, liquid brown slightly red tinged stool appreciated in bag Results & Data Vital Signs (Past 12 Hours) Vital Signs Temp Pulse Resp BP Pulse Ox O2 Del Method O2 Flow Rate 08/26/25 07:55 36.5 C 82 18 129/72 92 Room Air 08/26/25 03:32 36.5 C 81 18 126/77 91 Room Air 08/25/25 23:37 36.6 C 81 18 127/76 97 Nasal Cannula 2 PG Care Time/CCT Total # of Minutes Spent Total Time Spent with Patient: Total time spent is greater than 50% in coordination of care (as documented) at patient's floor/unit and/or counseling patient: Coding [place] [address] Post Operative Follow-Up Patient Type Established Medical Decision Making Straight Forward Diagnoses Pneumoperitoneum K66.8
[2025-08-26] MEDS: ACETAMINOPHEN 500 MG TAB PO PRN (20:04)
[2025-08-26] MEDS: FAMOTIDINE 20 MG TAB PO SCH (20:05)
[2025-08-27] MEDS: HYDROmorphone INJ 0.5 MG/0.5 ML SYR IV PRN (02:50)
--- NOTE | 2025-08-27 07:36 | Hospitalist Progress Note ---
Date of Service August 27, 2025 Assessment & Plan (1) Bowel perforation: (2) Pneumoperitoneum: (3) Sepsis: (4) Carcinoma of axillary tail of right breast: Plan Patient is a 75-year-old female with a past medical history of breast cancer undergoing current radiation, seizures, HTN, HLD,, A-flutter, CVAs, ILD, GERD. Patient presented via EMS after sudden onset abdominal pain, nausea, and vomiting found to have a bowel perforation with pneumoperitoneum. !!/ was taken to the OR emergently for exploratory laparoscopy repair and subsequent colostomy Bowel perforation/pneumoperitoneum, sepsis s/p Peters's CTA/P: Pneumoperitoneum with bowel perforation. Suspected from gastric pylorus or for segment of duodenum with reactive enteritis 08/20/2025 s/p ex lap, Peters's/sigmoidectomy with end colostomy Zosyn continued - Per surgery recommend total of 10 days of antibiotics. Continue antibiotics through 08/31, narrowed to Augmentin at time of discharge Diet has been advanced which she is tolerating well with good output Acute hypoxic respiratory failure, resolving Chest x-ray on admission with interstitial fibrotic changes throughout the lungs and apical scarring, suprahilar subsegmental opacity was noted? -volume overload from fluid resuscitation at sepsis presentation, now improved Echo 08/2024: Low normal EF 50-55%, basal anteroseptal/inferoseptal hypokinesis unchanged from prior. Grade 1 diastolic dysfunction. Mild to moderate MR GI bleed bright red blood into her ostomy bag, and acute hypertension overnight 08/24 - 08/25 since hemoglobin has been stable - CTA/P shows some stomach wall thickening/mucosal edema. Prior ascites almost resolved. Stable mesenteric congestion. No active extravasation was noted. Random cortisol was suppressed. Interestingly she had a abnormal ACTH test more than a year ago and was followed with endocrine. She did not show signs of [place]'s disease subsequently. Initially was considering hydrocortisone for possible prolonged hypotension with impaired stress response however at time of reassessment she is hemodynamically stable, hypotension resolved, and she feels well. Furthermore brisk bleeding and some mucosal edema on her CT is concerning for possible stress ulcer/gastritis and steroids could worsen this. Hydrocortisone deferred at thia time PPI continued, Toradol discontinued, Pepcid added to PPI therapy #hx of seizures - suspected 2/2 tramadol and Wellbutrin - 3 tonic clonic seizures March 2022; reports no reoccurrence since. - Switched back to po keppra due to report of GI bleed, will make sure that oral input is stable before switching back to p.o. #HTN - metoprolol with hold parameters #Breast CA - undergoing current radiation, immunocompromised. - case was reviewed w/ Dr. Dang, will hold radiation for 2 weeks #Hx CVA - s/p left carotid endarterectomy. 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 -Statin, Zetia resumed #mental health - duloxetine and will discontinue zolpidem for concerns with confusion and its interaction with muscle relaxants (those were also discontinued) We will try low-dose of Seroquel at bedtime #hypothyroidism Oral Synthroid resumed VTE ppx: Lovenox Admission and Anticipated Discharge Date Admission Date: August 20, 2025 Results & Data Results & Data Vital Signs (Past 12 Hours) Vital Signs Temp Pulse Pulse Resp BP Pulse Ox O2 Del Method 08/27/25 03:33 98.4 F 72 20 127/63 93 Nasal Cannula 08/26/25 23:00 97.7 F 74 16 117/67 93 Nasal Cannula 08/26/25 21:45 74 08/26/25 20:00 98.2 F 83 20 129/82 91 Room Air O2 Flow Rate 08/27/25 03:33 2 08/26/25 23:00 2 08/26/25 21:45 08/26/25 20:00 PG Care Time/CCT Total # of Minutes Spent Total Time Spent with Patient: Total time spent is greater than 50% in coordination of care (as documented) at patient's floor/unit and/or counseling patient: Coding Diagnoses Bowel perforation K63.1 Pneumoperitoneum K66.8 Sepsis A41.9 Carcinoma of axillary tail of right breast in female, estrogen receptor negative C50.611; Z17.1 Estrogen receptor status: negative Patient sex: female (4) Carcinoma of axillary tail of right breast Estrogen receptor status: negative Patient sex: female Qualified Code(s): C50.611 - Malignant neoplasm of axillary tail of right female breast; Z17.1 - Estrogen receptor negative status [ER-]
[2025-08-27 08:03] VITALS: O2SAT 91
[2025-08-27 08:22] LABS: Hematocrit (blood only) 30.1 % (37.0-47.0); Hemoglobin 9.7 g/dl (12.0-16.0); Mean Corpuscular Hemoglobin 26.2 pg (25.0-34.0); Mean Corpuscular Volume 81.4 fL (80.0-100.0); Platelet Count 297 K/uL (130-400); RDW Standard Deviation 39.9 fL (36.4-46.3); Red Blood Count 3.70 M/uL (4.20-5.40); White Blood Count 10.53 K/ul (4.8-10.8)
[2025-08-27 08:40] LABS: Anion Gap 5.0 (3-11); Blood Urea Nitrogen 16.0 mg/dl (6-23); Calcium 8.5 mg/dl (8.6-10.3); Carbon Dioxide 28.0 mmol/L (21-32); Chloride 107.0 mmol/L (98-107); Creatinine Clr Calc Pharmacy 48.7 ml/min; Glucose 93.0 mg/dl (70-99(Fasting)); Potassium 3.7 mmol/L (3.5-5.1); Sodium 140.0 mmol/L (136-145)
--- NOTE | 2025-08-27 09:32 | Surgery Progress Note ---
Date of Service August 27, 2025 Assessment & Plan (1) Pneumoperitoneum: Plan: POD#7 s/p Diagnostic Laparoscopy converted to Exploratory Laparotomy, and Luis's Procedure WBC 10.5, Hbg 9.7, VSS Patient feeling better Tolerating diet, ostomy functioning, no n/v Incisions with kristian are c/d/i Would complete a 10 day course of abx, transition to orals okay Patient eager for discharge to home, we are okay with this if cleared by medicine F/u in 1 week for staple removal in dr. rios office Admission and Anticipated Discharge Date Admission Date: August 20, 2025 Supervising Physician Co-Signing Physician Notes Patient seen examined, agree with above. Status post Peters's procedure for stercoral perforation. Tolerating diet, ostomy functional. Afebrile stable vitals. Abdomen soft, nontender, incision without infection, colostomy productive of gas and stool. Labs unremarkable. Okay to DC to home. Wound care instructions and activity restrictions reviewed. Follow-up next week for staple removal. Return precautions given, call with questions or concerns Subjective Patient feeling well. Pain controlled. Tolerating a diet. No n/v. Having + bowel function. Results & Data Vital Signs (Past 12 Hours) Vital Signs Temp Pulse Pulse Resp BP Pulse Ox O2 Del Method 08/27/25 08:07 69 08/27/25 07:55 97.7 F 81 23 122/61 91 Room Air 08/27/25 03:33 98.4 F 72 20 127/63 93 Nasal Cannula 08/26/25 23:00 97.7 F 74 16 117/67 93 Nasal Cannula 08/26/25 21:45 74 O2 Flow Rate 08/27/25 08:07 08/27/25 07:55 08/27/25 03:33 2 08/26/25 23:00 2 08/26/25 21:45 PG Care Time/CCT Total # of Minutes Spent Total Time Spent with Patient: Total time spent is greater than 50% in coordination of care (as documented) at patient's floor/unit and/or counseling patient: Coding Level of Care Code 87437 Post Operative Follow-Up Diagnoses Pneumoperitoneum K66.8
[2025-08-27 11:50] VITALS: BP 123/73; RESP 21; TEMP 97.9
[2025-08-27 13:42] VITALS: PULSE 103
--- NOTE | 2025-08-27 18:20 | Discharge Summary ---
Discharge Summary Date of Service August 27, 2025 Principal Dx & Hospital Course #1 = Principal Diagnosis (1) Bowel perforation: (2) Pneumoperitoneum: (3) Sepsis: (4) Carcinoma of axillary tail of right breast: Plan Patient is a 75-year-old female with a past medical history of breast cancer undergoing current radiation, seizures, HTN, HLD,, A-flutter, CVAs, ILD, GERD. Patient presented via EMS after sudden onset abdominal pain, nausea, and vomiting found to have a bowel perforation with pneumoperitoneum. !!/ was taken to the OR emergently for exploratory laparoscopy repair and subsequent colostomy Bowel perforation/pneumoperitoneum, sepsis s/p Peters's CTA/P: Pneumoperitoneum with bowel perforation. Suspected from gastric pylorus or for segment of duodenum with reactive enteritis 08/20/2025 s/p ex lap, Peters's/sigmoidectomy with end colostomy Zosyn continued - Per surgery recommend total of 10 days of antibiotics. Continue antibiotics through 08/31, narrowed to Augmentin at time of discharge Diet has been advanced which she is tolerating well with good output Acute hypoxic respiratory failure, resolving Chest x-ray on admission with interstitial fibrotic changes throughout the lungs and apical scarring, suprahilar subsegmental opacity was noted? -volume overload from fluid resuscitation at sepsis presentation, now improved Echo 08/2024: Low normal EF 50-55%, basal anteroseptal/inferoseptal hypokinesis unchanged from prior. Grade 1 diastolic dysfunction. Mild to moderate MR GI bleed bright red blood into her ostomy bag, and acute hypertension overnight 08/24 - 08/25 since hemoglobin has been stable - CTA/P shows some stomach wall thickening/mucosal edema. Prior ascites almost resolved. Stable mesenteric congestion. No active extravasation was noted. Random cortisol was suppressed. Interestingly she had a abnormal ACTH test more than a year ago and was followed with endocrine. She did not show signs of [place]'s disease subsequently. Initially was considering hydrocortisone for possible prolonged hypotension with impaired stress response however at time of reassessment she is hemodynamically stable, hypotension resolved, and she feels well. Furthermore brisk bleeding and some mucosal edema on her CT is concerning for possible stress ulcer/gastritis and steroids could worsen this. Hydrocortisone deferred at thia time #hx of seizures - suspected 2/2 tramadol and Wellbutrin - 3 tonic clonic seizures March 2022; reports no reoccurrence since. - Switched back to po keppra #HTN - metoproloL #Breast CA - undergoing current radiation, immunocompromised. - case was reviewed w/ Dr. Dang, will hold radiation for 2 weeks #Hx CVA - s/p left carotid endarterectomy. 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 -Statin, Zetia resumed #mental health - duloxetine and will discontinue zolpidem for concerns with confusion and its interaction with muscle relaxants (those were also discontinued) Patient felt improved with low-dose Seroquel will continue at discharge and discontinue zolpidem #hypothyroidism Oral Synthroid resumed Notes For Next Care Provider Further evaluation of muscle relaxer use and Seroquel use at bedtime Admission HPI Per Admitting Provider Patient is a 75-year-old female with a past medical history of breast cancer undergoing current radiation, seizures, HTN, HLD,, A-flutter, ILD. Patient presented via EMS after sudden onset abdominal pain, nausea, and vomiting found to have a bowel perforation with pneumoperitoneum. Patient seen at bedside with her daughter and present. She stated that this morning she was going about her day as usual with mild abdominal pain. They are working on the floors of her house so she was doing so today when later in the afternoon when she was to go to her radiation appointment, she looked at her daughter and stated she could not go because of the abdominal pain. She laid in bed for several hours, when she tried to get up she was unable to due to the pain. This is when they called EMS. She stated she vomited approximately 4 times however was a small amount of vomit given that she had to eat today was a peanut butter sandwich at 1300. She also took some abhi naseem around 2 PM. She stated her pain is currently well-controlled after medication in the ED, however tender with palpation of right lower quadrant. She denies any fevers today, did not report taking her temperature at home. She denies any history of gastric ulcers. Previous abdominal surgeries include cholecystectomy and appendectomy. Patient reports smoking 4 to 5 cigarettes/day, declines need for nicotine patch. She denies any alcohol use. She did take her morning medications, will be due for evening which includes metoprolol succinate 50 mg p.o. at bedtime and Keppra 500 mg p.o. She stated she had a seizure 1 time 3 years ago which they thought was medication induced however she has remained on Keppra. She wishes to be full code however would not want long-term life support. Regarding her breast cancer - She stated 30 years ago she had a double mastectomy and completed a full course of chemotherapy, she did not have radiation at this time. She then had a reoccurrence recently and has undergone 5 treatments of radiation, did miss a radiation treatment today. Discharge Exam Pleasant female mild abdominal pain persisting chronic low back pain Companied by daughter comfortable with going home today Discharge Plan Discharge Items Patient Disposition: Home - Self-Care Reason For Visit: BOWEL PERF, PNEUMOPERITONEUM, SEPSIS Discharge Diagnosis: diagnostic laparoscopy converted to open sigmoid colon resection and creation of colostomy Condition on Discharge: Serious Activity: Per Instructions section Lifting: No more than 10 pounds Bathing Comment: may shower; no soaking in tubs/pools x 2 weeks Exercise/Sports: Wait until after follow-up appointment Driving/Machine Use: no driving while taking narcotics for pain Non-emergency contact: Primary Care Provider and Surgeon Call non-emergency contact if: you have any medication questions, your symptoms worsen, your pain is worsening, you have a fever, your temperature is above 101.5, your wound has increased redness, your wound has increased drainage and your wound pain has increased Follow-up/Referrals: Luis Antonio Buck MD [Primary Care Provider] - 09/02/25 8:30 am (Hospital follow up on September 02 at 8:30 am.) Zac Browne DO, ANSELMO [Physician] - 09/10/25 9:15 am (Hospital follow up on September 10 at 9:15 am.) Diet: Low Fiber Addtl Attending Provider Instructions: SPECIAL CARE INSTRUCTIONS: * You have kristian in place that should be removed around 14 days from your surgical procedure. Plesae follow up in the office around this time for check up and staple removal. May leave incisions open to air if not draining/leaking any fluid. Otherwise if needed or for comfort may use gauze/medical tape over incisions and change daily and as needed. * Care for your colostomy as you have been educated prior to discharge from the hospital. * Complete the full course of antibiotic prescribed to you * You may shower. NO soaking in pools or baths for 2 weeks * No lifting greater than 10lbs. No strenuous exercise until cleared by surgeon. Light walking is accepted. * No driving while taking narcotic pain medication; wait at least 3 days * No drinking alcohol while taking narcotic pain medication * May use Ibuprofen/Tylenol over the counter for pain as tolerated. Do not exceed 3grams of Tylenol per 24 hours * Expect some swelling and bruising. * Diet- low fiber diet Call your doctor if: * Temperature above 101 degrees, nausea/vomiting, fever/chills * Pain not relieved by pain medicine ordered * There is increased drainage or redness from any incision * You have any unanswered questions or concerns [phone]. FOLLOW UP VISIT: If not already scheduled, please call the office for a follow-up visit. Office [facility] Provider Instructions: substitute new sleep aid for your Ambien complete additional days of antibiotics after discharge Pending Studies at Discharge: Yes Studies:: surgical pathology Stand-Alone Forms: My [facility], Smoking Cessation Medications and DC Order Prescriptions: New quetiapine [Seroquel] 25 mg tablet 25 mg PO HS Qty: 30 2RF amoxicillin-pot clavulanate 875-125 mg tablet 1 tab PO BID Qty: 9 0RF Continued teriparatide [Forteo] 20 mcg/dose (600mcg/2.4mL) pen injector 20 mcg subcut DAILY Qty: 2.4 11RF Rx Instructions: prior auth approved from 01/16/25 - 01/16/26 rosuvastatin 5 mg tablet 5 mg PO QPM Qty: 90 3RF (DME) pen needle, diabetic [Pen Needle] 31 gauge x 5/16" needle See Rx Instructions .Route Qty: 100 3RF Rx Instructions: use 1 daily with forteo injection albuterol sulfate 90 mcg/actuation HFA aerosol inhaler 1 - 2 puff inhalation Q4H PRN (Reason: interstitial lung disease) Qty: 18 3RF Rx Instructions: RARE USE ezetimibe 10 mg tablet 10 mg PO HS Qty: 90 3RF ondansetron HCl 4 mg tablet 4 mg PO Q8H PRN (Reason: nausea and vomiting) Qty: 30 1RF tizanidine 4 mg tablet 4 mg PO BID PRN (Reason: muscle spasticity) Qty: 60 5RF Hold Instructions: Not covered by insurance/transition to methocarbamol- 10/02 metoprolol succinate 50 mg tablet extended release 24 hr 50 mg PO HS Qty: 90 3RF levetiracetam [Keppra] 500 mg tablet 500 mg PO BID 90 Days Qty: 180 3RF famotidine [Pepcid] 20 mg tablet 20 mg PO BID Qty: 180 3RF hydrocodone-acetaminophen 5-325 mg tablet 1 tab PO BID Qty: 60 0RF acyclovir 400 mg tablet 400 mg PO BID Qty: 60 5RF (DME) blood-glucose meter [OneTouch Verio Flex Start] Kit See Rx Instructions .Route Qty: 1 1RF Rx Instructions: use to test blood sugar as directed (DME) OneTouch Verio test strips Strip See Rx Instructions .ROUTE .MEDSUPPLY Qty: 100 3RF Rx Instructions: test blood sugar 1 time daily (DME) lancets 33 gauge misc See Rx Instructions .ROUTE .MEDSUPPLY Qty: 100 3RF Rx Instructions: use to test blood sugar 1 time daily fluticasone propionate 50 mcg/actuation spray,suspension 1 spray intranasal HS Dose Instruction: INSTILL 2 SPRAYS INTO EACH NOSTRIL ONCE DAILY Emergen-C 1,000 mg Powder Effervescent In Packet 1 ea PO DAILY PRN (Reason: Cold Symptoms) loperamide 2 mg Capsule 2 mg PO DIRECTED PRN (Reason: Diarrhea) Rx Instructions: administer after each loose stool until symptoms controlled; do not exceed 8 mg per 24 hrs levothyroxine 75 mcg tablet 75 mcg PO DAILYBB Rx Instructions: Take medication on an empty stomach 30 minutes prior to morning meal. ipratropium bromide 21 mcg (0.03 %) spray,non-aerosol 1 - 2 spray intranasal .1-2XDAILY Rx Instructions: PER PT "USUALLY AT HS" INSTILL 1 TO 2 SPRAYS INTO EACH NOSTRIL 1 TO 2 TIMES DAILY duloxetine 30 mg capsule,delayed release(DR/EC) See Rx Instructions .ROUTE .COMPLEX Rx Instructions: TAKES 60 MG QAM, THEN 30 MG HS. Discontinued zolpidem 10 mg tablet 10 mg PO HS Qty: 30 0RF Discharge Orders: Discharge Order (Routine); Ordered 08/27/25 Ordered By: Bib Ni/Other Patient Handouts: Low-Fiber Diet Admission Data Admit Date/Time: 08/20/25 22:22 Attending Provider: Bib Brady Admit Provider: Doc Parra Primary Care Provider: Luis Antonio Buck V. Other Providers: Zac Browne; Doc Parra; [facility] Fax Other Interventions: Discharge Summary Assessment (RN) Last Done: 08/27/25 13:39 Hospital Stay Data Consultations 08/20/25 21:20 Consult General Surgery Stat 08/20/25 22:03 ED Decision to Admit Stat Procedures Performed Operation Date: 08/20/25 21:50 Actual Procedures p Diagnostic Laparoscopy, Exploratory Laparotomy, Luis's Procedure(Not Applicable) - Zac Browne DO, FACS Diagnostic Imagining Performed 08/20/25 19:15 CT abd pelvis IV con only Stat 08/25/25 00:57 CT abdomen pelvis wo/w con Stat Pending Results Patient Have Any Pending Studies at Discharge: Yes Discharge Instructions Given to Patient (Per Discharging Provider) SPECIAL CARE INSTRUCTIONS: * You have kristian in place that should be removed around 14 days from your surgical procedure. Plesae follow up in the office around this time for check up and staple removal. May leave incisions open to air if not draining/leaking any fluid. Otherwise if needed or for comfort may use gauze/medical tape over incisions and change daily and as needed. * Care for your colostomy as you have been educated prior to discharge from the hospital. * Complete the full course of antibiotic prescribed to you * You may shower. NO soaking in pools or baths for 2 weeks * No lifting greater than 10lbs. No strenuous exercise until cleared by surgeon. Light walking is accepted. * No driving while taking narcotic pain medication; wait at least 3 days * No drinking alcohol while taking narcotic pain medication * May use Ibuprofen/Tylenol over the counter for pain as tolerated. Do not exceed 3grams of Tylenol per 24 hours * Expect some swelling and bruising. * Diet- low fiber diet Call your doctor if: * Temperature above 101 degrees, nausea/vomiting, fever/chills * Pain not relieved by pain medicine ordered * There is increased drainage or redness from any incision * You have any unanswered questions or concerns [phone]. FOLLOW UP VISIT: If not already scheduled, please call the office for a follow-up visit. Office Total Time Total Time Spent Total Time Spent (In Minutes): I personally have spent greater than 30 minutes of time on the patient discharge today including review of tests, documentation, exam, and discussing treatment plan moving forward with the patient. Coding Level of Care Code 36393 INP/OBS DISCH >30 MIN Diagnoses Bowel perforation K63.1 Pneumoperitoneum K66.8 Sepsis A41.9 Carcinoma of axillary tail of right breast in female, estrogen receptor negative C50.611; Z17.1 Estrogen receptor status: negative Patient sex: female
== END 2025-08-27 14:57 | disposition home or self-care (01) | DRG 853 ==
LOC: ED 18:56 → SUATTDRO 22:22 → OR 22:37 → 2E 22:37 → SUATTDRO 22:38 → 2E 22:38